=== PATIENT | male | born 1965 | race Caucasian/White ===

== ENCOUNTER 2018-08-20 14:05 | Emergency (ER) | payer SELFPAY ==
[~2018-08-20] VITALS: Ht 182.9 cm; Wt 127.0 kg
--- OUTSIDE RECORDS SUMMARY | 2018-08-20 14:08 | XMS REPORT | Clinical Summary ---
Author Author [facility] [employer] Organization [facility] [employer] Address Unknown Phone Unavailable Care Team Providers Care Seamer Operator Name Role Phone Asked, No Pcp PCP Unavailable Allergies Comments Active Allergy Reactions Severity Noted Date Pt states he swells up when he takes penicillin Penicillins High 08/16/2018 Medications End Date Status Medication Sig Dispensed Refills Start Date 09/18/2018 Active amIODarone (PACERONE) 100 Take 1 tablet 60 tablet 0 MG tablet (100 mg 9 total) by mouth every 12 (twelve) hours for 30 days. 09/19/2018 Active amLODIPine (NORVASC) 10 Take 1 tablet 30 tablet 0 mg tablet (10 mg total) 9 by mouth daily for 30 days. 09/18/2018 Active apixaban (ELIQUIS) 5 mg Take 1 tablet 60 tablet 0 tablet (5 mg total) 9 by mouth 2 (two) times a day for 30 days. 09/19/2018 Active aspirin 81 mg chewable Chew 1 tablet 30 tablet 0 tablet (81 mg total) 9 daily for 30 days. 09/19/2018 Active folic acid (FOLVITE) 1 MG Take 1 tablet 30 tablet 0 tablet (1 mg total) 9 by mouth daily for 30 days. 09/18/2018 Active hydrALAZINE (APRESOLINE) Take 1 tablet 90 tablet 0 100 MG tablet (100 mg 9 total) by mouth 3 (three) times a day for 30 days. 09/18/2018 Active metoprolol tartrate Take 1 tablet 60 tablet 0 (LOPRESSOR) 25 mg tablet (25 mg total) 9 by mouth 2 (two) times a day for 30 days. 09/19/2018 Active nicotine (NICODERM CQ) 21 Place 1 patch 30 patch 0 mg/24 hr on the skin 9 daily for 30 days. 09/19/2018 Active pantoprazole (PROTONIX) Take 1 tablet 30 tablet 0 40 MG EC tablet (40 mg total) 9 by mouth daily for 30 days. 08/24/2018 Active vancomycin (FIRVANQ) 50 Take 5 mL 100 mL 0 mg/mL recon soln oral (250 mg 9 solution total) by mouth 4 (four) times a day for 5 days. 09/19/2018 Active thiamine mononitrate, vit Take 1 tablet 30 tablet 0 B1, (B-1) 100 mg tablet (100 mg 9 total) by mouth daily for 30 days. 09/18/2018 Active furosemide (LASIX) 40 mg Take 1 tablet 60 tablet 0 tablet (40 mg total) 9 by mouth 2 (two) times a day for 30 days. Active Problems Problem Noted Date Cardiac arrest 08/08/2018 Encounters Care Team Description Date Type Specialty Justin Buchanan DO Neela, MD Lc Luke Tanseem Hamad Mohamed A, MD Bavare, MD Herrera Ellington, David Perry DO Cardiac arrest (HCC) (Primary Dx); Ventricular tachycardia (HCC) 08/08/2018 [facility] General Internal Medicine - Encounter 08/19/2018 after 08/19/2017 Social History Date Tobacco Use Types Packs/Day Years Used Current Every Day Smoker Cigarettes Tobacco Cessation: Ready to Quit: No; Counseling Given: Yes Sex Assigned at Date Recorded Not on file Industry Job Start Date Occupation Not on file Not on file Not on file Travel End Travel History Travel Start No recent travel history available. Last Filed Vital Signs Time Taken Vital Sign Reading 08/19/2018 7:39 AM CDT Blood Pressure 124/74 08/19/2018 7:39 AM CDT Pulse 94 08/19/2018 7:39 AM CDT Temperature 36.5 C (97.7 F) 08/19/2018 7:39 AM CDT Respiratory Rate 19 08/19/2018 7:39 AM CDT Oxygen Saturation 93% - Inhaled Oxygen - Concentration 08/17/2018 5:12 AM CDT Weight 96.7 kg (213 lb 1.6 oz) 08/08/2018 9:29 AM CDT Height 175.3 cm (5' 9") 08/08/2018 9:29 AM CDT Body Mass Index 31.47 Plan of Treatment Health Maintenance Due Date Last Done Comments COLONOSCOPY SCREENING 08/13/2013 SHINGLES VACCINES (#1) 08/13/2013 INFLUENZA VACCINE 09/29/2018 Procedures Comments Procedure Name Priority Date/Time Associated Diagnosis ESTIMATED GFR Routine 08/19/2018 7:16 AM CDT HC COMPLETE BLD COUNT Routine 08/19/2018 W/AUTO DIFF 7:16 AM CDT BASIC METABOLIC PANEL Routine 08/19/2018 7:16 AM CDT PROTHROMBIN TIME WITH INR Routine 08/18/2018 5:50 AM CDT ESTIMATED GFR Routine 08/18/2018 5:50 AM CDT COMPREHENSIVE METABOLIC Routine 08/18/2018 PANEL 5:50 AM CDT HC COMPLETE BLD COUNT Routine 08/18/2018 W/AUTO DIFF 5:50 AM CDT PARTIAL THROMBOPLASTIN Routine 08/18/2018 TIME (PTT) 5:50 AM CDT MRI BRAIN WO CONTRAST Routine 08/17/2018 7:38 PM CDT ESTIMATED GFR Routine 08/17/2018 4:00 AM CDT PARTIAL THROMBOPLASTIN Routine 08/17/2018 TIME (PTT) 4:00 AM CDT COMPREHENSIVE METABOLIC Routine 08/17/2018 PANEL 4:00 AM CDT HC COMPLETE BLD COUNT Routine 08/17/2018 W/AUTO DIFF 4:00 AM CDT POTASSIUM LEVEL Timed 08/16/2018 5:34 PM CDT PARTIAL THROMBOPLASTIN Routine 08/16/2018 TIME (PTT) 4:10 AM CDT ESTIMATED GFR Routine 08/16/2018 4:10 AM CDT COMPREHENSIVE METABOLIC Routine 08/16/2018 PANEL 4:10 AM CDT HC COMPLETE BLD COUNT Routine 08/16/2018 W/AUTO DIFF 4:10 AM CDT PARTIAL THROMBOPLASTIN Timed 08/15/2018 TIME (PTT) 9:15 PM CDT PARTIAL THROMBOPLASTIN Timed 08/15/2018 TIME (PTT) 1:30 PM CDT MAGNESIUM LEVEL Routine 08/15/2018 6:00 AM CDT B NATRIURETIC PEPTIDE Routine 08/15/2018 6:00 AM CDT ESTIMATED GFR Routine 08/15/2018 6:00 AM CDT PARTIAL THROMBOPLASTIN Routine 08/15/2018 TIME (PTT) 6:00 AM CDT TROPONIN Routine 08/15/2018 6:00 AM CDT COMPREHENSIVE METABOLIC Routine 08/15/2018 PANEL 6:00 AM CDT HC COMPLETE BLD COUNT Routine 08/15/2018 W/AUTO DIFF 6:00 AM CDT PARTIAL THROMBOPLASTIN Timed 2018 TIME (PTT) 1:10 PM CDT PARTIAL THROMBOPLASTIN Timed 2018 TIME (PTT) 6:05 AM CDT ESTIMATED GFR Routine 2018 6:05 AM CDT COMPREHENSIVE METABOLIC Routine 2018 PANEL 6:05 AM CDT PHOSPHORUS LEVEL Routine 2018 6:05 AM CDT MAGNESIUM LEVEL Routine 2018 6:05 AM CDT CBC WITH PLATELET AND Routine 2018 DIFFERENTIAL 6:05 AM CDT PARTIAL THROMBOPLASTIN Timed 08/13/2018 TIME (PTT) 11:24 PM CDT PARTIAL THROMBOPLASTIN Timed 08/13/2018 TIME (PTT) 11:58 AM CDT POTASSIUM LEVEL Routine 08/13/2018 10:40 AM CDT PHOSPHORUS LEVEL Timed 08/13/2018 3:30 AM CDT MAGNESIUM LEVEL Timed 08/13/2018 3:30 AM CDT CBC WITH PLATELET AND Timed 08/13/2018 DIFFERENTIAL 3:30 AM CDT ESTIMATED GFR Timed 08/13/2018 3:30 AM CDT BASIC METABOLIC PANEL Timed 08/13/2018 3:30 AM CDT PARTIAL THROMBOPLASTIN Timed 08/13/2018 TIME (PTT) 3:30 AM CDT PARTIAL THROMBOPLASTIN Timed 08/12/2018 TIME (PTT) 7:36 PM CDT PARTIAL THROMBOPLASTIN Timed 08/12/2018 TIME (PTT) 11:57 AM CDT PARTIAL THROMBOPLASTIN Timed 08/12/2018 TIME (PTT) 4:10 AM CDT ESTIMATED GFR Routine 08/12/2018 4:10 AM CDT PHOSPHORUS LEVEL Routine 08/12/2018 4:10 AM CDT MAGNESIUM LEVEL Routine 08/12/2018 4:10 AM CDT BASIC METABOLIC PANEL Routine 08/12/2018 4:10 AM CDT CBC WITH PLATELET AND Routine 08/12/2018 DIFFERENTIAL 4:10 AM CDT PARTIAL THROMBOPLASTIN Timed 08/11/2018 TIME (PTT) 8:55 PM CDT PARTIAL THROMBOPLASTIN Timed 08/11/2018 TIME (PTT) 12:21 PM CDT POC GLUCOSE Routine 08/11/2018 8:50 AM CDT XR CHEST 1 VW PORTABLE Routine 08/11/2018 6:41 AM CDT ARTERIAL BLOOD GAS Routine 08/11/2018 4:47 AM CDT POC GLUCOSE Routine 08/11/2018 4:28 AM CDT B NATRIURETIC PEPTIDE Routine 08/11/2018 4:28 AM CDT ESTIMATED GFR Routine 08/11/2018 4:28 AM CDT TROPONIN Routine 08/11/2018 4:28 AM CDT PARTIAL THROMBOPLASTIN Routine 08/11/2018 TIME (PTT) 4:28 AM CDT PHOSPHORUS LEVEL Routine 08/11/2018 4:28 AM CDT MAGNESIUM LEVEL Routine 08/11/2018 4:28 AM CDT COMPREHENSIVE METABOLIC Routine 08/11/2018 PANEL 4:28 AM CDT CBC WITH PLATELET AND Routine 08/11/2018 DIFFERENTIAL 4:28 AM CDT ARTERIAL BLOOD GAS STAT 08/11/2018 1:00 AM CDT POC GLUCOSE Routine 08/11/2018 12:00 AM CDT POC GLUCOSE Routine 08/10/2018 7:50 PM CDT POC GLUCOSE Routine 08/10/2018 5:05 PM CDT XR ABDOMEN 1 VW STAT 08/10/2018 4:49 PM CDT ECHOCARDIOGRAM 2D LIMITED Routine 08/10/2018 4:18 PM CDT POC GLUCOSE Routine 08/10/2018 4:14 PM CDT POC GLUCOSE Routine 08/10/2018 2:22 PM CDT POC GLUCOSE Routine 08/10/2018 12:46 PM CDT POC GLUCOSE Routine 08/10/2018 10:44 AM CDT POC GLUCOSE Routine 08/10/2018 8:35 AM CDT XR CHEST 1 VW PORTABLE Routine 08/10/2018 6:40 AM CDT POC GLUCOSE Routine 08/10/2018 6:02 AM CDT ESTIMATED GFR Routine 08/10/2018 4:24 AM CDT PARTIAL THROMBOPLASTIN Routine 08/10/2018 TIME (PTT) 4:24 AM CDT PHOSPHORUS LEVEL Routine 08/10/2018 4:24 AM CDT MAGNESIUM LEVEL Routine 08/10/2018 4:24 AM CDT COMPREHENSIVE METABOLIC Routine 08/10/2018 PANEL 4:24 AM CDT HC COMPLETE BLD COUNT Routine 08/10/2018 W/AUTO DIFF 4:24 AM CDT ARTERIAL BLOOD GAS Routine 08/10/2018 4:16 AM CDT POC GLUCOSE Routine 08/09/2018 9:13 PM CDT POC GLUCOSE Routine 08/09/2018 5:09 PM CDT POC GLUCOSE Routine 08/09/2018 2:04 PM CDT POC GLUCOSE Routine 08/09/2018 12:07 PM CDT LIPASE LEVEL Routine 08/09/2018 11:05 AM CDT ESTIMATED GFR Routine 08/09/2018 11:05 AM CDT ARTERIAL BLOOD GAS Routine 08/09/2018 11:05 AM CDT COMPREHENSIVE METABOLIC Routine 08/09/2018 PANEL 11:05 AM CDT IONIZED CALCIUM Routine 08/09/2018 11:05 AM CDT MAGNESIUM LEVEL Routine 08/09/2018 11:05 AM CDT PARTIAL THROMBOPLASTIN Routine 08/09/2018 TIME (PTT) 11:05 AM CDT PROTHROMBIN TIME WITH INR Routine 08/09/2018 11:05 AM CDT HC COMPLETE BLD COUNT Routine 08/09/2018 W/AUTO DIFF 11:05 AM CDT LACTIC ACID LEVEL Timed 08/09/2018 9:27 AM CDT TROPONIN Timed 08/09/2018 9:27 AM CDT ESTIMATED GFR Timed 08/09/2018 9:27 AM CDT MAGNESIUM LEVEL Timed 08/09/2018 9:27 AM CDT BASIC METABOLIC PANEL Timed 08/09/2018 9:27 AM CDT POC GLUCOSE Routine 08/09/2018 8:56 AM CDT XR CHEST 1 VW PORTABLE Routine 08/09/2018 6:49 AM CDT POC GLUCOSE Routine 08/09/2018 6:23 AM CDT CLOSTRIDIUM DIFFICILE Routine 08/09/2018 TOXIN 5:45 AM CDT IONIZED CALCIUM Routine 08/09/2018 4:35 AM CDT POC GLUCOSE Routine 08/09/2018 4:33 AM CDT ESTIMATED GFR Timed 08/09/2018 4:30 AM CDT TROPONIN Routine 08/09/2018 4:30 AM CDT ARTERIAL BLOOD GAS Timed 08/09/2018 4:30 AM CDT PROTHROMBIN TIME WITH INR Timed 08/09/2018 4:30 AM CDT PHOSPHORUS LEVEL Timed 08/09/2018 4:30 AM CDT MAGNESIUM LEVEL Timed 08/09/2018 4:30 AM CDT COMPREHENSIVE METABOLIC Timed 08/09/2018 PANEL 4:30 AM CDT HC COMPLETE BLD COUNT Timed 08/09/2018 W/AUTO DIFF 4:30 AM CDT POC GLUCOSE Routine 08/09/2018 1:08 AM CDT TROPONIN, I-STAT Timed 08/09/2018 12:40 AM CDT ESTIMATED GFR Timed 08/09/2018 12:40 AM CDT THYROID STIMULATING Routine 08/09/2018 HORMONE 12:40 AM CDT T3, FREE Routine 08/09/2018 12:40 AM CDT MAGNESIUM LEVEL Timed 08/09/2018 12:40 AM CDT LIPID PANEL Timed 08/09/2018 12:40 AM CDT HEMOGLOBIN A1C Timed 08/09/2018 12:40 AM CDT COMPREHENSIVE METABOLIC Timed 08/09/2018 PANEL 12:40 AM CDT HC COMPLETE BLD COUNT Timed 08/09/2018 W/AUTO DIFF 12:40 AM CDT B NATRIURETIC PEPTIDE Timed 08/09/2018 12:40 AM CDT PARTIAL THROMBOPLASTIN Timed 08/09/2018 TIME (PTT) 12:40 AM CDT LACTIC ACID LEVEL Timed 08/09/2018 12:40 AM CDT PHOSPHORUS LEVEL Timed 08/09/2018 12:40 AM CDT ARTERIAL BLOOD GAS Timed 08/09/2018 12:13 AM CDT POC GLUCOSE Routine 08/08/2018 11:45 PM CDT ECG 12-LEAD Routine 08/08/2018 9:47 PM CDT POC GLUCOSE Routine 08/08/2018 9:16 PM CDT IONIZED CALCIUM Routine 08/08/2018 9:15 PM CDT ESTIMATED GFR Timed 08/08/2018 9:15 PM CDT TROPONIN Timed 08/08/2018 9:15 PM CDT ARTERIAL BLOOD GAS Timed 08/08/2018 9:15 PM CDT LACTIC ACID LEVEL Timed 08/08/2018 9:15 PM CDT PHOSPHORUS LEVEL Timed 08/08/2018 9:15 PM CDT MAGNESIUM LEVEL Timed 08/08/2018 9:15 PM CDT BASIC METABOLIC PANEL Timed 08/08/2018 9:15 PM CDT POC GLUCOSE Routine 08/08/2018 6:19 PM CDT PARTIAL THROMBOPLASTIN Timed 08/08/2018 TIME (PTT) 5:57 PM CDT POC GLUCOSE Routine 08/08/2018 5:18 PM CDT ARTERIAL BLOOD GAS Timed 08/08/2018 4:18 PM CDT THYROID STIMULATING Routine 08/08/2018 HORMONE 4:18 PM CDT VITAMIN B12 LEVEL Routine 08/08/2018 4:18 PM CDT CREATINE KINASE, TOTAL Routine 08/08/2018 (CPK) 4:18 PM CDT LACTIC ACID LEVEL, SEPSIS Timed 08/08/2018 - NOW AND REPEAT 2X EVERY 4:18 PM CDT 3 HOURS BLOOD CULTURE, AEROBIC & Routine 08/08/2018 ANAEROBIC 4:18 PM CDT AL INSERT Routine 08/08/2018 Cardiac arrest (HCC) CATH,ART,PERCUT,SHORTTERM 4:00 PM CDT POC GLUCOSE Routine 08/08/2018 3:51 PM CDT OCCULT BLOOD, STOOL Routine 08/08/2018 2:05 PM CDT ARTERIAL BLOOD GAS Timed 08/08/2018 1:39 PM CDT POC GLUCOSE Routine 08/08/2018 12:57 PM CDT ESTIMATED GFR Timed 08/08/2018 12:57 PM CDT TROPONIN Timed 08/08/2018 12:57 PM CDT MAGNESIUM LEVEL Timed 08/08/2018 12:57 PM CDT BASIC METABOLIC PANEL Timed 08/08/2018 12:57 PM CDT LACTIC ACID LEVEL, SEPSIS Timed 08/08/2018 - NOW AND REPEAT 2X EVERY 12:57 PM CDT 3 HOURS ANTI XA, UNFRACTIONATED STAT 08/08/2018 12:57 PM CDT BLOOD CULTURE, AEROBIC & Routine 08/08/2018 ANAEROBIC 12:57 PM CDT ECHOCARDIOGRAM 2D Routine 08/08/2018 COMPLETE W MMODE SPECTRAL 12:50 PM CDT COLOR DOPPLER (96277) BLOOD CULTURE, AEROBIC & Routine 08/08/2018 ANAEROBIC 12:48 PM CDT GRAM STAIN Routine 08/08/2018 12:32 PM CDT SPUTUM CULTURE Routine 08/08/2018 12:32 PM CDT URINE CULTURE Routine 08/08/2018 12:30 PM CDT GRAM STAIN Routine 08/08/2018 12:30 PM CDT XR CHEST 1 VW PORTABLE Routine 08/08/2018 12:11 PM CDT URINE DRUGS OF ABUSE STAT 08/08/2018 SCREEN 11:50 AM CDT URINALYSIS SCREEN AND Routine 08/08/2018 MICROSCOPY, WITH REFLEX 11:50 AM CDT TO CULTURE CT HEAD WO CONTRAST STAT 08/08/2018 11:00 AM CDT ECG ED PRELIMINARY Routine 08/08/2018 INTERPRETATION 10:07 AM CDT AL CRITICAL CARE, E/M Routine 08/08/2018 30-74 MINUTES 10:07 AM CDT AL INSERT NON-TUNNEL CV Routine 08/08/2018 CATH 10:07 AM CDT XR CHEST 1 VW PORTABLE STAT 08/08/2018 9:47 AM CDT ANTI XA, UNFRACTIONATED STAT 08/08/2018 9:21 AM CDT ESTIMATED GFR STAT 08/08/2018 9:21 AM CDT ALCOHOL LEVEL, BLOOD STAT 08/08/2018 9:21 AM CDT TROPONIN STAT 08/08/2018 9:21 AM CDT LACTIC ACID LEVEL, SEPSIS STAT 08/08/2018 - NOW AND REPEAT 2X EVERY 9:21 AM CDT 3 HOURS MAGNESIUM LEVEL STAT 08/08/2018 9:21 AM CDT PHOSPHORUS LEVEL STAT 08/08/2018 9:21 AM CDT COMPREHENSIVE METABOLIC STAT 08/08/2018 PANEL 9:21 AM CDT PARTIAL THROMBOPLASTIN STAT 08/08/2018 TIME (PTT) 9:21 AM CDT PROTHROMBIN TIME WITH INR STAT 08/08/2018 9:21 AM CDT HC COMPLETE BLD COUNT STAT 08/08/2018 W/AUTO DIFF 9:21 AM CDT THYROID STIMULATING Routine 08/08/2018 HORMONE 9:21 AM CDT ECG 12-LEAD STAT 08/08/2018 9:20 AM CDT ARTERIAL BLOOD GAS STAT 08/08/2018 9:18 AM CDT POC GLUCOSE Routine 08/08/2018 9:11 AM CDT after 08/19/2017 Results * Estimated GFR (08/19/2018 7:16 AM CDT) Only the most recent of 17 results within the time period is included. [facility] Estimated GFR 48 (A) mL/min/1.73 m2 [place] Comment: [facility] G1 >=90 Normal or high G2 60-89Mildly decreased [id number] Mildly to moderately decreased [id number] Moderately to severely decreased G4 15-29Severely decreased G5 <15Kidney failure The eGFR was calculated using the Chronic Kidney Disease Epidemiology Collaboration (CKD-EPI) equation. Interpretation is based on recommendations of the National Kidney Foundation-Kidney Disease Outcomes Quality Initiative (NKF-KDOQI) published in 2014. Specimen Plasma specimen Performing Organization Address City/State/Zipcode Phone Number [facility] DEPARTMENT OF [address] [facility] [place] [address] PATHOLOGY AND GENOMIC MEDICINE [facility] [address] [address] * CBC with platelet and differential (08/19/2018 7:16 AM CDT) Only the most recent of 14 results within the time period is included. [facility] WBC 12.9 (H) 4.2 - 11.0 k/uL [facility] RBC 5.37 4.04 - 5.86 m/uL [facility] HGB 14.8 13.0 - 17.3 g/dL [facility] HCT 46.9 (H) 34.0 - 45.0 % [facility] MCV 87.3 80.0 - 98.0 fL [facility] MCH 27.6 27.0 - 34.0 pg [facility] MCHC 31.6 31.5 - 36.5 g/dL [facility] RDW - SD 49.4 37.0 - 51.0 fL [facility] MPV 12.1 (H) 7.4 - 10.4 fL [facility] Platelet count 331 150 - 400 k/uL [facility] Nucleated RBC 0.00 /100 WBC [facility] Neutrophils 68.8 (H) 36.0 - 66.0 % [facility] Lymphocytes 17.0 (L) 24.0 - 44.0 % [facility] Monocytes 7.8 (H) 0.0 - 6.0 % [facility] Eosinophils 5.3 0.0 - 6.0 % [facility] Basophils 0.6 0.0 - 1.2 % [facility] Immature 0.5 0.0 - 1.0 % [place] granulocytes [facility] Specimen Blood Performing Organization Address City/State/Zipcode Phone Number [facility] DEPARTMENT OF [address] [place] [address] PATHOLOGY AND GENOMIC MEDICINE [address] * Basic metabolic panel (08/19/2018 7:16 AM CDT) Only the most recent of 6 results within the time period is included. Sodium 138 135 - 150 mEq/L [facility] Potassium 3.8 3.5 - 5.0 mEq/L [facility] Chloride 96 (L) 98 - 112 mEq/L [facility] CO2 29 24 - 31 mmol/L [facility] Anion gap 13@ANIO 7 - 15 mEq/L [facility] BUN 24 (H) 7 - 18 mg/dL [facility] Creatinine 1.60 (H) 0.70 - 1.20 mg/dL [facility] Glucose 119 (H) 65 - 100 mg/dL [facility] Calcium 10.2 8.3 - 10.2 mg/dL [facility] Specimen Plasma specimen Performing Organization Address City/[facility]/Zipcode Phone Number [facility] DEPARTMENT OF [address] AND [facility] [address] [place] [address] * Partial thromboplastin time, activated (08/18/2018 5:50 AM CDT) Only the most recent of 22 results within the time period is included. Pathologist [facility] PTT 34.4 23.0 - 36.0 sec [place] Comment: [facility] PTT therapeutic range for [place] unfractionated heparin is HOSPITAL 61.0-112.0 seconds which corresponds to Anti-Xa 0.3-0.7 U/ml. Note:Change in Panic Value The PTT Panic Value is changing from 110 sec. to 100 sec. due to new instrumentation and reagents. Correlation studies have been performed to validate this result. Specimen Blood Performing Organization Address [facility] Phone Number [facility] DEPARTMENT OF [address] * Prothrombin time with INR (08/18/2018 5:50 AM CDT) Only the most recent of 4 results within the time period is included. Pathologist [facility] Prothrombin 12.2 11.5 - 14.5 sec [place] time [facility] INR 0.93 [place] Comment: [facility] For patients on anticoagulant [place] therapy, reference ranges [facility]OSPITAL below: Indication: INR Value Treatment of Venous Thrombosis, 2.0-3.0 pulmonary emboli, or prophylaxis of a venous thrombosis, or systemic emboli. High dose, high risk patients 3.0-4.5 with mechanical valves. NOTE:INR values over 3.0 are sometimes associated with gastrointestinal hemorrhage, especially values over 4.0. Specimen Blood Performing Organization Address City/[facility]/Zipcode Phone Number [facility] DEPARTMENT OF [address] * Comprehensive metabolic panel (08/18/2018 5:50 AM CDT) Only the most recent of 11 results within the time period is included. Sodium 136 135 - 150 mEq/L [facility] Potassium 3.7 3.5 - 5.0 mEq/L [facility] Chloride 96 (L) 98 - 112 mEq/L [facility] CO2 29 24 - 31 mmol/L [facility] Anion gap 11@ANIO 7 - 15 mEq/L [facility] BUN 26 (H) 7 - 18 mg/dL [facility] Creatinine 1.40 (H) 0.70 - 1.20 mg/dL [facility] Glucose 100 65 - 100 mg/dL [facility] Calcium 9.5 8.3 - 10.2 mg/dL [facility] Protein 7.1 6.3 - 8.3 g/dL [facility] Albumin 3.6 3.5 - 5.0 g/dL [facility] A/G ratio 1.0 0.7 - 3.8 [facility] Alkaline 157 (H) 0 - 129 U/L [place] phosphatase [facility] AST 96 (H) 10 - 50 U/L [facility] ALT 227 (H) 5 - 50 U/L [facility] Total bilirubin 0.3 0.2 - 1.2 mg/dL [facility] Specimen Plasma specimen Performing Organization Address City/State/Zipcode Phone Number [facility] DEPARTMENT OF [address] [place] [address] PATHOLOGY AND GENOMIC MEDICINE [facility] [address] [facility] [place] [address] HOSPITAL * MRI Brain Wo Contrast (08/17/2018 7:38 PM CDT) Specimen Narrative Performed At [facility] EXAMINATION: MRI BRAIN WO CONTRAST CLINICAL HISTORY: s p cardia arrest COMPARISON:CT brain dated August 08, 2018 TECHNIQUE: Multiplanar and multisequence MRI imaging of the brain was obtained without contrast. FINDINGS: Axial diffusion weighted images of the brain shows no diffusion restriction to suggest acute ischemia. T1 images shows no intracranial mass or mass effect. Gradient images shows no abnormal hemosiderin deposition abnormality. There is no evidence of acute hemorrhage. FLAIR imaging shows no significant FLAIR signal changes to suggest prior ischemic or inflammatory insult. T2 imaging shows no acute hydrocephalus or extra-axial fluid collection identified. The major flow voids in the skull base are identified.There is some disease in the right ethmoid air cells as well as inferior extension of the right-sided cribriform plate which is poorly delineated due to motion on this exam. There is no midline mass lesions on sagittal imaging. Coronal imaging shows no midline shift. IMPRESSION: No acute intracranial abnormality identified with no evidence of ischemia. [id number] Procedure Note Interface, Radiology Results Incoming - 08/17/2018 8:47 PM CDT EXAMINATION: MRI BRAIN WO CONTRAST CLINICAL HISTORY: s p cardia arrest COMPARISON: CT brain dated August 08, 2018 TECHNIQUE: Multiplanar and multisequence MRI imaging of the brain was obtained without contrast. FINDINGS: Axial diffusion weighted images of the brain shows no diffusion restriction to suggest acute ischemia. T1 images shows no intracranial mass or mass effect. Gradient images shows no abnormal hemosiderin deposition abnormality. There is no evidence of acute hemorrhage. FLAIR imaging shows no significant FLAIR signal changes to suggest prior ischemic or inflammatory insult. T2 imaging shows no acute hydrocephalus or extra-axial fluid collection identified. The major flow voids in the skull base are identified. There is some disease in the right ethmoid air cells as well as inferior extension of the right-sided cribriform plate which is poorly delineated due to motion on this exam. There is no midline mass lesions on sagittal imaging. Coronal imaging shows no midline shift. IMPRESSION: No acute intracranial abnormality identified with no evidence of ischemia. [id number] Performing Organization Address City/State/Zipcode Phone Number [facility] [address] [place] [address] * Potassium level (08/16/2018 5:34 PM CDT) Only the most recent of 2 results within the time period is included. Potassium 4.1 3.5 - 5.0 mEq/L [facility] Specimen Plasma specimen Performing Organization Address City/State/Zipcode Phone Number [facility] DEPARTMENT OF [address] [place] [id number] PATHOLOGY AND GENOMIC MEDICINE [facility] [address] * Troponin (08/15/2018 6:00 AM CDT) Only the most recent of 7 results within the time period is included. Troponin <0.006 0.000 - 0.040 ng/mL [place] Comment: [facility] changed methodology effective: HOSPITAL 07/05/2018 at 10:00 am The new method has a 99th percentile cutoff of 0.040 ng/mL Specimen Plasma specimen Performing Organization Address [facility] Phone Number [facility] [place] [address] [place] [address] PATHOLOGY AND [facility] [address] * B natriuretic peptide (08/15/2018 6:00 AM CDT) Only the most recent of 3 results within the time period is included. BNP 30 0 - 100 pg/mL [facility] Specimen Performing Organization Address [facility] [place] Phone Number [facility] DEPARTMENT OF [address] [place] [address] PATHOLOGY AND GENOMIC MEDICINE [address] * Magnesium level (08/15/2018 6:00 AM CDT) Only the most recent of 13 results within the time period is included. Magnesium 2.00 1.60 - 2.60 mg/dL [facility] Specimen Plasma specimen Performing Organization Address City/[facility]/[place] [facility] [place] Phone Number [facility] DEPARTMENT OF [address] [place] [address] PATHOLOGY AND GENOMIC MEDICINE [facility] [address] * Phosphorus level (2018 6:05 AM CDT) Only the most recent of 9 results within the time period is included. Phosphorus 3.7 2.4 - 4.5 mg/dL [facility] Specimen Plasma specimen Performing Organization Address City/[facility] Phone Number [facility] DEPARTMENT OF [address] [place] [address] PATHOLOGY AND GENOMIC MEDICINE [facility] [address] [place] [address] HOSPITAL * POC glucose (08/11/2018 8:50 AM CDT) Only the most recent of 26 results within the time period is included. POC glucose 78 65 - 100 mg/dL [place] Comment: [place] Meter ID: [id number] [place] [employer] Inspector: [facility] Specimen Performing Organization Address City/State/Zipcode Phone Number [facility] DEPARTMENT OF [address] [place] [address] PATHOLOGY AND GENOMIC MEDICINE [facility] [address] * XR Chest 1 Vw Portable (08/11/2018 6:41 AM CDT) Only the most recent of 5 results within the time period is included. Specimen Narrative Performed At EXAMINATION:XR CHEST 1 VW PORTABLE [facility] CLINICAL HISTORY:ICU ptstable with no clinical status changes COMPARISON:Most Recent Prior at [facility] IMPRESSION: 1.Support catheters / lines are unchanged. 2.Low lung volumes, mild vascular crowding and bibasilar atelectasis. No pneumothorax or effusion 3.Unchanged bones, right rib fractures and cardiomediastinal silhouette. [id number] Procedure Note Interface, Radiology Results Incoming - 08/11/2018 7:25 AM CDT EXAMINATION: XR CHEST 1 VW PORTABLE CLINICAL HISTORY: ICU pt stable with no clinical status changes COMPARISON: Most Recent Prior at [facility] IMPRESSION: 1. Support catheters / lines are unchanged. 2. Low lung volumes, mild vascular crowding and bibasilar atelectasis. No pneumothorax or effusion 3. Unchanged bones, right rib fractures and cardiomediastinal silhouette. [id number] Performing Organization Address City/State/Zipcode Phone Number [facility] [address] [place] [address] * Arterial blood gas (08/11/2018 4:47 AM CDT) Only the most recent of 10 results within the time period is included. [employer] Inspector matt [facility] Collection site rra [facility] O2 therapy vent [facility] Respiratory 22 bpm [place] rate [facility] Tidal volume 450.0 mL [facility] .PEEP 5 cmH2O [facility] pH, arterial 7.445 7.350 - 7.450 units [facility] pCO2, arterial 31.8 (L) 35.0 - 45.0 mmHg [facility] pO2, arterial 117.0 (H) 80.0 - 90.0 mmHg [facility] O2 saturation, 98.5 95.0 - 100.0 % [place] arterial [facility] Base excess, -2.2 mEq/L [place] arterial [facility] Bicarbonate 21.9 21.0 - 28.0 mEq/L [facility] O2 content 15.6 VOL% [facility] FiO2, inspired 35.0 % [place] O2% [facility] Carboxyhemoglob 0.3 0.0 - 1.4 % [place] in Comment: [place] Reference Ranges: [place] Carboxyhemoglobin [facility] Non smoker: 0.0 - 2.0% Smoker: 2.1 - 5.0% Heavy smoker: 5.1 - 9% Methemoglobin 2.0 (H) 0.0 - 1.0 % [facility] Hemoglobin, 11.4 (L) 14.0 - 18.0 g/dL [place] blood gas [facility] pO2, A-a 97.6 mmHg [facility] Specimen Blood Performing Organization Address City/State/Zipcode Phone Number [facility] DEPARTMENT OF [address] [id number] PATHOLOGY AND GENOMIC MEDICINE [facility] [address] [place] [address] HOSPITAL * XR Abdomen 1 Vw (08/10/2018 4:49 PM CDT) Specimen Narrative Performed At EXAMINATION:XR ABDOMEN 1 VW [facility] CLINICAL HISTORY:Abd massnonpulsatilepalpable, NGT placement COMPARISON:None. FINDINGS: Nasogastric tube extends into the body the stomach. There is gas in the colon. No dilated loops of small bowel are seen. There is no free air. There are degenerative changes in the spine. IMPRESSION: Nasogastric tube in the stomach. If further evaluation of the palpable abdominal mass mentioned in history is warranted, CT scan would be suggested. [facility]-[id number] Procedure Note Hm Interface, Radiology Results Incoming - 08/10/2018 5:03 PM CDT EXAMINATION: XR ABDOMEN 1 VW CLINICAL HISTORY: Abd mass nonpulsatile palpable, NGT placement COMPARISON: None. FINDINGS: Nasogastric tube extends into the body the stomach. There is gas in the colon. No dilated loops of small bowel are seen. There is no free air. There are degenerative changes in the spine. IMPRESSION: Nasogastric tube in the stomach. If further evaluation of the palpable abdominal mass mentioned in history is warranted, CT scan would be suggested. [facility]-[id number] Performing Organization Address [place] [facility] Phone Number [facility] [address] [place] [address] * Cv echo 2d limited or follow up study (08/10/2018 4:18 PM CDT) BSA Hall 1.95 m2 [facility] BSA 1.93 m2 [facility] BMI 25.10 kg/m2 [facility] BSA Haycock 1.95 m2 [facility] Pt Size 175.26 [facility] Pt Wt 77.11 [facility] MAX Pred HR 165.01 [facility] 85 of MPHR 140.26 [facility] Calc MPHR 165.01 bpm [facility] Pred Exer Dur 9.48 [facility] R1 Pred METS R1 9.75 [facility] Specimen Narrative Performed At [facility] There is moderate left ventricular concentric hypertrophy. Left Ventricular ejection fraction is 55 - 60%. Spectral Doppler shows impaired relaxation pattern of left ventricular diastolic filling. Left atrium size is mildly dilated. Performing Organization Address [place] [facility] Phone Number [facility] [address] [place] [address] * Lipase level (08/09/2018 11:05 AM CDT) Lipase 8 (L) 13 - 60 U/L [facility] Specimen Plasma specimen Performing Organization Address City/[facility]/Zipcode Phone Number [facility] DE[facility]MENT OF [address] [place] [address] PATHOLOGY AND GENOMIC MEDICINE [place] [address] [address] * Ionized calcium (08/09/2018 11:05 AM CDT) Only the most recent of 3 results within the time period is included. pH 7.30 [facility] Ionized calcium 1.07 (L) 1.11 - 1.32 mmol/L [facility] Specimen Plasma specimen Performing Organization Address [place] [facility] [place] [address] PATHOLOGY AND GENOMIC MEDICINE [address] * Lactic acid level (08/09/2018 9:27 AM CDT) Only the most recent of 3 results within the time period is included. Pathologist [facility] Lactic acid 1.2 0.5 - 2.2 mmol/L [facility] Specimen Plasma specimen Performing Organization Address [place] [facility]/[place] [facility] [place] [address] PATHOLOGY AND GENOMIC MEDICINE [address] * C difficile toxin (08/09/2018 5:45 AM CDT) Pathologist [facility] Clostridium Positive for C. difficile [place] difficile toxin toxin [facility] (A) Comment: Specimen Information Specimen Source: Stool Specimen Site: Nonpreserved Specimen Stool - Nonpreserved Performing Organization Address [place] [facility]/[place] [facility] [place] Phone Number [facility] DEPARTMENT OF [address] [place] [address] PATHOLOGY AND GENOMIC MEDICINE [address] * Troponin, I-Stat (08/09/2018 12:40 AM CDT) Pathologist [facility] Troponin, 0.32 (H) 0.00 - 0.08 ng/mL [place] I-Stat Comment: [facility] 0.09 - 1.49 [place] [facility] indicate increased risk of acute coronary syndrome. >=1.5 ng/ml Consistent with acute myocardial infarction. The diagnostic value of a single normal or non-diagnostic result is questionable.Serial samples at 2-6 hour intervals are required to rule out acute myocardial injury. Specimen Plasma specimen Performing Organization Address City/State/Zipcode Phone Number [facility] DEPARTMENT OF [address] [phone] PATHOLOGY AND [facility] MEDICINE [facility] [address] [place] [address] * T3, free (08/09/2018 12:40 AM CDT) Pathologist [facility] T3, free 2.32 2.18 - 3.98 pmol/L [facility] Specimen Plasma specimen Performing Organization Address City/[facility] Phone Number [facility] DEPARTMENT [address] [place] [address] PATHOLOGY AND GENOMIC MEDICINE [address] * Thyroid stimulating hormone (08/09/2018 12:40 AM CDT) Only the most recent of 3 results within the time period is included. Pathologist [facility] TSH 0.72 0.27 - 4.20 uIU/mL [facility] Specimen Plasma specimen Performing Organization Address City/[facility] Phone Number [facility] DEPARTMENT [address] [place] [address] PATHOLOGY AND GENOMIC MEDICINE [address] * Hemoglobin A1c (08/09/2018 12:40 AM CDT) Pathologist [facility] Hemoglobin A1C 5.4 4.0 - 5.6 % [place] Comment: [place] HbA1c cutoffs for diagnosing [place] diabetes: HOSPITAL 4.0% - 5.6%=normal 5.7% - 6.4%=increased risk for diabetes (prediabetes) >=6.5%=diabetes Goals for glycemic control (ADA 2016) < 7.0%Target for non adults with diabetes. More or less stringent targets may be appropriate for individual patients. <7.5% Target for Children and adolescents with type 1 diabetes. Specimen Blood Performing Organization Address City/[facility]/Zipcode Phone Number [facility] DEPARTMENT OF [address] [phone] PATHOLOGY AND GENOMIC MEDICINE [address] [place] [address], [place] [id number] [place] [address] * Lipid panel (08/09/2018 12:40 AM CDT) Cholesterol 146 0 - 199 mg/dL [facility] Triglycerides 62 0 - 149 mg/dL [facility] HDL cholesterol 41 40 - 9,999 mg/dL [facility] LDL cholesterol 111 (H)Comment: Result 0 - 99 mg/dL [place] obtained by direct LDL [place] measurement [facility] Lipid panel See below [place] interpretation Comment: [place] Total Cholesterol [place] (mg/dL) [facility] LDL Cholesterol (mg/dL) <200 Desirable <100 Optimal 200-239Borderline -[id number] 29Near or above optimal >=240High 130-159Borderline- high 160-189High >=190Very high HDL Cholesterol (mg/dL) Triglycerides (mg/dL) <40Low <150 Normal >=60 High 150-199Borderline- high 200-499High >=500Very high Risk Catergories that modify LDL goals. Risk Catergories LDL goal (mg/dL) CHD and CHD risk equivalent <100 (10-year risk >20%) Multiple (2+) risk factors <130 (10-year risk=<20%) 0-1 risk factors <160 (<10-year risk) Defining levels of lipids in metabolic syndrome Triglycerides >=150 mg/dL HDL Cholesterol Men <40 mg/dL Women <50 mg/dL Non-HDL cholesterol is a second target for therapy in persons with high triglycerides (>=200 mg/dL) Specimen Plasma specimen Performing Organization Address City/State/Zipcoct Phone Number [facility] DEPARTMENT OF [address] [place] [address] PATHOLOGY AND GENOMIC MEDICINE [facility] [address] * ECG 12 lead (08/08/2018 9:47 PM CDT) Only the most recent of 2 results within the time period is included. Ventricular 64 [facility] rate Atrial rate 64 [facility] AL interval 164 [facility] QRSD interval 96 [facility] QT interval 520 [facility] QTC interval 536 [facility] P axis 1 50 [facility] QRS axis 1 22 [facility] T wave axis 58 [facility] MUSE EKG impression Normal sinus rhythm-Prolonged [facility] MUSE QT-Abnormal ECG-In automated comparison with ECG of 08-AUG-2018 09:20,-Vent. rate has decreased BY31 BPM-Incomplete left bundle branch block is no longer present- Specimen Narrative Performed At Performing Organization Address City/[facility]/Zipcode Phone Number [facility] [place] [address] [place] [address] * Lactic acid level, SEPSIS - Now and repeat 2x every 3 hours (08/08/2018 4:18 PM CDT) Only the most recent of 3 results within the time period is included. [facility] Lactic acid 2.3 (H) 0.5 - 2.2 mmol/L [place] Comment: [place] la result called to and read [place] back by [facility] jesusita08/08/201818:34 and doughnut batter mixer no answer nurse daniellewimargaret call Specimen Blood Performing Organization Address City/[facility] Phone Number [facility] DEPARTMENT OF [address] [place] [address] PATHOLOGY AND GENOMIC MEDICINE [place] [address] [address] * Blood culture, aerobic & anaerobic (08/08/2018 4:18 PM CDT) Only the most recent of 3 results within the time period is included. [facility] Blood culture No growth after 5 days of [place] isolate incubation. [facility] Comment: HOSPITAL Specimen Information Specimen Source: Blood Specimen Site: Unspecified Specimen Blood Performing Organization Address City/State/Zipcode Phone Number [facility] DEPARTMENT OF [address] [place] [address] PATHOLOGY AND GENOMIC MEDICINE [place] [address] [place] [address] HOSPITAL * Vitamin B12 level (08/08/2018 4:18 PM CDT) [facility] Vitamin B12 985 (H) 231 - 931 pg/mL [place] Comment: [place] Significant overlap exists [place] between normal and deficiency HOSPITAL states. However, most patients with deficiencies will have Serum B12 <200 pg/mL. Specimen Serum Performing Organization Address City/[facility]/Zipcode Phone Number [facility] DEPARTMENT OF [address] [place] [address] PATHOLOGY AND [facility] MEDIC[facility] [address] * Creatine kinase, total (CPK) (08/08/2018 4:18 PM CDT) [facility] Creatine kinase 264 39 - 308 U/L [facility] Specimen Plasma specimen Performing Organization Address City/[facility]/Zipcode Phone Number [facility] DEPARTMENT [address] [place] [address] PATHOLOGY AND GENOMIC MEDICINE [facility] [address] * Arterial Line Insertion (08/08/2018 4:00 PM CDT) Narrative Performed At Ananth Collier NP 08/08/20184:01 PM Arterial Line Insertion Date/Time: 08/08/2018 4:00 PM Performed by: Ananth Collier NP Authorized by: Ananth Collier NP Consent: Consent obtained:Emergent situation Risks discussed:Bleeding, ischemia and repeat procedure Indications: Indications: hemodynamic monitoring Pre-procedure details: Skin preparation:2% Chlorhexidine Sedation: Sedation type:Deep Anesthesia (see MAR for exact dosages): Anesthesia method:Local infiltration Local anesthetic:Lidocaine 1% w/o epi Procedure details: Location:L radial Post-procedure details: Post-procedure:Sutured and sterile dressing applied CMS:Normal and unchanged Patient tolerance of procedure:Tolerated well, no immediate complications * Occult blood, stool (08/08/2018 2:05 PM CDT) [facility] Occult blood, Positive for Occult blood (A) [place] stool Comment: [facility] Specimen Information [place] Specimen Source: Stool HOSPITAL Specimen Site: Nonpreserved Specimen Stool - Nonpreserved Performing Organization Address City/State/Zipcode Phone Number [facility] [address] [place] [address] PATHOLOGY AND GENOMIC MEDICINE [facility] [address] * Anti Xa, unfractionated (08/08/2018 12:57 PM CDT) Only the most recent of 2 results within the time period is included. Anti Xa, <0.10 (L)Comment: Therapeutic 0.30 - 0.70 U/mL [place] unfractionated Range: 0.30 - 0.70 U/mL [facility] Specimen Blood Performing Organization Address City/State/Zipcode Phone Number [facility] DEPARTMENT OF [address] [place] [address] PATHOLOGY AND GENOMIC MEDICINE [facility] [address] * Echocardiogram complete w contrast and 3D if needed (08/08/2018 12:50 PM CDT) [facility] Velocity Ratio 0.76 m/s [facility] (V1/V2) IVS,d 1.42 cm HM [facility] EF 30.27 % [facility] LVPWD,d 1.26 cm [facility] AoV Mean PG 3.83 mmHg HM [facility] AV LVOT peak 3.59 mmHg HM [facility] gradient MV mean 4.03 mmHg HM [facility] gradient MV valve area p 8.75 cm2 HM [facility] 1/2 method PV Pk Grad 3.20 mmHg HM [facility] E wave 86.64 msec [facility] decelartion time LVOT Diam,S 2.18 cm HM [facility] LVOT area 3.73 cm2 [facility] LVOT Vmax 0.95 m/s [facility] LVOT VTI 0.12 m HM [facility] AoV Peak PG 6.29 mmHg [facility] MV Peak E Jean 1.12 m/s [facility] MV stenosis 25.13 ms [facility] pressure 1/2 time BSA 2.07 m2 HM [facility] Ao Root 3.90 cm [facility] Diameter AoV Area, Vmax 2.82 cm2 [facility] AoV Area, VTI 2.77 cm2 [facility] AoV Vmax 1.25 m/s [facility] BSA Hall 2.13 m2 [facility] BSA Haycock 2.12 m2 [facility] IVS/LVPW,2D 1.13 HM [facility] Left Atrium 3.08 cm HM [facility] Dimension Anterior LV,d 4.69 cm HM [facility] LV,s 4.02 cm HM [facility] PV VMAX 0.89 m/s [facility] BMI 29.53 kg/m2 [facility] AoV area i VTI 1.34 cm2/m2 [facility] BSA [place] MR peak grad 8.10 mmHg HM [facility] Ao Root 3.90 cm HM [facility] Diameter LV SYS VOL 71.01 ml [facility] LV HAIRSTON VOL 101.84 ml HM [facility] LA area s A4C 17.82 cm2 [facility] LA Vol MOD A4C 50.56 ml HM [facility] LV SI Teich 2D 14.92 ml/m2 [facility] LV SV Teich 2D 30.83 ml HM [facility] LV Vol s Teich 71.01 ml [facility] PSAX LVOT CI 2.67 l/min/m2 [facility] LVOT CO 5.51 l/min [facility] LVOT HR for 124.38 bpm HM [facility] LVOT CO LVOT SI 21.46 ml/m2 [facility] MV Vmax 1.42 m [facility] MV VTI Tips 0.11 m [facility] AoV Vmn 0.95 [facility] IVS s 2D 1.59 [facility] LV FS Cube 2D 14.19 [facility] LV FS Teich 2D 14.19 [facility] AoV VTI 0.16 m [facility] LV EF,2D 36.82 % [facility] LVOT Vmn 0.73 [facility] Pt Size 175.26 [facility] Pt Wt 90.72 [facility] Aov area Vmn 2.87 cm2 [facility] LVOT mean grad 2.25 mmHg [facility] MAX Pred HR 165.02 HM [facility] 85 of MPHR 140.26 [facility] AoV area I VMN 1.39 cm2/m2 [facility] bsa Calc MPHR 165.02 bpm [facility] IVS pct thck 12.07 % [facility] PLAX LV SI Cube 2D 18.38 ml/m2 [facility] LV SV Cube 2D 37.97 ml [facility] LV vol d cube 103.15 ml HM [facility] 2D LV vol s cube 65.17 ml HM [facility] 2D LVPW pct thck 25.67 % [facility] PLAX LVPW s PLAX 1.58 cm HM [facility] MV Decel slope 12.92 m/s2 [facility] Pred Exer Dur 9.48 [facility] R1 Pred METS R1 9.75 [facility] Specimen Narrative Performed At HM [facility] There is moderate left ventricular concentric hypertrophy. Left Ventricular ejection fraction is 40 - 45%. Left atrium size is mildly dilated. Performing Organization Address City/[facility]/[place] [address] * Sputum culture (08/08/2018 12:32 PM CDT) Sputum culture Normal oral jose isolated. [place] isolate Comment: [facility] Specimen Source: Sputum Specimen Site: Expectorated Specimen Sputum - Expectorated Performing Organization Address City/[facility] Phone Number [facility] [address] PATHOLOGY AND [facility]IC[facility] [address] * Gram stain (08/08/2018 12:32 PM CDT) Only the most recent of 2 results within the time period is included. Gram stain Rare epithelial cells [place] isolate Rare Gram positive cocci in [facility] Comment: Specimen Information Specimen Source: Sputum Specimen Site: Expectorated Specimen Sputum - Expectorated Performing Organization Address [facility]/[place] [facility] [place] Phone Number [facility] [place] [address] PATHOLOGY [address] * Urine culture (08/08/2018 12:30 PM CDT) Urine culture Mixed jose <=10-3 col/cc [place] isolate Comment: [facility] Specimen Source: Urine Specimen Site: Specimen Urine - Performing Organization Address [place] [facility]/[place] [facility] [place] Phone Number [facility] [place] [address] PATHOLOGY AND [facility] [address] * Urinalysis screen and microscopy, with reflex to culture (08/08/2018 11:50 AM CDT) Specimen site [facility] Color, UA Yellow [facility] Appearance, UA Cloudy [facility] Specific 1.010 1.001 - 1.035 [place] gravity, UA [facility] pH, UA 7.0 5.0 - 8.5 [facility] Protein, UA 3+ (A) Negative [facility] Glucose, UA 3+ (A) Negative [facility] Ketones, UA Negative Negative [facility] Bilirubin, UA Negative Negative [facility] Blood, UA Moderate (A) Negative [facility] Nitrite, UA Negative Negative [facility] Urobilinogen, Negative <2.0 [place] UA [facility] Leukocyte Negative Negative [place] esterase, UA [facility] Epithelial Many /HPF [place] cells, UA [facility] WBC, UA 18 (H) 0 - 1 /HPF [facility] RBC, UA 62 (H) 0 - 5 /HPF [facility] Bacteria, UA Trace None seen [facility] Yeast, UA None seen [facility] Yeast with None seen [place] pseudohyphae, [facility] Specimen Urine Performing Organization Address City/State/Zipcode Phone Number [facility] DEPARTMENT OF [address] [place] [address] PATHOLOGY AND GENOMIC MEDICINE [address] * Urine drugs of abuse screen (08/08/2018 11:50 AM CDT) Amphetamine Negative [place] screen, urine [facility] Barbiturate Negative [place] screen, urine [facility] Benzodiazepine Negative [place] screen, urine [facility] Cocaine screen, Positive (A) [place] urine [facility] Methadone Negative [place] metabolite [place] (EDDP), urine [facility] Opiates screen, Negative [place] urine [facility] Phencyclidine Negative [place] screen, urine [facility] Cannabinoid Negative [place] screen, urine Comment: [facility] Drug screen minimum [place] concentration of detectability HOSPITAL Amphetamines 1000 ng/mL Barbiturates 200 ng/mL Benzodiazepines 300 ng/mL Cocaine 300 ng/mL Methadone 300 ng/mL Opiates 300 ng/mL Oxycodone 300 ng/mL Phencyclidine 25 ng/mL Cannabinoids 50 ng/mL Tricyclics 1000 ng/mL Results are from screening tests and should only be used for medical evaluation. Drug testing for legal purposes requires definitive (or confirmatory) testing methods, which are available upon request. Contact the laboratory if definitive testing is required. Specimen Urine Performing Organization Address City/[facility]/Zipcode Phone Number [facility] DEPARTMENT OF [address] [place] [address] PATHOLOGY AND GENOMIC MEDICINE [facility] [address] [place] [address] [facility] * CT Head Wo Contrast (08/08/2018 11:00 AM CDT) Specimen Narrative Performed At EXAMINATION:CT HEAD WO CONTRAST [facility] COMPARISON:None CLINICAL HISTORY:cardiac arrest COMMENTS:Axial noncontrast CT scan slices of the head were obtained. CT imaging was performed with iterative reconstruction technique and/or automated exposure control to reduce radiation dose. FINDINGS:There is minimal mucosal thickening in the visualized sinuses. There is calcific atherosclerotic change in the arteries at the skull base. The brain shows minimal decreased density in the white matter. IMPRESSION:No acute intracranial hemorrhage or mass effect. [id number] Procedure Note Interface, Radiology Results Incoming - 08/08/2018 11:05 AM CDT EXAMINATION: CT HEAD WO CONTRAST COMPARISON: None CLINICAL HISTORY: cardiac arrest COMMENTS: Axial noncontrast CT scan slices of the head were obtained. CT imaging was performed with iterative reconstruction technique and/or automated exposure control to reduce radiation dose. FINDINGS: There is minimal mucosal thickening in the visualized sinuses. There is calcific atherosclerotic change in the arteries at the skull base. The brain shows minimal decreased density in the white matter. IMPRESSION: No acute intracranial hemorrhage or mass effect. [id number] Performing Organization Address City/[facility]/Zipcode Phone Number [facility] [address] [place] [address] * ECG ED Preliminary Interpretation - Not an Order (08/08/2018 10:07 AM CDT) Narrative Performed At Justin Buchanan DO 08/11/20184:13 PM ECG ED Preliminary Interpretation - Not an Order Performed by: Justin Buchanan DO Authorized by: Justin Buchanan DO ECG reviewed by ED Physician in the absence of a cook ship: yes Interpretation: Interpretation: abnormal Rate: ECG rate:95 ECG rate assessment: normal Rhythm: Rhythm: sinus rhythm ST segments: ST segments:Non-specific Other findings: Other findings: prolonged qTc interval Comments: prolonged qtc 517 * CRITICAL CARE (08/08/2018 10:07 AM CDT) Narrative Performed At Justin Buchanan DO 08/11/20184:13 PM Critical Care Performed by: Justin Buchanan DO Authorized by: Justin Buchanan DO Critical care provider statement: Critical care time (minutes):60 Critical care time was exclusive of:Separately billable procedures and treating other patients Critical care was necessary to treat or prevent imminent or life-threatening deterioration of the following conditions:Cardiac failure, circulatory failure and respiratory failure Critical care was time spent personally by me on the following activities:Development of treatment plan with patient or surrogate, discussions with consultants, discussions with primary provider, evaluation of patient's response to treatment, examination of patient, interpretation of cardiac output measurements, obtaining history from patient or surrogate, ordering and performing treatments and interventions, ordering and review of laboratory studies, ordering and review of radiographic studies, pulse oximetry, re-evaluation of patient's condition, review of old charts, vascular access procedures and ventilator management * Central Line (08/08/2018 10:07 AM CDT) Narrative Performed At Justin Buchanan DO 08/11/20184:13 PM Central Line Performed by: Justin Buchanan DO Authorized by: Justin Buchanan DO Consent: Consent obtained:Emergent situation [place] protocol: Patient identity confirmed:Arm band Pre-procedure details: Hand hygiene: Hand hygiene performed prior to insertion Sterile barrier technique: All elements of maximal sterile technique followed Skin preparation:2% chlorhexidine Skin preparation agent: Skin preparation agent completely dried prior to procedure Sedation: Sedation Type:Systemic Anesthesia (see MAR for exact dosages): Anesthesia method:Local infiltration Local anesthetic:Lidocaine 1% w/o epi Procedure details: Catheter type:Triple lumen Catheter size:7 Fr Catheter length (cm):16 Catheter site: internal jugular vein Catheter Site Laterality:Left Patient position:Flat Ultrasound guidance: yes Sterile ultrasound techniques: Sterile gel and sterile probe covers were used Number of attempts:2 Successful placement: yes Post-procedure details: Post-procedure:Dressing applied and line sutured Assessment:Blood return through all ports, free fluid flow, placement verified by x-ray and no pneumothorax on x-ray Patient tolerance of procedure:Tolerated well, no immediate complications * Alcohol level, blood (08/08/2018 9:21 AM CDT) Alcohol None Detected mg/dL [place] Comment: [facility] Detected Legal Intoxication in [place] 80 mg/dL (0.08%) Toxic Concentration 200 mg/dL (0.2%) Potentially Fatal 350-500 mg/dL (0.35%-0.5%) Alcohol percent None Detected % [facility] Specimen Blood Performing Organization Address City/State/Zipcode Phone Number [facility] DEPARTMENT OF [address] [place] [address] PATHOLOGY AND GENOMIC MEDICINE [facility] [address] [place] [address] HOSPITAL after 08/19/2017 Advance Directives Patient has advance care planning documents on file. For more information, demian dunaway contact: Len Craig [address] [place] [address]
--- OUTSIDE RECORDS SUMMARY | 2018-08-20 14:10 | XMS REPORT ---
Author [facility] [place] Address Unknown Phone Unavailable Care Team Providers Care Inspector Aide Name Role Phone Unavailable Unavailable Payers Payer Name Policy Type Policy Number Effective Date Expiration Date Problems This patient has no known problems. Allergies, Adverse Reactions, Alerts Allergy Name Allergy Type Status Severity Reaction(s) Onset Date Inactive Date Treating Clinician Comments No Known Allergies DA Active U 2018-03-30 00:00:00 Medications This patient has no known medications. Results Test Description Test Time Test Comments Text Results Atomic Results Result Comments - DUP AB/PEL/SC COMP 2018-04-26 12:22:00 Name: RADHA KENDRICK [facility] : 1965 Age/S: 52 / M [address] [facility] Unit #: [id number] Loc: [place] [address] Phys: Chiquita Wayne MD Acct: [id number] Dis Date: Status: ADM IN PHONE #: [phone] Exam Date: 04/09/2018 1742 FAX #: [phone] Reason: KIDNEY DOPPLER Report Has Been Amended EXAMS: CPT CODE: [id number] DUP AB/PEL/SC COMP 65496 Addendum - 04/26/2018 SIGNED 04/26/2018 ADDENDUM: [id number] /JANNA Technique: Complete duplex scan of the bilateral kidneys was performed using grayscale imaging of the kidneys as well as color Doppler and spectral Doppler analysis of the renal arteries and veins bilaterally. at 1222 Reported and signed by: Gareth Ash MD Transcribed: 04/26/2018 (1222) [id number] Report REASON FOR EXAM: KIDNEY DOPPLER EXAM ORDER DATE: 04/09/2018 5:21 PM Attending Laurita: Chiquita Wayne MD PROCEDURE: - DUP AB/PEL/SC COMP, - US RETRO LTD FINDINGS: The right kidney measures 13.7 x 6.3 x 5.1 cm. The cross-sectional thickness of the right renal cortex measured 1.3 cm. The left kidney measures 12.2 x 6.8 x 5.6 cm. The cross-sectional thickness of the left renal cortex measured 1.3 cm. There is no evidence of hydronephrosis. There is no evidence of nephrolithiasis. There is no evidence of renal mass. The urinary bladder is unremarkable Velocity in the aorta measures 75.9 cm/s and resistive index measures 0.7. The velocity in the right renal artery measures 26.6 cm/s and the resistive index measures 0.7. The velocity in the left renal artery measures 39.4 cm/s and the resistive index measures 0.8. Both renal arteries demonstrate continuous antegrade flow with no evidence of tardus parvus. IMPRESSION: Sonographically unremarkable kidneys with no evidence of PAGE 1 Signed Report (CONTINUED) Name: RADHA KENDRICK [facility] : 1965 Age/S: 52 / M [address] [facility] Unit #: [id number] Loc: [place] [address] Phys: Chiquita Wayne MD Acct: [id number] Dis Date: Status: ADM IN PHONE #: [phone] Exam Date: 04/09/2018 174 FAX #: [phone] Reason: KIDNEY DOPPLER Report Has Been Amended EXAMS: CPT CODE: [id number] DUP AB/PEL/SC COMP 67985 <Continued> renal artery stenosis on either side. at 1814 Reported and signed by: Gareth Ash MD CC: Chiquita Wayne MD Technologist: FELISA MAYO Trnscb Date/Time: 04/09/2018 (278) [email or web address] Orig Print D/T: S: 04/09/2018 (3367) Probe: PAGE 2 Signed Report - US RETRO LTD 2018-04-26 12:22:00 Name: RADHA KENDRICK [facility] : 1965 Age/S: 52 / M [address] Unit #: [id number] Loc: [place] [address] Phys: Mark Moreland PRASANNA Acct: [id number] Dis Date: Status: ADM IN PHONE #: [phone] Exam Date: 04/09/20181741 FAX #: [phone] Reason: refractory HTN, r/o renal artery stenosis Report Has Been Amended EXAMS: CPT CODE: [id number] US RETRO LTD 09650 Addendum - 04/26/2018 SIGNED 04/26/2018 ADDENDUM: [id number] US/USRETLTD Technique: Complete duplex scan of the bilateral kidneys was performed using grayscale imaging of the kidneys as well as color Doppler and spectral Doppler analysis of the renal arteries and veins bilaterally. at 1222 Reported and signed by: Gareth Ash MD Transcribed: 04/26/2018 (1222) t.[email or web address].RR31 Report REASON FOR EXAM: KIDNEY DOPPLER EXAM ORDER DATE: 04/09/2018 5:21 PM Attending MNicholas: Chiquita Wayne MD PROCEDURE: - DUP AB/PEL/SC COMP, - US RETRO LTD FINDINGS: The right kidney measures 13.7 x 6.3 x 5.1 cm. The cross-sectional thickness of the right renal cortex measured 1.3 cm. The left kidney measures 12.2 x 6.8 x 5.6 cm. The cross-sectional thickness of the left renal cortex measured 1.3 cm. There is no evidence of hydronephrosis. There is no evidence of nephrolithiasis. There is no evidence of renal mass. The urinary bladder is unremarkable Velocity in the aorta measures 75.9 cm/s and resistive index measures 0.7. The velocity in the right renal artery measures 26.6 cm/s and the resistive index measures 0.7. The velocity in the left renal artery measures 39.4 cm/s and the resistive index measures 0.8. Both renal arteries demonstrate continuous antegrade flow with no evidence of tardus parvus. IMPRESSION: Sonographically unremarkable kidneys with no evidence of PAGE 1 Signed Report (CONTINUED) Name: RADHA KENDRICK [facility] : 1965 Age/S: 52 / M [address] Unit #: [id number] Loc: [place] [address] Phys: Mark Moreland Acct: [id number] Dis Date: Status: ADM IN PHONE #: [phone] Exam Date: 04/09/20181741 FAX #: [phone] Reason: refractory HTN, r/o renal artery stenosis Report Has Been Amended EXAMS: CPT CODE: [id number] [facility] [address] <Continued> renal artery stenosis on either side. at 1814 Reported and signed by: Gareth Ash MD CC: Chiquita Wayne MD; Mark Moreland Technologist: FELISA MAYO Trnscb Date/Time: 04/09/2018 (1813) t.[email or web address].RR31 Orig Print D/T: S: 04/09/2018 (1816) Probe: PAGE 2 Signed Report ALDOSTERONE 2018-04-25 07:00:00 ALDOSTERONE (test code=ALDOS) <1.0 ng/dL 0.0-30.0 This test was developed and its performance characteristicsdetermined by [facility]. It has not been cleared orapproved by the Food and Drug Administration.Performed At: [address] [id number] Stack MD Ph:[phone] [facility] 04/13/18 1016 RENIN [id number] 07:00:00* Test Item Value Reference Range Comments RENIN ACTIVITY (test code=RENINA) TEST NOT PERFORMED ng/mL/hr () The specimen submitted does not meet the laboratory'scriteria for acceptability. Refer to [facility] Directory ofServices for specimen acceptability criteria.This test was developed and its performance characteristicsdetermined by [facility]. It has not been cleared orapproved by the Food and Drug Administration.Received non EDTA plasmaRequires EDTA plasmaNotified Katie Live at your facility.04/13/2018- DrainPerformed At: [facility] [id number] Stack MD Ph:[phone] [facility].PA 04/13/18 1016 CATECHOLAMINES [id number] 07:00:00* Test Item Value Reference Range Comments EPINEPHRINE (test code=EPIN) 52 pg/mL 0-62 NOREPINEPHRINE (test code=NOREP) 1914 pg/mL 0-874 DOPAMINE (test code=DOPA) 160 pg/mL 0-48 Performed At: [facility] [address] [id number] Sanjai MD Ph:[phone] [facility] 04/13/18 1016 CBC W/AUTO [id number] 12:40:00* Test Item Value Reference Range Comments WHITE BLOOD CELL (test code=WBC) 6.0 K/mm3 4.5-12.5 RED BLOOD CELL (test code=RBC) 4.55 mill/mm3 4.0-5.8 HEMOGLOBIN (test code=HGB) 12.6 gram/dL 13.0-17.5 HEMATOCRIT (test code=HCT) 39.5 % 42.0-52.0 MEAN CELL VOLUME (test code=MCV) 86.8 fL 80-98 MEAN CELL HGB (test code=MCH) 27.7 picogram 27.0-33.0 MEAN CELL HGB CONCETRATION (test code=MCHC) 31.9 gram/dL 33.0-36.0 RED CELL DISTRIBUTION WIDTH (test code=RDW) 14.7 % 11.6-16.2 RED CELL DISTRIBUTION WIDTH SD (test code=RDW-SD) 46.5 fL 37.0-51.0 PLATELET COUNT (test code=PLT) 305 K/mm3 150-450 MEAN PLATELET VOLUME (test code=MPV) 11.9 fL 6.7-11.0 NEUTROPHIL % (test code=NT%) 57.5 % 39.0-69.0 IMMATURE GRANULOCYTE % (test code=IG%) 0.2 % 0.0-5.0 LYMPHOCYTE % (test code=LY%) 25.4 % 25.0-55.0 MONOCYTE % (test code=MO%) 12.2 % 0.0-10.0 EOSINOPHIL % (test code=EO%) 4.0 % 0.0-5.0 BASOPHIL % (test code=BA%) 0.7 % 0.0-1.0 NUCLEATED RBC % (test code=NRBC%) 0.0 % 0-0 NEUTROPHIL # (test code=NT#) 3.45 K/mm3 1.8-7.7 IMMATURE GRANULOCYTE # (test code=IG#) 0.01 x10 3/uL 0-0.03 LYMPHOCYTE # (test code=LY#) 1.52 K/mm3 1.0-5.0 MONOCYTE # (test code=MO#) 0.73 K/mm3 0-0.8 EOSINOPHIL # (test code=EO#) 0.24 K/mm3 0.0-0.5 BASOPHIL # (test code=BA#) 0.04 K/mm3 0.0-0.2 NUCLEATED RBC # (test code=NRBC#) 0.00 K/mm3 0.0-0.1 BASIC METABOLIC [id number] 12:20:00* Test Item Value Reference Range Comments SODIUM (test code=NA) 141 mmol/L 136-145 POTASSIUM (test code=K) 4.0 mmol/L 3.5-5.1 CHLORIDE (test code=CL) 105.0 mmol/L 98-107 CARBON DIOXIDE (test code=CO2) 25.0 mmol/L 21-32 ANION GAP (test code=GAP) 15.0 10-20 GLUCOSE (test code=GLU) 95 mg/dL 74-106 BLOOD UREA NITROGEN (test code=BUN) 14 mg/dL 7-18 GLOMERULAR FILTRATION RATE (test code=GFR) > 60 mL/min >=60 Estimated GFR by using Modified MDRD formula.Chronic kidney disease is defined as either kidney damageor GFR <60 mL/min/1.73 m2 for >3 months. CREATININE (test code=CREAT) 0.80 mg/dL 0.7-1.3 BUN/CREATININE RATIO (test code=BUN/CREA) 17.2 10-20 CALCIUM (test code=CA) 8.8 mg/dL 8.5-10.1 BASIC METABOLIC [id number] 12:11:00* Test Item Value Reference Range Comments SODIUM (test code=NA) 141 mmol/L 136-145 POTASSIUM (test code=K) 4.0 mmol/L 3.5-5.1 CHLORIDE (test code=CL) 105.0 mmol/L 98-107 CARBON DIOXIDE (test code=CO2) mmol/L 21-32 ANION GAP (test code=GAP) 10-20 GLUCOSE (test code=GLU) mg/dL 74-106 BLOOD UREA NITROGEN (test code=BUN) mg/dL 7-18 GLOMERULAR FILTRATION RATE (test code=GFR) mL/min >=60 CREATININE (test code=CREAT) mg/dL 0.7-1.3 BUN/CREATININE RATIO (test code=BUN/CREA) 10-20 CALCIUM (test code=CA) mg/dL 8.5-10.1 - CT HEAD/BRAIN W/O [id number] 19:25:00 Name: RADHA KENDRICK [facility] : 1965 Age/S: 52 / M [address] [facility] Unit #: [id number] Loc: [place] [address] Phys: Aliya Chavez MD Acct: [id number] Dis Date: Status: ADM IN PHONE #: [phone] Exam Date: 04/23/2018 1835 FAX #: [phone] Reason: S/P FALL WITH HEAD LAC EXAMS: CPT CODE: [id number] CT HEAD/BRAIN W/O CONT 29979 HISTORY: Fall and laceration. COMPARISON: April 02, 2018. CT brain without contrast: Automated exposure control. Note: Slightly motion limited study. No acute intracranial bleeds or extra-axial collections are noted. No acute territorial vascular infarction is noted. The sulci, gyri, ventricles and subarachnoid spaces and the basilar cisterns are normal for patient's age. No herniation or hydrocephalus or midline shift is noted. Mild periventricular ischemic gliosis is noted. Age-appropriate atrophy is noted as well. Portions of the visualized paranasal sinuses are normal. No obvious bony calvarial defect is noted. IMPRESSION: No acute intracranial bleeds or extra- axial collections. No acute territorial vascular infarction. No herniation or hydrocephalus or midline shift. Chronic white matter ischemic disease and atrophy . at 1925 Reported and signed by: Bladimir Berrios M.D. CC: Chiquita Wayne MD; Aliya Chavez MD Technologist:Marialuisa Azevedo RT(R),CT CTDI: DLP: Trnscb Date/Time: 04/23/2018 (1924) [email or web address].TH4 Orig Print D/T: S: 04/23/2018 (1927) CTDI: DLP: PAGE 1 Signed Report - XR HAND 2 V [id number] 19:06:00 FAX: Chiquita Johnson MD [phone] [place]: St: ADM FAX: Aliya Chavez MD Name: RADHA KENDRICK [facility] : 1965 Age/S: 52/M [address] [facility] Unit #: [id number] Loc: [address] [place] [address] Phys: Aliya Chavez MD Acct: [id number] Dis Date: Status: ADM IN PHONE #: [phone] Exam Date: 04/22/2018 1850 FAX #: [phone] Reason: PATIENT FELL AND HIT THE FOURTH DIGIT ON RIGHT EXAMS: CPT CODE: [id number] XR HAND 2 V RT 16399 REASON FOR EXAM: PATIENT FELL AND HIT THE FOURTH DIGIT ON RIGHT HAND. EXAM ORDER DATE: 04/22/2018 12:00 AM Ordering Laurita: Aliya Chavez MD PROCEDURE: - XR HAND 2 V RT FINDINGS: 2 views of the right hand were obtained. Po sterior dislocation of the right fourth DIP. No evidence of fracture. IMPRESSION: Posterior dislocation of the fourth DIP Elec tronically Signed by Laurita Chang on 04/22/2018 at 1906 Reported and signed by: Raúl Chang M.D. CC: Chiquita Wayne MD; Aliya Chavez MD Technologist: RONNY SCOTT, RT(R); ... Trnscrd Date/Time/By: 04/22/2018 (1905) : By: Mandy R.VTL Orig Print D/T: S: 04/22/2018 (1909) PAG E 1 Signed Report CBC W/AUTO [id number] 12:51:00* Test Item Value Reference Range Comments WHITE BLOOD CELL (test code=WBC) 10.2 K/mm3 4.5-12.5 RED BLOOD CELL (test code=RBC) 4.66 mill/mm3 4.0-5.8 HEMOGLOBIN (test code=HGB) 12.7 gram/dL 13.0-17.5 HEMATOCRIT (test code=HCT) 40.9 % 42.0-52.0 MEAN CELL VOLUME (test code=MCV) 87.8 fL 80-98 MEAN CELL HGB (test code=MCH) 27.3 picogram 27.0-33.0 MEAN CELL HGB CONCETRATION (test code=MCHC) 31.1 gram/dL 33.0-36.0 RED CELL DISTRIBUTION WIDTH (test code=RDW) 14.8 % 11.6-16.2 RED CELL DISTRIBUTION WIDTH SD (test code=RDW-SD) 47.3 fL 37.0-51.0 PLATELET COUNT (test code=PLT) 335 K/mm3 150-450 MEAN PLATELET VOLUME (test code=MPV) 12.4 fL 6.7-11.0 NEUTROPHIL % (test code=NT%) 75.8 % 39.0-69.0 IMMATURE GRANULOCYTE % (test code=IG%) 0.5 % 0.0-5.0 LYMPHOCYTE % (test code=LY%) 12.3 % 25.0-55.0 MONOCYTE % (test code=MO%) 8.8 % 0.0-10.0 EOSINOPHIL % (test code=EO%) 2.2 % 0.0-5.0 BASOPHIL % (test code=BA%) 0.4 % 0.0-1.0 NUCLEATED RBC % (test code=NRBC%) 0.0 % 0-0 NEUTROPHIL # (test code=NT#) 7.76 K/mm3 1.8-7.7 IMMATURE GRANULOCYTE # (test code=IG#) 0.05 x10 3/uL 0-0.03 LYMPHOCYTE # (test code=LY#) 1.26 K/mm3 1.0-5.0 MONOCYTE # (test code=MO#) 0.90 K/mm3 0-0.8 EOSINOPHIL # (test code=EO#) 0.23 K/mm3 0.0-0.5 BASOPHIL # (test code=BA#) 0.04 K/mm3 0.0-0.2 NUCLEATED RBC # (test code=NRBC#) 0.00 K/mm3 0.0-0.1 MANUAL DIFF REQUIRED (test code=MDIFF) NO BASIC METABOLIC [id number] 11:53:00* Test Item Value Reference Range Comments SODIUM (test code=NA) 139 mmol/L 136-145 POTASSIUM (test code=K) 4.1 mmol/L 3.5-5.1 CHLORIDE (test code=CL) 103.0 mmol/L 98-107 CARBON DIOXIDE (test code=CO2) 22.0 mmol/L 21-32 ANION GAP (test code=GAP) 18.1 10-20 GLUCOSE (test code=GLU) 92 mg/dL 74-106 BLOOD UREA NITROGEN (test code=BUN) 20 mg/dL 7-18 GLOMERULAR FILTRATION RATE (test code=GFR) > 60 mL/min >=60 Estimated GFR by using Modified MDRD formula.Chronic kidney disease is defined as either kidney damageor GFR <60 mL/min/1.73 m2 for >3 months. CREATININE (test code=CREAT) 1.20 mg/dL 0.7-1.3 BUN/CREATININE RATIO (test code=BUN/CREA) 16.7 10-20 CALCIUM (test code=CA) 9.1 mg/dL 8.5-10.1 [id number] 07:17:00* Test Item Value Reference Range Comments CREATININE (test code=CREAT) 1.10 mg/dL 0.7-1.3 [id number] 06:43:00* Test Item Value Reference Range Comments HEMOGLOBIN (test code=HGB) 13.4 gram/dL 13.0-17.5 PLATELET [id number] 06:43:00* Test Item Value Reference Range Comments PLATELET COUNT (test code=PLT) 329 K/mm3 150-450 [id number] 06:37:00* Test Item Value Reference Range Comments HEMOGLOBIN (test code=HGB) 13.4 gram/dL 13.0-17.5 PLATELET [id number] 06:37:00* Test Item Value Reference Range Comments PLATELET COUNT (test code=PLT) K/mm3 150-450 [id number] 11:24:00* Test Item Value Reference Range Comments ALDOSTERONE (test code=ALDOS) <1.0 ng/dL 0.0-30.0 This test was developed and its performance characteristicsdetermined by [facility]. It has not been cleared orapproved by the Food and Drug Administration.Performed At: [address] [id number] Stack MD Ph:[phone] [facility] 04/13/18 1016 RENIN [id number] 11:24:00* Test Item Value Reference Range Comments RENIN ACTIVITY (test code=RENINA) ng/mL/hr () The specimen submitted does not meet the laboratory'scriteria for acceptability. Refer to [facility] Directory ofServices for specimen acceptability criteria.This test was developed and its performance characteristicsdetermined by [facility]. It has not been cleared orapproved by the Food and Drug Administration.Received non EDTA plasmaRequires EDTA plasmaNotified Katie Live at your facility.04/13/2018-DrainPerformed At: [address] [id number] Stack MD Ph:[phone] [facility] 04/13/18 1016 CATECHOLAMINES [id number] 11:24:00* Test Item Value Reference Range Comments EPINEPHRINE (test code=EPIN) 52 pg/mL 0-62 NOREPINEPHRINE (test code=NOREP) 1914 pg/mL 0-874 DOPAMINE (test code=DOPA) 160 pg/mL 0-48 Performed At: [address] [id number] Stack MD Ph:[phone] [facility] 04/13/18 1016 [id number] 08:20:00* Test Item Value Reference Range Comments ALDOSTERONE (test code=ALDOS) ng/dL [facility] 04/13/18 1016 RENIN [id number] 08:20:00* Test Item Value Reference Range Comments RENIN ACTIVITY (test code=RENINA) ng/mL/hr () The specimen submitted does not meet the laboratory'scriteria for acceptability. Refer to [facility] Directory ofServices for specimen acceptability criteria.This test was developed and its performance characteristicsdetermined by [facility]. It has not been cleared orapproved by the Food and Drug Administration.Received non EDTA plasmaRequires EDTA plasmaNotified Katie Live at your facility.04/13/2018-DrainPerformed At: [facility] [id number] Stack MD Ph:[phone] [facility] 04/13/18 1016 CATECHOLAMINES [id number] 08:20:00* Test Item Value Reference Range Comments EPINEPHRINE (test code=EPIN) 52 pg/mL 0-62 NOREPINEPHRINE (test code=NOREP) 1914 pg/mL 0-874 DOPAMINE (test code=DOPA) 160 pg/mL 0-48 Performed At: [facility] [address] [id number] Stack MD Ph:[phone] [facility] 04/13/18 1016 BASIC METABOLIC [id number] 07:04:00* Test Item Value Reference Range Comments SODIUM (test code=NA) 142 mmol/L 136-145 POTASSIUM (test code=K) 3.7 mmol/L 3.5-5.1 CHLORIDE (test code=CL) 107.0 mmol/L 98-107 CARBON DIOXIDE (test code=CO2) 29.0 mmol/L 21-32 ANION GAP (test code=GAP) 9.7 10-20 GLUCOSE (test code=GLU) 102 mg/dL 74-106 BLOOD UREA NITROGEN (test code=BUN) 18 mg/dL 7-18 GLOMERULAR FILTRATION RATE (test code=GFR) > 60 mL/min >=60 Estimated GFR by using Modified MDRD formula.Chronic kidney disease is defined as either kidney damageor GFR <60 mL/min/1.73 m2 for >3 months. CREATININE (test code=CREAT) 1.00 mg/dL 0.7-1.3 BUN/CREATININE RATIO (test code=BUN/CREA) 18.2 10-20 CALCIUM (test code=CA) 8.4 mg/dL 8.5-10.1 [id number] 07:04:00* Test Item Value Reference Range Comments MAGNESIUM (test code=MAG) 2.2 mg/dL 1.8-2.4 BASIC METABOLIC [id number] 06:55:00* Test Item Value Reference Range Comments SODIUM (test code=NA) 142 mmol/L 136-145 POTASSIUM (test code=K) 3.7 mmol/L 3.5-5.1 CHLORIDE (test code=CL) 107.0 mmol/L 98-107 CARBON DIOXIDE (test code=CO2) mmol/L 21-32 ANION GAP (test code=GAP) 10-20 GLUCOSE (test code=GLU) mg/dL 74-106 BLOOD UREA NITROGEN (test code=BUN) mg/dL 7-18 GLOMERULAR FILTRATION RATE (test code=GFR) mL/min >=60 CREATININE (test code=CREAT) mg/dL 0.7-1.3 BUN/CREATININE RATIO (test code=BUN/CREA) 10-20 CALCIUM (test code=CA) mg/dL 8.5-10.1 [id number] 06:55:00* Test Item Value Reference Range Comments MAGNESIUM (test code=MAG) mg/dL 1.8-2.4 CBC W/AUTO [id number] 06:44:00* Test Item Value Reference Range Comments WHITE BLOOD CELL (test code=WBC) 13.2 K/mm3 4.5-12.5 RED BLOOD CELL (test code=RBC) 4.56 mill/mm3 4.0-5.8 HEMOGLOBIN (test code=HGB) 12.6 gram/dL 13.0-17.5 HEMATOCRIT (test code=HCT) 40.7 % 42.0-52.0 MEAN CELL VOLUME (test code=MCV) 89.3 fL 80-98 MEAN CELL HGB (test code=MCH) 27.6 picogram 27.0-33.0 MEAN CELL HGB CONCETRATION (test code=MCHC) 31.0 gram/dL 33.0-36.0 RED CELL DISTRIBUTION WIDTH (test code=RDW) 14.7 % 11.6-16.2 RED CELL DISTRIBUTION WIDTH SD (test code=RDW-SD) 46.6 fL 37.0-51.0 PLATELET COUNT (test code=PLT) 274 K/mm3 150-450 MEAN PLATELET VOLUME (test code=MPV) 12.1 fL 6.7-11.0 NEUTROPHIL % (test code=NT%) 67.1 % 39.0-69.0 IMMATURE GRANULOCYTE % (test code=IG%) 0.4 % 0.0-5.0 LYMPHOCYTE % (test code=LY%) 16.4 % 25.0-55.0 MONOCYTE % (test code=MO%) 9.0 % 0.0-10.0 EOSINOPHIL % (test code=EO%) 6.7 % 0.0-5.0 BASOPHIL % (test code=BA%) 0.4 % 0.0-1.0 NUCLEATED RBC % (test code=NRBC%) 0.0 % 0-0 NEUTROPHIL # (test code=NT#) 8.88 K/mm3 1.8-7.7 IMMATURE GRANULOCYTE # (test code=IG#) 0.05 x10 3/uL 0-0.03 LYMPHOCYTE # (test code=LY#) 2.17 K/mm3 1.0-5.0 MONOCYTE # (test code=MO#) 1.19 K/mm3 0-0.8 EOSINOPHIL # (test code=EO#) 0.88 K/mm3 0.0-0.5 BASOPHIL # (test code=BA#) 0.05 K/mm3 0.0-0.2 NUCLEATED RBC # (test code=NRBC#) 0.00 K/mm3 0.0-0.1 MANUAL DIFF REQUIRED (test code=MDIFF) NO BASIC METABOLIC [id number] 13:58:00* Test Item Value Reference Range Comments SODIUM (test code=NA) 139 mmol/L 136-145 POTASSIUM (test code=K) 4.1 mmol/L 3.5-5.1 CHLORIDE (test code=CL) 109.0 mmol/L 98-107 CARBON DIOXIDE (test code=CO2) 22.0 mmol/L 21-32 ANION GAP (test code=GAP) 12.1 10-20 GLUCOSE (test code=GLU) 116 mg/dL 74-106 BLOOD UREA NITROGEN (test code=BUN) 22 mg/dL 7-18 GLOMERULAR FILTRATION RATE (test code=GFR) > 60 mL/min >=60 Estimated GFR by using Modified MDRD formula.Chronic kidney disease is defined as either kidney damageor GFR <60 mL/min/1.73 m2 for >3 months. CREATININE (test code=CREAT) 0.90 mg/dL 0.7-1.3 BUN/CREATININE RATIO (test code=BUN/CREA) 24.7 10-20 CALCIUM (test code=CA) 7.9 mg/dL 8.5-10.1 BASIC METABOLIC [id number] 13:52:00* Test Item Value Reference Range Comments SODIUM (test code=NA) 139 mmol/L 136-145 POTASSIUM (test code=K) 4.1 mmol/L 3.5-5.1 CHLORIDE (test code=CL) 109.0 mmol/L 98-107 CARBON DIOXIDE (test code=CO2) mmol/L 21-32 ANION GAP (test code=GAP) 10-20 GLUCOSE (test code=GLU) mg/dL 74-106 BLOOD UREA NITROGEN (test code=BUN) mg/dL 7-18 GLOMERULAR FILTRATION RATE (test code=GFR) mL/min >=60 CREATININE (test code=CREAT) mg/dL 0.7-1.3 BUN/CREATININE RATIO (test code=BUN/CREA) 10-20 CALCIUM (test code=CA) 7.9 mg/dL 8.5-10.1 CBC W/AUTO [id number] 13:43:00* Test Item Value Reference Range Comments WHITE BLOOD CELL (test code=WBC) 13.4 K/mm3 4.5-12.5 RED BLOOD CELL (test code=RBC) 4.62 mill/mm3 4.0-5.8 HEMOGLOBIN (test code=HGB) 12.7 gram/dL 13.0-17.5 HEMATOCRIT (test code=HCT) 42.2 % 42.0-52.0 MEAN CELL VOLUME (test code=MCV) 91.3 fL 80-98 MEAN CELL HGB (test code=MCH) 27.5 picogram 27.0-33.0 MEAN CELL HGB CONCETRATION (test code=MCHC) 30.1 gram/dL 33.0-36.0 RED CELL DISTRIBUTION WIDTH (test code=RDW) 14.7 % 11.6-16.2 RED CELL DISTRIBUTION WIDTH SD (test code=RDW-SD) 48.7 fL 37.0-51.0 PLATELET COUNT (test code=PLT) 280 K/mm3 150-450 MEAN PLATELET VOLUME (test code=MPV) 12.1 fL 6.7-11.0 NEUTROPHIL % (test code=NT%) 70.4 % 39.0-69.0 IMMATURE GRANULOCYTE % (test code=IG%) 0.7 % 0.0-5.0 LYMPHOCYTE % (test code=LY%) 15.2 % 25.0-55.0 MONOCYTE % (test code=MO%) 8.0 % 0.0-10.0 EOSINOPHIL % (test code=EO%) 5.3 % 0.0-5.0 BASOPHIL % (test code=BA%) 0.4 % 0.0-1.0 NUCLEATED RBC % (test code=NRBC%) 0.0 % 0-0 NEUTROPHIL # (test code=NT#) 9.45 K/mm3 1.8-7.7 IMMATURE GRANULOCYTE # (test code=IG#) 0.09 x10 3/uL 0-0.03 LYMPHOCYTE # (test code=LY#) 2.04 K/mm3 1.0-5.0 MONOCYTE # (test code=MO#) 1.07 K/mm3 0-0.8 EOSINOPHIL # (test code=EO#) 0.71 K/mm3 0.0-0.5 BASOPHIL # (test code=BA#) 0.05 K/mm3 0.0-0.2 NUCLEATED RBC # (test code=NRBC#) 0.00 K/mm3 0.0-0.1 CBC W/AUTO [id number] 13:38:00* Test Item Value Reference Range Comments WHITE BLOOD CELL (test code=WBC) K/mm3 4.5-12.5 RED BLOOD CELL (test code=RBC) mill/mm3 4.0-5.8 HEMOGLOBIN (test code=HGB) gram/dL 13.0-17.5 HEMATOCRIT (test code=HCT) 42.2 % 42.0-52.0 MEAN CELL VOLUME (test code=MCV) fL 80-98 MEAN CELL HGB (test code=MCH) picogram 27.0-33.0 MEAN CELL HGB CONCETRATION (test code=MCHC) gram/dL 33.0-36.0 RED CELL DISTRIBUTION WIDTH (test code=RDW) % 11.6-16.2 RED CELL DISTRIBUTION WIDTH SD (test code=RDW-SD) fL 37.0-51.0 PLATELET COUNT (test code=PLT) K/mm3 150-450 MEAN PLATELET VOLUME (test code=MPV) fL 6.7-11.0 NEUTROPHIL % (test code=NT%) % 39.0-69.0 IMMATURE GRANULOCYTE % (test code=IG%) % 0.0-5.0 LYMPHOCYTE % (test code=LY%) % 25.0-55.0 MONOCYTE % (test code=MO%) % 0.0-10.0 EOSINOPHIL % (test code=EO%) % 0.0-5.0 BASOPHIL % (test code=BA%) % 0.0-1.0 NEUTROPHIL # (test code=NT#) K/mm3 1.8-7.7 LYMPHOCYTE # (test code=LY#) K/mm3 1.0-5.0 MONOCYTE # (test code=MO#) K/mm3 0-0.8 EOSINOPHIL # (test code=EO#) K/mm3 0.0-0.5 BASOPHIL # (test code=BA#) K/mm3 0.0-0.2 [id number] 05:59:00* Test Item Value Reference Range Comments GLUBED (test code=GLUBED) 96 mg/dL 74-106 Performed by certified palletizer operator at [facility] [id number] 05:14:00* Test Item Value Reference Range Comments GLUBED (test code=GLUBED) 89 mg/dL 74-106 Performed by certified palletizer operator at [facility] - DUP AB/PEL/SC [id number] 18:14:00 Name: RADHA KENDRICK [facility] : 1965 Age/S: 52 / M [address] [facility] Unit #: [id number] Loc: [place] [address] Phys: Chiquita Wayne MD Acct: [id number] Dis Date: Status: ADM IN PHONE #: [phone] Exam Date: 04/09/20181741 FAX #: [phone] Reason: KIDNEY DOPPLER EXAMS: CPT CODE: [id number] DUP AB/PEL/SC COMP 15160 REASON FOR EXAM: KIDNEY DOPPLER EXAM ORDER DATE: 04/09/2018 5:21 PM Attending MNicholas: Chiquita Wayne MD PROCEDURE: - DUP AB/PEL/SC COMP, - US RETRO LTD FINDINGS: The right kidney measures 13.7 x 6.3 x 5.1 cm. The cross-sectional thickness of the right renal cortex measured 1.3 cm. The left kidney measures 12.2 x 6.8 x 5.6 cm. The cross-sectional thickness of the left renal cortex measured 1.3 cm. There is no evidence of hydronephrosis. There is no evidence of nephrolithiasis. There is no evidence of renal mass. The urinary bladder is unremarkable Velocity in the aorta measures 75.9 cm/s and resistive index measures 0.7. The velocity in the right renal artery measures 26.6 cm/s and the resistive index measures 0.7. The velocity in the left renal artery measures 39.4 cm/s and the resistive index measures 0.8. Both renal arteries demonstrate continuous antegrade flow with no evidence of tardus parvus. IMPRESSION: Sonographically unremarkable kidneys with no evidence of renal artery stenosis on either side. at 1814 Reported and signed by: Gareth Ash MD CC: Chiquita Wayne MD Technologist: FELISA MAYO Trnscb Date/Time: 04/09/2018 (1813) [id number] Orig Print D/T: S: 04/09/2018 (1816) Probe: PAGE 1 Signed Report - US RETRO [id number] 18:14:00 Name: RADHA KENDRICK [facility] : 1965 Age/S: 52 / M [address] [facility] Unit #: [id number] Loc: [place] [address] Phys: Maurice Moreland Acct: [id number] Di s Date: Status: ADM IN PHONE #: [phone] Exam Date: 04/09/20181741 FAX #: Reason: refractory HTN, r/o renal artery stenosis EXAMS: CPT CODE: [id number] US RETRO LTD 42516 REASON FOR EXAM: KIDNEY DOPPLER EXAM ORDER DATE: 04/09/2018 5:21 PM Att daisy Shay: Chiquita Wayne MD PROCEDURE: - DUP AB/PEL/SC COMP, - US RETRO LTD FINDINGS: The right kidney measures 13.7 x 6.3 x 5. 1 cm. The cross-sectional thickness of the right renal cortex measured 1. 3 cm. The left kidney measures 12.2 x 6.8 x 5.6 cm. The cross-sectional thickness of the left renal cortex measured 1.3 cm. There is no eviden ce of hydronephrosis. There is no evidence of nephrolithiasis. There is no evidence of renal mass. The urinary bladder is unremarkable Velocity in the aorta measures 75.9 cm/s and resistive index measures 0.7. The velocity in the right renal artery measures 26.6 cm/s and the resistive index measures 0.7. The velocity in the left renal artery measu res 39.4 cm/s and the resistive index measures 0.8. Both leatha al arteries demonstrate continuous antegrade flow with no evidence of tard us parvus. IMPRESSION: Sonographically unremarkable kidneys with no evidence of renal artery stenosis on either side. Electr onically Signed by Gareth Ash MD on 04/09/2018 at 1814 Reported and signed by: Gareth Ash MD CC: Chiquita Wayne MD; Palomo Moreland Technologist: FELISA MAYO Trnscb Date/Time: 04/09/2018 (1813) [id number] Orig Print D/T: S: 04/09/2018 (1816) Probe: PAGE 1 Signed Report GLUBED 2018-04-09 12:07:00* Test Item Value Reference Range Comments GLUBED (test code=GLUBED) 94 mg/dL 74-106 Performed by certified palletizer operator at [facility] LACTIC [id number] 11:14:00* Test Item Value Reference Range Comments LACTIC ACID (test code=LACT) 0.5 mmol/L 0.4-1.9 LACTIC [id number] 08:32:00* Test Item Value Reference Range Comments LACTIC ACID (test code=LACT) 14.5 mmol/L 0.4-1.9 Results called to [id number] by NELL 04/09/18 0831Critical results verified and read back by Nurse? Y PROCALCITONIN (PCT)2018-04-09 07:19:00* Test Item Value Reference Range Comments PROCALCITONIN (PCT) (test code=PROCAL) 0.09 ng/ml Concentration Interpretation (ng/mL) <0.51 Sepsis is not likely. Local bacterial infection is possible. (LOW RISK for progression to Sepsis) 0.51 - 2.00 Sepsis is possible, but other conditions are known to elevate PCT as well. (MODERATE RISK for progression to Sepsis) > 2.00 Sepsis is likely, unless other causes are known. (HIGH RISK for progression to Severe Sepsis or Septic Shock) 10.00 High likelihood of Severe Sepsis or Septic or higher Shock. *Increased PCT levels may not always be related to systemic bacterial infection.*Low PCT levels do not automatically exclude the presence of bacterial infection.*All results should be interpreted taking into account the patients history. BASIC METABOLIC [id number] 07:05:00* Test Item Value Reference Range Comments SODIUM (test code=NA) 145 mmol/L 136-145 POTASSIUM (test code=K) 3.6 mmol/L 3.5-5.1 CHLORIDE (test code=CL) 111.0 mmol/L 98-107 CARBON DIOXIDE (test code=CO2) 27.0 mmol/L 21-32 ANION GAP (test code=GAP) 10.6 10-20 GLUCOSE (test code=GLU) 84 mg/dL 74-106 BLOOD UREA NITROGEN (test code=BUN) 30 mg/dL 7-18 GLOMERULAR FILTRATION RATE (test code=GFR) > 60 mL/min >=60 Estimated GFR by using Modified MDRD formula.Chronic kidney disease is defined as either kidney damageor GFR <60 mL/min/1.73 m2 for >3 months. CREATININE (test code=CREAT) 0.90 mg/dL 0.7-1.3 BUN/CREATININE RATIO (test code=BUN/CREA) 33.1 10-20 CALCIUM (test code=CA) 8.4 mg/dL 8.5-10.1 CBC W/AUTO [id number] 06:51:00* Test Item Value Reference Range Comments WHITE BLOOD CELL (test code=WBC) 13.4 K/mm3 4.5-12.5 RED BLOOD CELL (test code=RBC) 4.61 mill/mm3 4.0-5.8 HEMOGLOBIN (test code=HGB) 12.7 gram/dL 13.0-17.5 HEMATOCRIT (test code=HCT) 41.4 % 42.0-52.0 MEAN CELL VOLUME (test code=MCV) 89.8 fL 80-98 MEAN CELL HGB (test code=MCH) 27.5 picogram 27.0-33.0 MEAN CELL HGB CONCETRATION (test code=MCHC) 30.7 gram/dL 33.0-36.0 RED CELL DISTRIBUTION WIDTH (test code=RDW) 15.2 % 11.6-16.2 RED CELL DISTRIBUTION WIDTH SD (test code=RDW-SD) 49.5 fL 37.0-51.0 PLATELET COUNT (test code=PLT) 282 K/mm3 150-450 MEAN PLATELET VOLUME (test code=MPV) 12.1 fL 6.7-11.0 NEUTROPHIL % (test code=NT%) 67.6 % 39.0-69.0 IMMATURE GRANULOCYTE % (test code=IG%) 0.4 % 0.0-5.0 LYMPHOCYTE % (test code=LY%) 16.4 % 25.0-55.0 MONOCYTE % (test code=MO%) 12.9 % 0.0-10.0 EOSINOPHIL % (test code=EO%) 2.3 % 0.0-5.0 BASOPHIL % (test code=BA%) 0.4 % 0.0-1.0 NUCLEATED RBC % (test code=NRBC%) 0.0 % 0-0 NEUTROPHIL # (test code=NT#) 9.08 K/mm3 1.8-7.7 IMMATURE GRANULOCYTE # (test code=IG#) 0.06 x10 3/uL 0-0.03 LYMPHOCYTE # (test code=LY#) 2.21 K/mm3 1.0-5.0 MONOCYTE # (test code=MO#) 1.73 K/mm3 0-0.8 EOSINOPHIL # (test code=EO#) 0.31 K/mm3 0.0-0.5 BASOPHIL # (test code=BA#) 0.05 K/mm3 0.0-0.2 NUCLEATED RBC # (test code=NRBC#) 0.00 K/mm3 0.0-0.1 MANUAL DIFF REQUIRED (test code=MDIFF) NO [id number] 06:25:00* Test Item Value Reference Range Comments GLUBED (test code=GLUBED) 81 mg/dL 74-106 Performed by certified palletizer operator at [facility] [id number] 06:25:00* Test Item Value Reference Range Comments GLUBED (test code=GLUBED) 87 mg/dL 74-106 Performed by certified palletizer operator at [facility] [id number] 17:17:00* Test Item Value Reference Range Comments GLUBED (test code=GLUBED) 91 mg/dL 74-106 Performed by certified palletizer operator at [facility] [id number] 11:25:00* Test Item Value Reference Range Comments GLUBED (test code=GLUBED) 114 mg/dL 74-106 Performed by certified palletizer operator at [facility] - XR CHEST 1 [id number] 07:28:00 FAX: Chiquita Johnson MD [phone] [place]: St: ADM FAX: Dasha Renee NP [phone] Name: RADHA KENDRICK [facility] : 1965 Age/S: 52/M [address] [facility] Unit #: [id number] Loc: [place] [address] Phys: Dasha Galo NP Acct: [id number] Dis Date: Status: ADM IN PHONE #: [phone] Exam Date: 04/08/2018513 FAX #: [phone] Reason: leukocytosis EXAMS: CPT CODE: [id number] XR CHEST 1 V 18647 EXAM: Chest x-ray, one view; INFORMATION: Status post cardiac arrest; leukocytosis; IMPRESSION: No significant change; persistent right basilar densities which most likely represent atelectatic changes. The heart is normal in size. at 0728 Reported and signed by: Ino Frazier M.D. CC: Chiquita Wayne MD; Dasha Galo NP Technologist: RICHARD COLLAZO JR; Marcia Paulino Trnutrd Date/Time/By: 04/08/2018 (727) : By: Michelle Orig Print D/T: S: 04/08/2018 (0762) PAGE 1 Signed Report CBC W/AUTO DIFF 2018-04-08 06:43:00* Test Item Value Reference Range Comments WHITE BLOOD CELL (test code=WBC) 21.2 K/mm3 4.5-12.5 RED BLOOD CELL (test code=RBC) 4.59 mill/mm3 4.0-5.8 HEMOGLOBIN (test code=HGB) 12.7 gram/dL 13.0-17.5 HEMATOCRIT (test code=HCT) 40.6 % 42.0-52.0 MEAN CELL VOLUME (test code=MCV) 88.5 fL 80-98 MEAN CELL HGB (test code=MCH) 27.7 picogram 27.0-33.0 MEAN CELL HGB CONCETRATION (test code=MCHC) 31.3 gram/dL 33.0-36.0 RED CELL DISTRIBUTION WIDTH (test code=RDW) 15.4 % 11.6-16.2 RED CELL DISTRIBUTION WIDTH SD (test code=RDW-SD) 48.5 fL 37.0-51.0 PLATELET COUNT (test code=PLT) 313 K/mm3 150-450 RESULT VERIFIED BY REPEAT ANALYSIS MEAN PLATELET VOLUME (test code=MPV) 12.2 fL 6.7-11.0 NEUTROPHIL % (test code=NT%) 81.7 % 39.0-69.0 IMMATURE GRANULOCYTE % (test code=IG%) 0.9 % 0.0-5.0 LYMPHOCYTE % (test code=LY%) 7.4 % 25.0-55.0 MONOCYTE % (test code=MO%) 9.9 % 0.0-10.0 EOSINOPHIL % (test code=EO%) 0.0 % 0.0-5.0 BASOPHIL % (test code=BA%) 0.1 % 0.0-1.0 NUCLEATED RBC % (test code=NRBC%) 0.0 % 0-0 NEUTROPHIL # (test code=NT#) 17.33 K/mm3 1.8-7.7 IMMATURE GRANULOCYTE # (test code=IG#) 0.19 x10 3/uL 0-0.03 LYMPHOCYTE # (test code=LY#) 1.57 K/mm3 1.0-5.0 MONOCYTE # (test code=MO#) 2.10 K/mm3 0-0.8 EOSINOPHIL # (test code=EO#) 0.01 K/mm3 0.0-0.5 BASOPHIL # (test code=BA#) 0.03 K/mm3 0.0-0.2 NUCLEATED RBC # (test code=NRBC#) 0.00 K/mm3 0.0-0.1 MANUAL DIFF REQUIRED (test code=MDIFF) NO WBC [id number] 06:43:00* Test Item Value Reference Range Comments STAIN ACCEPTABILITY (test code=STN ACCEPTABLE) STAIN ACCEPTABLE TOTAL CELLS COUNTED (test code=TCC) 113 #CELLS SEGMENTED NEUTROPHILS (test code=SEG) 76.1 % 39-69 BAND NEUTROPHIL (test code=BAND) 0 % 0-10 LYMPHOCYTE (test code=LYMPH) 6.2 % 25-55 REACTIVE LYMPH (test code=RELYMPH) 4.4 % MONOCYTE (test code=MON) 13.3 % 0-10 EOSINOPHIL (test code=EOS) 0 % 0.0-5.0 BASOPHIL (test code=BASO) 0 % 0-1.0 METAMYELOCYTE (test code=META) 0 % 0-0 MYELOCYTE (test code=MYELO) 0 % 0.0-0.0 PROMYELOCYTE (test code=PROM) 0 % 0-0 MORPHOLOGY COMMENT (test code=MOC) NORMAL PLATELET ESTIMATE (test code=PLTEST) ADEQUATE PLATELET MORPHOLOGY (test code=PLTMORPH) NORMAL IMMATURE FORMS (test code=IMMAT) 0 % CBC W/AUTO [id number] 06:41:00* Test Item Value Reference Range Comments WHITE BLOOD CELL (test code=WBC) 21.2 K/mm3 4.5-12.5 RED BLOOD CELL (test code=RBC) 4.59 mill/mm3 4.0-5.8 HEMOGLOBIN (test code=HGB) 12.7 gram/dL 13.0-17.5 HEMATOCRIT (test code=HCT) 40.6 % 42.0-52.0 MEAN CELL VOLUME (test code=MCV) 88.5 fL 80-98 MEAN CELL HGB (test code=MCH) 27.7 picogram 27.0-33.0 MEAN CELL HGB CONCETRATION (test code=MCHC) 31.3 gram/dL 33.0-36.0 RED CELL DISTRIBUTION WIDTH (test code=RDW) 15.4 % 11.6-16.2 RED CELL DISTRIBUTION WIDTH SD (test code=RDW-SD) 48.5 fL 37.0-51.0 PLATELET COUNT (test code=PLT) 313 K/mm3 150-450 RESULT VERIFIED BY REPEAT ANALYSIS MEAN PLATELET VOLUME (test code=MPV) 12.2 fL 6.7-11.0 NEUTROPHIL % (test code=NT%) 81.7 % 39.0-69.0 IMMATURE GRANULOCYTE % (test code=IG%) 0.9 % 0.0-5.0 LYMPHOCYTE % (test code=LY%) 7.4 % 25.0-55.0 MONOCYTE % (test code=MO%) 9.9 % 0.0-10.0 EOSINOPHIL % (test code=EO%) 0.0 % 0.0-5.0 BASOPHIL % (test code=BA%) 0.1 % 0.0-1.0 NUCLEATED RBC % (test code=NRBC%) 0.0 % 0-0 NEUTROPHIL # (test code=NT#) 17.33 K/mm3 1.8-7.7 IMMATURE GRANULOCYTE # (test code=IG#) 0.19 x10 3/uL 0-0.03 LYMPHOCYTE # (test code=LY#) 1.57 K/mm3 1.0-5.0 MONOCYTE # (test code=MO#) 2.10 K/mm3 0-0.8 EOSINOPHIL # (test code=EO#) 0.01 K/mm3 0.0-0.5 BASOPHIL # (test code=BA#) 0.03 K/mm3 0.0-0.2 NUCLEATED RBC # (test code=NRBC#) 0.00 K/mm3 0.0-0.1 MANUAL DIFF REQUIRED (test code=MDIFF) NO WBC [id number] 06:41:00* Test Item Value Reference Range Comments STAIN ACCEPTABILITY (test code=STN ACCEPTABLE) TOTAL CELLS COUNTED (test code=TCC) #CELLS SEGMENTED NEUTROPHILS (test code=SEG) % 39-69 LYMPHOCYTE (test code=LYMPH) % 25-55 MONOCYTE (test code=MON) % 0-10 EOSINOPHIL (test code=EOS) % 0.0-5.0 CABOT RINGS (test code=CAB) MORPHOLOGY COMMENT (test code=MOC) PLATELET ESTIMATE (test code=PLTEST) PLATELET MORPHOLOGY (test code=PLTMORPH) CBC W/AUTO [id number] 06:41:00* Test Item Value Reference Range Comments WHITE BLOOD CELL (test code=WBC) 21.2 K/mm3 4.5-12.5 RED BLOOD CELL (test code=RBC) 4.59 mill/mm3 4.0-5.8 HEMOGLOBIN (test code=HGB) 12.7 gram/dL 13.0-17.5 HEMATOCRIT (test code=HCT) 40.6 % 42.0-52.0 MEAN CELL VOLUME (test code=MCV) 88.5 fL 80-98 MEAN CELL HGB (test code=MCH) 27.7 picogram 27.0-33.0 MEAN CELL HGB CONCETRATION (test code=MCHC) 31.3 gram/dL 33.0-36.0 RED CELL DISTRIBUTION WIDTH (test code=RDW) 15.4 % 11.6-16.2 RED CELL DISTRIBUTION WIDTH SD (test code=RDW-SD) 48.5 fL 37.0-51.0 PLATELET COUNT (test code=PLT) 313 K/mm3 150-450 RESULT VERIFIED BY REPEAT ANALYSIS MEAN PLATELET VOLUME (test code=MPV) 12.2 fL 6.7-11.0 NEUTROPHIL % (test code=NT%) 81.7 % 39.0-69.0 IMMATURE GRANULOCYTE % (test code=IG%) 0.9 % 0.0-5.0 LYMPHOCYTE % (test code=LY%) 7.4 % 25.0-55.0 MONOCYTE % (test code=MO%) 9.9 % 0.0-10.0 EOSINOPHIL % (test code=EO%) 0.0 % 0.0-5.0 BASOPHIL % (test code=BA%) 0.1 % 0.0-1.0 NUCLEATED RBC % (test code=NRBC%) 0.0 % 0-0 NEUTROPHIL # (test code=NT#) 17.33 K/mm3 1.8-7.7 IMMATURE GRANULOCYTE # (test code=IG#) 0.19 x10 3/uL 0-0.03 LYMPHOCYTE # (test code=LY#) 1.57 K/mm3 1.0-5.0 MONOCYTE # (test code=MO#) 2.10 K/mm3 0-0.8 EOSINOPHIL # (test code=EO#) 0.01 K/mm3 0.0-0.5 BASOPHIL # (test code=BA#) 0.03 K/mm3 0.0-0.2 NUCLEATED RBC # (test code=NRBC#) 0.00 K/mm3 0.0-0.1 MANUAL DIFF REQUIRED (test code=MDIFF) NO WBC [id number] 06:41:00* Test Item Value Reference Range Comments STAIN ACCEPTABILITY (test code=STN ACCEPTABLE) TOTAL CELLS COUNTED (test code=TCC) #CELLS SEGMENTED NEUTROPHILS (test code=SEG) % 39-69 LYMPHOCYTE (test code=LYMPH) % 25-55 MONOCYTE (test code=MON) % 0-10 EOSINOPHIL (test code=EOS) % 0.0-5.0 CABOT RINGS (test code=CAB) MORPHOLOGY COMMENT (test code=MOC) PLATELET ESTIMATE (test code=PLTEST) PLATELET MORPHOLOGY (test code=PLTMORPH) CBC W/AUTO [id number] 06:41:00* Test Item Value Reference Range Comments WHITE BLOOD CELL (test code=WBC) 21.2 K/mm3 4.5-12.5 RED BLOOD CELL (test code=RBC) 4.59 mill/mm3 4.0-5.8 HEMOGLOBIN (test code=HGB) 12.7 gram/dL 13.0-17.5 HEMATOCRIT (test code=HCT) 40.6 % 42.0-52.0 MEAN CELL VOLUME (test code=MCV) 88.5 fL 80-98 MEAN CELL HGB (test code=MCH) 27.7 picogram 27.0-33.0 MEAN CELL HGB CONCETRATION (test code=MCHC) 31.3 gram/dL 33.0-36.0 RED CELL DISTRIBUTION WIDTH (test code=RDW) 15.4 % 11.6-16.2 RED CELL DISTRIBUTION WIDTH SD (test code=RDW-SD) 48.5 fL 37.0-51.0 PLATELET COUNT (test code=PLT) 313 K/mm3 150-450 RESULT VERIFIED BY REPEAT ANALYSIS MEAN PLATELET VOLUME (test code=MPV) 12.2 fL 6.7-11.0 NEUTROPHIL % (test code=NT%) 81.7 % 39.0-69.0 IMMATURE GRANULOCYTE % (test code=IG%) 0.9 % 0.0-5.0 LYMPHOCYTE % (test code=LY%) 7.4 % 25.0-55.0 MONOCYTE % (test code=MO%) 9.9 % 0.0-10.0 EOSINOPHIL % (test code=EO%) 0.0 % 0.0-5.0 BASOPHIL % (test code=BA%) 0.1 % 0.0-1.0 NUCLEATED RBC % (test code=NRBC%) 0.0 % 0-0 NEUTROPHIL # (test code=NT#) 17.33 K/mm3 1.8-7.7 IMMATURE GRANULOCYTE # (test code=IG#) 0.19 x10 3/uL 0-0.03 LYMPHOCYTE # (test code=LY#) 1.57 K/mm3 1.0-5.0 MONOCYTE # (test code=MO#) 2.10 K/mm3 0-0.8 EOSINOPHIL # (test code=EO#) 0.01 K/mm3 0.0-0.5 BASOPHIL # (test code=BA#) 0.03 K/mm3 0.0-0.2 NUCLEATED RBC # (test code=NRBC#) 0.00 K/mm3 0.0-0.1 MANUAL DIFF REQUIRED (test code=MDIFF) NO WBC [id number] 06:41:00* Test Item Value Reference Range Comments STAIN ACCEPTABILITY (test code=STN ACCEPTABLE) TOTAL CELLS COUNTED (test code=TCC) #CELLS SEGMENTED NEUTROPHILS (test code=SEG) % 39-69 LYMPHOCYTE (test code=LYMPH) % 25-55 MONOCYTE (test code=MON) % 0-10 EOSINOPHIL (test code=EOS) % 0.0-5.0 MORPHOLOGY COMMENT (test code=MOC) PLATELET ESTIMATE (test code=PLTEST) PLATELET MORPHOLOGY (test code=PLTMORPH) CBC W/AUTO [id number] 06:41:00* Test Item Value Reference Range Comments WHITE BLOOD CELL (test code=WBC) 21.2 K/mm3 4.5-12.5 RED BLOOD CELL (test code=RBC) 4.59 mill/mm3 4.0-5.8 HEMOGLOBIN (test code=HGB) 12.7 gram/dL 13.0-17.5 HEMATOCRIT (test code=HCT) 40.6 % 42.0-52.0 MEAN CELL VOLUME (test code=MCV) 88.5 fL 80-98 MEAN CELL HGB (test code=MCH) 27.7 picogram 27.0-33.0 MEAN CELL HGB CONCETRATION (test code=MCHC) 31.3 gram/dL 33.0-36.0 RED CELL DISTRIBUTION WIDTH (test code=RDW) 15.4 % 11.6-16.2 RED CELL DISTRIBUTION WIDTH SD (test code=RDW-SD) 48.5 fL 37.0-51.0 PLATELET COUNT (test code=PLT) 313 K/mm3 150-450 RESULT VERIFIED BY REPEAT ANALYSIS MEAN PLATELET VOLUME (test code=MPV) 12.2 fL 6.7-11.0 NEUTROPHIL % (test code=NT%) 81.7 % 39.0-69.0 IMMATURE GRANULOCYTE % (test code=IG%) 0.9 % 0.0-5.0 LYMPHOCYTE % (test code=LY%) 7.4 % 25.0-55.0 MONOCYTE % (test code=MO%) 9.9 % 0.0-10.0 EOSINOPHIL % (test code=EO%) 0.0 % 0.0-5.0 BASOPHIL % (test code=BA%) 0.1 % 0.0-1.0 NUCLEATED RBC % (test code=NRBC%) 0.0 % 0-0 NEUTROPHIL # (test code=NT#) 17.33 K/mm3 1.8-7.7 IMMATURE GRANULOCYTE # (test code=IG#) 0.19 x10 3/uL 0-0.03 LYMPHOCYTE # (test code=LY#) 1.57 K/mm3 1.0-5.0 MONOCYTE # (test code=MO#) 2.10 K/mm3 0-0.8 EOSINOPHIL # (test code=EO#) 0.01 K/mm3 0.0-0.5 BASOPHIL # (test code=BA#) 0.03 K/mm3 0.0-0.2 NUCLEATED RBC # (test code=NRBC#) 0.00 K/mm3 0.0-0.1 MANUAL DIFF REQUIRED (test code=MDIFF) NO WBC [id number] 06:41:00* Test Item Value Reference Range Comments STAIN ACCEPTABILITY (test code=STN ACCEPTABLE) TOTAL CELLS COUNTED (test code=TCC) #CELLS SEGMENTED NEUTROPHILS (test code=SEG) % 39-69 LYMPHOCYTE (test code=LYMPH) % 25-55 MONOCYTE (test code=MON) % 0-10 MORPHOLOGY COMMENT (test code=MOC) PLATELET ESTIMATE (test code=PLTEST) PLATELET MORPHOLOGY (test code=PLTMORPH) PROCALCITONIN (PCT)2018-04-08 06:01:00* Test Item Value Reference Range Comments PROCALCITONIN (PCT) (test code=PROCAL) 0.14 ng/ml Concentration Interpretation (ng/mL) <0.51 Sepsis is not likely. Local bacterial infection is possible. (LOW RISK for progression to Sepsis) 0.51 - 2.00 Sepsis is possible, but other conditions are known to elevate PCT as well. (MODERATE RISK for progression to Sepsis) > 2.00 Sepsis is likely, unless other causes are known. (HIGH RISK for progression to Severe Sepsis or Septic Shock) 10.00 High likelihood of Severe Sepsis or Septic or higher Shock. *Increased PCT levels may not always be related to systemic bacterial infection.*Low PCT levels do not automatically exclude the presence of bacterial infection.*All results should be interpreted taking into account the patients history. BASIC METABOLIC [id number] 05:58:00* Test Item Value Reference Range Comments SODIUM (test code=NA) 143 mmol/L 136-145 POTASSIUM (test code=K) 3.9 mmol/L 3.5-5.1 CHLORIDE (test code=CL) 108.0 mmol/L 98-107 CARBON DIOXIDE (test code=CO2) 25.0 mmol/L 21-32 ANION GAP (test code=GAP) 13.9 10-20 GLUCOSE (test code=GLU) 125 mg/dL 74-106 BLOOD UREA NITROGEN (test code=BUN) 44 mg/dL 7-18 GLOMERULAR FILTRATION RATE (test code=GFR) > 60 mL/min >=60 Estimated GFR by using Modified MDRD formula.Chronic kidney disease is defined as either kidney damageor GFR <60 mL/min/1.73 m2 for >3 months. CREATININE (test code=CREAT) 1.00 mg/dL 0.7-1.3 BUN/CREATININE RATIO (test code=BUN/CREA) 42.3 10-20 CALCIUM (test code=CA) 8.5 mg/dL 8.5-10.1 BASIC METABOLIC [id number] 05:46:00* Test Item Value Reference Range Comments SODIUM (test code=NA) 143 mmol/L 136-145 POTASSIUM (test code=K) 3.9 mmol/L 3.5-5.1 CHLORIDE (test code=CL) 108.0 mmol/L 98-107 CARBON DIOXIDE (test code=CO2) mmol/L 21-32 ANION GAP (test code=GAP) 10-20 GLUCOSE (test code=GLU) mg/dL 74-106 BLOOD UREA NITROGEN (test code=BUN) mg/dL 7-18 GLOMERULAR FILTRATION RATE (test code=GFR) mL/min >=60 CREATININE (test code=CREAT) mg/dL 0.7-1.3 BUN/CREATININE RATIO (test code=BUN/CREA) 10-20 CALCIUM (test code=CA) mg/dL 8.5-10.1 CBC W/AUTO [id number] 05:32:00* Test Item Value Reference Range Comments WHITE BLOOD CELL (test code=WBC) 21.2 K/mm3 4.5-12.5 RED BLOOD CELL (test code=RBC) 4.59 mill/mm3 4.0-5.8 HEMOGLOBIN (test code=HGB) 12.7 gram/dL 13.0-17.5 HEMATOCRIT (test code=HCT) 40.6 % 42.0-52.0 MEAN CELL VOLUME (test code=MCV) 88.5 fL 80-98 MEAN CELL HGB (test code=MCH) 27.7 picogram 27.0-33.0 MEAN CELL HGB CONCETRATION (test code=MCHC) 31.3 gram/dL 33.0-36.0 RED CELL DISTRIBUTION WIDTH (test code=RDW) 15.4 % 11.6-16.2 RED CELL DISTRIBUTION WIDTH SD (test code=RDW-SD) 48.5 fL 37.0-51.0 PLATELET COUNT (test code=PLT) 313 K/mm3 150-450 RESULT VERIFIED BY REPEAT ANALYSIS MEAN PLATELET VOLUME (test code=MPV) 12.2 fL 6.7-11.0 NEUTROPHIL % (test code=NT%) 81.7 % 39.0-69.0 IMMATURE GRANULOCYTE % (test code=IG%) 0.9 % 0.0-5.0 LYMPHOCYTE % (test code=LY%) 7.4 % 25.0-55.0 MONOCYTE % (test code=MO%) 9.9 % 0.0-10.0 EOSINOPHIL % (test code=EO%) 0.0 % 0.0-5.0 BASOPHIL % (test code=BA%) 0.1 % 0.0-1.0 NUCLEATED RBC % (test code=NRBC%) 0.0 % 0-0 NEUTROPHIL # (test code=NT#) 17.33 K/mm3 1.8-7.7 IMMATURE GRANULOCYTE # (test code=IG#) 0.19 x10 3/uL 0-0.03 LYMPHOCYTE # (test code=LY#) 1.57 K/mm3 1.0-5.0 MONOCYTE # (test code=MO#) 2.10 K/mm3 0-0.8 EOSINOPHIL # (test code=EO#) 0.01 K/mm3 0.0-0.5 BASOPHIL # (test code=BA#) 0.03 K/mm3 0.0-0.2 NUCLEATED RBC # (test code=NRBC#) 0.00 K/mm3 0.0-0.1 MANUAL DIFF REQUIRED (test code=MDIFF) NO [id number] 04:11:00* Test Item Value Reference Range Comments GLUBED (test code=GLUBED) 112 mg/dL 74-106 Performed by certified palletizer operator at [facility] [id number] 22:14:00* Test Item Value Reference Range Comments GLUBED (test code=GLUBED) 121 mg/dL 74-106 Performed by certified palletizer operator at [facility] [id number] 16:16:00* Test Item Value Reference Range Comments GLUBED (test code=GLUBED) 130 mg/dL 74-106 Performed by certified palletizer operator at [facility] [id number] 10:59:00* Test Item Value Reference Range Comments GLUBED (test code=GLUBED) 112 mg/dL 74-106 Performed by certified palletizer operator at [facility] BASIC METABOLIC [id number] 07:15:00* Test Item Value Reference Range Comments SODIUM (test code=NA) 143 mmol/L 136-145 POTASSIUM (test code=K) 4.2 mmol/L 3.5-5.1 CHLORIDE (test code=CL) 109.0 mmol/L 98-107 CARBON DIOXIDE (test code=CO2) 25.0 mmol/L 21-32 ANION GAP (test code=GAP) 13.2 10-20 GLUCOSE (test code=GLU) 145 mg/dL 74-106 BLOOD UREA NITROGEN (test code=BUN) 40 mg/dL 7-18 GLOMERULAR FILTRATION RATE (test code=GFR) > 60 mL/min >=60 Estimated GFR by using Modified MDRD formula.Chronic kidney disease is defined as either kidney damageor GFR <60 mL/min/1.73 m2 for >3 months. CREATININE (test code=CREAT) 0.90 mg/dL 0.7-1.3 BUN/CREATININE RATIO (test code=BUN/CREA) 45.5 10-20 CALCIUM (test code=CA) 8.3 mg/dL 8.5-10.1 CBC W/AUTO [id number] 06:16:00* Test Item Value Reference Range Comments WHITE BLOOD CELL (test code=WBC) 12.7 K/mm3 4.5-12.5 RED BLOOD CELL (test code=RBC) 4.30 mill/mm3 4.0-5.8 HEMOGLOBIN (test code=HGB) 12.0 gram/dL 13.0-17.5 HEMATOCRIT (test code=HCT) 39.0 % 42.0-52.0 MEAN CELL VOLUME (test code=MCV) 90.7 fL 80-98 MEAN CELL HGB (test code=MCH) 27.9 picogram 27.0-33.0 MEAN CELL HGB CONCETRATION (test code=MCHC) 30.8 gram/dL 33.0-36.0 RED CELL DISTRIBUTION WIDTH (test code=RDW) 15.3 % 11.6-16.2 RED CELL DISTRIBUTION WIDTH SD (test code=RDW-SD) 49.4 fL 37.0-51.0 PLATELET COUNT (test code=PLT) 216 K/mm3 150-450 MEAN PLATELET VOLUME (test code=MPV) 12.7 fL 6.7-11.0 NEUTROPHIL % (test code=NT%) 84.7 % 39.0-69.0 IMMATURE GRANULOCYTE % (test code=IG%) 0.8 % 0.0-5.0 LYMPHOCYTE % (test code=LY%) 7.8 % 25.0-55.0 MONOCYTE % (test code=MO%) 6.5 % 0.0-10.0 EOSINOPHIL % (test code=EO%) 0.0 % 0.0-5.0 BASOPHIL % (test code=BA%) 0.2 % 0.0-1.0 NUCLEATED RBC % (test code=NRBC%) 0.0 % 0-0 NEUTROPHIL # (test code=NT#) 10.75 K/mm3 1.8-7.7 IMMATURE GRANULOCYTE # (test code=IG#) 0.10 x10 3/uL 0-0.03 LYMPHOCYTE # (test code=LY#) 0.99 K/mm3 1.0-5.0 MONOCYTE # (test code=MO#) 0.83 K/mm3 0-0.8 EOSINOPHIL # (test code=EO#) 0.00 K/mm3 0.0-0.5 BASOPHIL # (test code=BA#) 0.02 K/mm3 0.0-0.2 NUCLEATED RBC # (test code=NRBC#) 0.00 K/mm3 0.0-0.1 MANUAL DIFF REQUIRED (test code=MDIFF) NO - XR CHEST 1 [id number] 06:08:00 FAX: Chiquita Johnson MD [phone] [place]: B St: ADM FAX: Y Abdirahman Jack NP [phone] Name: RADHA KENDRICK [facility] : 1965 Age/S: 52/M [address] [facility] Unit #: [id number] Loc: [address] [place] [address] Phys: Abdirahman Jack DESTINATION SPECIALIST Acct: [id number] Dis Date: Status: ADM IN PHONE #: [phone] Exam Date: 04/07/2018554 FAX #: [phone] Reason: STATUS POST EXTUBATION EXAMS: CPT CODE: [id number] XR CHEST 1 V 57088 - XR CHEST 1 V, 04/07/2018 5:33 AM Reason For Examination: STATUS POST EXTUBATION Comparison: April 06, 2018 Location: R16 Findings Enteric tube again noted. Interval extubation. LUNGS: Likely vascular congestion and edema. Right basilar opacity persists possibly reflective of consolidation versus atelectasis PLEURA: No pleural effusions CARDIOMEDIASTINAL SILHOUETTE Unremarkable IMPRESSION: Low lung volumes limit evaluation Likely vascular congestion and edema. Right basilar opacity persists possibly refle ctive of consolidation versus atelectasis Electronically Sig kandi by Janice Vinson M.D. on 04/07/2018 at 060 8 Reported and signed by: Janice Carey i, M.D. CC: Chiquita Wayne MD; Abdirahman Jack NP [place]ia hnologist: RICHARD COLLAZO JR Trnscrd Date/T agustin/By: 04/07/2018 (607) : By: [email or web address] Orig Print D/T: S: 9 (0629) PAGE 1 Signed Report [id number] 04:12:00* Test Item Value Reference Range Comments GLUBED (test code=GLUBED) 151 mg/dL 74-106 Performed by certified palletizer operator at [facility] [id number] 03:05:00* Test Item Value Reference Range Comments GLUBED (test code=GLUBED) 142 mg/dL 74-106 Performed by certified palletizer operator at [facility] [id number] 15:27:00* Test Item Value Reference Range Comments GLUBED (test code=GLUBED) 129 mg/dL 74-106 Performed by certified palletizer operator at [facility] [id number] 10:37:00* Test Item Value Reference Range Comments GLUBED (test code=GLUBED) 114 mg/dL 74-106 Performed by certified palletizer operator at [facility] - XR CHEST 1 [id number] 07:46:00 FAX: Chiquita Johnson MD [phone] [place]: St: ADM FAX: Dasha Renee NP [phone] Name: RADHA KENDRICK [facility] : 1965 Age/S: 52/M [address] [facility] Unit #: [id number] Loc: [address] [address] Phys: Dasha Galo NP Acct: [id number] Dis Date: Status: ADM IN PHONE #: [phone] Exam Date: 04/06/2018 0517 FAX #: [phone] Reason: respiratory failure EXAMS: CPT CODE: [id number] XR CHEST 1 V 30164 EXAM: Chest x-ray, one view; INFORMATION: History of cardiac arrest; IMPRESSION: 1. Improvement: Better aeration of both lungs with partial resolution of basilar atelectatic changes. 2. The heart is normal in size. 3. No further changes. at 0746 Reported and signed by: Jonatan Frazier M.D. CC: Chiquita Wayne MD; Dasha Galo NP Technologist: RICHARD Paulino Trnscrd Date/Time/By: 04/06/2018 (0746) : By: KelsyW Orig Print D/T: S: 04/06/2018 (0713) PAGE 1 Signed Report BASIC METABOLIC [id number] 07:10:00* Test Item Value Reference Range Comments SODIUM (test code=NA) 144 mmol/L 136-145 POTASSIUM (test code=K) 3.9 mmol/L 3.5-5.1 CHLORIDE (test code=CL) 110.0 mmol/L 98-107 CARBON DIOXIDE (test code=CO2) 25.0 mmol/L 21-32 ANION GAP (test code=GAP) 12.9 10-20 GLUCOSE (test code=GLU) 124 mg/dL 74-106 BLOOD UREA NITROGEN (test code=BUN) 34 mg/dL 7-18 GLOMERULAR FILTRATION RATE (test code=GFR) > 60 mL/min >=60 Estimated GFR by using Modified MDRD formula.Chronic kidney disease is defined as either kidney damageor GFR <60 mL/min/1.73 m2 for >3 months. CREATININE (test code=CREAT) 1.00 mg/dL 0.7-1.3 BUN/CREATININE RATIO (test code=BUN/CREA) 34.3 10-20 CALCIUM (test code=CA) 8.6 mg/dL 8.5-10.1 BASIC METABOLIC [id number] 06:52:00* Test Item Value Reference Range Comments SODIUM (test code=NA) 144 mmol/L 136-145 POTASSIUM (test code=K) 3.9 mmol/L 3.5-5.1 CHLORIDE (test code=CL) 110.0 mmol/L 98-107 CARBON DIOXIDE (test code=CO2) mmol/L 21-32 ANION GAP (test code=GAP) 10-20 GLUCOSE (test code=GLU) mg/dL 74-106 BLOOD UREA NITROGEN (test code=BUN) mg/dL 7-18 GLOMERULAR FILTRATION RATE (test code=GFR) mL/min >=60 CREATININE (test code=CREAT) mg/dL 0.7-1.3 BUN/CREATININE RATIO (test code=BUN/CREA) 10-20 CALCIUM (test code=CA) mg/dL 8.5-10.1 CBC W/AUTO [id number] 06:34:00* Test Item Value Reference Range Comments WHITE BLOOD CELL (test code=WBC) 12.8 K/mm3 4.5-12.5 RED BLOOD CELL (test code=RBC) 4.12 mill/mm3 4.0-5.8 HEMOGLOBIN (test code=HGB) 11.5 gram/dL 13.0-17.5 HEMATOCRIT (test code=HCT) 36.8 % 42.0-52.0 MEAN CELL VOLUME (test code=MCV) 89.3 fL 80-98 MEAN CELL HGB (test code=MCH) 27.9 picogram 27.0-33.0 MEAN CELL HGB CONCETRATION (test code=MCHC) 31.3 gram/dL 33.0-36.0 RED CELL DISTRIBUTION WIDTH (test code=RDW) 15.8 % 11.6-16.2 RED CELL DISTRIBUTION WIDTH SD (test code=RDW-SD) 50.4 fL 37.0-51.0 PLATELET COUNT (test code=PLT) 205 K/mm3 150-450 MEAN PLATELET VOLUME (test code=MPV) 12.7 fL 6.7-11.0 NEUTROPHIL % (test code=NT%) 68.8 % 39.0-69.0 IMMATURE GRANULOCYTE % (test code=IG%) 0.6 % 0.0-5.0 LYMPHOCYTE % (test code=LY%) 13.1 % 25.0-55.0 MONOCYTE % (test code=MO%) 12.6 % 0.0-10.0 EOSINOPHIL % (test code=EO%) 4.5 % 0.0-5.0 BASOPHIL % (test code=BA%) 0.4 % 0.0-1.0 NUCLEATED RBC % (test code=NRBC%) 0.0 % 0-0 NEUTROPHIL # (test code=NT#) 8.81 K/mm3 1.8-7.7 IMMATURE GRANULOCYTE # (test code=IG#) 0.08 x10 3/uL 0-0.03 LYMPHOCYTE # (test code=LY#) 1.68 K/mm3 1.0-5.0 MONOCYTE # (test code=MO#) 1.61 K/mm3 0-0.8 EOSINOPHIL # (test code=EO#) 0.58 K/mm3 0.0-0.5 BASOPHIL # (test code=BA#) 0.05 K/mm3 0.0-0.2 NUCLEATED RBC # (test code=NRBC#) 0.00 K/mm3 0.0-0.1 MANUAL DIFF REQUIRED (test code=MDIFF) NO [id number] 05:18:00* Test Item Value Reference Range Comments GLUBED (test code=GLUBED) 120 mg/dL 74-106 Performed by certified palletizer operator at [facility] ARTERIAL BLOOD [id number] 04:48:00* Test Item Value Reference Range Comments ARTERIAL BLOOD GAS PH (test code=PHA) 7.45 7.35-7.45 ARTERIAL BLOOD GAS PCO2 (test code=PCO2A) 34.2 mm Hg 35-45 ARTERIAL BLOOD GAS PO2 (test code=PO2A) 76.1 mmHg 80-100 BICARBONATE TOTAL HCO3 (test code=HCO3) 23.1 mmol/L 23.0-27.0 BASE EXCESS (test code=JILLIAN) -0.4 mmol/L -3.0-5.0 ABG O2 SATURATION (test code=SATA) 94.6 % 90.0-98.0 ABG TYPE (test code=TYPEA) Arterial FIO2 (test code=FIO2A) 30.0 ABG VENT MODE (test code=MODEA) CPAP ABG PEEP (test code=PEEPA) 5.0 cmH2O ABG PRESSURE SUPPORT (test code=PSABG) 5 cmH2O ABG SITE (test code=SITEA) ARTERIAL LINE HEMATOCRIT (test code=HCT/ABG) 36 % 42-52 TOTAL HGB (test code=THB) 12.3 gram/dL 13.0-17.5 HGB O2 SAT (test code=HBOSAT) 93.9 % 94.00-98.00 CARBOXYHEMOGLOBIN (test code=HOHGBT) 0.3 %totalHg 0.5-1.5 Results called to and read back by David 04:47 - 04/06/2018; by Olinda METHEMOGLOBIN (test code=METHGB) 0.4 % 0.0-1.50 O2 CONTENT (test code=O2CT) 16.3 % vol 18.0-22.0 [id number] 21:40:00* Test Item Value Reference Range Comments GLUBED (test code=GLUBED) 117 mg/dL 74-106 Performed by certified palletizer operator at [facility] [id number] 18:05:00* Test Item Value Reference Range Comments GLUBED (test code=GLUBED) 115 mg/dL 74-106 Performed by certified palletizer operator at [facility] [id number] 11:31:00* Test Item Value Reference Range Comments GLUBED (test code=GLUBED) 111 mg/dL 74-106 Performed by certified palletizer operator at [facility] - XR CHEST 1 [id number] 07:48:00 FAX: Zaina De Anda [phone] [place]: St: ADM FAX: Francia Nguyễn NP [phone] Name: VALERIEKAYLYNNRADHA [facility] : 1965 Age/S: 52/M [address] [facility] Unit #: [id number] Loc: [place] [address] Phys: Francia Nguyễn NP Acct: [id number] Dis Date: Status: ADM IN PHONE #: [phone] Exam Date: 04/05/2018 0516 FAX #: [phone] Reason: sob EXAMS: CPT CODE: [id number] XR CHEST 1 V 64324 EXAM: Chest x-ray, one view; INFORMATION: Status post cardiac arrest; shortness of breath; IMPRESSION: 1. Interim removal of a right IJ central line. 2. Significant bilateral elevation of the diaphragm with basilar atelectatic changes and increased vascular markings. 3. No further changes. at 0748 Reported and signed by: Jonatan Frazier M.D. CC: Zaina Werner MD; Francia Nguyễn NP Technologist: RICHARD Paulino Trnscrd Date/Time/By: 04/05/2018 (0748) : By: EliezerGRW Orig Print D/T: S: 04/05/2018 (0756) PAGE 1 Signed Report BASIC METABOLIC [id number] 06:37:00* Test Item Value Reference Range Comments SODIUM (test code=NA) 143 mmol/L 136-145 POTASSIUM (test code=K) 3.9 mmol/L 3.5-5.1 CHLORIDE (test code=CL) 111.0 mmol/L 98-107 CARBON DIOXIDE (test code=CO2) 21.0 mmol/L 21-32 ANION GAP (test code=GAP) 14.9 10-20 GLUCOSE (test code=GLU) 122 mg/dL 74-106 BLOOD UREA NITROGEN (test code=BUN) 35 mg/dL 7-18 GLOMERULAR FILTRATION RATE (test code=GFR) > 60 mL/min >=60 Estimated GFR by using Modified MDRD formula.Chronic kidney disease is defined as either kidney damageor GFR <60 mL/min/1.73 m2 for >3 months. CREATININE (test code=CREAT) 0.90 mg/dL 0.7-1.3 BUN/CREATININE RATIO (test code=BUN/CREA) 38.5 10-20 CALCIUM (test code=CA) 8.2 mg/dL 8.5-10.1 [id number] 06:37:00* Test Item Value Reference Range Comments PHOSPHORUS (test code=PHOS) 3.9 mg/dL 2.5-4.9 [id number] 06:37:00* Test Item Value Reference Range Comments MAGNESIUM (test code=MAG) 2.3 mg/dL 1.8-2.4 BASIC METABOLIC [id number] 06:31:00* Test Item Value Reference Range Comments SODIUM (test code=NA) 143 mmol/L 136-145 POTASSIUM (test code=K) 3.9 mmol/L 3.5-5.1 CHLORIDE (test code=CL) 111.0 mmol/L 98-107 CARBON DIOXIDE (test code=CO2) mmol/L 21-32 ANION GAP (test code=GAP) 10-20 GLUCOSE (test code=GLU) mg/dL 74-106 BLOOD UREA NITROGEN (test code=BUN) mg/dL 7-18 GLOMERULAR FILTRATION RATE (test code=GFR) mL/min >=60 CREATININE (test code=CREAT) mg/dL 0.7-1.3 BUN/CREATININE RATIO (test code=BUN/CREA) 10-20 CALCIUM (test code=CA) mg/dL 8.5-10.1 [id number] 06:31:00* Test Item Value Reference Range Comments PHOSPHORUS (test code=PHOS) mg/dL 2.5-4.9 [id number] 06:31:00* Test Item Value Reference Range Comments MAGNESIUM (test code=MAG) mg/dL 1.8-2.4 CBC W/AUTO [id number] 06:08:00* Test Item Value Reference Range Comments WHITE BLOOD CELL (test code=WBC) 11.7 K/mm3 4.5-12.5 RED BLOOD CELL (test code=RBC) 4.24 mill/mm3 4.0-5.8 HEMOGLOBIN (test code=HGB) 11.8 gram/dL 13.0-17.5 HEMATOCRIT (test code=HCT) 37.5 % 42.0-52.0 MEAN CELL VOLUME (test code=MCV) 88.4 fL 80-98 MEAN CELL HGB (test code=MCH) 27.8 picogram 27.0-33.0 MEAN CELL HGB CONCETRATION (test code=MCHC) 31.5 gram/dL 33.0-36.0 RED CELL DISTRIBUTION WIDTH (test code=RDW) 15.4 % 11.6-16.2 RED CELL DISTRIBUTION WIDTH SD (test code=RDW-SD) 50.0 fL 37.0-51.0 PLATELET COUNT (test code=PLT) 203 K/mm3 150-450 MEAN PLATELET VOLUME (test code=MPV) 12.1 fL 6.7-11.0 NEUTROPHIL % (test code=NT%) 76.1 % 39.0-69.0 IMMATURE GRANULOCYTE % (test code=IG%) 0.4 % 0.0-5.0 LYMPHOCYTE % (test code=LY%) 10.8 % 25.0-55.0 MONOCYTE % (test code=MO%) 9.1 % 0.0-10.0 EOSINOPHIL % (test code=EO%) 3.3 % 0.0-5.0 BASOPHIL % (test code=BA%) 0.3 % 0.0-1.0 NUCLEATED RBC % (test code=NRBC%) 0.0 % 0-0 NEUTROPHIL # (test code=NT#) 8.91 K/mm3 1.8-7.7 IMMATURE GRANULOCYTE # (test code=IG#) 0.05 x10 3/uL 0-0.03 LYMPHOCYTE # (test code=LY#) 1.27 K/mm3 1.0-5.0 MONOCYTE # (test code=MO#) 1.07 K/mm3 0-0.8 EOSINOPHIL # (test code=EO#) 0.39 K/mm3 0.0-0.5 BASOPHIL # (test code=BA#) 0.04 K/mm3 0.0-0.2 NUCLEATED RBC # (test code=NRBC#) 0.00 K/mm3 0.0-0.1 ARTERIAL BLOOD [id number] 05:44:00* Test Item Value Reference Range Comments ARTERIAL BLOOD GAS PH (test code=PHA) 7.44 7.35-7.45 ARTERIAL BLOOD GAS PCO2 (test code=PCO2A) 32.3 mm Hg 35-45 ARTERIAL BLOOD GAS PO2 (test code=PO2A) 76.4 mmHg 80-100 BICARBONATE TOTAL HCO3 (test code=HCO3) 21.5 mmol/L 23.0-27.0 BASE EXCESS (test code=JILLIAN) -1.8 mmol/L -3.0-5.0 ABG O2 SATURATION (test code=SATA) 94.5 % 90.0-98.0 ABG TYPE (test code=TYPEA) Arterial FIO2 (test code=FIO2A) 30.0 ABG L/M (test code=L/M) 85.00 L/MIN ABG VENT MODE (test code=MODEA) Pressure Control/SIM ABG VENT RESP RATE (test code=RRA) 16.0 per min ABG TIDAL VOLUME (test code=TVA) 735.0 mL ABG PEEP (test code=PEEPA) 5.0 cmH2O ABG SITE (test code=SITEA) ARTERIAL LINE MODIFIED ALLENS (test code=MODALL) No CHECK PERFORMED HEMATOCRIT (test code=HCT/ABG) 38 % 42-52 TOTAL HGB (test code=THB) 12.8 gram/dL 13.0-17.5 HGB O2 SAT (test code=HBOSAT) 93.8 % 94.00-98.00 CARBOXYHEMOGLOBIN (test code=HOHGBT) 0.3 %totalHg 0.5-1.5 Results called to and read back by Donovan 05:43 - 04/05/2018; by MARY HYDE RRT METHEMOGLOBIN (test code=METHGB) 0.4 % 0.0-1.50 O2 CONTENT (test code=O2CT) 16.9 % vol 18.0-22.0 [id number] 05:02:00* Test Item Value Reference Range Comments GLUBED (test code=GLUBED) 104 mg/dL 74-106 Performed by certified palletizer operator at [facility] [id number] 17:09:00* Test Item Value Reference Range Comments GLUBED (test code=GLUBED) 92 mg/dL 74-106 Performed by certified palletizer operator at [facility] [id number] 10:46:00* Test Item Value Reference Range Comments GLUBED (test code=GLUBED) 109 mg/dL 74-106 Performed by certified palletizer operator at [facility] - XR CHEST 1 [id number] 08:02:00 FAX: Zaina De Anda [phone] [place]: B St: ADM FAX: Anna Pabon MD [phone] Name: RADHA KENDRICK [facility] : 1965 Age/S: 52/M [address] [facility] #: [id number] Loc: [place] [address] Phys: Anna Pabon MD Acct: [id number] Dis Date: Status: ADM IN PHONE #: [phone] Exam Date: 04/04/2018 0533 FAX #: [phone] Reason: ett EXAMS: CPT CODE: [id number] XR CHEST 1 V 42625 EXAM: Chest x-ray, one view; INFORMATION: History of cardiac arrest; IMPRESSION: Partial resolution of basilar atelectatic changes. Otherwise, no major change; the heart is borderline in size. Well- positioned lines and tubes. at 0802 Reported and signed by: Jonatan Frazier M.D. CC: Zaina Werner MD; Anna Pabon MD Technologist: RICHARD COLLAZO JR Trnscrd Date/Time/By: 04/04/2018 (801) : By: EliezerGRW Orig Print D/T: S: 04/04/2018 (805) PAGE 1 Signed Report BASIC METABOLIC [id number] 07:37:00* Test Item Value Reference Range Comments SODIUM (test code=NA) 144 mmol/L 136-145 POTASSIUM (test code=K) 4.0 mmol/L 3.5-5.1 CHLORIDE (test code=CL) 110.0 mmol/L 98-107 CARBON DIOXIDE (test code=CO2) 27.0 mmol/L 21-32 ANION GAP (test code=GAP) 11.0 10-20 GLUCOSE (test code=GLU) 89 mg/dL 74-106 BLOOD UREA NITROGEN (test code=BUN) 35 mg/dL 7-18 GLOMERULAR FILTRATION RATE (test code=GFR) > 60 mL/min >=60 Estimated GFR by using Modified MDRD formula.Chronic kidney disease is defined as either kidney damageor GFR <60 mL/min/1.73 m2 for >3 months. CREATININE (test code=CREAT) 1.00 mg/dL 0.7-1.3 BUN/CREATININE RATIO (test code=BUN/CREA) 35.0 10-20 CALCIUM (test code=CA) 8.2 mg/dL 8.5-10.1 [id number] 07:37:00* Test Item Value Reference Range Comments PHOSPHORUS (test code=PHOS) 3.9 mg/dL 2.5-4.9 [id number] 07:37:00* Test Item Value Reference Range Comments MAGNESIUM (test code=MAG) 2.4 mg/dL 1.8-2.4 BASIC METABOLIC [id number] 07:31:00* Test Item Value Reference Range Comments SODIUM (test code=NA) 144 mmol/L 136-145 POTASSIUM (test code=K) 4.0 mmol/L 3.5-5.1 CHLORIDE (test code=CL) 110.0 mmol/L 98-107 CARBON DIOXIDE (test code=CO2) mmol/L 21-32 ANION GAP (test code=GAP) 10-20 GLUCOSE (test code=GLU) mg/dL 74-106 BLOOD UREA NITROGEN (test code=BUN) mg/dL 7-18 GLOMERULAR FILTRATION RATE (test code=GFR) mL/min >=60 CREATININE (test code=CREAT) mg/dL 0.7-1.3 BUN/CREATININE RATIO (test code=BUN/CREA) 10-20 CALCIUM (test code=CA) mg/dL 8.5-10.1 [id number] 07:31:00* Test Item Value Reference Range Comments PHOSPHORUS (test code=PHOS) mg/dL 2.5-4.9 [id number] 07:31:00* Test Item Value Reference Range Comments MAGNESIUM (test code=MAG) mg/dL 1.8-2.4 CBC W/AUTO [id number] 07:22:00* Test Item Value Reference Range Comments WHITE BLOOD CELL (test code=WBC) 11.4 K/mm3 4.5-12.5 RED BLOOD CELL (test code=RBC) 4.54 mill/mm3 4.0-5.8 HEMOGLOBIN (test code=HGB) 12.4 gram/dL 13.0-17.5 HEMATOCRIT (test code=HCT) 41.2 % 42.0-52.0 MEAN CELL VOLUME (test code=MCV) 90.7 fL 80-98 MEAN CELL HGB (test code=MCH) 27.3 picogram 27.0-33.0 MEAN CELL HGB CONCETRATION (test code=MCHC) 30.1 gram/dL 33.0-36.0 RED CELL DISTRIBUTION WIDTH (test code=RDW) 15.8 % 11.6-16.2 RED CELL DISTRIBUTION WIDTH SD (test code=RDW-SD) 52.2 fL 37.0-51.0 PLATELET COUNT (test code=PLT) 224 K/mm3 150-450 MEAN PLATELET VOLUME (test code=MPV) 12.6 fL 6.7-11.0 NEUTROPHIL % (test code=NT%) 70.1 % 39.0-69.0 IMMATURE GRANULOCYTE % (test code=IG%) 0.4 % 0.0-5.0 LYMPHOCYTE % (test code=LY%) 17.7 % 25.0-55.0 MONOCYTE % (test code=MO%) 8.9 % 0.0-10.0 EOSINOPHIL % (test code=EO%) 2.4 % 0.0-5.0 BASOPHIL % (test code=BA%) 0.5 % 0.0-1.0 NUCLEATED RBC % (test code=NRBC%) 0.0 % 0-0 NEUTROPHIL # (test code=NT#) 8.00 K/mm3 1.8-7.7 IMMATURE GRANULOCYTE # (test code=IG#) 0.05 x10 3/uL 0-0.03 LYMPHOCYTE # (test code=LY#) 2.03 K/mm3 1.0-5.0 MONOCYTE # (test code=MO#) 1.02 K/mm3 0-0.8 EOSINOPHIL # (test code=EO#) 0.28 K/mm3 0.0-0.5 BASOPHIL # (test code=BA#) 0.06 K/mm3 0.0-0.2 NUCLEATED RBC # (test code=NRBC#) 0.00 K/mm3 0.0-0.1 MANUAL DIFF REQUIRED (test code=MDIFF) NO [id number] 04:37:00* Test Item Value Reference Range Comments GLUBED (test code=GLUBED) 101 mg/dL 74-106 Performed by certified palletizer operator at [facility] [id number] 22:56:00* Test Item Value Reference Range Comments GLUBED (test code=GLUBED) 78 mg/dL 74-106 Performed by certified palletizer operator at [facility] - XR CHEST 1 [id number] 17:35:00 FAX: Zaina De Anda [phone] [place]: St: ADM FAX: Anna Pabon MD [phone] Name: RADHA KENDRICK [facility] : 1965 Age/S: 52/M [address] [facility] Unit #: [id number] Loc: [address] [place] [address] Phys: Anna Pabon MD Acct: [id number] Dis Date: Status: ADM IN PHONE #: [phone] Exam Date: 04/03/2018 1715 FAX #: [phone] Reason: PER MONORAIL OPERATOR REQUEST EXAMS: CPT CODE: [id number] XR CHEST 1 V 48693 REASON FOR EXAM: PER MONORAIL OPERATOR REQUEST EXAM ORDER DATE: 04/03/2018 12:00 AM Ordering Laurita: Anna Pabon MD PROCEDURE: - XR CHEST 1 V COMPARISON: 04/03/2018 at 4:20 AM FINDINGS: Portable AP frontal view of the chest obtained at 5:24 PM shows the heart size is within normal limits. Pulmonary vasculatures are minimally congested. Stable appearance of the right IJ central line, ET tube and NG tube. IMPRESSION: Hypoaerated lungs with atelectasis in the bases. at 1733 Reported and signed by: Raúl Chang M.D. CC: Zaina Werner MD; Anna Pabon MD Technologist: RT MARIJA(R) Trnscrd Date/Time/By: 04/03/2018 (3737) : By: Morenita Orig Print D/T: S: 04/03/2018 (0903) PAGE 1 Signed R eport [id number] 17:27:00* Test Item Value Reference Range Comments GLUBED (test code=GLUBED) 90 mg/dL 74-106 Performed by certified palletizer operator at [facility] ARTERIAL BLOOD [id number] 17:05:00* Test Item Value Reference Range Comments ARTERIAL BLOOD GAS PH (test code=PHA) 7.45 7.35-7.45 ARTERIAL BLOOD GAS PCO2 (test code=PCO2A) 32.4 mm Hg 35-45 ARTERIAL BLOOD GAS PO2 (test code=PO2A) 85.5 mmHg 80-100 BICARBONATE TOTAL HCO3 (test code=HCO3) 22.0 mmol/L 23.0-27.0 BASE EXCESS (test code=JILLIAN) -1.2 mmol/L -3.0-5.0 ABG O2 SATURATION (test code=SATA) 96.1 % 90.0-98.0 ABG TYPE (test code=TYPEA) Arterial FIO2 (test code=FIO2A) 30.0 ABG VENT MODE (test code=MODEA) CPAP ABG PRESSURE SUPPORT (test code=PSABG) 10 cmH2O ABG SITE (test code=SITEA) Lt RADIAL ARTERY MODIFIED ALLENS (test code=MODALL) Yes CHECK PERFORMED HEMATOCRIT (test code=HCT/ABG) 39 % 42-52 TOTAL HGB (test code=THB) 13.1 gram/dL 13.0-17.5 HGB O2 SAT (test code=HBOSAT) 95.4 % 94.00-98.00 CARBOXYHEMOGLOBIN (test code=HOHGBT) 0.3 %totalHg 0.5-1.5 Results called to and read back by 17:05 - 04/03/2018; by [id number] METHEMOGLOBIN (test code=METHGB) 0.4 % 0.0-1.50 O2 CONTENT (test code=O2CT) 17.6 % vol 18.0-22.0 [id number] 08:53:00* Test Item Value Reference Range Comments GLUBED (test code=GLUBED) 104 mg/dL 74-106 Performed by certified palletizer operator at [facility] THROMBOPLASTIN TIME [id number] 08:05:00* Test Item Value Reference Range Comments THROMBOPLASTIN TIME PARTIAL (test code=PTT) 27.9 seconds 25.0-36.5 IS PATIENT ON ANTICOAGULANTS? YLIST ANTICOAGULANTS HEPARIN- XR CHEST 1 V 2018-04-03 07:50:00 FAX: Zaina De Anda [phone] [place]: [address]: ADM FAX: Francia Nguyễn NP [phone] Name: RADHA KENDRICK [facility] : 1965 Age/S: 52/M [address] [facility] Unit #: [id number] Loc: [place] [address] Phys: Francia Nguyễn NP Acct: [id number] Dis Date: Status: ADM IN PHONE #: [phone] Exam Date: 04/03/2018 0445 FAX #: [phone] Reason: sob EXAMS: CPT CODE: [id number] XR CHEST 1 V 22087 CLINICAL HISTORY: Shortness of breath TECHNIQUE: AP chest x-ray COMPARISON: Previous day. IMPRESSION: No significant interval change. Elevated right hemidiaphragm with basilar atelectasis. No airspace consolidation or pleural effusion. Normal heart size. ET tube, NG tube, and right central venous catheter at 0750 Reported and signed by: Cristina Zayas D.O. CC: Zaina Werner MD; Francia Nguyễn NP Technologist: RONNY SCOTT, RT(R); Stacy Darnell Trnscrd Date/Time/By: 04/03/2018 (0750) : By: [email or web address] Orig Print D/T: S: 04/03/2018 (0757) PAGE 1 Signed Report CBC W/AUTO [id number] 07:27:00* Test Item Value Reference Range Comments WHITE BLOOD CELL (test code=WBC) 12.8 K/mm3 4.5-12.5 RED BLOOD CELL (test code=RBC) 4.47 mill/mm3 4.0-5.8 HEMOGLOBIN (test code=HGB) 12.3 gram/dL 13.0-17.5 HEMATOCRIT (test code=HCT) 39.6 % 42.0-52.0 MEAN CELL VOLUME (test code=MCV) 88.6 fL 80-98 MEAN CELL HGB (test code=MCH) 27.5 picogram 27.0-33.0 MEAN CELL HGB CONCETRATION (test code=MCHC) 31.1 gram/dL 33.0-36.0 RED CELL DISTRIBUTION WIDTH (test code=RDW) 15.7 % 11.6-16.2 RED CELL DISTRIBUTION WIDTH SD (test code=RDW-SD) 51.2 fL 37.0-51.0 PLATELET COUNT (test code=PLT) 218 K/mm3 150-450 RESULT VERIFIED BY REPEAT ANALYSIS MEAN PLATELET VOLUME (test code=MPV) 12.4 fL 6.7-11.0 NEUTROPHIL % (test code=NT%) 71.2 % 39.0-69.0 IMMATURE GRANULOCYTE % (test code=IG%) 0.5 % 0.0-5.0 LYMPHOCYTE % (test code=LY%) 18.0 % 25.0-55.0 MONOCYTE % (test code=MO%) 8.6 % 0.0-10.0 EOSINOPHIL % (test code=EO%) 1.2 % 0.0-5.0 BASOPHIL % (test code=BA%) 0.5 % 0.0-1.0 NUCLEATED RBC % (test code=NRBC%) 0.0 % 0-0 NEUTROPHIL # (test code=NT#) 9.08 K/mm3 1.8-7.7 IMMATURE GRANULOCYTE # (test code=IG#) 0.06 x10 3/uL 0-0.03 LYMPHOCYTE # (test code=LY#) 2.30 K/mm3 1.0-5.0 MONOCYTE # (test code=MO#) 1.10 K/mm3 0-0.8 EOSINOPHIL # (test code=EO#) 0.15 K/mm3 0.0-0.5 BASOPHIL # (test code=BA#) 0.07 K/mm3 0.0-0.2 NUCLEATED RBC # (test code=NRBC#) 0.00 K/mm3 0.0-0.1 MANUAL DIFF REQUIRED (test code=MDIFF) NO BASIC METABOLIC [id number] 06:59:00* Test Item Value Reference Range Comments SODIUM (test code=NA) 144 mmol/L 136-145 POTASSIUM (test code=K) 4.0 mmol/L 3.5-5.1 CHLORIDE (test code=CL) 113.0 mmol/L 98-107 CARBON DIOXIDE (test code=CO2) 23.0 mmol/L 21-32 ANION GAP (test code=GAP) 12.0 10-20 GLUCOSE (test code=GLU) 100 mg/dL 74-106 BLOOD UREA NITROGEN (test code=BUN) 38 mg/dL 7-18 GLOMERULAR FILTRATION RATE (test code=GFR) > 60 mL/min >=60 Estimated GFR by using Modified MDRD formula.Chronic kidney disease is defined as either kidney damageor GFR <60 mL/min/1.73 m2 for >3 months. CREATININE (test code=CREAT) 1.10 mg/dL 0.7-1.3 BUN/CREATININE RATIO (test code=BUN/CREA) 35.8 10-20 CALCIUM (test code=CA) 8.1 mg/dL 8.5-10.1 [id number] 06:59:00* Test Item Value Reference Range Comments PHOSPHORUS (test code=PHOS) 3.1 mg/dL 2.5-4.9 [id number] 06:59:00* Test Item Value Reference Range Comments MAGNESIUM (test code=MAG) 2.5 mg/dL 1.8-2.4 BASIC METABOLIC [id number] 06:56:00* Test Item Value Reference Range Comments SODIUM (test code=NA) 144 mmol/L 136-145 POTASSIUM (test code=K) 4.0 mmol/L 3.5-5.1 CHLORIDE (test code=CL) 113.0 mmol/L 98-107 CARBON DIOXIDE (test code=CO2) mmol/L 21-32 ANION GAP (test code=GAP) 10-20 GLUCOSE (test code=GLU) mg/dL 74-106 BLOOD UREA NITROGEN (test code=BUN) mg/dL 7-18 GLOMERULAR FILTRATION RATE (test code=GFR) mL/min >=60 CREATININE (test code=CREAT) mg/dL 0.7-1.3 BUN/CREATININE RATIO (test code=BUN/CREA) 10-20 CALCIUM (test code=CA) mg/dL 8.5-10.1 [id number] 06:56:00* Test Item Value Reference Range Comments PHOSPHORUS (test code=PHOS) mg/dL 2.5-4.9 [id number] 06:56:00* Test Item Value Reference Range Comments MAGNESIUM (test code=MAG) mg/dL 1.8-2.4 ARTERIAL BLOOD [id number] 06:37:00* Test Item Value Reference Range Comments ARTERIAL BLOOD GAS PH (test code=PHA) 7.42 7.35-7.45 ARTERIAL BLOOD GAS PCO2 (test code=PCO2A) 35.6 mm Hg 35-45 ARTERIAL BLOOD GAS PO2 (test code=PO2A) 78.6 mmHg 80-100 BICARBONATE TOTAL HCO3 (test code=HCO3) 22.7 mmol/L 23.0-27.0 BASE EXCESS (test code=JILLIAN) -1.3 mmol/L -3.0-5.0 ABG O2 SATURATION (test code=SATA) 95.4 % 90.0-98.0 ABG TYPE (test code=TYPEA) Arterial FIO2 (test code=FIO2A) 30.0 ABG L/M (test code=L/M) 60.00 L/MIN ABG VENT MODE (test code=MODEA) Pressure Control ABG VENT RESP RATE (test code=RRA) 18.0 per min ABG TIDAL VOLUME (test code=TVA) 889.0 mL ABG PEEP (test code=PEEPA) 5.0 cmH2O ABG SITE (test code=SITEA) ARTERIAL LINE MODIFIED ALLENS (test code=MODALL) No CHECK PERFORMED SODIUM (test code=NA/ABG) 139.3 mEq/L 135-148 POTASSIUM (test code=K/ABG) 3.9 mEq/L 3.5-4.5 CHLORIDE (test code=CL/ABG) 110 mEq/L 98-106 GLUCOSE (test code=GLU/ABG) 100 mg/dL 74-99 HEMATOCRIT (test code=HCT/ABG) 38 % 42-52 IONIZED CALCIUM (test code=CAIABG) 1.17 mmol/L 1.1-1.37 TOTAL HGB (test code=THB) 13.0 gram/dL 13.0-17.5 HGB O2 SAT (test code=HBOSAT) 94.7 % 94.00-98.00 CARBOXYHEMOGLOBIN (test code=HOHGBT) 0.3 %totalHg 0.5-1.5 Results called to and read back by Donovan 06:35 - 04/03/2018; by MARY METHEMOGLOBIN (test code=METHGB) 0.4 % 0.0-1.50 O2 CONTENT (test code=O2CT) 17.4 % vol 18.0-22.0 [id number] 05:08:00* Test Item Value Reference Range Comments GLUBED (test code=GLUBED) 79 mg/dL 74-106 Performed by certified palletizer operator at [facility] [id number] 23:00:00* Test Item Value Reference Range Comments GLUBED (test code=GLUBED) 80 mg/dL 74-106 Performed by certified palletizer operator at [facility] [id number] 17:48:00* Test Item Value Reference Range Comments GLUBED (test code=GLUBED) 100 mg/dL 74-106 Performed by certified palletizer operator at [facility] THROMBOPLASTIN TIME [id number] 15:40:00* Test Item Value Reference Range Comments THROMBOPLASTIN TIME PARTIAL (test code=PTT) 84.1 seconds 25.0-36.5 IS PATIENT ON ANTICOAGULANTS? YLIST ANTICOAGULANTS HEPARIN- CTA CHEST 2018-04-02 13:10:00 Name: RADHA KENDRICK [facility] : 1965 Age/S: 52 / M [address] [place] [address] Unit #: [id number] Loc: [place] [address] Phys: Jim Vickers MD Acct: [id number] Dis Date: Status: ADM IN PHONE #: [phone] Exam Date: 04/02/2018 1218 FAX #: [phone] Reason: Witnessed cardiac arrest. R/o PE and dissection EXAMS: CPT CODE: [id number] CTA CHEST 20959 REASON FOR EXAM: Witnessed cardiac arrest. R/o PE and dissection EXAM ORDER DATE: 04/02/2018 5:26 PM Ordering M.DMary: Jim Vickers MD PROCEDURE: - CTA CHEST FINDINGS: CT images of the chest were obtained with IV contrast using PE protocol. Reconstructed sagittal and coronal images including 3D reconstructions of the chest were provided for interpretation. Dose reduction techniques were applied. The heart size is within normal limits. No evidence of pericardial effusion The thoracic aorta is unremarkable. No evidence of dissection or aneurysmal dilatation. Poor opacification of the distal pulmonary arteries noted. Cannot rule out small pulmonary emboli. No evidence of central pulmonary emboli within the main or central pulmonary arteries No evidence of mediastinal or hilar adenopathy The lungs are hypoaerated with patchy atelectasis of the right base. The patient is intubated with the tip of the ET tube 2 cm above the nils No evidence of pleural effusion IMPRESSION:Atelectasis of the right base. Limited exam due to motion artifacts shows no gross evidence of pulmonary embolus at 1310 Reported and signed by: Raúl Chang M.D. CC: Jim Vickers MD; Zaina Werner MD Technologist:Marialuisa Azevedo RT(R),CT; CTDI: DLP: Trnscb Date/Time: 04/02/2018 (1310) t.SDR.VTL Orig Print D/T: S: 04/02/2018 (3850) CTDI: DLP: PAGE 1 Signed Report - CT HEAD/BRAIN W/O [id number] 13:07:00 Name: RADHA KENDRICK [facility] : 1965 Age/S: 52 / M [address] [facility] Unit #: [id number] Loc: [place] [address] Phys: Kayla Pinon MD Acct: [id number] Di s Date: Status: ADM IN PHONE #: [phone] Exam Date: 04/02/2018 1217 FAX #: Reason: aNOXIC BRAIN INJURY EXAMS: CPT CODE: [id number] CT HEAD/BRAIN W/O CONT 06819 REASON FOR EXAM: aNOXIC BRAIN INJURY EXAM ORDER DATE: 04/02/2018 5:00 AM Ordering Laurita: Kayla Pinon MD PROCEDURE: - CT HEAD/BR AIN W/O CONT COMPARISON: 03/30/2018 FINDINGS: CT imag es of the brain were obtained without IV contrast. Dose reduction techniq ues were applied. The brain parenchyma is within normal limits. Th e snell-white matter delineation is unremarkable. The ventricles, cisterns, and sulci are unremarkable. There is no evidence of hemorrhage, mass, mass effect. There is no evidence of acute or old infarct. The calvarium is i ntact. IMPRESSION: Unremarkable brain. Martha ctronically Signed by Laurita Chang on 04/02/2018 at 1307 Reported and signed by: Raúl Chang M.D. CC: Zaina Werner MD; Kayla Pinon MD Technologist:Marialuisa Azevedo RT(R),CT; CTDI: DLP: Trnscb Date/Time: 04/02/2018 (1493) t.CHRISTINE.VTL Orig Print D/T: S: 04/02/2018 (8393) CTDI: DLP: PAGE 1 Signed Report ARTERIAL BLOOD [id number] 09:49:00* Test Item Value Reference Range Comments ARTERIAL BLOOD GAS PH (test code=PHA) 7.42 7.35-7.45 ARTERIAL BLOOD GAS PCO2 (test code=PCO2A) 30.4 mm Hg 35-45 ARTERIAL BLOOD GAS PO2 (test code=PO2A) 73.6 mmHg 80-100 BICARBONATE TOTAL HCO3 (test code=HCO3) 19.4 mmol/L 23.0-27.0 BASE EXCESS (test code=JILLIAN) -3.8 mmol/L -3.0-5.0 Results called to and read back by 09:45 - 04/02/2018; by [id number] ABG O2 SATURATION (test code=SATA) 94.6 % 90.0-98.0 ABG TYPE (test code=TYPEA) Arterial FIO2 (test code=FIO2A) 30.0 ABG VENT MODE (test code=MODEA) Pressure Control ABG VENT RESP RATE (test code=RRA) 18.0 per min ABG PEEP (test code=PEEPA) 5.0 cmH2O ABG SITE (test code=SITEA) ARTERIAL LINE MODIFIED ALLENS (test code=MODALL) No CHECK PERFORMED HEMATOCRIT (test code=HCT/ABG) 43 % 42-52 TOTAL HGB (test code=THB) 14.6 gram/dL 13.0-17.5 HGB O2 SAT (test code=HBOSAT) 94.2 % 94.00-98.00 CARBOXYHEMOGLOBIN (test code=HOHGBT) 0.0 %totalHg 0.5-1.5 Results called to and read back by 09:45 - 04/02/2018; by [id number] METHEMOGLOBIN (test code=METHGB) 0.4 % 0.0-1.50 O2 CONTENT (test code=O2CT) 19.3 % vol 18.0-22.0 [id number] 09:11:00* Test Item Value Reference Range Comments GLUBED (test code=GLUBED) 111 mg/dL 74-106 Performed by certified palletizer operator at [facility] [id number] 09:11:00* Test Item Value Reference Range Comments GLUBED (test code=GLUBED) 107 mg/dL 74-106 Performed by certified palletizer operator at [facility] - XR CHEST 1 [id number] 06:53:00 FAX: Zaina De Anda [phone] [place]: St: [facility] FAX: Anna Pabon MD [phone] Name: RADHA KENDRICK [facility] : 1965 Age/S: 52/M [address] [facility] Unit #: [id number] Loc: [place] [address] Phys: Anna Pabon MD Acct: [id number] Dis Date: Status: ADM IN PHONE #: [phone] Exam Date: 04/02/2018 0503 FAX #: [phone] Reason: INTUBATED EXAMS: CPT CODE: [id number] XR CHEST 1 V 17729 REASON FOR EXAM: INTUBATED EXAM ORDER DATE: 04/02/2018 5:00 AM Ordering Laurita: Anna Pabon MD PROCEDURE: - XR CHEST 1 V COMPARISON: 04/01/2018 FINDINGS: Portable AP frontal view of the chest obtained at 4:11 AM shows the heart size is within normal limits. Pulmonary vasculatures are minimally congested. Stable appearance of the right IJ central line, ET tube, and OG tube. IMPRESSION: Focal atelectasis of the right base. at 0653 Reported and signed by: Raúl Chang M.D. CC: Zaina Robertson MD; Anna Pabon MD Technologist: Julieta VIGIL(Julieta); Stacy Darnell Trnscrd Date/Time/By: 04/02/2018 (0653) : By: LizL Orig Print D/T: S: 04/02/2018 (0656) PAGE 1 Signed Report COMPREHENSIVE METABOLIC [id number] 06:45:00* Test Item Value Reference Range Comments SODIUM (test code=NA) 145 mmol/L 136-145 POTASSIUM (test code=K) 3.8 mmol/L 3.5-5.1 CHLORIDE (test code=CL) 112.0 mmol/L 98-107 CARBON DIOXIDE (test code=CO2) 23.0 mmol/L 21-32 ANION GAP (test code=GAP) 13.8 10-20 GLUCOSE (test code=GLU) 129 mg/dL 74-106 BLOOD UREA NITROGEN (test code=BUN) 36 mg/dL 7-18 RESULT VERIFIED BY REPEAT ANALYSIS GLOMERULAR FILTRATION RATE (test code=GFR) 53 mL/min >=60 Estimated GFR by using Modified MDRD formula.Chronic kidney disease is defined as either kidney damageor GFR <60 mL/min/1.73 m2 for >3 months. CREATININE (test code=CREAT) 1.40 mg/dL 0.7-1.3 BUN/CREATININE RATIO (test code=BUN/CREA) 25.7 10-20 TOTAL PROTEIN (test code=PROT) 6.7 gram/dL 6.4-8.2 ALBUMIN (test code=ALB) 2.9 g/dL 3.4-5.0 GLOBULIN (test code=GLOB) 3.8 gram/dL 2.7-4.2 ALBUMIN/GLOBULIN RATIO (test code=A/G) 0.8 0.75-1.50 CALCIUM (test code=CA) 7.9 mg/dL 8.5-10.1 BILIRUBIN TOTAL (test code=BILT) 0.30 mg/dL 0.0-1.0 SGOT/AST (test code=AST) 28 IUnit/L 15-37 SGPT/ALT (test code=ALT) 71 IUnit/L 12-78 ALKALINE PHOSPHATASE TOTAL (test code=ALKP) 86 IUnit/L 45-117 Note change in reference range due to change in reagent. [id number] 06:45:00* Test Item Value Reference Range Comments PHOSPHORUS (test code=PHOS) 3.8 mg/dL 2.5-4.9 [id number] 06:45:00* Test Item Value Reference Range Comments MAGNESIUM (test code=MAG) 2.6 mg/dL 1.8-2.4 CALCIUM [id number] 06:45:00* Test Item Value Reference Range Comments CALCIUM IONIZED (test code=ALTA) 1.15 mmol/L 1.12-1.32 THROMBOPLASTIN TIME [id number] 06:00:00* Test Item Value Reference Range Comments THROMBOPLASTIN TIME PARTIAL (test code=PTT) 35.2 seconds 25.0-36.5 IS PATIENT ON ANTICOAGULANTS? YLIST ANTICOAGULANTS HEPARINCOMPREHENSIVE METABOLIC [id number] 05:55:00* Test Item Value Reference Range Comments SODIUM (test code=NA) 145 mmol/L 136-145 POTASSIUM (test code=K) 3.8 mmol/L 3.5-5.1 CHLORIDE (test code=CL) 112.0 mmol/L 98-107 CARBON DIOXIDE (test code=CO2) 23.0 mmol/L 21-32 ANION GAP (test code=GAP) 13.8 10-20 GLUCOSE (test code=GLU) 129 mg/dL 74-106 BLOOD UREA NITROGEN (test code=BUN) 36 mg/dL 7-18 RESULT VERIFIED BY REPEAT ANALYSIS GLOMERULAR FILTRATION RATE (test code=GFR) 53 mL/min >=60 Estimated GFR by using Modified MDRD formula.Chronic kidney disease is defined as either kidney damageor GFR <60 mL/min/1.73 m2 for >3 months. CREATININE (test code=CREAT) 1.40 mg/dL 0.7-1.3 BUN/CREATININE RATIO (test code=BUN/CREA) 25.7 10-20 TOTAL PROTEIN (test code=PROT) 6.7 gram/dL 6.4-8.2 ALBUMIN (test code=ALB) 2.9 g/dL 3.4-5.0 GLOBULIN (test code=GLOB) 3.8 gram/dL 2.7-4.2 ALBUMIN/GLOBULIN RATIO (test code=A/G) 0.8 0.75-1.50 CALCIUM (test code=CA) 7.9 mg/dL 8.5-10.1 BILIRUBIN TOTAL (test code=BILT) 0.30 mg/dL 0.0-1.0 SGOT/AST (test code=AST) 28 IUnit/L 15-37 SGPT/ALT (test code=ALT) 71 IUnit/L 12-78 ALKALINE PHOSPHATASE TOTAL (test code=ALKP) 86 IUnit/L 45-117 Note change in reference range due to change in reagent. [id number] 05:55:00* Test Item Value Reference Range Comments PHOSPHORUS (test code=PHOS) 3.8 mg/dL 2.5-4.9 [id number] 05:55:00* Test Item Value Reference Range Comments MAGNESIUM (test code=MAG) 2.6 mg/dL 1.8-2.4 CALCIUM [id number] 05:55:00* Test Item Value Reference Range Comments CALCIUM IONIZED (test code=ALTA) mmol/L 1.12-1.32 CBC W/AUTO [id number] 05:23:00* Test Item Value Reference Range Comments WHITE BLOOD CELL (test code=WBC) 16.9 K/mm3 4.5-12.5 RED BLOOD CELL (test code=RBC) 5.02 mill/mm3 4.0-5.8 HEMOGLOBIN (test code=HGB) 13.7 gram/dL 13.0-17.5 HEMATOCRIT (test code=HCT) 44.3 % 42.0-52.0 MEAN CELL VOLUME (test code=MCV) 88.2 fL 80-98 MEAN CELL HGB (test code=MCH) 27.3 picogram 27.0-33.0 MEAN CELL HGB CONCETRATION (test code=MCHC) 30.9 gram/dL 33.0-36.0 RED CELL DISTRIBUTION WIDTH (test code=RDW) 15.6 % 11.6-16.2 RED CELL DISTRIBUTION WIDTH SD (test code=RDW-SD) 50.4 fL 37.0-51.0 PLATELET COUNT (test code=PLT) 271 K/mm3 150-450 MEAN PLATELET VOLUME (test code=MPV) 12.2 fL 6.7-11.0 NEUTROPHIL % (test code=NT%) 81.2 % 39.0-69.0 IMMATURE GRANULOCYTE % (test code=IG%) 0.5 % 0.0-5.0 LYMPHOCYTE % (test code=LY%) 11.4 % 25.0-55.0 MONOCYTE % (test code=MO%) 6.5 % 0.0-10.0 EOSINOPHIL % (test code=EO%) 0.1 % 0.0-5.0 BASOPHIL % (test code=BA%) 0.3 % 0.0-1.0 NUCLEATED RBC % (test code=NRBC%) 0.0 % 0-0 NEUTROPHIL # (test code=NT#) 13.72 K/mm3 1.8-7.7 IMMATURE GRANULOCYTE # (test code=IG#) 0.09 x10 3/uL 0-0.03 LYMPHOCYTE # (test code=LY#) 1.92 K/mm3 1.0-5.0 MONOCYTE # (test code=MO#) 1.09 K/mm3 0-0.8 EOSINOPHIL # (test code=EO#) 0.01 K/mm3 0.0-0.5 BASOPHIL # (test code=BA#) 0.05 K/mm3 0.0-0.2 NUCLEATED RBC # (test code=NRBC#) 0.00 K/mm3 0.0-0.1 MANUAL DIFF REQUIRED (test code=MDIFF) NO COMPREHENSIVE METABOLIC [id number] 05:17:00* Test Item Value Reference Range Comments SODIUM (test code=NA) 145 mmol/L 136-145 POTASSIUM (test code=K) 3.8 mmol/L 3.5-5.1 CHLORIDE (test code=CL) 112.0 mmol/L 98-107 CARBON DIOXIDE (test code=CO2) mmol/L 21-32 ANION GAP (test code=GAP) 10-20 GLUCOSE (test code=GLU) mg/dL 74-106 BLOOD UREA NITROGEN (test code=BUN) mg/dL 7-18 GLOMERULAR FILTRATION RATE (test code=GFR) mL/min >=60 CREATININE (test code=CREAT) mg/dL 0.7-1.3 BUN/CREATININE RATIO (test code=BUN/CREA) 10-20 TOTAL PROTEIN (test code=PROT) gram/dL 6.4-8.2 ALBUMIN (test code=ALB) g/dL 3.4-5.0 GLOBULIN (test code=GLOB) gram/dL 2.7-4.2 ALBUMIN/GLOBULIN RATIO (test code=A/G) 0.75-1.50 CALCIUM (test code=CA) mg/dL 8.5-10.1 BILIRUBIN TOTAL (test code=BILT) mg/dL 0.0-1.0 SGOT/AST (test code=AST) IUnit/L 15-37 SGPT/ALT (test code=ALT) IUnit/L 12-78 ALKALINE PHOSPHATASE TOTAL (test code=ALKP) IUnit/L 45-117 [id number] 05:17:00* Test Item Value Reference Range Comments PHOSPHORUS (test code=PHOS) mg/dL 2.5-4.9 [id number] 05:17:00* Test Item Value Reference Range Comments MAGNESIUM (test code=MAG) mg/dL 1.8-2.4 CALCIUM [id number] 05:17:00* Test Item Value Reference Range Comments CALCIUM IONIZED (test code=ALTA) mmol/L 1.12-1.32 [id number] 22:41:00* Test Item Value Reference Range Comments GLUBED (test code=GLUBED) 87 mg/dL 74-106 Performed by certified palletizer operator at [facility] THROMBOPLASTIN TIME [id number] 21:30:00* Test Item Value Reference Range Comments THROMBOPLASTIN TIME PARTIAL (test code=PTT) 141.7 seconds 25.0-36.5 Results called to [id number] by [email or web address] 04/01/18 2130Critical results verified and read back by Nurse? Y IS PATIENT ON ANTICOAGULANTS? YLIST ANTICOAGULANTS [id number] 16:52:00* Test Item Value Reference Range Comments GLUBED (test code=GLUBED) 122 mg/dL 74-106 Performed by certified palletizer operator at [facility] [id number] 14:22:00* Test Item Value Reference Range Comments GLUBED (test code=GLUBED) 104 mg/dL 74-106 Performed by certified palletizer operator at [facility] [id number] 14:22:00* Test Item Value Reference Range Comments GLUBED (test code=GLUBED) 90 mg/dL 74-106 Performed by certified palletizer operator at [facility] [id number] 14:22:00* Test Item Value Reference Range Comments GLUBED (test code=GLUBED) 119 mg/dL 74-106 Performed by certified palletizer operator at [facility] [id number] 14:22:00* Test Item Value Reference Range Comments GLUBED (test code=GLUBED) 105 mg/dL 74-106 Performed by certified palletizer operator at [facility] THROMBOPLASTIN TIME [id number] 12:29:00* Test Item Value Reference Range Comments THROMBOPLASTIN TIME PARTIAL (test code=PTT) 41.7 seconds 25.0-36.5 IS PATIENT ON ANTICOAGULANTS? YLIST ANTICOAGULANTS [id number] 08:26:00* Test Item Value Reference Range Comments GLUBED (test code=GLUBED) 122 mg/dL 74-106 Performed by certified palletizer operator at [facility] - XR CHEST 1 [id number] 07:16:00 FAX: Jim Vickers MD [phone] [place]: B St: ADM FAX: Zaina De Anda [phone] Name: RADHA KENDRICK [facility] : 1965 Age/S: 52/M [place]ie [place] Unit #: [id number] Loc: [place] [address] Phys: Jim Vickers MD Acct: [id number] Dis Date: Status: ADM IN PHONE #: [phone] Exam Date: 04/01/2018527 FAX #: [phone] Reason: FOLLOW UP ON VENT EXAMS: CPT CODE: [id number] XR CHEST 1 V 56691 REASON FOR EXAM: FOLLOW UP ON VENT EXAM ORDER DATE: 04/01/2018 5:00 AM Ordering M.Clarissa: Jim Vickers MD PROCEDURE: - XR CHEST 1 V COMPARISON: 03/30/2018 FINDINGS: Portable AP frontal view of the chest obtained at 5:29 AM shows clear lungs. There is no evidence of consolidation. There is no evidence of effusion. The heart size is within normal limits. Pulmonary vasculatures are unremarkable. Stable appearance of the right IJ central line, ET tube, and OG tube. IMPRESSION: Minimal patchy atelectasis of the bases. at 0716 Reported and signed by: Raúl Chang M.D. CC: Jim Vickers MD; Zaina Werner MD Technologist: RICHARD Paulino Trnscrd Date/Time/By: 0 04/01/2018 (0716) : By: EliezerVTL Orig Print D/T: S: 04/01/2018 (0719) PAGE 1 Signed Report COMPREHENSIVE METABOLIC [id number] 06:12:00* Test Item Value Reference Range Comments SODIUM (test code=NA) 144 mmol/L 136-145 POTASSIUM (test code=K) 3.7 mmol/L 3.5-5.1 CHLORIDE (test code=CL) 110.0 mmol/L 98-107 CARBON DIOXIDE (test code=CO2) 24.0 mmol/L 21-32 ANION GAP (test code=GAP) 13.7 10-20 GLUCOSE (test code=GLU) 148 mg/dL 74-106 BLOOD UREA NITROGEN (test code=BUN) 28 mg/dL 7-18 GLOMERULAR FILTRATION RATE (test code=GFR) > 60 mL/min >=60 Estimated GFR by using Modified MDRD formula.Chronic kidney disease is defined as either kidney damageor GFR <60 mL/min/1.73 m2 for >3 months. CREATININE (test code=CREAT) 1.20 mg/dL 0.7-1.3 BUN/CREATININE RATIO (test code=BUN/CREA) 22.6 10-20 TOTAL PROTEIN (test code=PROT) 6.8 gram/dL 6.4-8.2 ALBUMIN (test code=ALB) 3.0 g/dL 3.4-5.0 GLOBULIN (test code=GLOB) 3.8 gram/dL 2.7-4.2 ALBUMIN/GLOBULIN RATIO (test code=A/G) 0.8 0.75-1.50 CALCIUM (test code=CA) 7.9 mg/dL 8.5-10.1 BILIRUBIN TOTAL (test code=BILT) 0.30 mg/dL 0.0-1.0 SGOT/AST (test code=AST) 48 IUnit/L 15-37 SGPT/ALT (test code=ALT) 99 IUnit/L 12-78 ALKALINE PHOSPHATASE TOTAL (test code=ALKP) 99 IUnit/L 45-117 Note change in reference range due to change in reagent. COMPREHENSIVE METABOLIC [id number] 06:05:00* Test Item Value Reference Range Comments SODIUM (test code=NA) 144 mmol/L 136-145 POTASSIUM (test code=K) 3.7 mmol/L 3.5-5.1 CHLORIDE (test code=CL) 110.0 mmol/L 98-107 CARBON DIOXIDE (test code=CO2) mmol/L 21-32 ANION GAP (test code=GAP) 10-20 GLUCOSE (test code=GLU) mg/dL 74-106 BLOOD UREA NITROGEN (test code=BUN) mg/dL 7-18 GLOMERULAR FILTRATION RATE (test code=GFR) mL/min >=60 CREATININE (test code=CREAT) mg/dL 0.7-1.3 BUN/CREATININE RATIO (test code=BUN/CREA) 10-20 TOTAL PROTEIN (test code=PROT) gram/dL 6.4-8.2 ALBUMIN (test code=ALB) g/dL 3.4-5.0 GLOBULIN (test code=GLOB) gram/dL 2.7-4.2 ALBUMIN/GLOBULIN RATIO (test code=A/G) 0.75-1.50 CALCIUM (test code=CA) mg/dL 8.5-10.1 BILIRUBIN TOTAL (test code=BILT) mg/dL 0.0-1.0 SGOT/AST (test code=AST) IUnit/L 15-37 SGPT/ALT (test code=ALT) IUnit/L 12-78 ALKALINE PHOSPHATASE TOTAL (test code=ALKP) IUnit/L 45-117 THROMBOPLASTIN TIME [id number] 05:46:00* Test Item Value Reference Range Comments THROMBOPLASTIN TIME PARTIAL (test code=PTT) 54.3 seconds 25.0-36.5 IS PATIENT ON ANTICOAGULANTS? YLIST ANTICOAGULANTS HEPARINCBC W/AUTO DIFF 2018-04-01 05:42:00* Test Item Value Reference Range Comments WHITE BLOOD CELL (test code=WBC) 17.7 K/mm3 4.5-12.5 RED BLOOD CELL (test code=RBC) 5.76 mill/mm3 4.0-5.8 HEMOGLOBIN (test code=HGB) 15.9 gram/dL 13.0-17.5 HEMATOCRIT (test code=HCT) 50.2 % 42.0-52.0 MEAN CELL VOLUME (test code=MCV) 87.2 fL 80-98 MEAN CELL HGB (test code=MCH) 27.6 picogram 27.0-33.0 MEAN CELL HGB CONCETRATION (test code=MCHC) 31.7 gram/dL 33.0-36.0 RED CELL DISTRIBUTION WIDTH (test code=RDW) 15.1 % 11.6-16.2 RED CELL DISTRIBUTION WIDTH SD (test code=RDW-SD) 48.0 fL 37.0-51.0 PLATELET COUNT (test code=PLT) 297 K/mm3 150-450 MEAN PLATELET VOLUME (test code=MPV) 11.9 fL 6.7-11.0 NEUTROPHIL % (test code=NT%) 88.7 % 39.0-69.0 IMMATURE GRANULOCYTE % (test code=IG%) 0.5 % 0.0-5.0 LYMPHOCYTE % (test code=LY%) 4.9 % 25.0-55.0 MONOCYTE % (test code=MO%) 5.6 % 0.0-10.0 EOSINOPHIL % (test code=EO%) 0.1 % 0.0-5.0 BASOPHIL % (test code=BA%) 0.2 % 0.0-1.0 NUCLEATED RBC % (test code=NRBC%) 0.0 % 0-0 NEUTROPHIL # (test code=NT#) 15.69 K/mm3 1.8-7.7 IMMATURE GRANULOCYTE # (test code=IG#) 0.09 x10 3/uL 0-0.03 LYMPHOCYTE # (test code=LY#) 0.87 K/mm3 1.0-5.0 MONOCYTE # (test code=MO#) 1.00 K/mm3 0-0.8 EOSINOPHIL # (test code=EO#) 0.02 K/mm3 0.0-0.5 BASOPHIL # (test code=BA#) 0.04 K/mm3 0.0-0.2 NUCLEATED RBC # (test code=NRBC#) 0.00 K/mm3 0.0-0.1 [id number] 05:06:00* Test Item Value Reference Range Comments GLUBED (test code=GLUBED) 131 mg/dL 74-106 Performed by certified palletizer operator at [facility] [id number] 04:56:00* Test Item Value Reference Range Comments GLUBED (test code=GLUBED) 124 mg/dL 74-106 Performed by certified palletizer operator at [facility] COMPREHENSIVE METABOLIC [id number] 03:26:00* Test Item Value Reference Range Comments SODIUM (test code=NA) 145 mmol/L 136-145 POTASSIUM (test code=K) 3.3 mmol/L 3.5-5.1 CHLORIDE (test code=CL) 114.0 mmol/L 98-107 CARBON DIOXIDE (test code=CO2) 20.0 mmol/L 21-32 ANION GAP (test code=GAP) 14.3 10-20 GLUCOSE (test code=GLU) 135 mg/dL 74-106 BLOOD UREA NITROGEN (test code=BUN) 24 mg/dL 7-18 GLOMERULAR FILTRATION RATE (test code=GFR) > 60 mL/min >=60 Estimated GFR by using Modified MDRD formula.Chronic kidney disease is defined as either kidney damageor GFR <60 mL/min/1.73 m2 for >3 months. CREATININE (test code=CREAT) 1.00 mg/dL 0.7-1.3 BUN/CREATININE RATIO (test code=BUN/CREA) 25.0 10-20 TOTAL PROTEIN (test code=PROT) 5.5 gram/dL 6.4-8.2 ALBUMIN (test code=ALB) 2.7 g/dL 3.4-5.0 GLOBULIN (test code=GLOB) 2.8 gram/dL 2.7-4.2 ALBUMIN/GLOBULIN RATIO (test code=A/G) 1.0 0.75-1.50 CALCIUM (test code=CA) 7.1 mg/dL 8.5-10.1 BILIRUBIN TOTAL (test code=BILT) 0.20 mg/dL 0.0-1.0 SGOT/AST (test code=AST) 42 IUnit/L 15-37 SGPT/ALT (test code=ALT) 93 IUnit/L 12-78 ALKALINE PHOSPHATASE TOTAL (test code=ALKP) 85 IUnit/L 45-117 Note change in reference range due to change in reagent. COMPREHENSIVE METABOLIC [id number] 03:17:00* Test Item Value Reference Range Comments SODIUM (test code=NA) 145 mmol/L 136-145 POTASSIUM (test code=K) 3.3 mmol/L 3.5-5.1 CHLORIDE (test code=CL) 114.0 mmol/L 98-107 CARBON DIOXIDE (test code=CO2) mmol/L 21-32 ANION GAP (test code=GAP) 10-20 GLUCOSE (test code=GLU) mg/dL 74-106 BLOOD UREA NITROGEN (test code=BUN) mg/dL 7-18 GLOMERULAR FILTRATION RATE (test code=GFR) mL/min >=60 CREATININE (test code=CREAT) mg/dL 0.7-1.3 BUN/CREATININE RATIO (test code=BUN/CREA) 10-20 TOTAL PROTEIN (test code=PROT) gram/dL 6.4-8.2 ALBUMIN (test code=ALB) g/dL 3.4-5.0 GLOBULIN (test code=GLOB) gram/dL 2.7-4.2 ALBUMIN/GLOBULIN RATIO (test code=A/G) 0.75-1.50 CALCIUM (test code=CA) mg/dL 8.5-10.1 BILIRUBIN TOTAL (test code=BILT) mg/dL 0.0-1.0 SGOT/AST (test code=AST) IUnit/L 15-37 SGPT/ALT (test code=ALT) IUnit/L 12-78 ALKALINE PHOSPHATASE TOTAL (test code=ALKP) IUnit/L 45-117 [id number] 02:52:00* Test Item Value Reference Range Comments GLUBED (test code=GLUBED) 120 mg/dL 74-106 Performed by certified palletizer operator at [facility] [id number] 01:57:00* Test Item Value Reference Range Comments GLUBED (test code=GLUBED) 124 mg/dL 74-106 Performed by certified palletizer operator at [facility] [id number] 23:59:00* Test Item Value Reference Range Comments GLUBED (test code=GLUBED) 118 mg/dL 74-106 Performed by certified palletizer operator at [facility] THROMBOPLASTIN TIME [id number] 22:09:00* Test Item Value Reference Range Comments THROMBOPLASTIN TIME PARTIAL (test code=PTT) 99.1 seconds 25.0-36.5 Results called to [id number] by V.[email or web address] 03/31/18 [id number] results verified and read back by Nurse? Y IS PATIENT ON ANTICOAGULANTS? YLIST ANTICOAGULANTS [id number] 21:32:00* Test Item Value Reference Range Comments GLUBED (test code=GLUBED) 86 mg/dL 74-106 Performed by certified palletizer operator at [facility] COMPREHENSIVE METABOLIC [id number] 20:50:00* Test Item Value Reference Range Comments SODIUM (test code=NA) 144 mmol/L 136-145 POTASSIUM (test code=K) 3.4 mmol/L 3.5-5.1 CHLORIDE (test code=CL) 112.0 mmol/L 98-107 CARBON DIOXIDE (test code=CO2) 21.0 mmol/L 21-32 ANION GAP (test code=GAP) 14.4 10-20 GLUCOSE (test code=GLU) 122 mg/dL 74-106 BLOOD UREA NITROGEN (test code=BUN) 25 mg/dL 7-18 GLOMERULAR FILTRATION RATE (test code=GFR) > 60 mL/min >=60 Estimated GFR by using Modified MDRD formula.Chronic kidney disease is defined as either kidney damageor GFR <60 mL/min/1.73 m2 for >3 months. CREATININE (test code=CREAT) 0.90 mg/dL 0.7-1.3 BUN/CREATININE RATIO (test code=BUN/CREA) 27.4 10-20 TOTAL PROTEIN (test code=PROT) 6.0 gram/dL 6.4-8.2 ALBUMIN (test code=ALB) 2.9 g/dL 3.4-5.0 GLOBULIN (test code=GLOB) 3.1 gram/dL 2.7-4.2 ALBUMIN/GLOBULIN RATIO (test code=A/G) 0.9 0.75-1.50 CALCIUM (test code=CA) 7.8 mg/dL 8.5-10.1 BILIRUBIN TOTAL (test code=BILT) 0.30 mg/dL 0.0-1.0 SGOT/AST (test code=AST) 51 IUnit/L 15-37 SGPT/ALT (test code=ALT) 97 IUnit/L 12-78 ALKALINE PHOSPHATASE TOTAL (test code=ALKP) 90 IUnit/L 45-117 Note change in reference range due to change in reagent. [id number] 20:50:00* Test Item Value Reference Range Comments PHOSPHORUS (test code=PHOS) 4.0 mg/dL 2.5-4.9 [id number] 20:50:00* Test Item Value Reference Range Comments MAGNESIUM (test code=MAG) 2.7 mg/dL 1.8-2.4 CALCIUM [id number] 20:50:00* Test Item Value Reference Range Comments CALCIUM IONIZED (test code=ALTA) 1.22 mmol/L 1.12-1.32 COMPREHENSIVE METABOLIC [id number] 20:43:00* Test Item Value Reference Range Comments SODIUM (test code=NA) 144 mmol/L 136-145 POTASSIUM (test code=K) 3.4 mmol/L 3.5-5.1 CHLORIDE (test code=CL) 112.0 mmol/L 98-107 CARBON DIOXIDE (test code=CO2) mmol/L 21-32 ANION GAP (test code=GAP) 10-20 GLUCOSE (test code=GLU) mg/dL 74-106 BLOOD UREA NITROGEN (test code=BUN) mg/dL 7-18 GLOMERULAR FILTRATION RATE (test code=GFR) mL/min >=60 CREATININE (test code=CREAT) mg/dL 0.7-1.3 BUN/CREATININE RATIO (test code=BUN/CREA) 10-20 TOTAL PROTEIN (test code=PROT) gram/dL 6.4-8.2 ALBUMIN (test code=ALB) g/dL 3.4-5.0 GLOBULIN (test code=GLOB) gram/dL 2.7-4.2 ALBUMIN/GLOBULIN RATIO (test code=A/G) 0.75-1.50 CALCIUM (test code=CA) mg/dL 8.5-10.1 BILIRUBIN TOTAL (test code=BILT) mg/dL 0.0-1.0 SGOT/AST (test code=AST) IUnit/L 15-37 SGPT/ALT (test code=ALT) IUnit/L 12-78 ALKALINE PHOSPHATASE TOTAL (test code=ALKP) IUnit/L 45-117 [id number] 20:43:00* Test Item Value Reference Range Comments PHOSPHORUS (test code=PHOS) mg/dL 2.5-4.9 [id number] 20:43:00* Test Item Value Reference Range Comments MAGNESIUM (test code=MAG) mg/dL 1.8-2.4 CALCIUM [id number] 20:43:00* Test Item Value Reference Range Comments CALCIUM IONIZED (test code=ALTA) 1.22 mmol/L 1.12-1.32 COMPREHENSIVE METABOLIC [id number] 20:19:00* Test Item Value Reference Range Comments SODIUM (test code=NA) mmol/L 136-145 POTASSIUM (test code=K) mmol/L 3.5-5.1 CHLORIDE (test code=CL) mmol/L 98-107 CARBON DIOXIDE (test code=CO2) mmol/L 21-32 ANION GAP (test code=GAP) 10-20 GLUCOSE (test code=GLU) mg/dL 74-106 BLOOD UREA NITROGEN (test code=BUN) mg/dL 7-18 GLOMERULAR FILTRATION RATE (test code=GFR) mL/min >=60 CREATININE (test code=CREAT) mg/dL 0.7-1.3 BUN/CREATININE RATIO (test code=BUN/CREA) 10-20 TOTAL PROTEIN (test code=PROT) gram/dL 6.4-8.2 ALBUMIN (test code=ALB) g/dL 3.4-5.0 GLOBULIN (test code=GLOB) gram/dL 2.7-4.2 ALBUMIN/GLOBULIN RATIO (test code=A/G) 0.75-1.50 CALCIUM (test code=CA) mg/dL 8.5-10.1 BILIRUBIN TOTAL (test code=BILT) mg/dL 0.0-1.0 SGOT/AST (test code=AST) IUnit/L 15-37 SGPT/ALT (test code=ALT) IUnit/L 12-78 ALKALINE PHOSPHATASE TOTAL (test code=ALKP) IUnit/L 45-117 [id number] 20:19:00* Test Item Value Reference Range Comments PHOSPHORUS (test code=PHOS) mg/dL 2.5-4.9 [id number] 20:19:00* Test Item Value Reference Range Comments MAGNESIUM (test code=MAG) mg/dL 1.8-2.4 CALCIUM [id number] 20:19:00* Test Item Value Reference Range Comments CALCIUM IONIZED (test code=ALTA) 1.22 mmol/L 1.12-1.32 [id number] 20:14:00* Test Item Value Reference Range Comments GLUBED (test code=GLUBED) 113 mg/dL 74-106 Performed by certified palletizer operator at [facility] [id number] 20:09:00* Test Item Value Reference Range Comments GLUBED (test code=GLUBED) 100 mg/dL 74-106 Performed by certified palletizer operator at [facility] [id number] 20:09:00* Test Item Value Reference Range Comments GLUBED (test code=GLUBED) 101 mg/dL 74-106 Performed by certified palletizer operator at [facility] [id number] 18:39:00* Test Item Value Reference Range Comments GLUBED (test code=GLUBED) 127 mg/dL 74-106 Performed by certified palletizer operator at [facility] ARTERIAL BLOOD [id number] 17:32:00* Test Item Value Reference Range Comments ARTERIAL BLOOD GAS PH (test code=PHA) 7.41 7.35-7.45 ARTERIAL BLOOD GAS PCO2 (test code=PCO2A) 33.5 mm Hg 35-45 ARTERIAL BLOOD GAS PO2 (test code=PO2A) 82.8 mmHg 80-100 BICARBONATE TOTAL HCO3 (test code=HCO3) 20.6 mmol/L 23.0-27.0 BASE EXCESS (test code=JILLIAN) -3.1 mmol/L -3.0-5.0 Results called to and read back by Dr martínez 17: - 03/31/2018; by [id number] ABG O2 SATURATION (test code=SATA) 96.0 % 90.0-98.0 ABG TYPE (test code=TYPEA) Arterial FIO2 (test code=FIO2A) 30.0 ABG VENT MODE (test code=MODEA) Pressure Control ABG VENT RESP RATE (test code=RRA) 18.0 per min ABG PEEP (test code=PEEPA) 10.0 cmH2O ABG SITE (test code=SITEA) ARTERIAL LINE SODIUM (test code=NA/ABG) 139.0 mEq/L 135-148 POTASSIUM (test code=K/ABG) 3.0 mEq/L 3.5-4.5 CHLORIDE (test code=CL/ABG) 110 mEq/L 98-106 GLUCOSE (test code=GLU/ABG) 114 mg/dL 74-99 HEMATOCRIT (test code=HCT/ABG) 48 % 42-52 IONIZED CALCIUM (test code=CAIABG) 1.15 mmol/L 1.1-1.37 TOTAL HGB (test code=THB) 16.3 gram/dL 13.0-17.5 HGB O2 SAT (test code=HBOSAT) 95.5 % 94.00-98.00 CARBOXYHEMOGLOBIN (test code=HOHGBT) 0.1 %totalHg 0.5-1.5 Results called to and read back by Dr martínez 17: - 03/31/2018; by [id number] METHEMOGLOBIN (test code=METHGB) 0.4 % 0.0-1.50 O2 CONTENT (test code=O2CT) 21.9 % vol 18.0-22.0 COMPREHENSIVE METABOLIC [id number] 16:24:00* Test Item Value Reference Range Comments SODIUM (test code=NA) 143 mmol/L 136-145 POTASSIUM (test code=K) 3.5 mmol/L 3.5-5.1 CHLORIDE (test code=CL) 112.0 mmol/L 98-107 CARBON DIOXIDE (test code=CO2) 22.0 mmol/L 21-32 ANION GAP (test code=GAP) 12.5 10-20 GLUCOSE (test code=GLU) 115 mg/dL 74-106 BLOOD UREA NITROGEN (test code=BUN) 25 mg/dL 7-18 GLOMERULAR FILTRATION RATE (test code=GFR) > 60 mL/min >=60 Estimated GFR by using Modified MDRD formula.Chronic kidney disease is defined as either kidney damageor GFR <60 mL/min/1.73 m2 for >3 months. CREATININE (test code=CREAT) 1.00 mg/dL 0.7-1.3 BUN/CREATININE RATIO (test code=BUN/CREA) 26.1 10-20 TOTAL PROTEIN (test code=PROT) 6.3 gram/dL 6.4-8.2 ALBUMIN (test code=ALB) 3.1 g/dL 3.4-5.0 GLOBULIN (test code=GLOB) 3.2 gram/dL 2.7-4.2 ALBUMIN/GLOBULIN RATIO (test code=A/G) 1.0 0.75-1.50 CALCIUM (test code=CA) 8.4 mg/dL 8.5-10.1 BILIRUBIN TOTAL (test code=BILT) 0.30 mg/dL 0.0-1.0 SGOT/AST (test code=AST) 57 IUnit/L 15-37 SGPT/ALT (test code=ALT) 109 IUnit/L 12-78 ALKALINE PHOSPHATASE TOTAL (test code=ALKP) 98 IUnit/L 45-117 Note change in reference range due to change in reagent. [id number] 16:24:00* Test Item Value Reference Range Comments PHOSPHORUS (test code=PHOS) 2.0 mg/dL 2.5-4.9 [id number] 16:24:00* Test Item Value Reference Range Comments MAGNESIUM (test code=MAG) 2.7 mg/dL 1.8-2.4 CALCIUM [id number] 16:24:00* Test Item Value Reference Range Comments CALCIUM IONIZED (test code=ALTA) 1.28 mmol/L 1.12-1.32 COMPREHENSIVE METABOLIC [id number] 16:10:00* Test Item Value Reference Range Comments SODIUM (test code=NA) mmol/L 136-145 POTASSIUM (test code=K) mmol/L 3.5-5.1 CHLORIDE (test code=CL) mmol/L 98-107 CARBON DIOXIDE (test code=CO2) mmol/L 21-32 ANION GAP (test code=GAP) 10-20 GLUCOSE (test code=GLU) mg/dL 74-106 BLOOD UREA NITROGEN (test code=BUN) mg/dL 7-18 GLOMERULAR FILTRATION RATE (test code=GFR) mL/min >=60 CREATININE (test code=CREAT) mg/dL 0.7-1.3 BUN/CREATININE RATIO (test code=BUN/CREA) 10-20 TOTAL PROTEIN (test code=PROT) gram/dL 6.4-8.2 ALBUMIN (test code=ALB) g/dL 3.4-5.0 GLOBULIN (test code=GLOB) gram/dL 2.7-4.2 ALBUMIN/GLOBULIN RATIO (test code=A/G) 0.75-1.50 CALCIUM (test code=CA) mg/dL 8.5-10.1 BILIRUBIN TOTAL (test code=BILT) mg/dL 0.0-1.0 SGOT/AST (test code=AST) IUnit/L 15-37 SGPT/ALT (test code=ALT) IUnit/L 12-78 ALKALINE PHOSPHATASE TOTAL (test code=ALKP) IUnit/L 45-117 [id number] 16:10:00* Test Item Value Reference Range Comments PHOSPHORUS (test code=PHOS) mg/dL 2.5-4.9 [id number] 16:10:00* Test Item Value Reference Range Comments MAGNESIUM (test code=MAG) mg/dL 1.8-2.4 CALCIUM [id number] 16:10:00* Test Item Value Reference Range Comments CALCIUM IONIZED (test code=ALTA) 1.28 mmol/L 1.12-1.32 [id number] 15:46:00* Test Item Value Reference Range Comments GLUBED (test code=GLUBED) 107 mg/dL 74-106 Performed by certified palletizer operator at [facility] [id number] 15:46:00* Test Item Value Reference Range Comments GLUBED (test code=GLUBED) 117 mg/dL 74-106 Performed by certified palletizer operator at [facility] [id number] 15:46:00* Test Item Value Reference Range Comments GLUBED (test code=GLUBED) 124 mg/dL 74-106 Performed by certified palletizer operator at [facility] [id number] 15:46:00* Test Item Value Reference Range Comments GLUBED (test code=GLUBED) 119 mg/dL 74-106 Performed by certified palletizer operator at [facility] THROMBOPLASTIN TIME [id number] 15:02:00* Test Item Value Reference Range Comments THROMBOPLASTIN TIME PARTIAL (test code=PTT) 32.7 seconds 25.0-36.5 IS PATIENT ON ANTICOAGULANTS? YLIST ANTICOAGULANTS LOVENOXCOMPREHENSIVE METABOLIC [id number] 12:53:00* Test Item Value Reference Range Comments SODIUM (test code=NA) 144 mmol/L 136-145 POTASSIUM (test code=K) 3.5 mmol/L 3.5-5.1 CHLORIDE (test code=CL) 113.0 mmol/L 98-107 CARBON DIOXIDE (test code=CO2) 22.0 mmol/L 21-32 ANION GAP (test code=GAP) 12.5 10-20 GLUCOSE (test code=GLU) 115 mg/dL 74-106 BLOOD UREA NITROGEN (test code=BUN) 25 mg/dL 7-18 GLOMERULAR FILTRATION RATE (test code=GFR) > 60 mL/min >=60 Estimated GFR by using Modified MDRD formula.Chronic kidney disease is defined as either kidney damageor GFR <60 mL/min/1.73 m2 for >3 months. CREATININE (test code=CREAT) 0.80 mg/dL 0.7-1.3 BUN/CREATININE RATIO (test code=BUN/CREA) 30.4 10-20 TOTAL PROTEIN (test code=PROT) 5.7 gram/dL 6.4-8.2 ALBUMIN (test code=ALB) 2.8 g/dL 3.4-5.0 GLOBULIN (test code=GLOB) 2.9 gram/dL 2.7-4.2 ALBUMIN/GLOBULIN RATIO (test code=A/G) 1.0 0.75-1.50 CALCIUM (test code=CA) 8.4 mg/dL 8.5-10.1 BILIRUBIN TOTAL (test code=BILT) 0.30 mg/dL 0.0-1.0 SGOT/AST (test code=AST) 53 IUnit/L 15-37 SGPT/ALT (test code=ALT) 95 IUnit/L 12-78 ALKALINE PHOSPHATASE TOTAL (test code=ALKP) 91 IUnit/L 45-117 Note change in reference range due to change in reagent. [id number] 12:53:00* Test Item Value Reference Range Comments PHOSPHORUS (test code=PHOS) 2.9 mg/dL 2.5-4.9 [id number] 12:53:00* Test Item Value Reference Range Comments MAGNESIUM (test code=MAG) 3.1 mg/dL 1.8-2.4 CALCIUM [id number] 12:53:00* Test Item Value Reference Range Comments CALCIUM IONIZED (test code=ALTA) 1.33 mmol/L 1.12-1.32 COMPREHENSIVE METABOLIC [id number] 12:40:00* Test Item Value Reference Range Comments SODIUM (test code=NA) 144 mmol/L 136-145 POTASSIUM (test code=K) 3.5 mmol/L 3.5-5.1 CHLORIDE (test code=CL) 113.0 mmol/L 98-107 CARBON DIOXIDE (test code=CO2) mmol/L 21-32 ANION GAP (test code=GAP) 10-20 GLUCOSE (test code=GLU) mg/dL 74-106 BLOOD UREA NITROGEN (test code=BUN) mg/dL 7-18 GLOMERULAR FILTRATION RATE (test code=GFR) mL/min >=60 CREATININE (test code=CREAT) mg/dL 0.7-1.3 BUN/CREATININE RATIO (test code=BUN/CREA) 10-20 TOTAL PROTEIN (test code=PROT) gram/dL 6.4-8.2 ALBUMIN (test code=ALB) g/dL 3.4-5.0 GLOBULIN (test code=GLOB) gram/dL 2.7-4.2 ALBUMIN/GLOBULIN RATIO (test code=A/G) 0.75-1.50 CALCIUM (test code=CA) mg/dL 8.5-10.1 BILIRUBIN TOTAL (test code=BILT) mg/dL 0.0-1.0 SGOT/AST (test code=AST) IUnit/L 15-37 SGPT/ALT (test code=ALT) IUnit/L 12-78 ALKALINE PHOSPHATASE TOTAL (test code=ALKP) IUnit/L 45-117 [id number] 12:40:00* Test Item Value Reference Range Comments PHOSPHORUS (test code=PHOS) mg/dL 2.5-4.9 [id number] 12:40:00* Test Item Value Reference Range Comments MAGNESIUM (test code=MAG) mg/dL 1.8-2.4 CALCIUM [id number] 12:40:00* Test Item Value Reference Range Comments CALCIUM IONIZED (test code=ALTA) 1.33 mmol/L 1.12-1.32 COMPREHENSIVE METABOLIC [id number] 12:33:00* Test Item Value Reference Range Comments SODIUM (test code=NA) mmol/L 136-145 POTASSIUM (test code=K) mmol/L 3.5-5.1 CHLORIDE (test code=CL) mmol/L 98-107 CARBON DIOXIDE (test code=CO2) mmol/L 21-32 ANION GAP (test code=GAP) 10-20 GLUCOSE (test code=GLU) mg/dL 74-106 BLOOD UREA NITROGEN (test code=BUN) mg/dL 7-18 GLOMERULAR FILTRATION RATE (test code=GFR) mL/min >=60 CREATININE (test code=CREAT) mg/dL 0.7-1.3 BUN/CREATININE RATIO (test code=BUN/CREA) 10-20 TOTAL PROTEIN (test code=PROT) gram/dL 6.4-8.2 ALBUMIN (test code=ALB) g/dL 3.4-5.0 GLOBULIN (test code=GLOB) gram/dL 2.7-4.2 ALBUMIN/GLOBULIN RATIO (test code=A/G) 0.75-1.50 CALCIUM (test code=CA) mg/dL 8.5-10.1 BILIRUBIN TOTAL (test code=BILT) mg/dL 0.0-1.0 SGOT/AST (test code=AST) IUnit/L 15-37 SGPT/ALT (test code=ALT) IUnit/L 12-78 ALKALINE PHOSPHATASE TOTAL (test code=ALKP) IUnit/L 45-117 [id number] 12:33:00* Test Item Value Reference Range Comments PHOSPHORUS (test code=PHOS) mg/dL 2.5-4.9 [id number] 12:33:00* Test Item Value Reference Range Comments MAGNESIUM (test code=MAG) mg/dL 1.8-2.4 CALCIUM [id number] 12:33:00* Test Item Value Reference Range Comments CALCIUM IONIZED (test code=ALTA) 1.33 mmol/L 1.12-1.32 ARTERIAL BLOOD [id number] 12:21:00* Test Item Value Reference Range Comments ARTERIAL BLOOD GAS PH (test code=PHA) 7.39 7.35-7.45 ARTERIAL BLOOD GAS PCO2 (test code=PCO2A) 33.1 mm Hg 35-45 ARTERIAL BLOOD GAS PO2 (test code=PO2A) 90.0 mmHg 80-100 BICARBONATE TOTAL HCO3 (test code=HCO3) 19.5 mmol/L 23.0-27.0 BASE EXCESS (test code=JILLIAN) -4.4 mmol/L -3.0-5.0 Results called to and read back by Dr martínez 12:21 - 03/31/2018; by [id number] ABG O2 SATURATION (test code=SATA) 96.5 % 90.0-98.0 ABG TYPE (test code=TYPEA) Arterial FIO2 (test code=FIO2A) 30.0 ABG VENT MODE (test code=MODEA) Pressure Control ABG VENT RESP RATE (test code=RRA) 18.0 per min ABG PEEP (test code=PEEPA) 10.0 cmH2O ABG SITE (test code=SITEA) ARTERIAL LINE SODIUM (test code=NA/ABG) 137.5 mEq/L 135-148 POTASSIUM (test code=K/ABG) 3.3 mEq/L 3.5-4.5 CHLORIDE (test code=CL/ABG) 109 mEq/L 98-106 GLUCOSE (test code=GLU/ABG) 122 mg/dL 74-99 HEMATOCRIT (test code=HCT/ABG) 46 % 42-52 IONIZED CALCIUM (test code=CAIABG) 1.27 mmol/L 1.1-1.37 TOTAL HGB (test code=THB) 15.8 gram/dL 13.0-17.5 HGB O2 SAT (test code=HBOSAT) 95.9 % 94.00-98.00 CARBOXYHEMOGLOBIN (test code=HOHGBT) 0.3 %totalHg 0.5-1.5 Results called to and read back by Dr martínez 12:21 - 03/31/2018; by [id number] METHEMOGLOBIN (test code=METHGB) 0.3 % 0.0-1.50 O2 CONTENT (test code=O2CT) 21.3 % vol 18.0-22.0 [id number] 12:12:00* Test Item Value Reference Range Comments GLUBED (test code=GLUBED) 103 mg/dL 74-106 Performed by certified palletizer operator at [facility]2019-01-31 12:12:00* Test Item Value Reference Range Comments GLUBED (test code=GLUBED) 78 mg/dL 74-106 Performed by certified palletizer operator at [facility]2019-01-31 12:12:00* Test Item Value Reference Range Comments GLUBED (test code=GLUBED) 85 mg/dL 74-106 Performed by certified palletizer operator at [facility] [id number] 12:11:00* Test Item Value Reference Range Comments GLUBED (test code=GLUBED) 107 mg/dL 74-106 Performed by certified palletizer operator at [facility]2019-01-31 12:11:00* Test Item Value Reference Range Comments GLUBED (test code=GLUBED) 33 mg/dL 74-106 Test performed as P.O.C. by nursing staff.[facility] [id number] 08:57:00* Test Item Value Reference Range Comments GLUBED (test code=GLUBED) 109 mg/dL 74-106 Performed by certified palletizer operator at [facility] [id number] 08:57:00* Test Item Value Reference Range Comments GLUBED (test code=GLUBED) 107 mg/dL 74-106 Performed by certified palletizer operator at [facility] COMPREHENSIVE METABOLIC [id number] 08:53:00* Test Item Value Reference Range Comments SODIUM (test code=NA) 142 mmol/L 136-145 POTASSIUM (test code=K) 4.0 mmol/L 3.5-5.1 CHLORIDE (test code=CL) 111.0 mmol/L 98-107 CARBON DIOXIDE (test code=CO2) 20.0 mmol/L 21-32 ANION GAP (test code=GAP) 15.0 10-20 GLUCOSE (test code=GLU) 115 mg/dL 74-106 BLOOD UREA NITROGEN (test code=BUN) 26 mg/dL 7-18 GLOMERULAR FILTRATION RATE (test code=GFR) > 60 mL/min >=60 Estimated GFR by using Modified MDRD formula.Chronic kidney disease is defined as either kidney damageor GFR <60 mL/min/1.73 m2 for >3 months. CREATININE (test code=CREAT) 1.10 mg/dL 0.7-1.3 BUN/CREATININE RATIO (test code=BUN/CREA) 24.5 10-20 TOTAL PROTEIN (test code=PROT) 6.7 gram/dL 6.4-8.2 ALBUMIN (test code=ALB) 3.2 g/dL 3.4-5.0 GLOBULIN (test code=GLOB) 3.5 gram/dL 2.7-4.2 ALBUMIN/GLOBULIN RATIO (test code=A/G) 0.9 0.75-1.50 CALCIUM (test code=CA) 7.7 mg/dL 8.5-10.1 BILIRUBIN TOTAL (test code=BILT) 0.30 mg/dL 0.0-1.0 SGOT/AST (test code=AST) 68 IUnit/L 15-37 SGPT/ALT (test code=ALT) 122 IUnit/L 12-78 ALKALINE PHOSPHATASE TOTAL (test code=ALKP) 108 IUnit/L 45-117 Note change in reference range due to change in reagent. CALCIUM [id number] 08:53:00* Test Item Value Reference Range Comments CALCIUM IONIZED (test code=ALTA) 1.22 mmol/L 1.12-1.32 [id number] 08:50:00* Test Item Value Reference Range Comments PHOSPHORUS (test code=PHOS) mg/dL 2.5-4.9 [id number] 08:50:00* Test Item Value Reference Range Comments MAGNESIUM (test code=MAG) 3.0 mg/dL 1.8-2.4 [id number] 08:50:00* Test Item Value Reference Range Comments PHOSPHORUS (test code=PHOS) 2.6 mg/dL 2.5-4.9 [id number] 08:50:00* Test Item Value Reference Range Comments MAGNESIUM (test code=MAG) 3.0 mg/dL 1.8-2.4 LACTIC [id number] 08:46:00* Test Item Value Reference Range Comments LACTIC ACID (test code=LACT) 1.7 mmol/L 0.4-1.9 COMPREHENSIVE METABOLIC [id number] 08:44:00* Test Item Value Reference Range Comments SODIUM (test code=NA) 142 mmol/L 136-145 POTASSIUM (test code=K) 4.0 mmol/L 3.5-5.1 CHLORIDE (test code=CL) 111.0 mmol/L 98-107 CARBON DIOXIDE (test code=CO2) mmol/L 21-32 ANION GAP (test code=GAP) 10-20 GLUCOSE (test code=GLU) mg/dL 74-106 BLOOD UREA NITROGEN (test code=BUN) mg/dL 7-18 GLOMERULAR FILTRATION RATE (test code=GFR) mL/min >=60 CREATININE (test code=CREAT) mg/dL 0.7-1.3 BUN/CREATININE RATIO (test code=BUN/CREA) 10-20 TOTAL PROTEIN (test code=PROT) gram/dL 6.4-8.2 ALBUMIN (test code=ALB) g/dL 3.4-5.0 GLOBULIN (test code=GLOB) gram/dL 2.7-4.2 ALBUMIN/GLOBULIN RATIO (test code=A/G) 0.75-1.50 CALCIUM (test code=CA) mg/dL 8.5-10.1 BILIRUBIN TOTAL (test code=BILT) mg/dL 0.0-1.0 SGOT/AST (test code=AST) IUnit/L 15-37 SGPT/ALT (test code=ALT) IUnit/L 12-78 ALKALINE PHOSPHATASE TOTAL (test code=ALKP) IUnit/L 45-117 CALCIUM [id number] 08:44:00* Test Item Value Reference Range Comments CALCIUM IONIZED (test code=ALTA) 1.22 mmol/L 1.12-1.32 COMPREHENSIVE METABOLIC [id number] 08:39:00* Test Item Value Reference Range Comments SODIUM (test code=NA) mmol/L 136-145 POTASSIUM (test code=K) mmol/L 3.5-5.1 CHLORIDE (test code=CL) mmol/L 98-107 CARBON DIOXIDE (test code=CO2) mmol/L 21-32 ANION GAP (test code=GAP) 10-20 GLUCOSE (test code=GLU) mg/dL 74-106 BLOOD UREA NITROGEN (test code=BUN) mg/dL 7-18 GLOMERULAR FILTRATION RATE (test code=GFR) mL/min >=60 CREATININE (test code=CREAT) mg/dL 0.7-1.3 BUN/CREATININE RATIO (test code=BUN/CREA) 10-20 TOTAL PROTEIN (test code=PROT) gram/dL 6.4-8.2 ALBUMIN (test code=ALB) g/dL 3.4-5.0 GLOBULIN (test code=GLOB) gram/dL 2.7-4.2 ALBUMIN/GLOBULIN RATIO (test code=A/G) 0.75-1.50 CALCIUM (test code=CA) mg/dL 8.5-10.1 BILIRUBIN TOTAL (test code=BILT) mg/dL 0.0-1.0 SGOT/AST (test code=AST) IUnit/L 15-37 SGPT/ALT (test code=ALT) IUnit/L 12-78 ALKALINE PHOSPHATASE TOTAL (test code=ALKP) IUnit/L 45-117 CALCIUM [id number] 08:39:00* Test Item Value Reference Range Comments CALCIUM IONIZED (test code=ALTA) 1.22 mmol/L 1.12-1.32 [id number] 06:13:00* Test Item Value Reference Range Comments GLUBED (test code=GLUBED) 127 mg/dL 74-106 Performed by certified palletizer operator at [facility] [id number] 06:13:00* Test Item Value Reference Range Comments GLUBED (test code=GLUBED) 104 mg/dL 74-106 Performed by certified palletizer operator at [facility] [id number] 06:13:00* Test Item Value Reference Range Comments GLUBED (test code=GLUBED) 121 mg/dL 74-106 Performed by certified palletizer operator at [facility] [id number] 06:13:00* Test Item Value Reference Range Comments GLUBED (test code=GLUBED) 131 mg/dL 74-106 Performed by certified palletizer operator at [facility] [id number] 06:13:00* Test Item Value Reference Range Comments GLUBED (test code=GLUBED) 108 mg/dL 74-106 Performed by certified palletizer operator at [facility] [id number] 06:13:00* Test Item Value Reference Range Comments GLUBED (test code=GLUBED) 120 mg/dL 74-106 Performed by certified palletizer operator at [facility] ARTERIAL BLOOD [id number] 05:40:00* Test Item Value Reference Range Comments ARTERIAL BLOOD GAS PH (test code=PHA) 7.32 7.35-7.45 ARTERIAL BLOOD GAS PCO2 (test code=PCO2A) 36.2 mm Hg 35-45 ARTERIAL BLOOD GAS PO2 (test code=PO2A) 110.2 mmHg 80-100 BICARBONATE TOTAL HCO3 (test code=HCO3) 18.2 mmol/L 23.0-27.0 BASE EXCESS (test code=JILLIAN) -7.0 mmol/L -3.0-5.0 Results called to and read back by Donovan 03/31/2018; by SHARIF BAR PORTER ABG O2 SATURATION (test code=SATA) 97.5 % 90.0-98.0 ABG TYPE (test code=TYPEA) Arterial FIO2 (test code=FIO2A) 35.0 ABG VENT MODE (test code=MODEA) Pressure Control ABG VENT RESP RATE (test code=RRA) 16.0 per min ABG PEEP (test code=PEEPA) 10.0 cmH2O ABG SITE (test code=SITEA) ARTERIAL LINE HEMATOCRIT (test code=HCT/ABG) 51 % 42-52 TOTAL HGB (test code=THB) 17.5 gram/dL 13.0-17.5 HGB O2 SAT (test code=HBOSAT) 96.7 % 94.00-98.00 CARBOXYHEMOGLOBIN (test code=HOHGBT) 0.3 %totalHg 0.5-1.5 Results called to and read back by Donovan 03/31/2018; by SHARIF BAR PORTER METHEMOGLOBIN (test code=METHGB) 0.5 % 0.0-1.50 O2 CONTENT (test code=O2CT) 23.9 % vol 18.0-22.0 LACTIC [id number] 04:42:00* Test Item Value Reference Range Comments LACTIC ACID (test code=LACT) 2.2 mmol/L 0.4-1.9 Results called to [id number] by V.LAB.AG1 03/31/18 0441Critical results verified and read back by Nurse? Y COMPREHENSIVE METABOLIC [id number] 04:40:00* Test Item Value Reference Range Comments SODIUM (test code=NA) 142 mmol/L 136-145 POTASSIUM (test code=K) 3.4 mmol/L 3.5-5.1 CHLORIDE (test code=CL) 111.0 mmol/L 98-107 CARBON DIOXIDE (test code=CO2) 20.0 mmol/L 21-32 ANION GAP (test code=GAP) 14.4 10-20 GLUCOSE (test code=GLU) 121 mg/dL 74-106 BLOOD UREA NITROGEN (test code=BUN) 26 mg/dL 7-18 GLOMERULAR FILTRATION RATE (test code=GFR) > 60 mL/min >=60 Estimated GFR by using Modified MDRD formula.Chronic kidney disease is defined as either kidney damageor GFR <60 mL/min/1.73 m2 for >3 months. CREATININE (test code=CREAT) 1.20 mg/dL 0.7-1.3 BUN/CREATININE RATIO (test code=BUN/CREA) 22.4 10-20 TOTAL PROTEIN (test code=PROT) 7.1 gram/dL 6.4-8.2 ALBUMIN (test code=ALB) 3.4 g/dL 3.4-5.0 GLOBULIN (test code=GLOB) 3.7 gram/dL 2.7-4.2 ALBUMIN/GLOBULIN RATIO (test code=A/G) 0.9 0.75-1.50 CALCIUM (test code=CA) 8.1 mg/dL 8.5-10.1 BILIRUBIN TOTAL (test code=BILT) 0.30 mg/dL 0.0-1.0 SGOT/AST (test code=AST) 79 IUnit/L 15-37 SGPT/ALT (test code=ALT) 130 IUnit/L 12-78 ALKALINE PHOSPHATASE TOTAL (test code=ALKP) 112 IUnit/L 45-117 Note change in reference range due to change in reagent. [id number] 04:40:00* Test Item Value Reference Range Comments PHOSPHORUS (test code=PHOS) 1.7 mg/dL 2.5-4.9 [id number] 04:40:00* Test Item Value Reference Range Comments MAGNESIUM (test code=MAG) 3.5 mg/dL 1.8-2.4 CALCIUM [id number] 04:40:00* Test Item Value Reference Range Comments CALCIUM IONIZED (test code=ALTA) 1.29 mmol/L 1.12-1.32 COMPREHENSIVE METABOLIC [id number] 04:32:00* Test Item Value Reference Range Comments SODIUM (test code=NA) 142 mmol/L 136-145 POTASSIUM (test code=K) 3.4 mmol/L 3.5-5.1 CHLORIDE (test code=CL) 111.0 mmol/L 98-107 CARBON DIOXIDE (test code=CO2) mmol/L 21-32 ANION GAP (test code=GAP) 10-20 GLUCOSE (test code=GLU) mg/dL 74-106 BLOOD UREA NITROGEN (test code=BUN) mg/dL 7-18 GLOMERULAR FILTRATION RATE (test code=GFR) mL/min >=60 CREATININE (test code=CREAT) mg/dL 0.7-1.3 BUN/CREATININE RATIO (test code=BUN/CREA) 10-20 TOTAL PROTEIN (test code=PROT) gram/dL 6.4-8.2 ALBUMIN (test code=ALB) g/dL 3.4-5.0 GLOBULIN (test code=GLOB) gram/dL 2.7-4.2 ALBUMIN/GLOBULIN RATIO (test code=A/G) 0.75-1.50 CALCIUM (test code=CA) mg/dL 8.5-10.1 BILIRUBIN TOTAL (test code=BILT) mg/dL 0.0-1.0 SGOT/AST (test code=AST) IUnit/L 15-37 SGPT/ALT (test code=ALT) IUnit/L 12-78 ALKALINE PHOSPHATASE TOTAL (test code=ALKP) IUnit/L 45-117 [id number] 04:32:00* Test Item Value Reference Range Comments PHOSPHORUS (test code=PHOS) mg/dL 2.5-4.9 [id number] 04:32:00* Test Item Value Reference Range Comments MAGNESIUM (test code=MAG) mg/dL 1.8-2.4 CALCIUM [id number] 04:32:00* Test Item Value Reference Range Comments CALCIUM IONIZED (test code=ALTA) 1.29 mmol/L 1.12-1.32 CBC W/AUTO [id number] 04:21:00* Test Item Value Reference Range Comments WHITE BLOOD CELL (test code=WBC) 17.2 K/mm3 4.5-12.5 RED BLOOD CELL (test code=RBC) 6.02 mill/mm3 4.0-5.8 HEMOGLOBIN (test code=HGB) 16.4 gram/dL 13.0-17.5 HEMATOCRIT (test code=HCT) 53.2 % 42.0-52.0 MEAN CELL VOLUME (test code=MCV) 88.4 fL 80-98 MEAN CELL HGB (test code=MCH) 27.2 picogram 27.0-33.0 MEAN CELL HGB CONCETRATION (test code=MCHC) 30.8 gram/dL 33.0-36.0 RED CELL DISTRIBUTION WIDTH (test code=RDW) 14.6 % 11.6-16.2 RED CELL DISTRIBUTION WIDTH SD (test code=RDW-SD) 46.4 fL 37.0-51.0 PLATELET COUNT (test code=PLT) 272 K/mm3 150-450 MEAN PLATELET VOLUME (test code=MPV) 11.5 fL 6.7-11.0 NEUTROPHIL % (test code=NT%) 87.8 % 39.0-69.0 IMMATURE GRANULOCYTE % (test code=IG%) 0.5 % 0.0-5.0 LYMPHOCYTE % (test code=LY%) 6.3 % 25.0-55.0 MONOCYTE % (test code=MO%) 5.1 % 0.0-10.0 EOSINOPHIL % (test code=EO%) 0.1 % 0.0-5.0 BASOPHIL % (test code=BA%) 0.2 % 0.0-1.0 NUCLEATED RBC % (test code=NRBC%) 0.0 % 0-0 NEUTROPHIL # (test code=NT#) 15.08 K/mm3 1.8-7.7 IMMATURE GRANULOCYTE # (test code=IG#) 0.09 x10 3/uL 0-0.03 LYMPHOCYTE # (test code=LY#) 1.08 K/mm3 1.0-5.0 MONOCYTE # (test code=MO#) 0.87 K/mm3 0-0.8 EOSINOPHIL # (test code=EO#) 0.02 K/mm3 0.0-0.5 BASOPHIL # (test code=BA#) 0.03 K/mm3 0.0-0.2 NUCLEATED RBC # (test code=NRBC#) 0.00 K/mm3 0.0-0.1 COMPREHENSIVE METABOLIC [id number] 04:20:00* Test Item Value Reference Range Comments SODIUM (test code=NA) mmol/L 136-145 POTASSIUM (test code=K) mmol/L 3.5-5.1 CHLORIDE (test code=CL) mmol/L 98-107 CARBON DIOXIDE (test code=CO2) mmol/L 21-32 ANION GAP (test code=GAP) 10-20 GLUCOSE (test code=GLU) mg/dL 74-106 BLOOD UREA NITROGEN (test code=BUN) mg/dL 7-18 GLOMERULAR FILTRATION RATE (test code=GFR) mL/min >=60 CREATININE (test code=CREAT) mg/dL 0.7-1.3 BUN/CREATININE RATIO (test code=BUN/CREA) 10-20 TOTAL PROTEIN (test code=PROT) gram/dL 6.4-8.2 ALBUMIN (test code=ALB) g/dL 3.4-5.0 GLOBULIN (test code=GLOB) gram/dL 2.7-4.2 ALBUMIN/GLOBULIN RATIO (test code=A/G) 0.75-1.50 CALCIUM (test code=CA) mg/dL 8.5-10.1 BILIRUBIN TOTAL (test code=BILT) mg/dL 0.0-1.0 SGOT/AST (test code=AST) IUnit/L 15-37 SGPT/ALT (test code=ALT) IUnit/L 12-78 ALKALINE PHOSPHATASE TOTAL (test code=ALKP) IUnit/L 45-117 [id number] 04:20:00* Test Item Value Reference Range Comments PHOSPHORUS (test code=PHOS) mg/dL 2.5-4.9 [id number] 04:20:00* Test Item Value Reference Range Comments MAGNESIUM (test code=MAG) mg/dL 1.8-2.4 CALCIUM [id number] 04:20:00* Test Item Value Reference Range Comments CALCIUM IONIZED (test code=ALTA) 1.29 mmol/L 1.12-1.32 ARTERIAL BLOOD [id number] 02:54:00* Test Item Value Reference Range Comments ARTERIAL BLOOD GAS PH (test code=PHA) 7.38 7.35-7.45 ARTERIAL BLOOD GAS PCO2 (test code=PCO2A) 24.5 mm Hg 35-45 Results called to and read back by Donovan 03/31/2018; by SHARIF BAR PORTER ARTERIAL BLOOD GAS PO2 (test code=PO2A) 102.2 mmHg 80-100 BICARBONATE TOTAL HCO3 (test code=HCO3) 14.2 mmol/L 23.0-27.0 BASE EXCESS (test code=JILLIAN) -8.4 mmol/L -3.0-5.0 Results called to and read back by Donovan 03/31/2018; by SHARIF BAR PORTER ABG O2 SATURATION (test code=SATA) 97.5 % 90.0-98.0 ABG TYPE (test code=TYPEA) Arterial FIO2 (test code=FIO2A) 35.0 ABG VENT MODE (test code=MODEA) Pressure Control ABG VENT RESP RATE (test code=RRA) 20.0 per min ABG PEEP (test code=PEEPA) 10.0 cmH2O ABG SITE (test code=SITEA) ARTERIAL LINE HEMATOCRIT (test code=HCT/ABG) 52 % 42-52 TOTAL HGB (test code=THB) 17.6 gram/dL 13.0-17.5 HGB O2 SAT (test code=HBOSAT) 96.8 % 94.00-98.00 CARBOXYHEMOGLOBIN (test code=HOHGBT) 0.3 %totalHg 0.5-1.5 Results called to and read back by Donovan 03/31/2018; by SHARIF BAR PORTER METHEMOGLOBIN (test code=METHGB) 0.4 % 0.0-1.50 O2 CONTENT (test code=O2CT) 24.0 % vol 18.0-22.0 [id number] 01:52:00* Test Item Value Reference Range Comments GLUBED (test code=GLUBED) 84 mg/dL 74-106 Performed by certified palletizer operator at [facility] COMPREHENSIVE METABOLIC [id number] 00:49:00* Test Item Value Reference Range Comments SODIUM (test code=NA) 141 mmol/L 136-145 POTASSIUM (test code=K) 3.9 mmol/L 3.5-5.1 CHLORIDE (test code=CL) 110.0 mmol/L 98-107 CARBON DIOXIDE (test code=CO2) 19.0 mmol/L 21-32 ANION GAP (test code=GAP) 15.9 10-20 GLUCOSE (test code=GLU) 98 mg/dL 74-106 BLOOD UREA NITROGEN (test code=BUN) 25 mg/dL 7-18 GLOMERULAR FILTRATION RATE (test code=GFR) > 60 mL/min >=60 Estimated GFR by using Modified MDRD formula.Chronic kidney disease is defined as either kidney damageor GFR <60 mL/min/1.73 m2 for >3 months. CREATININE (test code=CREAT) 1.20 mg/dL 0.7-1.3 BUN/CREATININE RATIO (test code=BUN/CREA) 20.0 10-20 TOTAL PROTEIN (test code=PROT) 7.3 gram/dL 6.4-8.2 ALBUMIN (test code=ALB) 3.5 g/dL 3.4-5.0 GLOBULIN (test code=GLOB) 3.8 gram/dL 2.7-4.2 ALBUMIN/GLOBULIN RATIO (test code=A/G) 0.9 0.75-1.50 CALCIUM (test code=CA) 9.2 mg/dL 8.5-10.1 BILIRUBIN TOTAL (test code=BILT) 0.30 mg/dL 0.0-1.0 SGOT/AST (test code=AST) 93 IUnit/L 15-37 SGPT/ALT (test code=ALT) 140 IUnit/L 12-78 ALKALINE PHOSPHATASE TOTAL (test code=ALKP) 117 IUnit/L 45-117 Note change in reference range due to change in reagent. [id number] 00:49:00* Test Item Value Reference Range Comments PHOSPHORUS (test code=PHOS) 1.3 mg/dL 2.5-4.9 [id number] 00:49:00* Test Item Value Reference Range Comments MAGNESIUM (test code=MAG) 4.7 mg/dL 1.8-2.4 CALCIUM [id number] 00:49:00* Test Item Value Reference Range Comments CALCIUM IONIZED (test code=ALTA) 1.40 mmol/L 1.12-1.32 LACTIC [id number] 00:48:00* Test Item Value Reference Range Comments LACTIC ACID (test code=LACT) 2.9 mmol/L 0.4-1.9 Results called to [id number] by V.LAB.AG1 03/31/18 0047Critical results verified and read back by Nurse? Y COMPREHENSIVE METABOLIC [id number] 00:42:00* Test Item Value Reference Range Comments SODIUM (test code=NA) 141 mmol/L 136-145 POTASSIUM (test code=K) 3.9 mmol/L 3.5-5.1 CHLORIDE (test code=CL) 110.0 mmol/L 98-107 CARBON DIOXIDE (test code=CO2) mmol/L 21-32 ANION GAP (test code=GAP) 10-20 GLUCOSE (test code=GLU) mg/dL 74-106 BLOOD UREA NITROGEN (test code=BUN) mg/dL 7-18 GLOMERULAR FILTRATION RATE (test code=GFR) mL/min >=60 CREATININE (test code=CREAT) mg/dL 0.7-1.3 BUN/CREATININE RATIO (test code=BUN/CREA) 10-20 TOTAL PROTEIN (test code=PROT) gram/dL 6.4-8.2 ALBUMIN (test code=ALB) g/dL 3.4-5.0 GLOBULIN (test code=GLOB) gram/dL 2.7-4.2 ALBUMIN/GLOBULIN RATIO (test code=A/G) 0.75-1.50 CALCIUM (test code=CA) mg/dL 8.5-10.1 BILIRUBIN TOTAL (test code=BILT) mg/dL 0.0-1.0 SGOT/AST (test code=AST) IUnit/L 15-37 SGPT/ALT (test code=ALT) IUnit/L 12-78 ALKALINE PHOSPHATASE TOTAL (test code=ALKP) IUnit/L 45-117 [id number] 00:42:00* Test Item Value Reference Range Comments PHOSPHORUS (test code=PHOS) mg/dL 2.5-4.9 [id number] 00:42:00* Test Item Value Reference Range Comments MAGNESIUM (test code=MAG) mg/dL 1.8-2.4 CALCIUM [id number] 00:42:00* Test Item Value Reference Range Comments CALCIUM IONIZED (test code=ALTA) 1.40 mmol/L 1.12-1.32 COMPREHENSIVE METABOLIC [id number] 00:34:00* Test Item Value Reference Range Comments SODIUM (test code=NA) mmol/L 136-145 POTASSIUM (test code=K) mmol/L 3.5-5.1 CHLORIDE (test code=CL) mmol/L 98-107 CARBON DIOXIDE (test code=CO2) mmol/L 21-32 ANION GAP (test code=GAP) 10-20 GLUCOSE (test code=GLU) mg/dL 74-106 BLOOD UREA NITROGEN (test code=BUN) mg/dL 7-18 GLOMERULAR FILTRATION RATE (test code=GFR) mL/min >=60 CREATININE (test code=CREAT) mg/dL 0.7-1.3 BUN/CREATININE RATIO (test code=BUN/CREA) 10-20 TOTAL PROTEIN (test code=PROT) gram/dL 6.4-8.2 ALBUMIN (test code=ALB) g/dL 3.4-5.0 GLOBULIN (test code=GLOB) gram/dL 2.7-4.2 ALBUMIN/GLOBULIN RATIO (test code=A/G) 0.75-1.50 CALCIUM (test code=CA) mg/dL 8.5-10.1 BILIRUBIN TOTAL (test code=BILT) mg/dL 0.0-1.0 SGOT/AST (test code=AST) IUnit/L 15-37 SGPT/ALT (test code=ALT) IUnit/L 12-78 ALKALINE PHOSPHATASE TOTAL (test code=ALKP) IUnit/L 45-117 [id number] 00:34:00* Test Item Value Reference Range Comments PHOSPHORUS (test code=PHOS) mg/dL 2.5-4.9 [id number] 00:34:00* Test Item Value Reference Range Comments MAGNESIUM (test code=MAG) mg/dL 1.8-2.4 CALCIUM [id number] 00:34:00* Test Item Value Reference Range Comments CALCIUM IONIZED (test code=ALTA) 1.40 mmol/L 1.12-1.32 [id number] 00:06:00* Test Item Value Reference Range Comments GLUBED (test code=GLUBED) 66 mg/dL 74-106 Performed by certified palletizer operator at [facility] [id number] 00:06:00* Test Item Value Reference Range Comments GLUBED (test code=GLUBED) 109 mg/dL 74-106 Performed by certified palletizer operator at [facility] [id number] 00:06:00* Test Item Value Reference Range Comments GLUBED (test code=GLUBED) 159 mg/dL 74-106 Performed by certified palletizer operator at [facility] [id number] 00:06:00* Test Item Value Reference Range Comments GLUBED (test code=GLUBED) 178 mg/dL 74-106 Performed by certified palletizer operator at [facility] [id number] 00:06:00* Test Item Value Reference Range Comments GLUBED (test code=GLUBED) 199 mg/dL 74-106 Performed by certified palletizer operator at [facility] [id number] 00:06:00* Test Item Value Reference Range Comments GLUBED (test code=GLUBED) 68 mg/dL 74-106 Performed by certified palletizer operator at [facility] [id number] 00:06:00* Test Item Value Reference Range Comments GLUBED (test code=GLUBED) 231 mg/dL 74-106 Performed by certified palletizer operator at [facility] [id number] 00:06:00* Test Item Value Reference Range Comments GLUBED (test code=GLUBED) 157 mg/dL 74-106 Performed by certified palletizer operator at [facility] ARTERIAL BLOOD [id number] 22:14:00* Test Item Value Reference Range Comments ARTERIAL BLOOD GAS PH (test code=PHA) 7.40 7.35-7.45 ARTERIAL BLOOD GAS PCO2 (test code=PCO2A) 25.1 mm Hg 35-45 ARTERIAL BLOOD GAS PO2 (test code=PO2A) 119.3 mmHg 80-100 BICARBONATE TOTAL HCO3 (test code=HCO3) 15.3 mmol/L 23.0-27.0 BASE EXCESS (test code=JILLIAN) -7.1 mmol/L -3.0-5.0 Results called to and read back by Donovan 21:46 - 03/30/2018; by SHARIF BAR PORTER ABG O2 SATURATION (test code=SATA) 98.0 % 90.0-98.0 ABG TYPE (test code=TYPEA) Arterial FIO2 (test code=FIO2A) 35.0 ABG VENT MODE (test code=MODEA) Pressure Control ABG VENT RESP RATE (test code=RRA) 24.0 per min ABG PEEP (test code=PEEPA) 10.0 cmH2O ABG SITE (test code=SITEA) Lt RADIAL ARTERY SODIUM (test code=NA/ABG) 135.9 mEq/L 135-148 POTASSIUM (test code=K/ABG) 3.1 mEq/L 3.5-4.5 CHLORIDE (test code=CL/ABG) 107 mEq/L 98-106 GLUCOSE (test code=GLU/ABG) 164 mg/dL 74-99 HEMATOCRIT (test code=HCT/ABG) 51 % 42-52 IONIZED CALCIUM (test code=CAIABG) 1.14 mmol/L 1.1-1.37 TOTAL HGB (test code=THB) 17.5 gram/dL 13.0-17.5 HGB O2 SAT (test code=HBOSAT) 97.3 % 94.00-98.00 CARBOXYHEMOGLOBIN (test code=HOHGBT) 0.3 %totalHg 0.5-1.5 Results called to and read back by Donovan 21:46 - 03/30/2018; by SHARIF BAR PORTER METHEMOGLOBIN (test code=METHGB) 0.4 % 0.0-1.50 O2 CONTENT (test code=O2CT) 24.0 % vol 18.0-22.0 ARTERIAL BLOOD [id number] 22:13:00* Test Item Value Reference Range Comments ARTERIAL BLOOD GAS PH (test code=PHA) 7.42 7.35-7.45 ARTERIAL BLOOD GAS PCO2 (test code=PCO2A) 26.1 mm Hg 35-45 ARTERIAL BLOOD GAS PO2 (test code=PO2A) 124.1 mmHg 80-100 BICARBONATE TOTAL HCO3 (test code=HCO3) 16.5 mmol/L 23.0-27.0 BASE EXCESS (test code=JILLIAN) -5.8 mmol/L -3.0-5.0 Results called to and read back by Donovan 21:36 - 03/30/2018; by SHARIF BAR PORTER ABG O2 SATURATION (test code=SATA) 98.2 % 90.0-98.0 ABG TYPE (test code=TYPEA) Arterial FIO2 (test code=FIO2A) 35.0 ABG VENT MODE (test code=MODEA) Pressure Control ABG VENT RESP RATE (test code=RRA) 24.0 per min ABG PEEP (test code=PEEPA) 10.0 cmH2O ABG SITE (test code=SITEA) ARTERIAL LINE SODIUM (test code=NA/ABG) 137.7 mEq/L 135-148 POTASSIUM (test code=K/ABG) 2.9 mEq/L 3.5-4.5 CHLORIDE (test code=CL/ABG) 108 mEq/L 98-106 GLUCOSE (test code=GLU/ABG) 172 mg/dL 74-99 HEMATOCRIT (test code=HCT/ABG) 50 % 42-52 IONIZED CALCIUM (test code=CAIABG) 1.11 mmol/L 1.1-1.37 TOTAL HGB (test code=THB) 17.1 gram/dL 13.0-17.5 HGB O2 SAT (test code=HBOSAT) 97.7 % 94.00-98.00 CARBOXYHEMOGLOBIN (test code=HOHGBT) 0.0 %totalHg 0.5-1.5 Results called to and read back by Donovan 21:36 - 03/30/2018; by SHARIF BAR PORTER METHEMOGLOBIN (test code=METHGB) 0.5 % 0.0-1.50 O2 CONTENT (test code=O2CT) 23.6 % vol 18.0-22.0 LACTIC [id number] 21:40:00* Test Item Value Reference Range Comments LACTIC ACID (test code=LACT) 3.8 mmol/L 0.4-1.9 Results called to [id number] by TOYA 03/30/18 2140Critical results verified and read back by Nurse? Y LIPID PROFILE (CORONARY RISK)2018-03-30 21:36:00* Test Item Value Reference Range Comments TRIGLYCERIDES (test code=TRIG) 86 mg/dL 20-150 CHOLESTEROL (test code=CHOL) 182 mg/dL 0-200 CHOLESTEROL/HDL RATIO (test code=CHOLHDL) 5.0 RATIO 0-4.9 RISK ASSOCIATED WITH CHOL/HDL RATIOS: Risk Male Female1/2 AVERAGE 3.43 3.27AVERAGE 4.97 4.442X AVERAGE 9.55 7.053X AVERAGE 23.39 11.04 REFERENCE VALUE IS RELATED TO RISK LEVELS ASRECOMMENDED BY THE [facility]. HEART, LUNG, AND BLOOD INST. HDL CHOLESTEROL (test code=HDL) 32 mg/dL 40-60 LIPOPROTEIN LDL (test code=LDL) 135 mg/dL 100-129 RN PERSONNEL, CONTACT PHYSICIAN IMMEDIATELY IF THIS IS A STROKE, AMI OR CAROTID STENOSIS PATIENT WHEN THE LDL >100 (1ST OCCURENCE, THIS ADMISSION) Reference Interval: mg/dL mmol/L Optimal <100 <2.6Near/above optimal 100-129 2.6- 3.3Borderline High 130-159 3.4-4.1High 160-189 4.1-4.9Very High >=190 >=4.9=========This LDL result is a direct measurement.========= [id number] 21:34:00* Test Item Value Reference Range Comments TROPONIN-I (test code=TROPI) 2.180 ng/mL 0-0.045 PREVIOUSLY CALLED COMMENTS TO FLORAL MERCHANDISER: COLLECT 3 HOURS AFTER PREVIOUS SAMPLEBASIC METABOLIC [id number] 21:29:00* Test Item Value Reference Range Comments SODIUM (test code=NA) 139 mmol/L 136-145 POTASSIUM (test code=K) 3.3 mmol/L 3.5-5.1 CHLORIDE (test code=CL) 109.0 mmol/L 98-107 CARBON DIOXIDE (test code=CO2) 18.0 mmol/L 21-32 ANION GAP (test code=GAP) 15.3 10-20 GLUCOSE (test code=GLU) 192 mg/dL 74-106 BLOOD UREA NITROGEN (test code=BUN) 23 mg/dL 7-18 GLOMERULAR FILTRATION RATE (test code=GFR) 49 mL/min >=60 Estimated GFR by using Modified MDRD formula.Chronic kidney disease is defined as either kidney damageor GFR <60 mL/min/1.73 m2 for >3 months. CREATININE (test code=CREAT) 1.50 mg/dL 0.7-1.3 BUN/CREATININE RATIO (test code=BUN/CREA) 15.4 10-20 CALCIUM (test code=CA) 7.6 mg/dL 8.5-10.1 [id number] 21:29:00* Test Item Value Reference Range Comments PHOSPHORUS (test code=PHOS) 0.8 mg/dL 2.5-4.9 [id number] 21:29:00* Test Item Value Reference Range Comments MAGNESIUM (test code=MAG) 2.4 mg/dL 1.8-2.4 BASIC METABOLIC [id number] 21:24:00* Test Item Value Reference Range Comments SODIUM (test code=NA) 139 mmol/L 136-145 POTASSIUM (test code=K) 3.3 mmol/L 3.5-5.1 CHLORIDE (test code=CL) 109.0 mmol/L 98-107 CARBON DIOXIDE (test code=CO2) mmol/L 21-32 ANION GAP (test code=GAP) 10-20 GLUCOSE (test code=GLU) mg/dL 74-106 BLOOD UREA NITROGEN (test code=BUN) mg/dL 7-18 GLOMERULAR FILTRATION RATE (test code=GFR) mL/min >=60 CREATININE (test code=CREAT) mg/dL 0.7-1.3 BUN/CREATININE RATIO (test code=BUN/CREA) 10-20 CALCIUM (test code=CA) mg/dL 8.5-10.1 [id number] 21:24:00* Test Item Value Reference Range Comments PHOSPHORUS (test code=PHOS) mg/dL 2.5-4.9 [id number] 21:24:00* Test Item Value Reference Range Comments MAGNESIUM (test code=MAG) mg/dL 1.8-2.4 [id number] 18:07:00* Test Item Value Reference Range Comments GLUBED (test code=GLUBED) 137 mg/dL 74-106 Performed by certified palletizer operator at [facility] [id number] 18:07:00* Test Item Value Reference Range Comments GLUBED (test code=GLUBED) 268 mg/dL 74-106 Performed by certified palletizer operator at [facility] BASIC METABOLIC [id number] 17:05:00* Test Item Value Reference Range Comments SODIUM (test code=NA) 137 mmol/L 136-145 POTASSIUM (test code=K) 3.5 mmol/L 3.5-5.1 CHLORIDE (test code=CL) 104.0 mmol/L 98-107 CARBON DIOXIDE (test code=CO2) 22.0 mmol/L 21-32 ANION GAP (test code=GAP) 14.5 10-20 GLUCOSE (test code=GLU) 265 mg/dL 74-106 BLOOD UREA NITROGEN (test code=BUN) 20 mg/dL 7-18 GLOMERULAR FILTRATION RATE (test code=GFR) 49 mL/min >=60 Estimated GFR by using Modified MDRD formula.Chronic kidney disease is defined as either kidney damageor GFR <60 mL/min/1.73 m2 for >3 months. CREATININE (test code=CREAT) 1.50 mg/dL 0.7-1.3 BUN/CREATININE RATIO (test code=BUN/CREA) 13.1 10-20 CALCIUM (test code=CA) 8.1 mg/dL 8.5-10.1 [id number] 17:05:00* Test Item Value Reference Range Comments PHOSPHORUS (test code=PHOS) 4.1 mg/dL 2.5-4.9 [id number] 17:05:00* Test Item Value Reference Range Comments MAGNESIUM (test code=MAG) 2.4 mg/dL 1.8-2.4 BASIC METABOLIC [id number] 16:57:00* Test Item Value Reference Range Comments SODIUM (test code=NA) 137 mmol/L 136-145 POTASSIUM (test code=K) 3.5 mmol/L 3.5-5.1 CHLORIDE (test code=CL) 104.0 mmol/L 98-107 CARBON DIOXIDE (test code=CO2) mmol/L 21-32 ANION GAP (test code=GAP) 10-20 GLUCOSE (test code=GLU) mg/dL 74-106 BLOOD UREA NITROGEN (test code=BUN) mg/dL 7-18 GLOMERULAR FILTRATION RATE (test code=GFR) mL/min >=60 CREATININE (test code=CREAT) mg/dL 0.7-1.3 BUN/CREATININE RATIO (test code=BUN/CREA) 10-20 CALCIUM (test code=CA) mg/dL 8.5-10.1 [id number] 16:57:00* Test Item Value Reference Range Comments PHOSPHORUS (test code=PHOS) mg/dL 2.5-4.9 [id number] 16:57:00* Test Item Value Reference Range Comments MAGNESIUM (test code=MAG) mg/dL 1.8-2.4 LACTIC [id number] 16:46:00* Test Item Value Reference Range Comments LACTIC ACID (test code=LACT) 2.4 mmol/L 0.4-1.9 Results called to [id number] by [facility] 03/30/18 [id number] results verified and read back by Nurse? Y [id number] 16:41:00* Test Item Value Reference Range Comments TROPONIN-I (test code=TROPI) 1.800 ng/mL 0-0.045 COMMENTS TO FLORAL MERCHANDISER: COLLECT 3 HOURS AFTER PREVIOUS SAMPLEARTERIAL BLOOD [id number] 16:27:00* Test Item Value Reference Range Comments ARTERIAL BLOOD GAS PH (test code=PHA) 7.25 7.35-7.45 ARTERIAL BLOOD GAS PCO2 (test code=PCO2A) 46.2 mm Hg 35-45 ARTERIAL BLOOD GAS PO2 (test code=PO2A) 87.8 mmHg 80-100 BICARBONATE TOTAL HCO3 (test code=HCO3) 19.9 mmol/L 23.0-27.0 BASE EXCESS (test code=JILLIAN) -7.4 mmol/L -3.0-5.0 Results called to and read back by Dr Vickers/NPat 16: - 03/30/2018; by [email or web address] ABG O2 SATURATION (test code=SATA) 95.4 % 90.0-98.0 ABG TYPE (test code=TYPEA) Arterial FIO2 (test code=FIO2A) 35.0 ABG VENT MODE (test code=MODEA) Pressure Control ABG VENT RESP RATE (test code=RRA) 20.0 per min ABG PEEP (test code=PEEPA) 10.0 cmH2O ABG SITE (test code=SITEA) ARTERIAL LINE HEMATOCRIT (test code=HCT/ABG) 53 % 42-52 TOTAL HGB (test code=THB) 17.9 gram/dL 13.0-17.5 HGB O2 SAT (test code=HBOSAT) 94.6 % 94.00-98.00 CARBOXYHEMOGLOBIN (test code=HOHGBT) 0.3 %totalHg 0.5-1.5 Results called to and read back by Dr Vickers/Loren 16: - 03/30/2018; by [id number] METHEMOGLOBIN (test code=METHGB) 0.5 % 0.0-1.50 O2 CONTENT (test code=O2CT) 23.8 % vol 18.0-22.0 - CT HEAD/BRAIN W/O [id number] 14:43:00 Name: RADHA KENDRICK [facility] : 1965 Age/S: 52 / M [address] [facility] Unit #: [id number] Loc: [place] [address] Phys: Hayden Benson MD Acct: [id number] Dis Date: Status: ADM IN PHONE #: [phone] Exam Date: 03/30/2018 3476 FAX #: [phone] Reason: TARGETED TEMPERATURE MANAGEMENT EXAMS: CPT CODE: [id number] CT HEAD/BRAIN W/O CONT [id number] EXAM: CT of the head without contrast; INFORMATION: Status post cardiac arrest; targeted temperature management; TECHNIQUE AND FINDINGS: CT dose reduction protocol; 2.5 mm axial scans without contrast. The middle cerebral arteries are fairly dense but so are the sinuses. No evidence of intra or extra-axial hemorrhage, mass lesions or midline shift. Ventricles are symmetric and of normal diameter. There is a small persistent cavum of the septum pellucidum. There is effacement of sulci throughout near the skull base; more cranially they a somewhat narrow. The calvarium is intact. There is mild mucosal swelling in the ethmoid sinuses and the right maxillary sinus; the remainder of the sinuses and mastoid air cells are well aerated. IMPRESSION: 1. No evidence of intracranial hemorrhage or acute territorial infarction. 2. There may be mild brain edema based on partial effacement of sulci. 3. Mild sinusitis. at 1443 Reported and signed by: Jonatan Frazier M.D. CC: Hayden Benson MD Technologist:Cy Baker RT(R),(MR),(CT) CTDI: DLP: Trnscb Date/Time: 03/30/2018 (8823) [email or web address] Orig Print D/T: S: 03/30/2018 (2572) CTDI: DLP: PAGE 1 Signed Report LACTIC ACID 2018-03-30 13:56:00* Test Item Value Reference Range Comments LACTIC ACID (test code=LACT) 3.8 mmol/L 0.4-1.9 Results called to [id number] by CAROLINELDB 03/30/18 1354Critical results verified and read back by Nurse? Y - XR CHEST 1 [id number] 13:05:00 FAX: Zaina De Anda [phone] [place]: [address]: ADM FAX: Hayden Benson MD [phone] Name: CHAYOELVISRADHA BETANCUR [facility] : 1965 Age/S: 52/M [address] [facility]: [id number] Loc: [place] [address] Phys: Hayden Benson MD Acct: [id number] Dis Date: Status: ADM IN PHONE #: [phone] Exam Date: 03/30/2018 1307 FAX #: [phone] Reason: sob EXAMS: CPT CODE: [id number] XR CHEST 1 V 13381 HISTORY: Shortness of breath COMPARISON: None available. ET tube is above the diaphragm. NG tube extends into the duodenum region. Right jugular central line with the tip projected over the cavoatrial junction without pneumothorax. Suboptimal inspiration. Dependent changes. No infiltrates, effusion or congestion. Cardiomegaly. IMPRESSION: No pneumothorax. The lungs are clear. Suboptimal inspiration. at 4455 Reported and signed by: Bladimir Berrios M.D. CC: Zaina Werner MD; Hayden Larios MD Technologist: RT SHANIQUA(R) Trnscrd Date/Time/By: 03/30/2018 (0772) : By: [email or web address] Orig Print D/T: S: 03/30/2018 (9163) PAGE 1 Signed Report COMPREHENSIVE METABOLIC PANEL 2018-03-30 12:58:00* Test Item Value Reference Range Comments SODIUM (test code=NA) 138 mmol/L 136-145 POTASSIUM (test code=K) 4.5 mmol/L 3.5-5.1 CHLORIDE (test code=CL) 103.0 mmol/L 98-107 CARBON DIOXIDE (test code=CO2) 16.0 mmol/L 21-32 ANION GAP (test code=GAP) 23.5 10-20 GLUCOSE (test code=GLU) 329 mg/dL 74-106 BLOOD UREA NITROGEN (test code=BUN) 13 mg/dL 7-18 GLOMERULAR FILTRATION RATE (test code=GFR) 53 mL/min >=60 Estimated GFR by using Modified MDRD formula.Chronic kidney disease is defined as either kidney damageor GFR <60 mL/min/1.73 m2 for >3 months. CREATININE (test code=CREAT) 1.40 mg/dL 0.7-1.3 BUN/CREATININE RATIO (test code=BUN/CREA) 9.0 10-20 TOTAL PROTEIN (test code=PROT) 6.8 gram/dL 6.4-8.2 ALBUMIN (test code=ALB) 2.9 g/dL 3.4-5.0 GLOBULIN (test code=GLOB) 3.9 gram/dL 2.7-4.2 ALBUMIN/GLOBULIN RATIO (test code=A/G) 0.7 0.75-1.50 CALCIUM (test code=CA) 7.5 mg/dL 8.5-10.1 BILIRUBIN TOTAL (test code=BILT) 0.40 mg/dL 0.0-1.0 SGOT/AST (test code=AST) 120 IUnit/L 15-37 SGPT/ALT (test code=ALT) 111 IUnit/L 12-78 ALKALINE PHOSPHATASE TOTAL (test code=ALKP) 124 IUnit/L 45-117 Note change in reference range due to change in reagent. [id number] 12:58:00* Test Item Value Reference Range Comments PHOSPHORUS (test code=PHOS) 8.2 mg/dL 2.5-4.9 [id number] 12:58:00* Test Item Value Reference Range Comments LIPASE (test code=LIP) 225 U/L 73.0-393.0 [id number] 12:58:00* Test Item Value Reference Range Comments MAGNESIUM (test code=MAG) 2.4 mg/dL 1.8-2.4 THYROID STIMULATING [id number] 12:58:00* Test Item Value Reference Range Comments THYROID STIMULATING HORMONE (test code=TSH) 3.200 uIU/mL 0.36-3.74 TSH REFERENCE RANGES: EUTHYROID: 0.35 - 4.3 mIU/mL HYPO : > 5.5 mIU/mL HYPER : < 0.35 mIU/mL CPK-MB [id number] 12:58:00* Test Item Value Reference Range Comments CREATINE KINASE (CK) (test code=CK) 150 IUnit/L 26-208 CKMB (test code=CKMBT) 3.6 ng/mL 0-6.0 RELATIVE % INDEX (test code=REL%) 2.40 % 0.00-2.50 "If the total CK is elevated, the CKMB Fraction must beinterpreted as a Relative % Index, Normal is less than 2.5%"NOTE: Relative % Index is not valid with a normal total CK. [id number] 12:58:00* Test Item Value Reference Range Comments TROPONIN-I (test code=TROPI) 0.204 ng/mL 0-0.045 Results called to [id number] by TEENA 03/30/18 1256Critical results verified and read back by Nurse? Y URINALYSIS [id number] 12:57:00* Test Item Value Reference Range Comments UA COLOR (test code=COLU) LIGHT YELLOW YELLOW UA APPEARANCE (test code=APPU) SLIGHTLY CLOUDY CLEAR UA GLUCOSE DIPSTICK (test code=DGLUU) 50 (Trace) mg/dL NEGATIVE UA BILIRUBIN DIPSTICK (test code=BILU) NEGATIVE mg/dL NEGATIVE UA KETONE DIPSTICK (test code=KETU) Negative mg/dL NEGATIVE UA SPECIFIC GRAVITY (test code=SGU) 1.011 1.001-1.035 UA BLOOD DIPSTICK (test code=AGUSTÍN) 1+ (Small) NEGATIVE UA PH DIPSTICK (test code=OFE) 8.0 5.0-8.0 UA PROTEIN DIPSTICK (test code=PROU) 100 (2+) mg/dL NEGATIVE UA UROBILINIOGEN DIPSTICK (test code=URO) NEGATIVE mg/dL NEGATIVE UA NITRITE DIPSTICK (test code=GERMAN) NEGATIVE NEGATIVE UA LEUKOCYTE ESTERASE W REFLEX (test code=LEUUR) NEGATIVE NEGATIVE UA WBC (test code=WBCU) 6-10 #/HPF 0-5 UA RBC (test code=RBCU) 11-20 #/HPF 0-5 UA BACTERIA (test code=BACU) FEW #/HPF NONE UA MUCUS (test code=MUCU) FEW #/LPF FEW URINALYSIS [id number] 12:49:00* Test Item Value Reference Range Comments UA COLOR (test code=COLU) LIGHT YELLOW YELLOW UA APPEARANCE (test code=APPU) SLIGHTLY CLOUDY CLEAR UA GLUCOSE DIPSTICK (test code=DGLUU) 50 (Trace) mg/dL NEGATIVE UA BILIRUBIN DIPSTICK (test code=BILU) NEGATIVE mg/dL NEGATIVE UA KETONE DIPSTICK (test code=KETU) Negative mg/dL NEGATIVE UA SPECIFIC GRAVITY (test code=SGU) 1.011 1.001-1.035 UA BLOOD DIPSTICK (test code=AGUSTÍN) 1+ (Small) NEGATIVE UA PH DIPSTICK (test code=OFE) 8.0 5.0-8.0 UA PROTEIN DIPSTICK (test code=PROU) 100 (2+) mg/dL NEGATIVE UA UROBILINIOGEN DIPSTICK (test code=URO) NEGATIVE mg/dL NEGATIVE UA NITRITE DIPSTICK (test code=GERMAN) NEGATIVE NEGATIVE UA LEUKOCYTE ESTERASE W REFLEX (test code=LEUUR) NEGATIVE NEGATIVE UA WBC (test code=WBCU) per HPF 0-5 URINALYSIS [id number] 12:49:00* Test Item Value Reference Range Comments UA COLOR (test code=COLU) LIGHT YELLOW YELLOW UA APPEARANCE (test code=APPU) SLIGHTLY CLOUDY CLEAR UA GLUCOSE DIPSTICK (test code=DGLUU) 50 (Trace) mg/dL NEGATIVE UA BILIRUBIN DIPSTICK (test code=BILU) NEGATIVE mg/dL NEGATIVE UA KETONE DIPSTICK (test code=KETU) Negative mg/dL NEGATIVE UA SPECIFIC GRAVITY (test code=SGU) 1.011 1.001-1.035 UA BLOOD DIPSTICK (test code=AGUSTÍN) 1+ (Small) NEGATIVE UA PH DIPSTICK (test code=OFE) 8.0 5.0-8.0 UA PROTEIN DIPSTICK (test code=PROU) 100 (2+) mg/dL NEGATIVE UA UROBILINIOGEN DIPSTICK (test code=URO) NEGATIVE mg/dL NEGATIVE UA NITRITE DIPSTICK (test code=GERMAN) NEGATIVE NEGATIVE UA LEUKOCYTE ESTERASE W REFLEX (test code=LEUUR) NEGATIVE NEGATIVE UA WBC (test code=WBCU) per HPF 0-5 PROTHROMBIN [id number] 12:28:00* Test Item Value Reference Range Comments PROTHROMBIN TIME PATIENT (test code=PTP) 12.0 seconds 9.0-14.0 INTERNATIONAL NORMAL RATIO (test code=INR) 1.0 0.8-1.2 The therapeutic range for oral anticoagulant therapy formost indications is an international normalized ratio (INR)of between 2.0 and 3.0. The recommended therapeutic INRrange for various clinical situations is listed below: Clinical Situation INR range Pulmonary e mbolism treatment (2.0-3.0)Venous thrombosis treatmentVenous thrombosis prophylaxis (high risk surgery)Prevention of systemic embolism from: Acute myocardial infarction Valvular heart disease Atrial fibrillation Mechanical prosthetic heart valves (2.5-3.5) IS PATIENT ON ANTICOAGULANTS? NTHROMBOPLASTIN TIME [id number] 12:28:00* Test Item Value Reference Range Comments THROMBOPLASTIN TIME PARTIAL (test code=PTT) 24.4 seconds 25.0-36.5 IS PATIENT ON ANTICOAGULANTS? NCOMPREHENSIVE METABOLIC [id number] 12:26:00 * Test Item Value Reference Range Comments SODIUM (test code=NA) 138 mmol/L 136-145 POTASSIUM (test code=K) 4.5 mmol/L 3.5-5.1 CHLORIDE (test code=CL) 103.0 mmol/L 98-107 CARBON DIOXIDE (test code=CO2) mmol/L 21-32 ANION GAP (test code=GAP) 10-20 GLUCOSE (test code=GLU) mg/dL 74-106 BLOOD UREA NITROGEN (test code=BUN) mg/dL 7-18 GLOMERULAR FILTRATION RATE (test code=GFR) mL/min >=60 CREATININE (test code=CREAT) mg/dL 0.7-1.3 BUN/CREATININE RATIO (test code=BUN/CREA) 10-20 TOTAL PROTEIN (test code=PROT) gram/dL 6.4-8.2 ALBUMIN (test code=ALB) g/dL 3.4-5.0 GLOBULIN (test code=GLOB) gram/dL 2.7-4.2 ALBUMIN/GLOBULIN RATIO (test code=A/G) 0.75-1.50 CALCIUM (test code=CA) mg/dL 8.5-10.1 BILIRUBIN TOTAL (test code=BILT) mg/dL 0.0-1.0 SGOT/AST (test code=AST) IUnit/L 15-37 SGPT/ALT (test code=ALT) IUnit/L 12-78 ALKALINE PHOSPHATASE TOTAL (test code=ALKP) IUnit/L 45-117 [id number] 12:26:00* Test Item Value Reference Range Comments PHOSPHORUS (test code=PHOS) mg/dL 2.5-4.9 [id number] 12:26:00* Test Item Value Reference Range Comments LIPASE (test code=LIP) U/L 73.0-393.0 [id number] 12:26:00* Test Item Value Reference Range Comments MAGNESIUM (test code=MAG) mg/dL 1.8-2.4 THYROID STIMULATING [id number] 12:26:00* Test Item Value Reference Range Comments THYROID STIMULATING HORMONE (test code=TSH) uIU/mL 0.36-3.74 CPK-MB [id number] 12:26:00* Test Item Value Reference Range Comments CREATINE KINASE (CK) (test code=CK) IUnit/L 26-208 CKMB (test code=CKMBT) ng/mL 0-6.0 RELATIVE % INDEX (test code=REL%) % 0.00-2.50 [id number] 12:26:00* Test Item Value Reference Range Comments TROPONIN-I (test code=TROPI) ng/mL 0-0.045 ARTERIAL BLOOD [id number] 12:17:00* Test Item Value Reference Range Comments ARTERIAL BLOOD GAS PH (test code=PHA) 7.28 7.35-7.45 ARTERIAL BLOOD GAS PCO2 (test code=PCO2A) 29.3 mm Hg 35-45 ARTERIAL BLOOD GAS PO2 (test code=PO2A) > 533.0 mmHg 80-100 BICARBONATE TOTAL HCO3 (test code=HCO3) 13.3 mmol/L 23.0-27.0 BASE EXCESS (test code=JILLIAN) -11.8 mmol/L -3.0-5.0 Results called to and read back by dr priest 12:14 - 03/30/2018; by [email or web address] ABG O2 SATURATION (test code=SATA) 99.4 % 90.0-98.0 ABG TYPE (test code=TYPEA) Arterial FIO2 (test code=FIO2A) 100.0 ABG VENT MODE (test code=MODEA) Assist Control ABG VENT RESP RATE (test code=RRA) 22.0 per min ABG TIDAL VOLUME (test code=TVA) 550.0 mL ABG PEEP (test code=PEEPA) 5.0 cmH2O ABG SITE (test code=SITEA) Lt RADIAL ARTERY MODIFIED ALLENS (test code=MODALL) Unable CHECK PERFORMED HEMATOCRIT (test code=HCT/ABG) 47 % 42-52 TOTAL HGB (test code=THB) 16.0 gram/dL 13.0-17.5 HGB O2 SAT (test code=HBOSAT) 97.2 % 94.00-98.00 CARBOXYHEMOGLOBIN (test code=HOHGBT) 1.6 %totalHg 0.5-1.5 METHEMOGLOBIN (test code=METHGB) 0.6 % 0.0-1.50 CBC W/AUTO [id number] 12:14:00* Test Item Value Reference Range Comments WHITE BLOOD CELL (test code=WBC) 14.2 K/mm3 4.5-12.5 RED BLOOD CELL (test code=RBC) 5.33 mill/mm3 4.0-5.8 HEMOGLOBIN (test code=HGB) 14.5 gram/dL 13.0-17.5 HEMATOCRIT (test code=HCT) 48.4 % 42.0-52.0 MEAN CELL VOLUME (test code=MCV) 90.8 fL 80-98 MEAN CELL HGB (test code=MCH) 27.2 picogram 27.0-33.0 MEAN CELL HGB CONCETRATION (test code=MCHC) 30.0 gram/dL 33.0-36.0 RED CELL DISTRIBUTION WIDTH (test code=RDW) 14.4 % 11.6-16.2 RED CELL DISTRIBUTION WIDTH SD (test code=RDW-SD) 47.8 fL 37.0-51.0 PLATELET COUNT (test code=PLT) 306 K/mm3 150-450 MEAN PLATELET VOLUME (test code=MPV) 11.7 fL 6.7-11.0 NEUTROPHIL % (test code=NT%) 64.6 % 39.0-69.0 IMMATURE GRANULOCYTE % (test code=IG%) 3.7 % 0.0-5.0 LYMPHOCYTE % (test code=LY%) 21.8 % 25.0-55.0 MONOCYTE % (test code=MO%) 4.7 % 0.0-10.0 EOSINOPHIL % (test code=EO%) 4.4 % 0.0-5.0 BASOPHIL % (test code=BA%) 0.8 % 0.0-1.0 NUCLEATED RBC % (test code=NRBC%) 0.0 % 0-0 NEUTROPHIL # (test code=NT#) 9.18 K/mm3 1.8-7.7 IMMATURE GRANULOCYTE # (test code=IG#) 0.52 x10 3/uL 0-0.03 LYMPHOCYTE # (test code=LY#) 3.10 K/mm3 1.0-5.0 MONOCYTE # (test code=MO#) 0.67 K/mm3 0-0.8 EOSINOPHIL # (test code=EO#) 0.62 K/mm3 0.0-0.5 BASOPHIL # (test code=BA#) 0.12 K/mm3 0.0-0.2 NUCLEATED RBC # (test code=NRBC#) 0.00 K/mm3 0.0-0.1 MANUAL DIFF REQUIRED (test code=MDIFF) NO
--- NOTE | 2018-08-20 15:26 | NUR ---
WITH ASSIST FROM NICOLE Arredondo CHARGE NURSE ATTMEPTED TO PUT PATIENT IN WHEELCHAIR FOR TRANSPORT HOME BY [facility]. HE IS SHAKING AND UNABLE TO TRANSFER ON HIS OWN. DR. TASHI HERNADEZ. METROLOGY MANAGER ([place]) ASSISTED ME WITH PLACING PATIENT BACK TO BED AND HE IS CALLING [facility]SP[facility] HOME. PATIENT STATED, "ONCE I GET HOME I WILL BE OKAY, MY BROTHER IN [place] AND SISTER IS THERE"
== END 2018-08-20 16:40 | disposition left against medical advice (07) ==
LOC: ER 14:05
DX: R25.1 Tremor, unspecified (principal)

== ENCOUNTER 2018-10-03 09:57 | Emergency (ER) | payer SELFPAY ==
[~2018-10-03] VITALS: Ht 182.9 cm; Wt 127.0 kg
--- OUTSIDE RECORDS SUMMARY | 2018-10-03 10:01 | XMS REPORT | Clinical Summary ---
Author Author [facility] Organization [facility] Address Unknown Phone Unavailable Care Team Providers Care Home Health Aide Caregiver Name Role Phone PCP Unavailable Allergies No Known Allergies Medications End Date Status Medication Sig Dispensed Refills Start Date Active aspirin (ASPIRIN) 81 mg Chew and 30 tablet 2 chewable swallow 1 9 tabletIndications: tablet by Cerebrovascular accident mouth daily. (CVA) due to occlusion of left vertebral artery Active atorvastatin (LIPITOR) 40 Take 1 tablet 90 tablet 2 mg tabletIndications: by mouth at 9 Cerebrovascular accident bedtime (CVA) due to occlusion of nightly. left vertebral artery Active ferrous sulfate 325 mg Take 1 tablet 30 tablet 2 (65 mg iron) by mouth 9 tabletIndications: Iron daily. deficiency anemia, unspecified iron deficiency anemia type Active lisinopril (PRINIVIL, Take 1 tablet 90 tablet 2 ZESTRIL) 10 mg by mouth 9 tabletIndications: daily. Essential hypertension Active sennosides-docusate Take 1 tablet 30 tablet 2 sodium (SENNA PLUS) by mouth 9 8.6-50 mg daily. tabletIndications: Iron deficiency anemia, unspecified iron deficiency anemia type 08/23/2018 Discontinued aspirin (ASPIRIN) 81 mg Chew and 30 tablet 2 chewable swallow 1 9 tabletIndications: tablet by Cerebrovascular accident mouth daily. (CVA) due to occlusion of left vertebral artery 08/23/2018 Discontinued atorvastatin (LIPITOR) 40 Take 1 tablet 90 tablet 0 mg tabletIndications: by mouth at 9 Cerebrovascular accident bedtime (CVA) due to occlusion of nightly. left vertebral artery 08/23/2018 Discontinued ferrous sulfate 325 mg Take 1 tablet 30 tablet 2 (65 mg iron) by mouth 9 tabletIndications: Iron daily. deficiency anemia, unspecified iron deficiency anemia type 08/23/2018 Discontinued sennosides-docusate Take 1 tablet 30 tablet 2 sodium (SENNA PLUS) by mouth 9 8.6-50 mg daily. tabletIndications: Iron deficiency anemia, unspecified iron deficiency anemia type 08/23/2018 Discontinued lisinopril (PRINIVIL, Take 1 tablet 90 tablet 2 ZESTRIL) 10 mg by mouth 9 tabletIndications: daily. Essential hypertension 08/23/2018 Discontinued atorvastatin (LIPITOR) 40 Take 1 tablet 90 tablet 2 mg tabletIndications: by mouth at 9 Cerebrovascular accident bedtime (CVA) due to occlusion of nightly. left vertebral artery Active Problems Problem Noted Date Falls frequently Cerebrovascular accident (CVA) Cervical stenosis of spinal canal Myelopathy History of cardiac arrest Clonus Essential hypertension Encounters Care Team Description Date Type Specialty 10/03/2018 Travel Douglas Manning MD Cervical stenosis of spinal canal (Primary Dx); Falls frequently; Clonus 10/02/2018 Emergency Emergency Medicine - 10/03/2018 10/02/2018 Travel Yumiko Arellano 08/29/2018 Clinical Case Social Work Mgt Eva Douglas 08/26/2018 Clinical Case Social Work Mgt Kenny Orellana MD Guttenberg, Katie B, MD Gutierrez, Absalon D, MD Falls frequently (Primary Dx); Cerebrovascular accident (CVA), unspecified mechanism; Iron deficiency anemia, unspecified iron deficiency anemia type; Cerebrovascular accident (CVA) due to occlusion of left vertebral artery; Cervical stenosis of spinal canal; Myelopathy; History of cardiac arrest; Essential hypertension 08/21/2018 Emergency - 08/23/2018 08/21/2018 Travel after 10/02/2017 Social History Date Tobacco Use Types Packs/Day Years Used Never Assessed Sex Assigned at Date Recorded Not on file Industry Job Start Date Occupation Not on file Not on file Not on file Travel End Travel History Travel Start No recent travel history available. Last Filed Vital Signs Reading Time Taken Comments Vital Sign 157/93 10/03/2018 5:29 AM CDT Blood Pressure 87 10/03/2018 5:29 AM CDT Pulse 36.6 C (97.8 F) 10/03/2018 5:29 AM CDT Temperature 18 10/03/2018 5:29 AM CDT Respiratory Rate 97% 10/03/2018 5:29 AM CDT Oxygen Saturation - - Inhaled Oxygen Concentration 108.9 kg (240 lb) 10/02/2018 11:28 AM CDT pt reported Weight 185.4 cm (6' 1") 10/02/2018 11:28 AM CDT Height 31.66 10/02/2018 11:28 AM CDT Body Mass Index Plan of Treatment Health Maintenance Due Date Last Done Comments Colorectal Cancer Scrn 08/13/2013 Annual (FIT/FOBT) Age 50 to 75 IMM Influenza Seasonal 11/29/2018Nov to April (>/=19 yrs) Procedures Comments Procedure Name Priority Date/Time Associated Diagnosis MRI THORACIC SPINE W/O STAT 10/03/2018 Cervical stenosis of CONTRAST 1:24 AM CDT spinal canal MRI LUMBAR SPINE W/O STAT 10/03/2018 Cervical stenosis of CONTRAST 1:24 AM CDT spinal canal MRI CERVICAL SPINE W/O STAT 10/03/2018 Cervical stenosis of CONTRAST 1:24 AM CDT spinal canal MRI BRAIN W/O CONTRAST STAT 10/02/2018 Falls frequently 5:57 PM CDT Clonus CBC STAT 10/02/2018 9:00 AM CDT CBC/DIFF STAT 10/02/2018 9:00 AM CDT BMP POC Routine 10/02/2018 8:51 AM CDT LIPASE Add-on 10/02/2018 8:51 AM CDT LIVER PROFILE Add-on 10/02/2018 8:51 AM CDT PHOSPHORUS STAT 10/02/2018 8:51 AM CDT MAGNESIUM STAT 10/02/2018 8:51 AM CDT CALCIUM, IONIZED STAT 10/02/2018 8:51 AM CDT TROPONIN I POC Routine 10/02/2018 8:49 AM CDT 12 LEAD EKG Routine 10/02/2018 6:57 AM CDT PHOSPHORUS Routine 08/23/2018 1:01 AM CDT MAGNESIUM Routine 08/23/2018 1:01 AM CDT TRANSTHORACIC ECHO (TTE) STAT 08/22/2018 10:53 AM CDT CONSULT CLINICAL CASE Routine 08/22/2018 MANAGEMENT (RN/SW) 9:49 AM CDT URINE DRUG SCREEN STAT 08/22/2018 2:41 AM CDT FERRITIN Routine 08/22/2018 2:15 AM CDT LIPID PROFILE Routine 08/22/2018 2:15 AM CDT MAGNESIUM Routine 08/22/2018 2:15 AM CDT PHOSPHORUS Routine 08/22/2018 2:15 AM CDT COMPREHENSIVE METABOLIC Routine 08/22/2018 PANEL 2:15 AM CDT HEMOGLOBIN A1C Add-on 08/22/2018 2:13 AM CDT IRON PROFILE Routine 08/22/2018 2:13 AM CDT HEMOGLOBIN A1C Routine 08/22/2018 2:13 AM CDT CBC Routine 08/22/2018 2:13 AM CDT CALCIUM, IONIZED Routine 08/22/2018 2:13 AM CDT CBC/DIFF Routine 08/22/2018 2:13 AM CDT CBC STAT 08/21/2018 9:46 PM CDT CBC/DIFF STAT 08/21/2018 9:46 PM CDT CALCIUM, IONIZED STAT 08/21/2018 9:31 PM CDT MAGNESIUM STAT 08/21/2018 9:30 PM CDT PHOSPHORUS STAT 08/21/2018 9:30 PM CDT COMPREHENSIVE METABOLIC STAT 08/21/2018 PANEL 9:30 PM CDT IP CONSULT TO STAT 08/21/2018 OCCUPATIONAL THERAPY 8:56 PM CDT IP CONSULT TO PHYSICAL Routine 08/21/2018 THERAPY 8:[address] HEAD W/O CONTRAST STAT 08/21/2018 Falls frequently 5:29 PM CDT CTA NECK W CONTRAST STAT 08/21/2018 Falls frequently 5:29 PM CDT CTA HEAD W CONTRAST STAT 08/21/2018 Falls frequently 5:29 PM CDT BMP POC Routine 08/21/2018 5:03 PM CDT XRAY CHEST 2 VIEWS STAT 08/21/2018 Falls frequently 4:33 PM CDT VBG POC Routine 08/21/2018 4:16 PM CDT BMP POC Routine 08/21/2018 4:16 PM CDT TROPONIN I POC Routine 08/21/2018 4:14 PM CDT 12 LEAD EKG Routine 08/21/2018 2:19 PM CDT after 10/02/2017 Results * MRI LUMBAR SPINE W/O CONTRAST (10/03/2018 1:24 AM CDT) Specimen Impressions Performed At IMPRESSION: [facility] 1.Exam quality is very limited due to motion artifact, however no cord or cauda equina compression is identified. 2.Spondylosis at C5-6. No axial images through the cervical and upper and mid thoracic spine were obtained. Once the patient is able a repeat exam may be performed. 3.Degenerative grade 1 anterolisthesis of L4-5 with resulting bilateral foraminal stenosis encroaching upon the exiting L4 nerve roots. Suggestion of synovial cysts at L4-L5. This [facility] radiology report is a preliminary resident dictation until finalized by an attending.Changes to this preliminary report may occur in an additional preliminary or finalized version. Dictated By: Sunil Dotson MD, 10/03/2018 2:12 AM I have reviewed the study and agree with the findings in this report. Signed By: Nany Stevens MD, 10/03/2018 7:59 AM Narrative Performed At EXAM: MRI CERVICAL SPINE WITHOUT CONTRAST [facility] EXAM: MRI THORACIC SPINE WITHOUT CONTRAST EXAM: MRI LUMBAR SPINE WITHOUT CONTRAST DATE: 10/03/2018 1:24 AM INDICATION: Spinal cord injury, known, follow up. Cervical stenosis of spinal canal ADDITIONAL INFORMATION: None COMPARISON: CT neck from 08/21/2018. TECHNIQUE: Sagittal T1 and T2, images are obtained through the cervical, thoracic and lumbarspine. Exam quality is very limited due to patient motion. IV contrast: None. FINDINGS: Exam is markedly motion degraded with no axial images through the cervical, upper and mid thoracic spine. No cord or cauda equina compression. Spondylosis at C5-C6 without cord compression. LUMBAR SPINE Degenerative rate 1 L4-L5 anterolisthesis resulting in bilateral foraminal stenosis encroaching on the exiting L4 nerve roots. T2 signal change throughout all lumbar intervertebral discs, with disc space narrowing at L4-5 and L5-S1. Procedure Note Interface, Rad/Mammog In - 10/03/2018 8:04 AM CDT EXAM: MRI CERVICAL SPINE WITHOUT CONTRAST EXAM: MRI THORACIC SPINE WITHOUT CONTRAST EXAM: MRI LUMBAR SPINE WITHOUT CONTRAST DATE: 10/03/2018 1:24 AM INDICATION: Spinal cord injury, known, follow up. Cervical stenosis of spinal canal ADDITIONAL INFORMATION: None COMPARISON: CT neck from 08/21/2018. TECHNIQUE: Sagittal T1 and T2, images are obtained through the cervical, thoracic and lumbar spine. Exam quality is very limited due to patient motion. IV contrast: None. FINDINGS: Exam is markedly motion degraded with no axial images through the cervical, upper and mid thoracic spine. No cord or cauda equina compression. Spondylosis at C5-C6 without cord compression. LUMBAR SPINE Degenerative rate 1 L4-L5 anterolisthesis resulting in bilateral foraminal stenosis encroaching on the exiting L4 nerve roots. T2 signal change throughout all lumbar intervertebral discs, with disc space narrowing at L4-5 and L5-S1. IMPRESSION IMPRESSION: 1. Exam quality is very limited due to motion artifact, however no cord or cauda equina compression is identified. 2. Spondylosis at C5-6. No axial images through the cervical and upper and mid thoracic spine were obtained. Once the patient is able a repeat exam may be performed. 3. Degenerative grade 1 anterolisthesis of L4-5 with resulting bilateral foraminal stenosis encroaching upon the exiting L4 nerve roots. Suggestion of synovial cysts at L4-L5. This [facility] radiology report is a preliminary resident dictation until finalized by an attending. Changes to this preliminary report may occur in an additional preliminary or finalized version. Dictated By: Sunil Dotson MD, 10/03/2018 2:12 AM I have reviewed the study and agree with the findings in this report. Signed By: Nany Stevens MD, 10/03/2018 7:59 AM Performing Organization Address City/State/Zipcode Phone Number SMS * MRI THORACIC SPINE W/O CONTRAST (10/03/2018 1:24 AM CDT) Specimen Impressions Performed At IMPRESSION: [facility] 1.Exam quality is very limited due to motion artifact, however no cord or cauda equina compression is identified. 2.Spondylosis at C5-6. No axial images through the cervical and upper and mid thoracic spine were obtained. Once the patient is able a repeat exam may be performed. 3.Degenerative grade 1 anterolisthesis of L4-5 with resulting bilateral foraminal stenosis encroaching upon the exiting L4 nerve roots. Suggestion of synovial cysts at L4-L5. This [facility] radiology report is a preliminary resident dictation until finalized by an attending.Changes to this preliminary report may occur in an additional preliminary or finalized version. Dictated By: Sunil Dotson MD, 10/03/2018 2:12 AM I have reviewed the study and agree with the findings in this report. Signed By: Nany Stevens MD, 10/03/2018 7:59 AM Narrative Performed At EXAM: MRI CERVICAL SPINE WITHOUT CONTRAST [facility] EXAM: MRI THORACIC SPINE WITHOUT CONTRAST EXAM: MRI LUMBAR SPINE WITHOUT CONTRAST DATE: 10/03/2018 1:24 AM INDICATION: Spinal cord injury, known, follow up. Cervical stenosis of spinal canal ADDITIONAL INFORMATION: None COMPARISON: CT neck from 08/21/2018. TECHNIQUE: Sagittal T1 and T2, images are obtained through the cervical, thoracic and lumbarspine. Exam quality is very limited due to patient motion. IV contrast: None. FINDINGS: Exam is markedly motion degraded with no axial images through the cervical, upper and mid thoracic spine. No cord or cauda equina compression. Spondylosis at C5-C6 without cord compression. LUMBAR SPINE Degenerative rate 1 L4-L5 anterolisthesis resulting in bilateral foraminal stenosis encroaching on the exiting L4 nerve roots. T2 signal change throughout all lumbar intervertebral discs, with disc space narrowing at L4-5 and L5-S1. Procedure Note Interface, Rad/Mammog In - 10/03/2018 8:04 AM CDT EXAM: MRI CERVICAL SPINE WITHOUT CONTRAST EXAM: MRI THORACIC SPINE WITHOUT CONTRAST EXAM: MRI LUMBAR SPINE WITHOUT CONTRAST DATE: 10/03/2018 1:24 AM INDICATION: Spinal cord injury, known, follow up. Cervical stenosis of spinal canal ADDITIONAL INFORMATION: None COMPARISON: CT neck from 08/21/2018. TECHNIQUE: Sagittal T1 and T2, images are obtained through the cervical, thoracic and lumbar spine. Exam quality is very limited due to patient motion. IV contrast: None. FINDINGS: Exam is markedly motion degraded with no axial images through the cervical, upper and mid thoracic spine. No cord or cauda equina compression. Spondylosis at C5-C6 without cord compression. LUMBAR SPINE Degenerative rate 1 L4-L5 anterolisthesis resulting in bilateral foraminal stenosis encroaching on the exiting L4 nerve roots. T2 signal change throughout all lumbar intervertebral discs, with disc space narrowing at L4-5 and L5-S1. IMPRESSION IMPRESSION: 1. Exam quality is very limited due to motion artifact, however no cord or cauda equina compression is identified. 2. Spondylosis at C5-6. No axial images through the cervical and upper and mid thoracic spine were obtained. Once the patient is able a repeat exam may be performed. 3. Degenerative grade 1 anterolisthesis of L4-5 with resulting bilateral foraminal stenosis encroaching upon the exiting L4 nerve roots. Suggestion of synovial cysts at L4-L5. This [facility] radiology report is a preliminary resident dictation until finalized by an attending. Changes to this preliminary report may occur in an additional preliminary or finalized version. Dictated By: Sunil Dotson MD, 10/03/2018 2:12 AM I have reviewed the study and agree with the findings in this report. Signed By: Nany Stevens MD, 10/03/2018 7:59 AM Performing Organization Address City/State/Zipcode Phone Number SMS * MRI CERVICAL SPINE W/O CONTRAST (10/03/2018 1:24 AM CDT) Specimen Impressions Performed At IMPRESSION: [facility] 1.Exam quality is very limited due to motion artifact, however no cord or cauda equina compression is identified. 2.Spondylosis at C5-6. No axial images through the cervical and upper and mid thoracic spine were obtained. Once the patient is able a repeat exam may be performed. 3.Degenerative grade 1 anterolisthesis of L4-5 with resulting bilateral foraminal stenosis encroaching upon the exiting L4 nerve roots. Suggestion of synovial cysts at L4-L5. This [facility] radiology report is a preliminary resident dictation until finalized by an attending.Changes to this preliminary report may occur in an additional preliminary or finalized version. Dictated By: Sunil Dotson MD, 10/03/2018 2:12 AM I have reviewed the study and agree with the findings in this report. Signed By: Nany Stevens MD, 10/03/2018 7:59 AM Narrative Performed At EXAM: MRI CERVICAL SPINE WITHOUT CONTRAST [facility] EXAM: MRI THORACIC SPINE WITHOUT CONTRAST EXAM: MRI LUMBAR SPINE WITHOUT CONTRAST DATE: 10/03/2018 1:24 AM INDICATION: Spinal cord injury, known, follow up. Cervical stenosis of spinal canal ADDITIONAL INFORMATION: None COMPARISON: CT neck from 08/21/2018. TECHNIQUE: Sagittal T1 and T2, images are obtained through the cervical, thoracic and lumbarspine. Exam quality is very limited due to patient motion. IV contrast: None. FINDINGS: Exam is markedly motion degraded with no axial images through the cervical, upper and mid thoracic spine. No cord or cauda equina compression. Spondylosis at C5-C6 without cord compression. LUMBAR SPINE Degenerative rate 1 L4-L5 anterolisthesis resulting in bilateral foraminal stenosis encroaching on the exiting L4 nerve roots. T2 signal change throughout all lumbar intervertebral discs, with disc space narrowing at L4-5 and L5-S1. Procedure Note Interface, Rad/Mammog In - 10/03/2018 8:04 AM CDT EXAM: MRI CERVICAL SPINE WITHOUT CONTRAST EXAM: MRI THORACIC SPINE WITHOUT CONTRAST EXAM: MRI LUMBAR SPINE WITHOUT CONTRAST DATE: 10/03/2018 1:24 AM INDICATION: Spinal cord injury, known, follow up. Cervical stenosis of spinal canal ADDITIONAL INFORMATION: None COMPARISON: CT neck from 08/21/2018. TECHNIQUE: Sagittal T1 and T2, images are obtained through the cervical, thoracic and lumbar spine. Exam quality is very limited due to patient motion. IV contrast: None. FINDINGS: Exam is markedly motion degraded with no axial images through the cervical, upper and mid thoracic spine. No cord or cauda equina compression. Spondylosis at C5-C6 without cord compression. LUMBAR SPINE Degenerative rate 1 L4-L5 anterolisthesis resulting in bilateral foraminal stenosis encroaching on the exiting L4 nerve roots. T2 signal change throughout all lumbar intervertebral discs, with disc space narrowing at L4-5 and L5-S1. IMPRESSION IMPRESSION: 1. Exam quality is very limited due to motion artifact, however no cord or cauda equina compression is identified. 2. Spondylosis at C5-6. No axial images through the cervical and upper and mid thoracic spine were obtained. Once the patient is able a repeat exam may be performed. 3. Degenerative grade 1 anterolisthesis of L4-5 with resulting bilateral foraminal stenosis encroaching upon the exiting L4 nerve roots. Suggestion of synovial cysts at L4-L5. This [facility] radiology report is a preliminary resident dictation until finalized by an attending. Changes to this preliminary report may occur in an additional preliminary or finalized version. Dictated By: Sunil Dotson MD, 10/03/2018 2:12 AM I have reviewed the study and agree with the findings in this report. Signed By: Nany Stevens MD, 10/03/2018 7:59 AM Performing Organization Address City/State/[facility] Phone Number SMS * MRI BRAIN W/O CONTRAST (10/02/2018 5:57 PM CDT) Specimen Impressions Performed At IMPRESSION:Motion degraded limited study. SMS No acute abnormality. This [facility] radiology report is a preliminary resident dictation until finalized by an attending.Changes to this preliminary report may occur in an additional preliminary or finalized version. I have reviewed the study and agree with the findings in this report. Signed By: Cyndi Ackerman MD, 10/02/2018 6:08 PM Narrative Performed At EXAM: MRI BRAIN WITHOUT CONTRAST SMS DATE: 10/02/2018 5:58 PM INDICATION: Neuro deficit(s), subacute. Falls frequently ADDITIONAL INFORMATION: Involuntary jerking movements COMPARISON: CT, CTA head from 08/21/2018 TECHNIQUE: Multiplanar, multisequence MRI of the brain without contrast. Limited exam due to patient motion. IV contrast: None. FINDINGS: Motion degraded limited study. Diffusion-weighted images fail to demonstrate any recent ischemic change. Left thalamus punctate T2 hyperintensity consistent with chronic lacunar infarct. Minimal periventricular and criss insular T2 FLAIR hyperintensities consistent with chronic microvascular ischemic changes. There is otherwise no mass lesion, signal change, or structural abnormality. The ventricles and extra-axial spaces are normal. There is no acute or chronic hemorrhagic change. The intracranial arterial and venous structures demonstrate normal flow voids. The visible paranasal sinuses and skull base are unremarkable. Procedure Note Interface, Rad/Mammog In - 10/02/2018 6:46 PM CDT EXAM: MRI BRAIN WITHOUT CONTRAST DATE: 10/02/2018 5:58 PM INDICATION: Neuro deficit(s), subacute. Falls frequently ADDITIONAL INFORMATION: Involuntary jerking movements COMPARISON: CT, CTA head from 08/21/2018 TECHNIQUE: Multiplanar, multisequence MRI of the brain without contrast. Limited exam due to patient motion. IV contrast: None. FINDINGS: Motion degraded limited study. Diffusion-weighted images fail to demonstrate any recent ischemic change. Left thalamus punctate T2 hyperintensity consistent with chronic lacunar infarct. Minimal periventricular and criss insular T2 FLAIR hyperintensities consistent with chronic microvascular ischemic changes. There is otherwise no mass lesion, signal change, or structural abnormality. The ventricles and extra-axial spaces are normal. There is no acute or chronic hemorrhagic change. The intracranial arterial and venous structures demonstrate normal flow voids. The visible paranasal sinuses and skull base are unremarkable. IMPRESSION IMPRESSION: Motion degraded limited study. No acute abnormality. This [facility] radiology report is a preliminary resident dictation until finalized by an attending. Changes to this preliminary report may occur in an additional preliminary or finalized version. I have reviewed the study and agree with the findings in this report. Signed By: Cyndi Ackerman MD, 10/02/2018 6:08 PM Performing Organization Address City/State/Zipcode Phone Number SMS * CBC (10/02/2018 9:00 AM CDT) Only the most recent of 3 results within the time period is included. WBC 13.1 (H) 4.5 - 12.0 K/uL [facility] RBC 4.39 (L) 4.60 - 6.20 M/uL [facility] Hemoglobin 11.9 (L) 14.0 - 18.0 g/dL [facility] Hematocrit 37.6 (L) 40.0 - 54.0 % [facility] MCV 85.6 82.0 - 92.0 fL [facility] MCH 27.1 27.0 - 31.0 pg [facility] MCHC 31.6 (L) 32.0 - 36.0 g/dL [facility] RDW 49.2 (H) 35.1 - 43.9 fL [facility] Platelet 310 150 - 400 K/uL [facility] Mean Platelet 11.0 9.4 - 12.4 fL [facility] Volume Percent NRBC 0.0 % [facility] Neutrophil 73.7 (H) 34.0 - 67.9 % [facility] Lymphocyte 16.0 (L) 21.8 - 50.0 % [facility] Monocyte 7.0 5.3 - 12.0 % [facility] Eosinophil 2.4 0.8 - 5.0 % [facility] Basophil 0.5 0.2 - 1.2 % [facility] Pct Immat Gran 0.4 0.0 - 0.5 % [facility] Neutrophil, Abs 9.70 (H) 1.78 - 5.36 K/uL [facility] Lymphocyte, Abs 2.10 1.32 - 3.57 K/uL [facility] Monocyte, Abs 0.92 (H) 0.30 - 0.82 K/uL [facility] Eosinophil, Abs 0.31 0.04 - 0.54 K/uL [facility] Basophil, Abs 0.06 0.01 - 0.08 K/uL [facility] Absol Immat 0.05 (H) 0.00 - 0.03 K/uL [facility] Gran Absolute 0.00 K/uL [facility] NRBC-CV Specimen Blood Performing Organization Address City/[facility]/Zipcode Phone Number [facility] [address] [place] [address] * BMP POC (10/02/2018 8:51 AM CDT) Only the most recent of 3 results within the time period is included. Sodium POC 141 136 - 145 mmol/L [facility] Potassium POC 3.7 3.5 - 5.1 mmol/L [facility] Chloride POC 107 98 - 107 mmol/L [facility] TCO2 POC 22 21 - 32 mmol/L [facility] Urea Nitrogen 24 (H) 7 - 18 mg/dL [facility] POC Creatinine POC 1.1 0.6 - 1.3 mg/dL [facility] Glucose POC 93 74 - 106 mg/dL [facility] Ionized Calcium 1.07 (L) 1.15 - 1.29 mmol/L [facility] POC GFR, Estimated, 87 (L) >=90 mL/min/1.73 m2 [facility] -Mary n GFR, Estimated 75 (L) >=90 mL/min/1.73 m2 [facility] Hemoglobin POC 13.3Comment: Physician 12 - 16 g/dL [facility] Notified Hematocrit POC 39.0 37.0 - 47.0 % [facility] Specimen Blood, venous Performing Organization Address [facility] Phone Number [facility] [address] [place] [phone] * PHOSPHORUS (10/02/2018 8:51 AM CDT) Only the most recent of 4 results within the time period is included. Phosphorus 4.4 2.5 - 5.0 mg/dL [facility] Specimen Blood Performing Organization Address [facility] [facility] [place] Phone Number [facility] [address] [place] [address] * MAGNESIUM (10/02/2018 8:51 AM CDT) Only the most recent of 4 results within the time period is included. Magnesium 2.1 1.9 - 2.7 mg/dL [facility] Specimen Blood Performing Organization Address [facility] [place] Phone Number [facility] [address] [place] [phone] * LIVER PROFILE (10/02/2018 8:51 AM CDT) Total Protein 7.1 6.0 - 8.3 g/dL [facility] Total Bilirubin 0.5 0.2 - 1.2 mg/dL [facility] Alkaline 116 (H) 34 - 104 U/L [facility] Phosphatase AST 21 13 - 39 U/L [facility] Direct 0.1 0.0 - 0.2 mg/dL [facility] Bilirubin ALT 40 7 - 52 U/L [facility] Albumin 4.2 4.2 - 5.5 g/dL [facility] Specimen Blood Performing Organization Address [facility] [place] Phone Number [facility] [address] [place] [phone] * LIPASE (10/02/2018 8:51 AM CDT) Pathologist [facility] Lipase 14 11 - 82 U/L [facility] Specimen Blood Performing Organization Address [facility] [place] Phone Number [facility] [address] [place] [phone] * CALCIUM, IONIZED (10/02/2018 8:51 AM CDT) Only the most recent of 3 results within the time period is included. [facility] Calcium, 1.12 (L) 1.15 - 1.29 mmol/L [facility] Ionized Specimen Blood Performing Organization Address [facility] [place] Phone Number [facility] [address] [place] [address] * TROPONIN I POC (10/02/2018 8:49 AM CDT) Only the most recent of 2 results within the time period is included. [facility] Troponin POC 0.00 0.00 - 0.08 ng/mL [facility] Specimen Blood, venous Performing Organization Address [facility] [place] Phone Number [facility] [address] [place] [phone] * 12 LEAD EKG (10/02/2018 6:57 AM CDT) [facility] 12 LEAD EKG FOR [facility] Test Date:2018-10-02 Pat Name: PONCE Monte ent: Room: Gender: M Card Sorter: [id number] :[id number] 6-15 Requested By: DIMITRIS Adamson Order Number: [id number] Reading MD: Renato HARE Measurements Intervals [place] Rate: 96 P:57 UT: 172 QRS: -1 QRSD: 106 T: 51 QT: 363 QTc:459 Interpretive Statements SINUS RHYTHM POSSIBLE LEFT ATRIAL ENLARGEMENT Borderline ECG Electronically Signed On 10-02-2018 12:56:03 CDT by Renato HARE Specimen Performing Organization Address City/[facility] [place] Phone Number SMS * TRANSTHORACIC ECHO (TTE) (08/22/2018 10:53 AM CDT) [facility] TRANSTHORACIC Transthoracic [facility] ECHO (TTE) Echo Report PONCE KENDRICK Age:53 Gender: M :1965 Exam Date: 08/22/2018 10:53 Exam Location: [facility] Echo Ordering Phys: JONATHAN WARD Referring Phys:[id number] Morgan Reading Phys:Cristina Blair M.D. Fellow Phys: Anuja Smith M.D. Fellow Phys: Health Care Technician: Chuck Newberry Reason For Exam: Indications: per neurology recs s/p stroke, rule out emboli ICD-9 Codes: Exam Type: TRANSTHORACIC ECHO (TTE) Procedure CPT:65731 Addtional CPT: Ht (in): 72 BSA: 2.44HR: 68 Rhythm: Sinus rhythm Wt (lb): 250BP: 158/ 72 Technical Quality: Technically difficult study History: MEASUREMENTS Normal ranges based on 95% confidence intervals for adults, some normal patients may fall outside of this range especially when indexing for BSA 2D ECHO LV Diastolic Diameter PLAX4 cm 4.2-5.8 (M) / 3.8-5.2 (F) LV Systolic Diameter PLAX 2.2 cm 2.5-4.0 (M) / 2.2-3.5 (F) LV Fractional Shortening PLAX 44.1 % IVS Diastolic Thickness 1.5 cm 0.6-1.0 (M) / 0.6-0.9 (F) IVS Systolic Thickness 2 cm LVPW Diastolic Thickness1 .6 cm 0.6-1.0 (M) / 0.6-0.9 (F) LVPW Systolic Thickness 1.9 cm LV Relative Wall Thickness0.77 <=0.42 LVOT Diameter 2.4 cm Aortic Root Diameter 3.3 cm LA Systolic Diameter LX 3.5 cm LA Ao Ratio 1.1 LV Diastolic Volume MOD BP119 cm 62-150 cm (M) / 46-106 cm (F) LV Systolic Volume MOD BP 41.9 cm 21-61 cm (M) / 14-42 cm (F) LV Ejection Fraction MOD BP 64.6 % 52-72 (M) / 54-74 (F) LV Stroke Volume MOD BP 76.6 cm LV Cardiac Output MOD [id number] cm/min LV Cardiac Index MOD BP 2138 cm/minm LA Volume 33 cm LA Volume Index 13.5 cm/m 16 - 34 cm/m LV Mass by linear [id number] g LV Mass by linear method [id number] g/m DOPPLER AV Peak Velocity 142 cm/s AV Peak Gradient 8.1 mmHg AV Mean Velocity 101 cm/s AV Mean Gradient 4 mmHg AV Velocity Time Integral 25.3 cm LVOT Peak Velocity 92.4 cm/s LVOT Peak Gradient 3.4 mmHg LVOT Mean Velocity 63 cm/s LVOT Mean Gradient 2 mmHg LVOT Velocity Time Integral 17.8 cm LVOT Stroke Volume 80.5 cm AV Area Cont Eq vti 3.2 cm AV Area Cont Eq pk 2.9 cm Mitral E Point Velocity 99.9 cm/s Mitral A Point Velocity 76.2 cm/s Mitral E to A Ratio 1.3 MV Deceleration [place] 456 cm/s MV Pressure Half Time 64 ms MV Area PHT 3.4 cm MV Deceleration Time 219 ms PV Peak Velocity 90.9 cm/s PV Peak Gradient 3.3 mmHg RVOT Peak Velocity 78.1 cm/s RVOT Peak Gradient 2.4 mmHg LV E' Lateral Velocity 10.4 cm/s Mitral E to LV E' Lateral Ratio 9.6 LV E' Septal Velocity 7.6 cm/s Mitral E to LV E' Septal Ratio13.1 RV S' Velocity 13.2 cm/s >9.5 cm/s FINDINGS Left Ventricle Left ventricle is normal in size and systolic function.LVEF 65-69%. There are no obvious regional wall motion abnormalities visualized. Concentric remodeling.There is normal LV relaxation with normal filling pressures. Right Ventricle The right ventricle appears normal in size and systolic function. TAPSE 3.0cm. Right Atrium The right atrium is not well visualized, but appears grossly normal in size. Left Atrium The left atrium is normal in size. IAS Mitral Valve Mitral valve leaflets appear thickened. Posterior mitral annular calcification. There is no mitral stenosis, or prolapse. Trace regurgitation. Aortic Valve The aortic valve is trileaflet. There is no aortic stenosis. There is trace aortic regurgitation. Tricuspid Valve Structurally normal tricuspid valve without significant stenosis. Insufficient TR jet to estimate pulmonary artery systolic pressure. Pulmonic Valve Pulmonic valve not well visualized. No significant stenosis by Doppler. Trace pulmonic regurgitation. Pericardium No pericardial effusion. Epicardial fat pad. Aorta Normal aortic root for body surface area. IVC The inferior vena cava is normal in size. CONCLUSIONS Left ventricle is normal in size and systolic function.LVEF 65-69%. There are no obvious regional wall motion abnormalities visualized. Concentric remodeling.There is normal LV relaxation with normal filling pressures. The right ventricle appears normal in size and systolic function. TAPSE 3.0cm. Biatrial chambers appear normalin size. No hemodynamically significant valvular abnormalities visualized. Insufficient TR jet to estimate pulmonary artery systolic pressure. No pericardial effusion. Epicardial fat pad. Normal aortic root for body surface area. Cristina Blair M.D. (Electronically Signed) Final Date:22 August 2018 14:18 2D ECHO LV Diastolic Diameter PLAX4 cm 4.2-5.8 (M) / 3.8-5.2 (F) LV Systolic Diameter PLAX 2.2 cm 2.5-4.0 (M) / 2.2-3.5 (F) LV Fractional Shortening PLAX 44.1 % IVS Diastolic Thickness 1.5 cm 0.6-1.0 (M) / 0.6-0.9 (F) IVS Systolic Thickness 2 cm LVPW Diastolic Thickness1 .6 cm 0.6-1.0 (M) / 0.6-0.9 (F) LVPW Systolic Thickness 1.9 cm LV Relative Wall Thickness0.77 <=0.42 LVOT Diameter 2.4 cm Aortic Root Diameter 3.3 cm LA Systolic Diameter LX 3.5 cm LA Ao Ratio 1.1 LV Diastolic Volume MOD BP119 cm 62-150 cm (M) / 46-106 cm (F) LV Systolic Volume MOD BP 41.9 cm 21-61 cm (M) / 14-42 cm (F) LV Ejection Fraction MOD BP 64.6 % 52-72 (M) / 54-74 (F) LV Stroke Volume MOD BP 76.6 cm LV Cardiac Output MOD [id number] cm/min LV Cardiac Index MOD BP 2138 cm/minm LA Volume 33 cm LA Volume Index 13.5 cm/m 16 - 34 cm/m LV Mass by linear [id number] g LV Mass by linear method Xepyc794 g/m DOPPLER AV Peak Velocity 142 cm/s AV Peak Gradient 8.1 mmHg AV Mean Velocity 101 cm/s AV Mean Gradient 4 mmHg AV Velocity Time Integral 25.3 cm LVOT Peak Velocity 92.4 cm/s LVOT Peak Gradient 3.4 mmHg LVOT Mean Velocity 63 cm/s LVOT Mean Gradient 2 mmHg LVOT Velocity Time Integral 17.8 cm LVOT Stroke Volume 80.5 cm AV Area Cont Eq vti 3.2 cm AV Area Cont Eq pk 2.9 cm Mitral E Point Velocity 99.9 cm/s Mitral A Point Velocity 76.2 cm/s Mitral E to A Ratio 1.3 MV Deceleration [place] 456 cm/s MV Pressure Half Time 64 ms MV Area PHT 3.4 cm MV Deceleration Time 219 ms PV Peak Velocity 90.9 cm/s PV Peak Gradient 3.3 mmHg RVOT Peak Velocity 78.1 cm/s RVOT Peak Gradient 2.4 mmHg LV E' Lateral Velocity 10.4 cm/s Mitral E to LV E' Lateral Ratio 9.6 LV E' Septal Velocity 7.6 cm/s Mitral E to LV E' Septal Ratio13.1 RV S' Velocity 13.2 cm/s >9.5 cm/s Specimen Performing Organization Address [facility] [place] Phone Number SMS * URINE DRUG SCREEN (08/22/2018 2:41 AM CDT) Opiate, Ur Negative Negative [facility] Comment: Calibrated Standard: Morphine Positive if urine level > xb=154 ng/dL Amphetamine Negative Negative [facility] Comment: Calibrated Standard: D-Methamphetamine Positive if urine level > kv=7168 ng/mL Barbiturate Negative Negative [facility] Comment: Calibrated Standard: Secobarbital Positive if urine level is > oj=275 ng/mL Benzodiazepine Positive (A) Negative [facility] Comment: Calibrated Standard: Lormethazepam Positive if urine level is > wk=638 ng/mL Cocaine Negative Negative [facility] Comment: Calibrated Standard: Benzoylecgonine Positive if urine level > ix=203 ng/dL PCP Negative Negative [facility] Comment: Calibrated Standard: Phencyclidine Positive if urine level > or=25 ng/dL Cannabinoid Negative Negative [facility] Comment: Calibrated Standard: 11 nor-delta(9)-THC carboxylic acid Positive if urine level > or=50 ng/mL Specimen Urine - Voided, urine Performing Organization Address [facility] [place] Phone Number [facility] [address] [place] [address] * COMPREHENSIVE METABOLIC PANEL (08/22/2018 2:15 AM CDT) Only the most recent of 2 results within the time period is included. Sodium 138 136 - 145 mmol/L [facility] Potassium 4.5 3.5 - 5.1 mmol/L [facility] Chloride 102 98 - 107 mmol/L [facility] CO2 28 21 - 31 mmol/L [facility] Glucose 95 70 - 110 mg/dL [facility] Calcium, Total 8.9 8.6 - 10.3 mg/dL [facility] Urea Nitrogen 19.0 7.0 - 25.0 mg/dL [facility] Creatinine 1.1 0.7 - 1.3 mg/dL [facility] Alkaline 126 (H) 34 - 104 U/L [facility] Phosphatase ALT 85 (H) 7 - 52 U/L [facility] AST 26 13 - 39 U/L [facility] Total Bilirubin 0.3 0.2 - 1.2 mg/dL [facility] Total Protein 6.0 6.0 - 8.3 g/dL [facility] GFR, Estimated 70 (L) >=90 mL/min/1.73 m2 [facility] Albumin 3.8 (L) 4.2 - 5.5 g/dL [facility] Anion Gap 8 5 - 16 mmol/L [facility] Specimen Blood Performing Organization Address [facility] Phone Number [facility] [address] [place] [address] * FERRITIN (08/22/2018 2:15 AM CDT) [facility] Ferritin 131.3 23.9 - 336.2 ng/mL [facility] Specimen Blood Performing Organization Address [facility] Phone Number [facility] [address] [place] [address] * LIPID PROFILE (08/22/2018 2:15 AM CDT) [facility] Triglyceride 139 <150 mg/dL [facility] Comment: Normal: < 150.0 mg/dL Borderline: 150-199 mg/dL High: 200-499 mg/dL Very High: >=500 mg/dL Cholesterol 185.0 <=200.0 mg/dL [facility] Comment: Desirable: < 200.0 mg/dL Borderline: 200 - 240 mg/dL High Risk: > 240 mg/dL HDL 29.0 See Reference Range [facility] Comment: Narrative. mg/dL Increased CHD Risk: < 40.0 mg/dL Decreased CHD Risk: > 60 mg/dL LDL 128 (H) <100 mg/dL [facility] Comment: Optimal: < 100.0 mg/dL Near Optimal: 120-129 mg/dL Borderline: 130-159 mg/dL High: 160-189 mg/dL Very High: >=190 mg/dL Specimen Blood Narrative Performed At Patient is not fasting. For a triglyceride result greater than 440 mg/dL, [facility] consider re-testing when the patient is in a fasting state. Performing Organization Address [facility] Phone Number [facility] [address] [place], [place] [phone] * HEMOGLOBIN A1C (08/22/2018 2:13 AM CDT) Only the most recent of 2 results within the time period is included. Hemoglobin A1c 5.9 4.3 - 6.1 % [facility] Estimated 123 (H) 70 - 110 mg/dL [facility] Average Glucose Specimen Blood Performing Organization Address [facility] [place] Phone Number [facility] [address] [place], [place] [phone] * IRON PROFILE (08/22/2018 2:13 AM CDT) Iron 35 (L) 50 - 212 ug/dL [facility] TIBC 343 250 - 450 ug/dL [facility] % Iron Sat 10 % [facility] Transferrin 244.80 203.00 - 362.00 [facility] mg/dL [facility] Specimen Blood Performing Organization Address [facility] [place] Phone Number [facility] [address] [place] [address] * CTA NECK W CONTRAST (08/21/2018 5:29 PM CDT) Specimen Impressions Performed At IMPRESSION: SMS Motion degraded exam. Low-attenuation mural plaque associated with stenosis in the V1 segment of the right vertebral artery, a focal area of high-grade stenosis. Coarse calcification with concern for stenosis at the left vertebral artery origin. Otherwise no hemodynamically significant stenosis in the left vertebral artery. Atherosclerotic disease at the carotid bifurcations without hemodynamically significant stenosis. Bilateral carotid siphon atherosclerotic disease, with focal stenosis in the left juxta clinoid segment however no evidence of flow limitation. No proximal branch occlusion intracranially. Mild scattered atherosclerotic changes in cerebral artery branches. (All qualitative and quantitative assessments of carotid bifurcation and proximal internal carotid artery stenosis are made referencing the distal internal carotid artery {NASCET criteria}.) This EPIC radiology report is a preliminary resident dictation until finalized by an attending.Changes to this preliminary report may occur in an additional preliminary or finalized version. I have reviewed the study and agree with the findings in this report. Signed By: Billy Bradley MD, 08/21/2018 8:17 PM Narrative Performed At EXAM: CTA BRAIN SMS EXAM: CTA NECK DATE: 08/21/2018 5:31 PM INDICATION: Ataxia. Falls frequently COMPARISON: Head CT from 08/21/2018 TECHNIQUE: Volumetric CT images of the brain and neck are obtained between the aortic arch and the cranial vertex during intravenous infusion of iodinated contrast for the purposes of CT angiography. 3-D CT angiographic images are created using MIP technique at the acquisition workstation. The source images are also presented for interpretation. IV contrast: 100 mL Omnipaque 350 DLP: 894 mGy-cm FINDINGS: Portions of imaging is degraded by patient motion. Partially calcified atherosclerotic plaques at the carotid bifurcations, with less than 50% luminal stenosis by NASCET criteria. Technically degraded imaging in portions of the left cervical ICA. Otherwise, no hemodynamically significant stenosis in the carotid arteries in the neck. Atherosclerotic calcifications within both carotid siphons with narrowing in the left juxta clinoid segment, however no flow limitation. Atherosclerotic calcification at the right vertebral artery origin, without significant origin stenosis, however there is subsequently low-attenuation mural plaque throughout the remainder of the T1 segment with associated severe stenoses and focal high-grade stenosis in the V1 segment. The artery regains normal caliber in the proximal V2 segment entering the transverse foramen at C6-C7 level. Mild additional areas of narrowing due to scattered atherosclerotic calcifications present in the V2 and V4 segments. Coarse calcification at the left vertebral artery origin with concern for possible origin stenosis, however no evidence of additional hemodynamic significant stenosis in the left vertebral artery. Facet hypertrophy results in extrinsic compression at the C5 level. Limited evaluation of the intradural segments segment of patient motion, however remain patent without flow-limiting stenosis. Focal stenosis in the basilar artery just distal to the vertebrobasilar junction, otherwise normal in caliber. Allowing for some areas of motion degradation, no evidence of hemodynamically significant stenosis within the proximal intracranial branches. Mild multifocal luminal contour irregularities likely reflecting sequela of atherosclerotic disease. No saccular aneurysm identified. Major dural venous sinuses are patent. Diffuse degenerative changes of the cervical spine with multilevel foraminal stenosis secondary to facet hypertrophy. The spinal canal appears stenotic at C5-C6 and C6-C7. Dental caries. Procedure Note Interface, Rad/Mammog In - 08/21/2018 8:22 PM CDT EXAM: CTA BRAIN EXAM: CTA NECK DATE: 08/21/2018 5:31 PM INDICATION: Ataxia. Falls frequently COMPARISON: Head CT from 08/21/2018 TECHNIQUE: Volumetric CT images of the brain and neck are obtained between the aortic arch and the cranial vertex during intravenous infusion of iodinated contrast for the purposes of CT angiography. 3-D CT angiographic images are created using MIP technique at the acquisition workstation. The source images are also presented for interpretation. IV contrast: 100 mL Omnipaque 350 DLP: 894 mGy-cm FINDINGS: Portions of imaging is degraded by patient motion. Partially calcified atherosclerotic plaques at the carotid bifurcations, with less than 50% luminal stenosis by NASCET criteria. Technically degraded imaging in portions of the left cervical ICA. Otherwise, no hemodynamically significant stenosis in the carotid arteries in the neck. Atherosclerotic calcifications within both carotid siphons with narrowing in the left juxta clinoid segment, however no flow limitation. Atherosclerotic calcification at the right vertebral artery origin, without significant origin stenosis, however there is subsequently low-attenuation mural plaque throughout the remainder of the T1 segment with associated severe stenoses and focal high-grade stenosis in the V1 segment. The artery regains normal caliber in the proximal V2 segment entering the transverse foramen at C6-C7 level. Mild additional areas of narrowing due to scattered atherosclerotic calcifications present in the V2 and V4 segments. Coarse calcification at the left vertebral artery origin with concern for possible origin stenosis, however no evidence of additional hemodynamic significant stenosis in the left vertebral artery. Facet hypertrophy results in extrinsic compression at the C5 level. Limited evaluation of the intradural segments segment of patient motion, however remain patent without flow-limiting stenosis. Focal stenosis in the basilar artery just distal to the vertebrobasilar junction, otherwise normal in caliber. Allowing for some areas of motion degradation, no evidence of hemodynamically significant stenosis within the proximal intracranial branches. Mild multifocal luminal contour irregularities likely reflecting sequela of atherosclerotic disease. No saccular aneurysm identified. Major dural venous sinuses are patent. Diffuse degenerative changes of the cervical spine with multilevel foraminal stenosis secondary to facet hypertrophy. The spinal canal appears stenotic at C5-C6 and C6-C7. Dental caries. IMPRESSION IMPRESSION: Motion degraded exam. Low-attenuation mural plaque associated with stenosis in the V1 segment of the right vertebral artery, a focal area of high-grade stenosis. Coarse calcification with concern for stenosis at the left vertebral artery origin. Otherwise no hemodynamically significant stenosis in the left vertebral artery. Atherosclerotic disease at the carotid bifurcations without hemodynamically significant stenosis. Bilateral carotid siphon atherosclerotic disease, with focal stenosis in the left juxta clinoid segment however no evidence of flow limitation. No proximal branch occlusion intracranially. Mild scattered atherosclerotic changes in cerebral artery branches. (All qualitative and quantitative assessments of carotid bifurcation and proximal internal carotid artery stenosis are made referencing the distal internal carotid artery {NASCET criteria}.) This [facility] radiology report is a preliminary resident dictation until finalized by an attending. Changes to this preliminary report may occur in an additional preliminary or finalized version. I have reviewed the study and agree with the findings in this report. Signed By: Billy Bradley MD, 08/21/2018 8:17 PM Performing Organization Address City/State/Zipcode Phone Number SMS * CTA HEAD W CONTRAST (08/21/2018 5:29 PM CDT) Specimen Impressions Performed At IMPRESSION: SMS Motion degraded exam. Low-attenuation mural plaque associated with stenosis in the V1 segment of the right vertebral artery, a focal area of high-grade stenosis. Coarse calcification with concern for stenosis at the left vertebral artery origin. Otherwise no hemodynamically significant stenosis in the left vertebral artery. Atherosclerotic disease at the carotid bifurcations without hemodynamically significant stenosis. Bilateral carotid siphon atherosclerotic disease, with focal stenosis in the left juxta clinoid segment however no evidence of flow limitation. No proximal branch occlusion intracranially. Mild scattered atherosclerotic changes in cerebral artery branches. (All qualitative and quantitative assessments of carotid bifurcation and proximal internal carotid artery stenosis are made referencing the distal internal carotid artery {NASCET criteria}.) This [facility] radiology report is a preliminary resident dictation until finalized by an attending.Changes to this preliminary report may occur in an additional preliminary or finalized version. I have reviewed the study and agree with the findings in this report. Signed By: Billy Bradley MD, 08/21/2018 8:17 PM Narrative Performed At EXAM: CTA BRAIN [facility] EXAM: CTA NECK DATE: 08/21/2018 5:31 PM INDICATION: Ataxia. Falls frequently COMPARISON: Head CT from 08/21/2018 TECHNIQUE: Volumetric CT images of the brain and neck are obtained between the aortic arch and the cranial vertex during intravenous infusion of iodinated contrast for the purposes of CT angiography. 3-D CT angiographic images are created using MIP technique at the acquisition workstation. The source images are also presented for interpretation. IV contrast: 100 mL Omnipaque 350 DLP: 894 mGy-cm FINDINGS: Portions of imaging is degraded by patient motion. Partially calcified atherosclerotic plaques at the carotid bifurcations, with less than 50% luminal stenosis by NASCET criteria. Technically degraded imaging in portions of the left cervical ICA. Otherwise, no hemodynamically significant stenosis in the carotid arteries in the neck. Atherosclerotic calcifications within both carotid siphons with narrowing in the left juxta clinoid segment, however no flow limitation. Atherosclerotic calcification at the right vertebral artery origin, without significant origin stenosis, however there is subsequently low-attenuation mural plaque throughout the remainder of the T1 segment with associated severe stenoses and focal high-grade stenosis in the V1 segment. The artery regains normal caliber in the proximal V2 segment entering the transverse foramen at C6-C7 level. Mild additional areas of narrowing due to scattered atherosclerotic calcifications present in the V2 and V4 segments. Coarse calcification at the left vertebral artery origin with concern for possible origin stenosis, however no evidence of additional hemodynamic significant stenosis in the left vertebral artery. Facet hypertrophy results in extrinsic compression at the C5 level. Limited evaluation of the intradural segments segment of patient motion, however remain patent without flow-limiting stenosis. Focal stenosis in the basilar artery just distal to the vertebrobasilar junction, otherwise normal in caliber. Allowing for some areas of motion degradation, no evidence of hemodynamically significant stenosis within the proximal intracranial branches. Mild multifocal luminal contour irregularities likely reflecting sequela of atherosclerotic disease. No saccular aneurysm identified. Major dural venous sinuses are patent. Diffuse degenerative changes of the cervical spine with multilevel foraminal stenosis secondary to facet hypertrophy. The spinal canal appears stenotic at C5-C6 and C6-C7. Dental caries. Procedure Note Interface, Rad/Mammog In - 08/21/2018 8:22 PM CDT EXAM: CTA BRAIN EXAM: CTA NECK DATE: 08/21/2018 5:31 PM INDICATION: Ataxia. Falls frequently COMPARISON: Head CT from 08/21/2018 TECHNIQUE: Volumetric CT images of the brain and neck are obtained between the aortic arch and the cranial vertex during intravenous infusion of iodinated contrast for the purposes of CT angiography. 3-D CT angiographic images are created using MIP technique at the acquisition workstation. The source images are also presented for interpretation. IV contrast: 100 mL Omnipaque 350 DLP: 894 mGy-cm FINDINGS: Portions of imaging is degraded by patient motion. Partially calcified atherosclerotic plaques at the carotid bifurcations, with less than 50% luminal stenosis by NASCET criteria. Technically degraded imaging in portions of the left cervical ICA. Otherwise, no hemodynamically significant stenosis in the carotid arteries in the neck. Atherosclerotic calcifications within both carotid siphons with narrowing in the left juxta clinoid segment, however no flow limitation. Atherosclerotic calcification at the right vertebral artery origin, without significant origin stenosis, however there is subsequently low-attenuation mural plaque throughout the remainder of the T1 segment with associated severe stenoses and focal high-grade stenosis in the V1 segment. The artery regains normal caliber in the proximal V2 segment entering the transverse foramen at C6-C7 level. Mild additional areas of narrowing due to scattered atherosclerotic calcifications present in the V2 and V4 segments. Coarse calcification at the left vertebral artery origin with concern for possible origin stenosis, however no evidence of additional hemodynamic significant stenosis in the left vertebral artery. Facet hypertrophy results in extrinsic compression at the C5 level. Limited evaluation of the intradural segments segment of patient motion, however remain patent without flow-limiting stenosis. Focal stenosis in the basilar artery just distal to the vertebrobasilar junction, otherwise normal in caliber. Allowing for some areas of motion degradation, no evidence of hemodynamically significant stenosis within the proximal intracranial branches. Mild multifocal luminal contour irregularities likely reflecting sequela of atherosclerotic disease. No saccular aneurysm identified. Major dural venous sinuses are patent. Diffuse degenerative changes of the cervical spine with multilevel foraminal stenosis secondary to facet hypertrophy. The spinal canal appears stenotic at C5-C6 and C6-C7. Dental caries. IMPRESSION IMPRESSION: Motion degraded exam. Low-attenuation mural plaque associated with stenosis in the V1 segment of the right vertebral artery, a focal area of high-grade stenosis. Coarse calcification with concern for stenosis at the left vertebral artery origin. Otherwise no hemodynamically significant stenosis in the left vertebral artery. Atherosclerotic disease at the carotid bifurcations without hemodynamically significant stenosis. Bilateral carotid siphon atherosclerotic disease, with focal stenosis in the left juxta clinoid segment however no evidence of flow limitation. No proximal branch occlusion intracranially. Mild scattered atherosclerotic changes in cerebral artery branches. (All qualitative and quantitative assessments of carotid bifurcation and proximal internal carotid artery stenosis are made referencing the distal internal carotid artery {NASCET criteria}.) This [facility] radiology report is a preliminary resident dictation until finalized by an attending. Changes to this preliminary report may occur in an additional preliminary or finalized version. I have reviewed the study and agree with the findings in this report. Signed By: Billy Bradley MD, 08/21/2018 8:17 PM Performing Organization Address City/State/Zipcode Phone Number SMS * CT HEAD W/O CONTRAST (08/21/2018 5:29 PM CDT) Specimen Impressions Performed At IMPRESSION: SMS Motion degraded exam without definitive evidence of acute intracranial abnormality. MRI available for further evaluation as clinically warranted. This [facility] radiology report is a preliminary resident dictation until finalized by an attending.Changes to this preliminary report may occur in an additional preliminary or finalized version. Dictated By: Dejon Pablo MD, 08/21/2018 6:56 PM mild prominence of the ventricles due to volume loss. I have reviewed the study and agree with the findings in this report. Signed By: Billy Bradley MD, 08/21/2018 8:23 PM Narrative Performed At EXAM: CT BRAIN WITHOUT CONTRAST SMS DATE: 08/21/2018 5:15 PM INDICATION: Ataxia, post head trauma. Falls frequently COMPARISON: None TECHNIQUE: Axial CT images of the brain are acquired without contrast. Sagittal and coronal reformats. IV contrast: None. DLP: 1371 mGy-cm FINDINGS: Portions of the exam were repeated due to patient motion. No acute intracranial hemorrhage. The snell-white matter interface is maintained. Questionable sequela of lacunar infarction in the left thalamus. Minimal microangiopathic changes. No hydrocephalus, midline shift, or herniation. No acute fracture. The imaged portions of the paranasal sinuses and mastoid air cells are clear. Atherosclerotic calcifications. Procedure Note Interface, Rad/Mammog In - 08/21/2018 8:29 PM CDT EXAM: CT BRAIN WITHOUT CONTRAST DATE: 08/21/2018 5:15 PM INDICATION: Ataxia, post head trauma. Falls frequently COMPARISON: None TECHNIQUE: Axial CT images of the brain are acquired without contrast. Sagittal and coronal reformats. IV contrast: None. DLP: 1371 mGy-cm FINDINGS: Portions of the exam were repeated due to patient motion. No acute intracranial hemorrhage. The snell-white matter interface is maintained. Questionable sequela of lacunar infarction in the left thalamus. Minimal microangiopathic changes. No hydrocephalus, midline shift, or herniation. No acute fracture. The imaged portions of the paranasal sinuses and mastoid air cells are clear. Atherosclerotic calcifications. IMPRESSION IMPRESSION: Motion degraded exam without definitive evidence of acute intracranial abnormality. MRI available for further evaluation as clinically warranted. This [facility] radiology report is a preliminary resident dictation until finalized by an attending. Changes to this preliminary report may occur in an additional preliminary or finalized version. Dictated By: Dejon Pablo MD, 08/21/2018 6:56 PM mild prominence of the ventricles due to volume loss. I have reviewed the study and agree with the findings in this report. Signed By: Billy Bradley MD, 08/21/2018 8:23 PM Performing Organization Address City/State/Zipcode Phone Number SMS * XRAY CHEST 2 VIEWS (08/21/2018 4:33 PM CDT) Specimen Impressions Performed At IMPRESSION:No acute abnormality. SMS Dictated By: Trinity Leo MD, 08/21/2018 4:31 PM I have reviewed the study and agree with the findings in this report. Signed By: Gema Mcpherson MD, 08/21/2018 4:32 PM Narrative Performed At EXAM: XR CHEST 2 VIEWS SMS DATE: 08/21/2018 4:14 PM INDICATION: falls. Falls frequently COMPARISON: None TECHNIQUE: PA and lateral chest radiographs FINDINGS: Lines, tubes and hardware: None. Lungs and pleura: No pulmonary edema. Low lung volumes are present with bibasilar platelike atelectasis. The costophrenic sulci are sharp, without pleural effusion. No pneumothorax is identified on this semiupright view. Heart and mediastinum: The heart size is normal for technique. Vascular calcifications are present at the thoracic aorta. Bones and soft tissues: No acute abnormality. Procedure Note Interface, Rad/Mammog In - 08/21/2018 4:37 PM CDT EXAM: XR CHEST 2 VIEWS DATE: 08/21/2018 4:14 PM INDICATION: falls. Falls frequently COMPARISON: None TECHNIQUE: PA and lateral chest radiographs FINDINGS: Lines, tubes and hardware: None. Lungs and pleura: No pulmonary edema. Low lung volumes are present with bibasilar platelike atelectasis. The costophrenic sulci are sharp, without pleural effusion. No pneumothorax is identified on this semiupright view. Heart and mediastinum: The heart size is normal for technique. Vascular calcifications are present at the thoracic aorta. Bones and soft tissues: No acute abnormality. IMPRESSION IMPRESSION: No acute abnormality. Dictated By: Trinity Leo MD, 08/21/2018 4:31 PM I have reviewed the study and agree with the findings in this report. Signed By: Gema Mcpherson MD, 08/21/2018 4:32 PM Performing Organization Address [facility] Phone Number [facility] * VBG POC (08/21/2018 4:16 PM CDT) pH, [place] POC 7.44 (H) 7.33 - 7.43 [facility] HCO3, [place] POC 32 (H) 22 - 26 mmol/L [facility] TCO2, POC 33 (H) 21 - 32 mmol/L [facility] PO2, Venous POC 31 (L) 50 - 75 mm Hg [facility] (BKR) pCO2,[place] POC 47.4 38 - 50 mmHg [facility] Base Excess [place] 7 mmol/L [facility] POC Sample Type IVEN [facility] Lactic Acid POC 0.91 0.40 - 2.00 mmol/L [facility] % Sat, [place] POC 62 % [facility] Specimen Blood, venous Performing Organization Address [facility] [place] [facility] Phone Number [facility] [address] [place] [address] * 12 LEAD EKG (08/21/2018 2:19 PM CDT) 12 LEAD EKG FOR [facility] Test Date:2018-08-21 Pat Name: PONCE Monte ent: Room: [facility] Gender: Card Sorter: :[id number] 08-13 Requested By: MILADYS Sanderson Order Number: [id number] Reading MD: Guero Artis Measurements Intervals [place] Rate: 74 P:12 UT: 167 QRS: -11 QRSD: 109 T: 61 QT: 386 QTc:430 Interpretive Statements SINUS RHYTHM NONSPECIFIC T-WAVE ABNORMALITY Poor R Wave Progression Left Atrial Enlargement Electronically Signed On 08-22-2018 17:49:34 CDT by Guero Artis Specimen Performing Organization Address City/State/Zipcode Phone Number SMS after 10/02/2017 Insurance Type Payer Benefit Subscriber ID Effective Phone Address Plan / Dates Group [facility] PRESUMED INDIGENT PRESUMED xxxxxxxxx 2018- INDIGENT 2018 Advance Directives Date Inactivated Comments Code Status Date Activated 08/23/2018 4:42 PM Full Code 08/21/2018 8:53 PM
--- OUTSIDE RECORDS SUMMARY | 2018-10-03 10:01 | XMS REPORT | Clinical Summary ---
Author Author Len Druze Organization [facility] Address Unknown Phone Unavailable Care Team Providers Care Senior Graduate Advisor Name Role Phone Asked, No Pcp PCP Unavailable Allergies Comments Active Allergy Reactions Severity Noted Date Pt states he swells up when he takes penicillin Penicillins High 08/16/2018 Pt states he swells up when he takes penicillin Penicillins Swelling 08/17/2018 Medications End Date Status Medication Sig Dispensed Refills Start Date 09/18/2018 amIODarone (PACERONE) 100 Take 1 tablet 60 tablet 0 MG tablet (100 mg 9 total) by mouth every 12 (twelve) hours for 30 days. 09/19/2018 amLODIPine (NORVASC) 10 Take 1 tablet 30 tablet 0 mg tablet (10 mg total) 9 by mouth daily for 30 days. 09/18/2018 apixaban (ELIQUIS) 5 mg Take 1 tablet 60 tablet 0 tablet (5 mg total) 9 by mouth 2 (two) times a day for 30 days. 09/19/2018 aspirin 81 mg chewable Chew 1 tablet 30 tablet 0 tablet (81 mg total) 9 daily for 30 days. 09/19/2018 folic acid (FOLVITE) 1 MG Take 1 tablet 30 tablet 0 tablet (1 mg total) 9 by mouth daily for 30 days. 09/18/2018 hydrALAZINE (APRESOLINE) Take 1 tablet 90 tablet 0 100 MG tablet (100 mg 9 total) by mouth 3 (three) times a day for 30 days. 09/18/2018 metoprolol tartrate Take 1 tablet 60 tablet 0 (LOPRESSOR) 25 mg tablet (25 mg total) 9 by mouth 2 (two) times a day for 30 days. 09/19/2018 nicotine (NICODERM CQ) 21 Place 1 patch 30 patch 0 mg/24 hr on the skin 9 daily for 30 days. 09/19/2018 pantoprazole (PROTONIX) Take 1 tablet 30 tablet 0 40 MG EC tablet (40 mg total) 9 by mouth daily for 30 days. 08/24/2018 vancomycin (FIRVANQ) 50 Take 5 mL 100 mL 0 mg/mL recon soln oral (250 mg 9 solution total) by mouth 4 (four) times a day for 5 days. 09/19/2018 thiamine mononitrate, vit Take 1 tablet 30 tablet 0 B1, (B-1) 100 mg tablet (100 mg 9 total) by mouth daily for 30 days. 09/18/2018 furosemide (LASIX) 40 mg Take 1 tablet 60 tablet 0 tablet (40 mg total) 9 by mouth 2 (two) times a day for 30 days. Active Problems Problem Noted Date Cardiac arrest 08/08/2018 Encounters Care Team Description Date Type Specialty Justin Buchanan DO Neela, MD Lc Luke, MD Henny Jean Baptiste Arusha Amod, MD Roberts, David Perry DO Cardiac arrest (HCC) (Primary Dx); Ventricular tachycardia (HCC) 08/08/2018 [facility] General Internal Medicine - Encounter 08/19/2018 after 10/02/2017 Social History Date Tobacco Use [...] POTASSIUM LEVEL Timed 08/16/2018 5:34 PM CDT EEG AWAKE/ASLEEP LESS Routine 08/16/2018 THAN 41 MIN 10:12 AM CDT PARTIAL THROMBOPLASTIN Routine 08/16/2018 TIME (PTT) [...] & Routine 08/08/2018 ANAEROBIC 4:18 PM CDT [place] INSERT Routine 08/08/2018 Cardiac arrest (HCC) CATH,ART,PERCUT,SHORTTERM [...] MMODE SPECTRAL 12:50 PM CDT COLOR DOPPLER (06610) BLOOD CULTURE, AEROBIC & Routine 08/08/2018 ANAEROBIC [...] PRELIMINARY Routine 08/08/2018 INTERPRETATION 10:07 AM CDT [place] CRITICAL CARE, E/M Routine 08/08/2018 30-74 MINUTES 10:07 AM CDT [place] INSERT NON-TUNNEL CV Routine 08/08/2018 CATH 10:07 [...] GLUCOSE Routine 08/08/2018 9:11 AM CDT after 10/02/2017 Results * Estimated GFR (08/19/2018 7:16 AM CDT) Only the most recent of 17 results within the time period is included. [facility] Estimated GFR 48 (A) mL/min/1.73 m2 [place] Comment: [facility] G1 >=90 Normal or high G2 60-89Mildly decreased [id number] Mildly to moderately decreased [id number] Moderately to severely decreased G4 15-29Severely decreased G5 <15Kidney failure The eGFR was calculated using the Chronic Kidney Disease Epidemiology Collaboration (CKD-EPI) equation. Interpretation is based on recommendations of the National Kidney Foundation-Kidney Disease Outcomes Quality Initiative (NKF-KDOQI) published in 2014. Specimen Plasma specimen Performing Organization Address City/State/Zipcode Phone Number [facility] DEPARTMENT [facility] [address] [place] [phone] PATHOLOGY AND GENOMIC MEDICINE [facility] [address] * CBC with platelet and differential (08/19/2018 7:16 AM CDT) Only the most recent of 14 results within the time period is included. [facility] WBC 12.9 (H) 4.2 - 11.0 k/uL [facility] RBC 5.37 4.04 - 5.86 m/uL [facility] HGB 14.8 13.0 - 17.3 g/dL [facility] HCT 46.9 (H) 34.0 - 45.0 % [facility] MCV 87.3 80.0 - 98.0 fL [facility] MCH 27.6 27.0 - 34.0 pg [facility] MCHC 31.6 31.5 - 36.5 g/dL [facility] RDW - SD 49.4 37.0 - 51.0 fL [facility] MPV 12.1 (H) 7.4 - 10.4 fL [facility] Platelet count 331 150 - 400 k/uL [facility] Nucleated RBC 0.00 /100 WBC [facility] Neutrophils 68.8 (H) 36.0 - 66.0 % [facility] Lymphocytes 17.0 (L) 24.0 - 44.0 % [facility] Monocytes 7.8 (H) 0.0 - 6.0 % [facility] Eosinophils 5.3 0.0 - 6.0 % [facility] Basophils 0.6 0.0 - 1.2 % [facility] Immature 0.5 0.0 - 1.0 % [place] granulocytes [facility] Specimen Blood Performing Organization Address City/State/Zipcode Phone Number [facility] DEPARTMENT OF [address] [place] [address] PATHOLOGY [place] [address] HOSPITAL * Basic metabolic panel (08/19/2018 7:16 AM CDT) Only the most recent of 6 results within the time period is included. Sodium 138 135 - 150 mEq/L [facility] Potassium 3.8 3.5 - 5.0 mEq/L [facility] Chloride 96 (L) 98 - 112 mEq/L [facility] CO2 29 24 - 31 mmol/L [facility] Anion gap 13@ANIO 7 - 15 mEq/L [facility] BUN 24 (H) 7 - 18 mg/dL [facility] Creatinine 1.60 (H) 0.70 - 1.20 mg/dL [facility] Glucose 119 (H) 65 - 100 mg/dL [facility] Calcium 10.2 8.3 - 10.2 mg/dL [facility] Specimen Plasma specimen Performing Organization Address City/[facility] Phone Number [facility] DEPARTMENT OF [address] [place] [address] PATHOLOGY AND [facility] MEDICINE [facility] [address] [place] [address] * Partial thromboplastin time, activated (08/18/2018 5:50 AM CDT) Only the most recent of 22 results within the time period is included. PTT 34.4 23.0 - 36.0 sec [place] Comment: [facility] PTT therapeutic range for [place] unfractionated heparin is HOSPITAL 61.0-112.0 seconds which corresponds to Anti-Xa 0.3-0.7 U/ml. Note:Change in Panic Value The PTT Panic Value is changing from 110 sec. to 100 sec. due to new instrumentation and reagents. Correlation studies have been performed to validate this result. Specimen Blood Performing Organization Address [facility] Phone Number [facility] DEPARTMENT [address] * Prothrombin time with INR (08/18/2018 5:50 AM CDT) Only the most recent of 4 results within the time period is included. Pathologist [facility] Prothrombin 12.2 11.5 - 14.5 sec [facility] INR 0.93 [place] Comment: [facility] For patients on anticoagulant [place] therapy, reference ranges HOSPITAL below: Indication: INR Value Treatment of Venous Thrombosis, 2.0-3.0 pulmonary emboli, or prophylaxis of a venous thrombosis, or systemic emboli. High dose, high risk patients 3.0-4.5 with mechanical valves. NOTE:INR values over 3.0 are sometimes associated with gastrointestinal hemorrhage, especially values over 4.0. Specimen Blood Performing Organization Address City/[facility] Phone Number [facility] DEPARTMENT OF [address] [place] [phone] PATHOLOGY AND GENOMIC MEDICINE [facility] [address] * Comprehensive metabolic panel (08/18/2018 5:50 AM CDT) Only the most recent of 11 results within the time period is included. Sodium 136 135 - 150 mEq/L [facility] Potassium 3.7 3.5 - 5.0 mEq/L [facility] Chloride 96 (L) 98 - 112 mEq/L [facility] CO2 29 24 - 31 mmol/L [facility] Anion gap 11@ANIO 7 - 15 mEq/L [facility] BUN 26 (H) 7 - 18 mg/dL [facility] Creatinine 1.40 (H) 0.70 - 1.20 mg/dL [facility] Glucose 100 65 - 100 mg/dL [facility] Calcium 9.5 8.3 - 10.2 mg/dL [facility] Protein 7.1 6.3 - 8.3 g/dL [facility] Albumin 3.6 3.5 - 5.0 g/dL [facility] A/G ratio 1.0 0.7 - 3.8 [facility] Alkaline 157 (H) 0 - 129 U/L [place] phosphatase [facility] AST 96 (H) 10 - 50 U/L [facility] ALT 227 (H) 5 - 50 U/L [facility] Total bilirubin 0.3 0.2 - 1.2 mg/dL [facility] Specimen Plasma specimen Performing Organization Address City/State/Zipcode Phone Number [facility] DEPARTMENT OF [address] [place] [phone] PATHOLOGY AND GENOMIC MEDICINE [facility] [address] * MRI Brain Wo Contrast (08/17/2018 7:38 PM CDT) Specimen Narrative Performed At [facility] EXAMINATION: MRI BRAIN WO CONTRAST CLINICAL HISTORY: [...] abnormality identified with no evidence of ischemia. [id number] Procedure Note Interface, Radiology Results Incoming - [...] abnormality identified with no evidence of ischemia. [id number] Performing Organization Address City/State/Zipcode Phone Number [facility] [address] [place] [address] * Potassium level (08/16/2018 5:34 PM CDT) Only the most recent of 2 results within the time period is included. Pathologist [facility] Potassium 4.1 3.5 - 5.0 mEq/L [facility] Specimen Plasma specimen Performing Organization Address City/[facility] Phone Number [facility] DEPARTMENT OF [address] [place] [address] PATHOLOGY AND [facility] MEDICINE [facility] [address] * EEG (routine) (08/16/2018 10:12 AM CDT) Narrative Performed At ROUTINE EEG REPORT Patient Name: Ponce Concepcion Date of : 1965 Gender: male Date of Procedure: 08/16/2018 Indication Possible seizure Background activity 6-7 c/s. Central activity 3-4 c/s. No focal, lateralizing features or epileptiform activity detected. The patient had occasional myoclonic jerking which was not associated with any EEG abnormality. Awake Recording: was performed, no abnormality detected Sleep Recording: was not performed Hyperventilation: was not performed Photic Stimulation: was performed, no abnormality detected Impression Generalized slowness of background activity compatible with encephalopathic process. Clinical correlation required for full interpretation of these findings. ICD10 Code/Diagnosis: Possible seizure. * Troponin (08/15/2018 6:00 AM CDT) Only the most recent of 7 results within the time period is included. [facility] Troponin <0.006 0.000 - 0.040 ng/mL [place] Comment: [facility] changed methodology effective: HOSPITAL 07/05/2018 at 10:00 am The new method has a 99th percentile cutoff of 0.040 ng/mL Specimen Plasma specimen Performing Organization Address [facility] Phone Number [facility] [address] [place] [address] PATHOLOGY AND [facility] MEDICINE [facility] [address] [place] [address] * B natriuretic peptide (08/15/2018 6:00 AM CDT) Only the most recent of 3 results within the time period is included. [facility] BNP 30 0 - 100 pg/mL [facility] Specimen Performing Organization Address City/[facility] Phone Number [facility] DEPARTMENT OF [address] [place] [phone] PATHOLOGY AND GENOMIC MEDICINE [facility] [address] [place] [address] HOSPITAL * Magnesium level (08/15/2018 6:00 AM CDT) Only the most recent of 13 results within the time period is included. Pathologist [facility] Magnesium 2.00 1.60 - 2.60 mg/dL [facility] Specimen Plasma specimen Performing Organization Address [facility] [place] [address] PATHOLOGY [place] [address] HOSPITAL * Phosphorus level (2018 6:05 AM CDT) Only the most recent of 9 results within the time period is included. [facility] Phosphorus 3.7 2.4 - 4.5 mg/dL [facility] Specimen Plasma specimen Performing Organization Address City/[facility] [place] [address] PATHOLOGY [place] [address] HOSPITAL * POC glucose (08/11/2018 8:50 AM CDT) Only the most recent of 26 results within the time period is included. [facility] POC glucose 78 65 - 100 mg/dL [place] Comment: [facility] Meter ID: [id number] [place] Food Processing Scientist: [facility] Specimen Performing Organization Address City/[facility] [place] [address] PATHOLOGY [place] [address] HOSPITAL * XR Chest 1 Vw Portable (08/11/2018 6:41 AM CDT) Only the most recent of 5 results within the time period is included. Specimen Narrative Performed At EXAMINATION:XR CHEST 1 VW PORTABLE [facility] CLINICAL HISTORY:ICU ptstable with no clinical status changes COMPARISON:Most Recent Prior at [facility] IMPRESSION: 1.Support catheters / lines are unchanged. 2.Low lung volumes, mild vascular crowding and bibasilar atelectasis. No pneumothorax or effusion 3.Unchanged bones, right rib fractures and cardiomediastinal silhouette. [id number] Procedure Note Hm Interface, Radiology Results Incoming - 08/11/2018 7:25 AM CDT EXAMINATION: XR CHEST 1 VW PORTABLE CLINICAL HISTORY: ICU pt stable with no clinical status changes COMPARISON: Most Recent Prior at [facility] IMPRESSION: 1. Support catheters / lines are unchanged. 2. Low lung volumes, mild vascular crowding and bibasilar atelectasis. No pneumothorax or effusion 3. Unchanged bones, right rib fractures and cardiomediastinal silhouette. [id number] Performing Organization Address City/State/Zipcode Phone Number [facility] [address] [place] [address] * Arterial blood gas (08/11/2018 4:47 AM CDT) Only the most recent of 10 results within the time period is included. Food Processing Scientist matt [facility] Collection site rra [facility] O2 therapy vent [facility] Respiratory 22 bpm [place] rate [facility] Tidal volume 450.0 mL [facility] .PEEP 5 cmH2O [facility] pH, arterial 7.445 7.350 - 7.450 units [facility] pCO2, arterial 31.8 (L) 35.0 - 45.0 mmHg [facility] pO2, arterial 117.0 (H) 80.0 - 90.0 mmHg [facility] O2 saturation, 98.5 95.0 - 100.0 % [facility] Base excess, -2.2 mEq/L [facility] Bicarbonate 21.9 21.0 - 28.0 mEq/L [facility] O2 content 15.6 VOL% [facility] FiO2, inspired 35.0 % [place] O2% [facility] Carboxyhemoglob 0.3 0.0 - 1.4 % [place] in Comment: [facility] Reference Ranges: [place] Carboxyhemoglobin [facility] Non smoker: 0.0 - 2.0% Smoker: 2.1 - 5.0% Heavy smoker: 5.1 - 9% Methemoglobin 2.0 (H) 0.0 - 1.0 % [facility] Hemoglobin, 11.4 (L) 14.0 - 18.0 g/dL [place] blood gas [facility] pO2, A-a 97.6 mmHg [facility] Specimen Blood Performing Organization Address City/[facility]/Zipcode Phone Number [facility] DEPARTMENT OF [address] [place] [address] PATHOLOGY AND GENOMIC MEDICINE [facility] [address] [place], [place] [phone] [place] [address] * XR Abdomen 1 Vw (08/10/2018 4:49 [...] is warranted, CT scan would be suggested. [id number] Procedure Note Hm Interface, Radiology Results Incoming [...] is warranted, CT scan would be suggested. [facility]-[id number] Performing Organization Address City/[facility]/Zipcode Phone Number [facility] [address] [place] [address] * Cv echo 2d limited or follow up study (08/10/2018 4:18 PM CDT) BSA Hall 1.95 m2 HM [facility] BSA 1.93 m2 HM [facility] BMI 25.10 kg/m2 [facility] BSA Haycock 1.95 m2 [facility] Pt Size 175.26 HM [facility] Pt [...] size is mildly dilated. Performing Organization Address City/[facility] Phone Number [facility] [address] [place] [address] * Lipase level (08/09/2018 11:05 AM CDT) Lipase 8 (L) 13 - 60 U/L [facility] Specimen Plasma specimen Performing Organization Address City/[facility] Phone Number [facility] [address] PATHOLOGY AND GENOMIC MEDICINE [address] * Ionized calcium (08/09/2018 11:05 AM CDT) Only the most recent of 3 results within the time period is included. pH 7.30 [facility] Ionized calcium 1.07 (L) 1.11 - 1.32 mmol/L [facility] Specimen Plasma specimen Performing Organization Address [facility] Phone Number [facility] [place] [address] [place], [place] [phone] PATHOLOGY AND GENOMIC MEDICINE [address] * Lactic acid level (08/09/2018 9:27 AM CDT) Only the most recent of 3 results within the time period is included. Lactic acid 1.2 0.5 - 2.2 mmol/L [facility] Specimen Plasma specimen Performing Organization Address [facility] Phone Number [facility] DEPARTMENT OF [address] [place] [phone] PATHOLOGY [place] [address] HOSPITAL * C difficile toxin (08/09/2018 5:45 AM CDT) Pathologist [facility] Clostridium Positive for C. difficile [place] difficile toxin toxin [facility] (A) Comment: Specimen Information Specimen Source: Stool Specimen Site: Nonpreserved Specimen Stool - Nonpreserved Performing Organization Address City/[facility] Phone Number [facility] DEPARTMENT OF [address] [place] [address] PATHOLOGY AND GENOMIC MEDICINE [address] * Troponin, I-Stat (08/09/2018 12:40 AM CDT) Pathologist [facility] Troponin, 0.32 (H) 0.00 - 0.08 ng/mL [place] I-Stat Comment: [facility] 0.09 - 1.49 [place] [facility] indicate increased risk of acute coronary syndrome. >=1.5 ng/ml Consistent with acute myocardial infarction. The diagnostic value of a single normal or non-diagnostic result is questionable.Serial samples at 2-6 hour intervals are required to rule out acute myocardial injury. Specimen Plasma specimen Performing Organization Address [facility] Phone Number [facility] [address] [place] [address] PATHOLOGY AND GENOMIC MEDICINE [address] * T3, free (08/09/2018 12:40 AM CDT) Pathologist [facility] T3, free 2.32 2.18 - 3.98 pmol/L [facility] Specimen Plasma specimen Performing Organization Address City/[facility] Phone Number [facility] DEPARTMENT [address] [place] [address] PATHOLOGY AND GENOMIC MEDICINE [address] * Thyroid stimulating hormone (08/09/2018 12:40 AM CDT) Only the most recent of 3 results within the time period is included. Pathologist [facility] TSH 0.72 0.27 - 4.20 uIU/mL [facility] Specimen Plasma specimen Performing Organization Address City/State/Zipcode Phone Number [facility] DEPARTMENT OF [address] [place] [phone] PATHOLOGY AND GENOMIC MEDICINE [facility] [address] [place] [address] * Hemoglobin A1c (08/09/2018 12:40 AM CDT) Hemoglobin A1C 5.4 4.0 - 5.6 % [place] Comment: [facility] HbA1c cutoffs for diagnosing [place] diabetes: HOSPITAL 4.0% - 5.6%=normal 5.7% - 6.4%=increased risk for diabetes (prediabetes) >=6.5%=diabetes Goals for glycemic control (ADA 2016) < 7.0%Target for non adults with diabetes. More or less stringent targets may be appropriate for individual patients. <7.5% Target for Children and adolescents with type 1 diabetes. Specimen Blood Performing Organization Address [facility] Phone Number [facility] [address] [place] [address] PATHOLOGY AND [facility] MEDICINE [address] * Lipid panel (08/09/2018 12:40 AM CDT) Cholesterol 146 0 - 199 mg/dL [facility] Triglycerides 62 0 - 149 mg/dL [facility] HDL cholesterol 41 40 - 9,999 mg/dL [facility] LDL cholesterol 111 (H)Comment: Result 0 - 99 mg/dL [place] obtained by direct LDL [facility] measurement [facility] Lipid panel See below [place] interpretation Comment: [facility] Total Cholesterol [place] (mg/dL) [facility] LDL Cholesterol (mg/dL) <200 Desirable <100 Optimal 200-239Borderline -[id number] 29Near or above optimal >=240High 130-159Borderline- high [...] mg/dL) Specimen Plasma specimen Performing Organization Address City/[facility]/Zipcode Phone Number [facility] DEPARTMENT OF [address] [place] [address] PATHOLOGY AND GENOMIC MEDICINE [place] [facility]ARA [place] [address] * ECG 12 lead (08/08/2018 9:47 PM CDT) Only the most recent of 2 results within the time period is included. Ventricular 64 [facility] rate Atrial rate 64 [facility] IL interval 164 [facility] QRSD interval 96 [facility] QT interval 520 [facility] QTC interval 536 [facility] P axis 1 50 [facility] QRS axis 1 22 [facility] T wave axis 58 [facility] EKG impression Normal sinus rhythm-Prolonged [facility] QT-Abnormal ECG-In automated comparison with ECG of 08-AUG-2018 09:20,-Vent. rate has decreased BY31 BPM-Incomplete left bundle branch block is no longer present- Specimen Narrative Performed At Performing Organization Address City/[facility] Phone Number [facility] [address] [place] [address] * Lactic acid level, SEPSIS - Now and repeat 2x every 3 hours (08/08/2018 4:18 PM CDT) Only the most recent of 3 results within the time period is included. Lactic acid 2.3 (H) 0.5 - 2.2 mmol/L [place] Comment: KIARA mccartney result called to and read [place] back by [facility] jesusita08/08/201818:34 and wrapper and preserver no answer nurse qwill call Specimen Blood Performing Organization Address City/[facility]/Zipcode Phone Number [facility] DEPARTMENT [facility] [place] [address] PATHOLOGY AND GENOMIC MEDICINE [facility] [address] * Blood culture, aerobic & anaerobic (08/08/2018 4:18 PM CDT) Only the most recent of 3 results within the time period is included. [facility] Blood culture No growth after 5 days of [place] isolate incubation. [facility] Comment: HOSPITAL Specimen Information Specimen Source: Blood Specimen Site: Unspecified Specimen Blood Performing Organization Address City/[facility] Phone Number [facility] DEPARTMENT OF [address] [place] [address] PATHOLOGY AND GENOMIC MEDICINE [address] * Vitamin B12 level (08/08/2018 4:18 PM CDT) [facility] Vitamin B12 985 (H) 231 - 931 pg/mL [place] Comment: [facility] Significant overlap exists [place] between normal and deficiency HOSPITAL states. However, most patients with deficiencies will have Serum B12 <200 pg/mL. Specimen Serum Performing Organization Address [facility] Phone Number [facility] DEPARTMENT OF [address] [place] [address] PATHOLOGY AND GENOMIC MEDICINE [place] [id number] * Creatine kinase, total (CPK) (08/08/2018 4:18 PM CDT) [facility] Creatine kinase 264 39 - 308 U/L [facility] Specimen Plasma specimen Performing Organization Address City/[facility] Phone Number [facility] DEPARTMENT OF [address] [place] [address] PATHOLOGY AND GENOMIC MEDICINE [facility] [address] * Arterial Line Insertion (08/08/2018 4:00 [...] Occult blood, stool (08/08/2018 2:05 PM CDT) [facility] Occult blood, Positive for Occult blood (A) [place] stool Comment: [facility] Specimen Information [place] Specimen Source: [facility] Specimen Site: Nonpreserved Specimen Stool - Nonpreserved Performing Organization Address [facility] Phone Number [address] * Anti Xa, unfractionated (08/08/2018 12:57 PM CDT) Only the most recent of 2 results within the time period is included. [facility] Anti Xa, <0.10 (L)Comment: Therapeutic 0.30 - 0.70 U/mL [place] unfractionated Range: 0.30 - 0.70 U/mL [facility] Specimen Blood Performing Organization Address [facility] Phone Number [address] * Echocardiogram complete w contrast and 3D if needed (08/08/2018 12:50 PM CDT) [facility] Velocity Ratio 0.76 m/s HM SYN[place] (V1/V2) IVS,d 1.42 cm SYNGO EF 30.27 % HM [place] LVPWD,d 1.26 cm HM [place] AoV Mean PG 3.83 mmHg HM [place] AV LVOT peak 3.59 mmHg HM [place] gradient MV mean 4.03 mmHg HM [place] gradient MV valve area p 8.75 cm2 [facility] 1/2 method PV Pk Grad 3.20 [...] i VTI 1.34 cm2/m2 HM [place] BSA Toole MR peak grad 8.10 mmHg HM SYNGO [...] size is mildly dilated. Performing Organization Address [facility] Phone Number [facility] [address] [place] [address] * Sputum culture (08/08/2018 12:32 PM CDT) Pathologist [facility] Sputum culture Normal oral jose isolated. [place] isolate Comment: [facility] Specimen Information [facility] Specimen Source: Sputum Specimen Site: Expectorated Specimen Sputum - Expectorated Performing Organization Address [facility] Phone Number [facility] [address] PATHOLOGY AND [facility] MEDICINE [address] * Gram stain (08/08/2018 12:32 PM CDT) Only the most recent of 2 results within the time period is included. Gram stain Rare epithelial cells [place] isolate Rare Gram positive cocci in [facility] Comment: Specimen Information Specimen Source: Sputum Specimen Site: Expectorated Specimen Sputum - Expectorated Performing Organization Address [facility] Phone Number [facility] [address] PATHOLOGY AND [facility] MEDICINE [address] * Urine culture (08/08/2018 12:30 PM CDT) Urine culture Mixed jose <=10-3 col/cc [place] isolate Comment: [facility] Specimen Information HOSPITAL Specimen Source: Urine Specimen Site: Specimen Urine - Performing Organization Address City/State/Zipcode Phone Number [facility] DEPARTMENT OF [address] [place] [address] PATHOLOGY AND GENOMIC MEDICINE [address] [address] HOSPITAL * Urinalysis screen and microscopy, with reflex to culture (08/08/2018 11:50 AM CDT) Specimen site [facility] Color, UA Yellow [facility] Appearance, UA Cloudy [facility] Specific 1.010 1.001 - 1.035 [place] gravity, [facility] pH, UA 7.0 5.0 - 8.5 [facility] Protein, UA 3+ (A) Negative [facility] Glucose, UA 3+ (A) Negative [facility] Ketones, UA Negative Negative [facility] Bilirubin, UA Negative Negative [facility] Blood, UA Moderate (A) Negative [facility] Nitrite, UA Negative Negative [facility] Urobilinogen, Negative <2.0 [facility] Leukocyte Negative Negative [place] esterase, [facility] Epithelial Many /HPF [place] cells, [facility] WBC, UA 18 (H) 0 - 1 /HPF [facility] RBC, UA 62 (H) 0 - 5 /HPF [facility] Bacteria, UA Trace None seen [facility] Yeast, UA None seen [facility] Yeast with None seen [place] pseudohyphae, [facility] Specimen Urine Performing Organization Address City/State/Zipcode Phone Number [facility] DEPARTMENT OF [address] [place] [address] PATHOLOGY AND GENOMIC MEDICINE [facility] [address] [place] [address] HOSPITAL * Urine drugs of abuse screen (08/08/2018 11:50 AM CDT) Amphetamine Negative [place] screen, urine [facility] Barbiturate Negative [place] screen, urine [facility] Benzodiazepine Negative [place] screen, urine [facility] Cocaine screen, Positive (A) [place] urine [facility] Methadone Negative [place] metabolite [facility] (EDDP), urine [facility] Opiates screen, Negative [place] urine [facility] Phencyclidine Negative [place] screen, urine [facility] Cannabinoid Negative [place] screen, urine Comment: [facility] Drug screen minimum [place] [facility] Amphetamines 1000 ng/mL Barbiturates 200 ng/mL Benzodiazepines [...] is required. Specimen Urine Performing Organization Address City/State/Zipcode Phone Number [facility] DEPARTMENT OF [address] [place] [address] PATHOLOGY AND GENOMIC MEDICINE [facility] [address] * CT Head Wo Contrast (08/08/2018 11:00 [...] IMPRESSION:No acute intracranial hemorrhage or mass effect. [id number] Procedure Note Hm Interface, Radiology Results Incoming - 08/08/2018 11:05 [...] No acute intracranial hemorrhage or mass effect. [id number] Performing Organization Address City/State/Zipcode Phone Number [facility] [address] [place] [address] * ECG ED Preliminary Interpretation - Not an Order (08/08/2018 10:07 AM CDT) Narrative Performed At Justin Buchanan DO 08/11/20184:13 PM ECG ED Preliminary Interpretation - Not an Order Performed by: Justin Buchanan DO Authorized by: Justin Buchanan DO ECG reviewed by ED Physician in the absence of a dye jig operator: yes Interpretation: Interpretation: abnormal Rate: ECG rate:95 [...] Justin Buchanan DO Consent: Consent obtained:Emergent situation [place] protocol: Patient identity confirmed:Arm band Pre-procedure details: [...] 9:21 AM CDT) Alcohol None Detected mg/dL [place] Comment: [facility] Normal [facility] Detected Legal Intoxication in [place] 80 mg/dL (0.08%) Toxic Concentration 200 mg/dL (0.2%) Potentially Fatal 350-500 mg/dL (0.35%-0.5%) Alcohol percent None Detected % [facility] Specimen Blood Performing Organization Address City/State/Zipcode Phone Number [facility] DE[facility]MENT OF [address] [place] [address] PATHOLOGY AND GENOMIC MEDICINE [facility] [address] [place] [address] HOSPITAL after 10/02/2017 Advance Directives Patient has advance care planning documents on file. For more information, demian e contact: Markesan Druze [address] [place] [address]
[2018-10-03 10:48] LABS: BASOPHILS # (AUTO) 0.1 (0.0-0.1); BASOPHILS % 0.7 % (0.0-1.0); EOSINOPHILS # (AUTO) 0.3 (0.0-0.4); EOSINOPHILS % 3.8 % (0.0-6.0); HEMATOCRIT 35.8 % (38.2-49.6); HEMOGLOBIN 11.6 g/dL (14.0-18.0); LYMPHOCYTES # (AUTO) 2.1 (1.0-3.2); MEAN CORPUSCULAR HEMOGLOBIN 27.8 pg (28-32); MEAN CORPUSCULAR HGB CONC 32.4 g/dL (31-35); MEAN CORPUSCULAR VOLUME 85.6 fL (81-99); MONOCYTES # (AUTO) 0.7 (0.2-0.8); MONOCYTES % 8.6 % (4.4-11.3); NEUTROPHILS # (AUTO) 5.4 (2.1-6.9); NEUTROPHILS % 62.6 % (38.7-80.0); PLATELET COUNT 318 x10e3/uL (140-360); RED BLOOD COUNT 4.18 x10e6/uL (4.3-5.7); RED CELL DISTRIBUTION WIDTH 15.9 % (11.7-14.4)
--- NOTE | 2018-10-03 11:04 | Diagnostic Imaging Report ---
EXAMINATION: CHEST SINGLE (PORTABLE) INDICATION: Chest pain COMPARISON: None FINDINGS: LINES/TUBES:EKG leads overlie the chest. LUNGS:The lungs are moderately inflated. There are bibasilar patchy opacities. PLEURA:No pleural effusion or pneumothorax. MEDIASTINUM:The cardiomediastinal silhouette appears normal in size and shape. BONES/SOFT TISSUES:No acute osseous injury. ABDOMEN:No free air under the diaphragm. IMPRESSION: Bibasilar patchy opacities, more likely subsegmental atelectasis than superimposed aspiration or pneumonia. Signed by: Hema Ruiz MD on 10/03/2018 11:01 AM
[2018-10-03 11:09] LABS: ANION GAP 17.9 mmol/L (8-16); BLOOD UREA NITROGEN 25 mg/dL (7-26); BUN/CREATININE RATIO 25 (6-25); CALCIUM 8.9 mg/dL (8.4-10.2); CARBON DIOXIDE 20 mmol/L (22-29); CHLORIDE 105 mmol/L (98-107); CREATINE KINASE 119 IU/L (30-200); CREATININE, SERUM 0.99 mg/dL (0.72-1.25); EST GLOMERULAR FILTRATION RATE > 60 ML/MIN (60-); GLUCOSE 92 mg/dL (74-118); POTASSIUM 3.9 mmol/L (3.5-5.1); SODIUM 139 mmol/L (136-145)
== END 2018-10-03 13:38 | disposition home or self-care (01) ==
LOC: ER 09:57
DX: R07.89 Other chest pain (principal); I10 Essential (primary) hypertension; I25.10 Atherosclerotic heart disease of native coronary artery without angina pectoris; F17.210 Nicotine dependence, cigarettes, uncomplicated
CPT/HCPCS: 36415; 71045; 80048; 82550; 82553; 84484; 85025; 93005; 99284

== ENCOUNTER 2018-10-13 16:27 | Emergency (ER) | payer SELFPAY ==
[~2018-10-13] VITALS: Ht 182.9 cm; Wt 113.4 kg
--- OUTSIDE RECORDS SUMMARY | 2018-10-13 16:30 | XMS REPORT | Clinical Summary ---
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 Name Role Phone PCP Unavailable Allergies No [...] Encounters Care Team Description Date Type Specialty Laurel Tavares MD Fadial, Tom, MD Chest pain, unspecified type (Primary Dx) 10/12/2018 Emergency Emergency Medicine - 10/13/2018 10/12/2018 Travel 10/03/2018 Travel Douglas Manning MD Cervical stenosis [...] 08/21/2018 Emergency - 08/23/2018 08/21/2018 Travel after 10/12/2017 Social History Date Tobacco Use Types Packs/Day Years Used Never Assessed Sex Assigned at Date Recorded Not on file Industry Job Start Date Occupation Not on file Not on file Not on file Travel End Travel History Travel Start No recent travel history available. Last Filed Vital Signs Reading Time Taken Comments Vital Sign 130/86 10/13/2018 1:00 AM CDT Blood Pressure 90 10/13/2018 1:00 AM CDT Pulse 36.7 C (98.1 F) 10/13/2018 1:00 AM CDT Temperature 18 10/13/2018 1:00 AM CDT Respiratory Rate 99% 10/13/2018 1:00 AM CDT Oxygen Saturation - - Inhaled [...] Comments Procedure Name Priority Date/Time Associated Diagnosis CONSULT CLINICAL CASE STAT 10/13/2018 MANAGEMENT (RN/SW) 12:58 AM CDT TROPONIN I POC Routine 10/12/2018 11:18 PM CDT 12 LEAD EKG Routine 10/12/2018 11:15 PM CDT LIVER PROFILE STAT 10/12/2018 9:57 PM CDT LIPASE STAT 10/12/2018 9:57 PM CDT XRAY CHEST 2 VIEWS STAT 10/12/2018 Chest pain, unspecified 9:54 PM CDT type BMP POC Routine 10/12/2018 8:28 PM CDT TROPONIN I POC Routine 10/12/2018 8:26 PM CDT CBC STAT 10/12/2018 8:22 PM CDT CBC/DIFF STAT 10/12/2018 8:22 PM CDT 12 LEAD EKG Routine 10/12/2018 5:33 PM CDT MRI THORACIC SPINE W/O STAT 10/03/2018 Cervical [...] EKG Routine 08/21/2018 2:19 PM CDT after 10/12/2017 Results * TROPONIN I POC (10/12/2018 11:18 PM CDT) Only the most recent of 4 results within the time period is included. [facility] Troponin POC 0.00 0.00 - 0.08 ng/mL [facility] Specimen Blood, venous Performing Organization Address City/[facility] Phone Number [facility] [address] [place] [address] * 12 LEAD EKG (10/12/2018 11:15 PM CDT) [facility] 12 LEAD EKG FOR [facility] Test Date:2018-10-12 Pat Name: PONCE Monte ent: Room: Gender: Cable Maker: :[id number] 08-13 Requested By: LAUREL Sanderson Order Number: [id number] Reading MD: Renato HARE Measurements Intervals [place] Rate: 61 P:11 IA: 183 QRS: -15 QRSD: 117 T: 30 QT: 423 QTc:426 Interpretive Statements SINUS RHYTHM MODERATE INTRAVENTRICULAR CONDUCTION DELAY [110+ ms QRS DURATION] Poor anterior R wave progression Borderline ECG Electronically Signed On 10-13-2018 10:01:18 CDT by Renato HARE Specimen Performing Organization Address [facility] Phone Number [facility] * LIVER PROFILE (10/12/2018 9:57 PM CDT) Only the most recent of 2 results within the time period is included. Total Protein 6.8 6.0 - 8.3 g/dL [facility] Total Bilirubin 0.4 0.2 - 1.2 mg/dL [facility] Alkaline 112 (H) 34 - 104 U/L [facility] Phosphatase AST 12 (L) 13 - 39 U/L [facility] Direct 0.1 0.0 - 0.2 mg/dL [facility] Bilirubin ALT 18 7 - 52 U/L [facility] Albumin 4.1 (L) 4.2 - 5.5 g/dL [facility] Specimen Blood Performing Organization Address [facility] Phone Number [facility] [address] [place] [address] * LIPASE (10/12/2018 9:57 PM CDT) Only the most recent of 2 results within the time period is included. Lipase 19 11 - 82 U/L [facility] Specimen Blood Performing Organization Address [facility] Phone Number [facility] [address] [place] [address] * XRAY CHEST 2 VIEWS (10/12/2018 9:54 PM CDT) Only the most recent of 2 results within the time period is included. Specimen Impressions Performed At IMPRESSION: SMS 1.No acute cardiopulmonary abnormality. Signed By: Kenny Black MD, 10/12/2018 10:40 PM Narrative Performed At EXAM: XR CHEST 2 VIEWS SMS DATE: 10/12/2018 9:54 PM INDICATION: chest pain. Chest pain, unspecified type COMPARISON: Chest 2 views 08/21/2018 TECHNIQUE: PA and lateral chest radiographs with a total of 3 images. FINDINGS: Lines, tubes and hardware: None. Lungs and pleura: No pulmonary or pleural based abnormality is identified. Pulmonary vascularity is normal. Heart and mediastinum: The heart size is normal.Vascular calcifications are present at the aortic arch. Bones: No acute bony abnormality is identified. Soft tissues: The soft tissues are unremarkable. Procedure Note Interface, Rad/Mammog In - 10/12/2018 10:45 PM CDT EXAM: XR CHEST 2 VIEWS DATE: 10/12/2018 9:54 PM INDICATION: chest pain. Chest pain, unspecified type COMPARISON: Chest 2 views 08/21/2018 TECHNIQUE: PA and lateral chest radiographs with a total of 3 images. FINDINGS: Lines, tubes and hardware: None. Lungs and pleura: No pulmonary or pleural based abnormality is identified. Pulmonary vascularity is normal. Heart and mediastinum: The heart size is normal. Vascular calcifications are present at the aortic arch. Bones: No acute bony abnormality is identified. Soft tissues: The soft tissues are unremarkable. IMPRESSION IMPRESSION: 1. No acute cardiopulmonary abnormality. Signed By: Kenny Black MD, 10/12/2018 10:40 PM Performing Organization Address City/[facility] Phone Number SMS * BMP POC (10/12/2018 8:28 PM CDT) Only the most recent of 4 results within the time period is included. Sodium POC 137 136 - 145 mmol/L [facility] Potassium POC 4.3 3.5 - 5.1 mmol/L [facility] Chloride POC 102 98 - 107 mmol/L [facility] TCO2 POC 26 21 - 32 mmol/L [facility] Urea Nitrogen 24 (H) 7 - 18 mg/dL [facility] POC Creatinine POC 0.9 0.6 - 1.3 mg/dL [facility] Glucose POC 94 74 - 106 mg/dL [facility] Ionized Calcium 1.14 (L) 1.15 - 1.29 mmol/L [facility] POC GFR, Estimated >90 >=90 mL/min/1.73 m2 [facility] Hemoglobin POC 13.6Comment: Physician 12 - 16 g/dL [facility] Notified Hematocrit POC 40.0 37.0 - 47.0 % [facility] Specimen Blood, venous Performing Organization Address City/[facility] Phone Number [facility] [address], [place] [phone] * CBC (10/12/2018 8:22 PM CDT) Only the most recent of 4 results within the time period is included. WBC 10.0 4.5 - 12.0 K/uL [facility] RBC 4.33 (L) 4.60 - 6.20 M/uL [facility] Hemoglobin 11.9 (L) 14.0 - 18.0 g/dL [facility] Hematocrit 38.0 (L) 40.0 - 54.0 % [facility] MCV 87.8 82.0 - 92.0 fL [facility] MCH 27.5 27.0 - 31.0 pg [facility] MCHC 31.3 (L) 32.0 - 36.0 g/dL [facility] RDW 48.9 (H) 35.1 - 43.9 fL [facility] Platelet 313 150 - 400 K/uL [facility] Mean Platelet 11.3 9.4 - 12.4 fL [facility] Volume Percent NRBC 0.0 % [facility] Neutrophil 66.6 34.0 - 67.9 % [facility] Lymphocyte 21.7 (L) 21.8 - 50.0 % [facility] Monocyte 7.1 5.3 - 12.0 % [facility] Eosinophil 3.4 0.8 - 5.0 % [facility] Basophil 0.9 0.2 - 1.2 % [facility] Pct Immat Gran 0.3 0.0 - 0.5 % [facility] Neutrophil, Abs 6.65 (H) 1.78 - 5.36 K/uL [facility] Lymphocyte, Abs 2.17 1.32 - 3.57 K/uL [facility] Monocyte, Abs 0.71 0.30 - 0.82 K/uL [facility] Eosinophil, Abs 0.34 0.04 - 0.54 K/uL [facility] Basophil, Abs 0.09 (H) 0.01 - 0.08 K/uL [facility] Absol Immat 0.03 0.00 - 0.03 K/uL [facility] Gran Absolute 0.00 K/uL [facility] NRBC-CV Specimen Blood Performing Organization Address City/State/Zipcode Phone Number [facility] [address] [place] [address] * 12 LEAD EKG (10/12/2018 5:33 PM CDT) 12 LEAD EKG FOR [facility] Test Date:2018-10-12 Pat Name: PONCE Monte ent: Room: Gender: M Cable Maker: MARIA LUZ :1966-0 08-13 Requested By: DIMITRIS Adamson Order Number: [id number] Reading MD: Renato HARE Measurements Intervals [place] Rate: 72 P:54 IA: 167 QRS: -4 QRSD: 106 T: 46 QT: 387 QTc:424 Interpretive Statements SINUS RHYTHM Normal ECG Electronically Signed On 10-12-2018 20:00:47 CDT by Renato HARE Specimen Performing Organization Address City/State/Zipcode Phone Number SMS * MRI LUMBAR SPINE W/O CONTRAST (10/03/2018 [...] Suggestion of synovial cysts at L4-L5. This [facility] radiology report is a preliminary resident [...] At EXAM: MRI CERVICAL SPINE WITHOUT CONTRAST [facility] EXAM: MRI THORACIC SPINE WITHOUT CONTRAST EXAM: [...] Suggestion of synovial cysts at L4-L5. This [facility] radiology report is a preliminary resident [...] AM CDT) Specimen Impressions Performed At IMPRESSION: [facility] 1.Exam quality is very limited due to [...] Suggestion of synovial cysts at L4-L5. This [facility] radiology report is a preliminary resident [...] Suggestion of synovial cysts at L4-L5. This [facility] radiology report is a preliminary resident [...] AM CDT) Specimen Impressions Performed At IMPRESSION: [facility] 1.Exam quality is very limited due to [...] Suggestion of synovial cysts at L4-L5. This [facility] radiology report is a preliminary resident [...] At EXAM: MRI CERVICAL SPINE WITHOUT CONTRAST [facility] EXAM: MRI THORACIC SPINE WITHOUT CONTRAST EXAM: [...] Suggestion of synovial cysts at L4-L5. This [facility] radiology report is a preliminary resident [...] Address City/State/Zipcode Phone Number SMS * MRI BRAIN W/O CONTRAST (10/02/2018 5:57 PM CDT) Specimen Impressions Performed At IMPRESSION:Motion degraded limited study. SMS No acute abnormality. This [facility] radiology report is a preliminary resident [...] degraded limited study. No acute abnormality. This [facility] radiology report is a preliminary resident dictation until finalized by an attending. Changes to this preliminary report may occur in an additional preliminary or finalized version. I have reviewed the study and agree with the findings in this report. Signed By: Cyndi Ackerman MD, 10/02/2018 6:08 PM Performing Organization Address [facility] Phone Number [facility] * PHOSPHORUS (10/02/2018 8:51 AM CDT) Only the most recent of 4 results within the time period is included. Phosphorus 4.4 2.5 - 5.0 mg/dL [facility] Specimen Blood Performing Organization Address [facility] Phone Number [facility] [address] [place] [phone] * MAGNESIUM (10/02/2018 8:51 AM CDT) Only the most recent of 4 results within the time period is included. Magnesium 2.1 1.9 - 2.7 mg/dL [facility] Specimen Blood Performing Organization Address [facility] Phone Number [facility] [address] [place] [address] * CALCIUM, IONIZED (10/02/2018 8:51 AM CDT) Only the most recent of 3 results within the time period is included. Calcium, 1.12 (L) 1.15 - 1.29 mmol/L [facility] Ionized Specimen Blood Performing Organization Address [facility] Phone Number [facility] [address] [place] [address] * 12 LEAD EKG (10/02/2018 6:57 AM CDT) 12 LEAD EKG FOR [facility] Test Date:2018-10-02 Pat Name: PONCE Monte ent: Room: Gender: M Cable Maker: [id number] :1966-0 15 Requested By: DIMITRIS Adamson Order Number: [id number] Wayne MD: Renato HARE Measurements Intervals [place] Rate: 96 P:57 IA: 172 QRS: -1 QRSD: 106 T: 51 QT: 363 QTc:459 Interpretive Statements SINUS RHYTHM POSSIBLE LEFT ATRIAL ENLARGEMENT Borderline ECG Electronically Signed On 10-02-2018 12:56:03 CDT by Renato HARE Specimen Performing Organization Address City/State/Zipcode Phone Number SMS * TRANSTHORACIC ECHO (TTE) (08/22/2018 10:53 AM CDT) TRANSTHORACIC Transthoracic SMS ECHO (TTE) Echo Report PONCE KENDRICK Age:53 Gender: M :1965 Exam Date: 08/22/2018 10:53 Exam Location: [facility] Echo Ordering Phys: JONATHAN WARD Referring Phys:SYLVIA Mars Reading Phys:Cristina Blair M.D. Fellow Phys: Anuja Smith M.D. Fellow Phys: Kennel Hand: Chuck Newberry Reason For Exam: Indications: per neurology recs s/p stroke, rule out emboli ICD-9 Codes: Exam Type: TRANSTHORACIC ECHO (TTE) Procedure CPT:92761 Addtional CPT: Ht (in): 72 BSA: 2.44HR: [...] BP 76.6 cm LV Cardiac Output MOD [id number] cm/min LV Cardiac Index MOD BP 2138 cm/minm LA Volume 33 cm LA Volume Index 13.5 cm/m 16 - 34 cm/m LV Mass by linear udczpz056 g LV Mass by linear method Apiqt928 g/m DOPPLER AV Peak Velocity 142 cm/s [...] E to A Ratio 1.3 MV Deceleration [place]orne 456 cm/s MV Pressure Half Time 64 [...] BP 76.6 cm LV Cardiac Output MOD [id number] cm/min LV Cardiac Index MOD BP 2138 cm/minm LA Volume 33 cm LA Volume Index 13.5 cm/m 16 - 34 cm/m LV Mass by linear rbguct999 g LV Mass by linear method Gxytg840 g/m DOPPLER AV Peak Velocity 142 cm/s [...] E to A Ratio 1.3 MV Deceleration [place] 456 cm/s MV Pressure Half Time 64 [...] cm/s >9.5 cm/s Specimen Performing Organization Address [facility] Phone Number SMS * URINE DRUG SCREEN (08/22/2018 2:41 AM CDT) Opiate, Ur Negative Negative [facility] Comment: Calibrated Standard: Morphine Positive if urine level > ni=733 ng/dL Amphetamine Negative Negative [facility] Comment: Calibrated Standard: D-Methamphetamine Positive if urine level > tj=1640 ng/mL Barbiturate Negative Negative [facility] Comment: Calibrated Standard: Secobarbital Positive if urine level is > nm=756 ng/mL Benzodiazepine Positive (A) Negative [facility] Comment: Calibrated Standard: Lormethazepam Positive if urine level is > zz=711 ng/mL Cocaine Negative Negative [facility] Comment: Calibrated Standard: Benzoylecgonine Positive if urine level > fi=470 ng/dL PCP Negative Negative [facility] Comment: Calibrated Standard: Phencyclidine Positive if urine level > or=25 ng/dL Cannabinoid Negative Negative [facility] Comment: Calibrated Standard: 11 nor-delta(9)-THC carboxylic acid Positive if urine level > or=50 ng/mL Specimen Urine - Voided, urine Performing Organization Address City[facility] Phone Number [facility] [address] [place] [address] * COMPREHENSIVE METABOLIC PANEL (08/22/2018 2:15 AM CDT) Only the most recent of 2 results within the time period is included. [facility] Sodium 138 136 - 145 mmol/L [facility] Potassium 4.5 3.5 - 5.1 mmol/L [facility] Chloride 102 98 - 107 mmol/L [facility] CO2 28 21 - 31 mmol/L [facility] Glucose 95 70 - 110 mg/dL [facility] Calcium, Total 8.9 8.6 - 10.3 mg/dL [facility] Urea Nitrogen 19.0 7.0 - 25.0 mg/dL [facility] Creatinine 1.1 0.7 - 1.3 mg/dL [facility] Alkaline 126 (H) 34 - 104 U/L [facility] Phosphatase ALT 85 (H) 7 - 52 U/L [facility] AST 26 13 - 39 U/L [facility] Total Bilirubin 0.3 0.2 - 1.2 mg/dL [facility] Total Protein 6.0 6.0 - 8.3 g/dL [facility] GFR, Estimated 70 (L) >=90 mL/min/1.73 m2 [facility] Albumin 3.8 (L) 4.2 - 5.5 g/dL [facility] Anion Gap 8 5 - 16 mmol/L [facility] Specimen Blood Performing Organization Address [facility] Phone Number [facility] [address] [place] [address] * FERRITIN (08/22/2018 2:15 AM CDT) [facility] Ferritin 131.3 23.9 - 336.2 ng/mL [facility] Specimen Blood Performing Organization Address [facility] Phone Number [facility] [address], [place] [phone] * LIPID PROFILE (08/22/2018 2:15 AM CDT) [facility] Triglyceride 139 <150 mg/dL [facility] Comment: Normal: < 150.0 mg/dL Borderline: 150-199 mg/dL High: 200-499 mg/dL Very High: >=500 mg/dL Cholesterol 185.0 <=200.0 mg/dL [facility] Comment: Desirable: < 200.0 mg/dL Borderline: 200 - 240 mg/dL High Risk: > 240 mg/dL HDL 29.0 See Reference Range [facility] Comment: Narrative. mg/dL Increased CHD Risk: < 40.0 mg/dL Decreased CHD Risk: > 60 mg/dL LDL 128 (H) <100 mg/dL [facility] Comment: Optimal: < 100.0 mg/dL Near Optimal: 120-129 mg/dL Borderline: 130-159 mg/dL High: 160-189 mg/dL Very High: >=190 mg/dL Specimen Blood Narrative Performed At Patient is not fasting. For a triglyceride result greater than 440 mg/dL, [facility] consider re-testing when the patient is in a fasting state. Performing Organization Address [facility] Phone Number [facility] [address] [place] [address] * HEMOGLOBIN A1C (08/22/2018 2:13 AM CDT) Only the most recent of 2 results within the time period is included. Pathologist [facility] Hemoglobin A1c 5.9 4.3 - 6.1 % [facility] Estimated 123 (H) 70 - 110 mg/dL [facility] Average Glucose Specimen Blood Performing Organization Address [facility] Phone Number [facility] [address], [place] [phone] * IRON PROFILE (08/22/2018 2:13 AM CDT) Pathologist [facility] Iron 35 (L) 50 - 212 ug/dL [facility] TIBC 343 250 - 450 ug/dL [facility] % Iron Sat 10 % [facility] Transferrin 244.80 203.00 - 362.00 [facility] mg/dL [facility] Specimen Blood Performing Organization Address [facility] Phone Number [facility] [address] [place] [address] * CTA NECK W CONTRAST (08/21/2018 5:29 [...] distal internal carotid artery {NASCET criteria}.) This [facility] radiology report is a preliminary resident [...] distal internal carotid artery {NASCET criteria}.) This [facility] radiology report is a preliminary resident [...] PM CDT) Specimen Impressions Performed At IMPRESSION: [facility] Motion degraded exam. Low-attenuation mural plaque associated [...] distal internal carotid artery {NASCET criteria}.) This [facility] radiology report is a preliminary resident [...] distal internal carotid artery {NASCET criteria}.) This [facility] radiology report is a preliminary resident [...] for further evaluation as clinically warranted. This [facility] radiology report is a preliminary resident [...] Performed At EXAM: CT BRAIN WITHOUT CONTRAST [facility] DATE: 08/21/2018 5:15 PM INDICATION: Ataxia, post [...] for further evaluation as clinically warranted. This [facility] radiology report is a preliminary resident [...] MD, 08/21/2018 8:23 PM Performing Organization Address City/[facility]/Zipcode Phone Number [facility] * VBG POC (08/21/2018 4:16 PM CDT) pH, [place] POC 7.44 (H) 7.33 - 7.43 [facility] HCO3, [place] POC 32 (H) 22 - 26 mmol/L [facility] TCO2, POC 33 (H) 21 - 32 mmol/L [facility] PO2, Venous POC 31 (L) 50 - 75 mm Hg [facility] (BKR) pCO2,[place] POC 47.4 38 - 50 mmHg [facility] Base Excess [place] 7 mmol/L [facility] POC Sample Type IVEN [facility] Lactic Acid POC 0.91 0.40 - 2.00 mmol/L [facility] % Sat, [place] POC 62 % [facility] Specimen Blood, venous Performing Organization Address City/[facility]/Zipcode Phone Number [facility] [address] [place] [address] * 12 LEAD EKG (08/21/2018 2:19 PM CDT) [facility] Test Date:2018-08-21 Pat Name: PONCE KENDRICKChrissymonster ent: Room: [employer] Gender: Cable Maker: :[id number] 08-13 Requested By: MILADYS Sanderson Order Number: [id number] Reading MD: Guero Artis Measurements Intervals [place] Rate: 74 P:12 IA: 167 QRS: -11 QRSD: 109 T: 61 QT: 386 QTc:430 Interpretive Statements SINUS RHYTHM NONSPECIFIC T-WAVE ABNORMALITY Poor R Wave Progression Left Atrial Enlargement Electronically Signed On 08-22-2018 17:49:34 CDT by Guero Artis Specimen Performing Organization Address City/State/Zipcode Phone Number SMS after 10/12/2017 Insurance Type Payer Benefit Subscriber ID Effective Phone Address Plan / Dates Group [facility] PRESUMED INDIGENT PRESUMED xxxxxxxxx 2018- INDIGENT 2018 Advance Directives Date Inactivated Comments Code Status Date Activated 08/23/2018 4:42 PM Full Code 08/21/2018 8:53 PM
--- OUTSIDE RECORDS SUMMARY | 2018-10-13 16:31 | XMS REPORT | Clinical Summary ---
Author Author [facility] Address Unknown Phone Unavailable Care Team Providers Care Aviation Safety Inspector Name Role Phone Asked, No Pcp PCP Unavailable Allergies No Known Allergies Medications [...] Encounters Care Team Description Date Type Specialty Maicol Carvajal MD Generalized weakness (Primary Dx); Physical deconditioning 10/05/2018 Emergency Emergency Medicine 10/05/2018 Travel Justin Buchanan, DO Sosa, MD Lc Luke Tanseem Hamad Mohamed A, MD Bavare, MD Herrera Ellington, David Perry DO Cardiac arrest (HCC) (Primary Dx); Ventricular tachycardia (HCC) 08/08/2018 [facility] General Internal Medicine - Encounter 08/19/2018 after 10/12/2017 Social History Date Tobacco Use Types Packs/Day Years Used Current Every Day Smoker Cigarettes 0.5 Tobacco Cessation: Ready to Quit: No; Counseling Given: No Sex Assigned at Date Recorded Not on file Industry Job Start Date Occupation Not on file Not on file Not on file Travel End Travel History Travel Start No recent travel history available. Last Filed Vital Signs Time Taken Vital Sign Reading 10/05/2018 1:53 PM CDT Blood Pressure 173/95 10/05/2018 1:53 PM CDT Pulse 86 10/05/2018 1:53 PM CDT Temperature 36.7 C (98.1 F) 10/05/2018 1:53 PM CDT Respiratory Rate 18 10/05/2018 1:53 PM CDT Oxygen Saturation 98% - Inhaled Oxygen - Concentration 10/05/2018 10:59 AM CDT Weight 113 kg (250 lb) 10/05/2018 10:59 AM CDT Height 188 cm (6' 2") 10/05/2018 10:59 AM CDT Body Mass Index 32.1 Plan of Treatment Health Maintenance Due Date Last Done Comments COLONOSCOPY SCREENING 08/13/2013 SHINGLES VACCINES (#1) 08/13/2013 INFLUENZA VACCINE 09/29/2018 Procedures Comments Procedure Name Priority Date/Time Associated Diagnosis ECG ED PRELIMINARY Routine 10/05/2018 INTERPRETATION 12:34 PM CDT MAGNESIUM LEVEL STAT 10/05/2018 12:09 PM CDT ESTIMATED GFR STAT 10/05/2018 12:09 PM CDT B NATRIURETIC PEPTIDE STAT 10/05/2018 12:09 PM CDT TROPONIN STAT 10/05/2018 12:09 PM CDT COMPREHENSIVE METABOLIC STAT 10/05/2018 PANEL 12:09 PM CDT HC COMPLETE BLD COUNT STAT 10/05/2018 W/AUTO DIFF 12:09 PM CDT XR CHEST 1 VW PORTABLE STAT 10/05/2018 11:51 AM CDT URINALYSIS SCREEN AND STAT 10/05/2018 MICROSCOPY, WITH REFLEX 11:40 AM CDT TO CULTURE URINE CULTURE STAT 10/05/2018 11:40 AM CDT ECG 12-LEAD STAT 10/05/2018 11:31 AM CDT ESTIMATED GFR Routine 08/19/2018 7:16 AM CDT [...] & Routine 08/08/2018 ANAEROBIC 4:18 PM CDT WA INSERT Routine 08/08/2018 Cardiac arrest (HCC) CATH,ART,PERCUT,SHORTTERM [...] MMODE SPECTRAL 12:50 PM CDT COLOR DOPPLER ([id number]) BLOOD CULTURE, AEROBIC & Routine 08/08/2018 ANAEROBIC [...] PRELIMINARY Routine 08/08/2018 INTERPRETATION 10:07 AM CDT WA CRITICAL CARE, E/M Routine 08/08/2018 30-74 MINUTES 10:07 AM CDT WA INSERT NON-TUNNEL CV Routine 08/08/2018 CATH 10:07 [...] GLUCOSE Routine 08/08/2018 9:11 AM CDT after 10/12/2017 Results * ECG ED Preliminary Interpretation - Not an Order (10/05/2018 12:34 PM CDT) Only the most recent of 2 results within the time period is included. Narrative Performed At Maicol Carvajal MD 10/05/20182:26 PM ECG ED Preliminary Interpretation - Not an Order Performed by: Maicol Carvajal MD Authorized by: Maicol Carvajal MD ECG reviewed by ED Physician in the absence of a dry placer machine operator: yes Interpretation: Interpretation: normal Rate: ECG rate:79 ECG rate assessment: normal Rhythm: Rhythm: sinus rhythm Ectopy: Ectopy: none QRS: QRS axis:Normal QRS intervals:Normal Conduction: Conduction: normal ST segments: ST segments:Normal T waves: T waves: normal * Estimated GFR (10/05/2018 12:09 PM CDT) Only the most recent of 18 results within the time period is included. [facility] Estimated GFR 84 mL/min/1.73 m2 [place] [facility] G[facility] >=90 Normal or high G2 60-89Mildly decreased N2e18-95 Mildly to moderately decreased R3d12-66 Moderately to severely decreased G4 15-29Severely decreased G5 <15Kidney failure The eGFR was calculated using the Chronic Kidney Disease Epidemiology Collaboration (CKD-EPI) equation. Interpretation is based on recommendations of the National Kidney Foundation-Kidney Disease Outcomes Quality Initiative (NKF-KDOQI) published in 2014. Specimen Plasma specimen Performing Organization Address City/[facility]/Zipcode Phone Number [facility] [address] [place] [address] PATHOLOGY AND [employer] MEDICINE [address] * Troponin (10/05/2018 12:09 PM CDT) Only the most recent of 8 results within the time period is included. [facility] Troponin <0.006 0.000 - 0.040 ng/mL [place] Comment: [facility] changed methodology effective: HOSPITAL 07/05/2018 at 10:00 am The new method has a 99th percentile cutoff of 0.040 ng/mL Specimen Plasma specimen Performing Organization Address City/[facility]/Zipcode Phone Number [facility] [address] [place] [address] PATHOLOGY AND [employer] MEDICINE [place] [id number] * CBC with platelet and differential (10/05/2018 12:09 PM CDT) Only the most recent of 15 results within the time period is included. Pathologist [facility] WBC 9.7 4.2 - 11.0 k/uL [facility] RBC 3.86 (L) 4.04 - 5.86 m/uL [facility] HGB 10.9 (L) 13.0 - 17.3 g/dL [facility] HCT 33.9 (L) 34.0 - 45.0 % [facility] MCV 87.8 80.0 - 98.0 fL [facility] MCH 28.2 27.0 - 34.0 pg [facility] MCHC 32.2 31.5 - 36.5 g/dL [facility] RDW - SD 49.5 37.0 - 51.0 fL [facility] MPV 10.9 (H) 7.4 - 10.4 fL [facility] Platelet count 271 150 - 400 k/uL [facility] Nucleated RBC 0.00 /100 WBC [facility] Neutrophils 61.0 36.0 - 66.0 % [facility] Lymphocytes 25.7 24.0 - 44.0 % [facility] Monocytes 8.2 (H) 0.0 - 6.0 % [facility] Eosinophils 4.0 0.0 - 6.0 % [facility] Basophils 0.9 0.0 - 1.2 % [facility] Immature 0.2 0.0 - 1.0 % [place] granulocytes [facility] Specimen Blood Performing Organization Address City/State/Zipcode Phone Number [facility] DEPARTMENT OF [address] [place] [address] PATHOLOGY AND GENOMIC MEDICINE [facility] [address] [place] [address] HOSPITAL * B natriuretic peptide (10/05/2018 12:09 PM CDT) Only the most recent of 4 results within the time period is included. Pathologist [facility] BNP 17 0 - 100 pg/mL [facility] Specimen Blood Performing Organization Address City/State/Zipcode Phone Number [facility] DEPARTMENT [address] [place] [address] PATHOLOGY AND GENOMIC MEDICINE [facility] [address] * Magnesium level (10/05/2018 12:09 PM CDT) Only the most recent of 14 results within the time period is included. Pathologist [facility] Magnesium 2.10 1.60 - 2.60 mg/dL [facility] Specimen Plasma specimen Performing Organization Address City/[facility]/Zipcode Phone Number [facility] [address] [place] [address] PATHOLOGY AND GENOMIC MEDICINE [address] * Comprehensive metabolic panel (10/05/2018 12:09 PM CDT) Only the most recent of 12 results within the time period is included. Pathologist [facility] Sodium 140 135 - 150 mEq/L [facility] Potassium 3.6 3.5 - 5.0 mEq/L [facility] Chloride 105 98 - 112 mEq/L [facility] CO2 25 24 - 31 mmol/L [facility] Anion gap 10@ANIO 7 - 15 mEq/L [facility] BUN 19 (H) 7 - 18 mg/dL [facility] Creatinine 1.00 0.70 - 1.20 mg/dL [facility] Glucose 100 65 - 100 mg/dL [facility] Calcium 9.1 8.3 - 10.2 mg/dL [facility] Protein 7.3 6.3 - 8.3 g/dL [facility] Albumin 3.8 3.5 - 5.0 g/dL [facility] A/G ratio 1.1 0.7 - 3.8 [facility] Alkaline 111 0 - 129 U/L [place] phosphatase [facility] AST 15 10 - 50 U/L [facility] ALT 26 5 - 50 U/L [facility] Total bilirubin 0.3 0.2 - 1.2 mg/dL [facility] Specimen Plasma specimen Performing Organization Address City/State/Zipcode Phone Number [facility] DEPARTMENT OF [address] [place] [address] PATHOLOGY AND GENOMIC MEDICINE [facility] [address] [place] [address] HOSPITAL * XR Chest 1 Vw Portable (10/05/2018 11:51 AM CDT) Only the most recent of 6 results within the time period is included. Specimen Narrative Performed At EXAMINATION:XR CHEST 1 VW PORTABLE [facility] CLINICAL HISTORY:weaknessSOB COMPARISON:August 11, 2018 IMPRESSION: Lines: None Lungs and pleura: No consolidations. No pleural effusion or pneumothorax. Heart and mediastinum: Stable appearance of cardiomediastinal silhouette. Bones: No suspicious osseous lesions. Incompletely healed right rib fractures. [facility]-[id number] Procedure Note Hm Interface, Radiology Results Incoming - 10/05/2018 1:20 PM CDT EXAMINATION: XR CHEST 1 VW PORTABLE CLINICAL HISTORY: weakness SOB COMPARISON: August 11, 2018 IMPRESSION: Lines: None Lungs and pleura: No consolidations. No pleural effusion or pneumothorax. Heart and mediastinum: Stable appearance of cardiomediastinal silhouette. Bones: No suspicious osseous lesions. Incompletely healed right rib fractures. [facility]-[id number] Performing Organization Address City/[facility]/Zipcode Phone Number [facility] [address] [place] [address] * Urinalysis screen and microscopy, with reflex to culture (10/05/2018 11:40 AM CDT) Only the most recent of 2 results within the time period is included. Specimen site Clean catch [facility] Color, UA Yellow [facility] Appearance, UA Clear [facility] Specific 1.025 1.001 - 1.035 [place] gravity, UA [facility] pH, UA 5.0 5.0 - 8.5 [facility] Protein, UA Negative Negative [facility] Glucose, UA Negative Negative [facility] Ketones, UA Trace (A) Negative [facility] Bilirubin, UA Negative Negative [facility] Blood, UA Negative Negative [facility] Nitrite, UA Negative Negative [facility] Urobilinogen, Negative <2.0 [facility] Leukocyte Negative Negative [place] esterase, UA [facility] Epithelial Few /HPF [place] cells, UA [facility] WBC, UA 2 0 - 1 /HPF [facility] RBC, UA 2 0 - 5 /HPF [facility] Bacteria, UA None seen None seen [facility] Yeast, UA None seen [facility] Yeast with None seen [place] [facility] Hyaline casts, 1 /LPF [facility] Specimen Urine Performing Organization Address City/[facility] Centercode Phone Number [facility] DEPARTMENT [facility] [place] [address] PATHOLOGY AND GENOMIC MEDICINE [address] * Urine culture (10/05/2018 11:40 AM CDT) Only the most recent of 2 results within the time period is included. [facility] Urine culture SEE COMMENTComment: [place] Bacteriuria screen negative. [facility] Specimen Performing Organization Address City/[facility] Centercode Phone Number [facility] [address] PATHOLOGY AND GENOMIC MEDICINE [address] * ECG 12 lead (10/05/2018 11:31 AM CDT) Only the most recent of 3 results within the time period is included. Ventricular 79 [facility] rate Atrial rate 79 [facility] WA interval 176 [facility] QRSD interval 110 [facility] QT interval 396 [facility] QTC interval 454 [facility] P axis 1 38 [facility] QRS axis 1 15 [facility] T wave axis 49 [facility] EKG impression Normal sinus rhythm-Normal [facility] MUSE ECG-- Specimen Narrative Performed At Performing Organization Address City/State/Zipcode Phone Number [facility] [address] [place] [address] * Basic metabolic panel (08/19/2018 7:16 AM CDT) Only the most recent of 6 results within the time period is included. Pathologist [facility] Sodium 138 135 - 150 mEq/L [facility] Potassium 3.8 3.5 - 5.0 mEq/L [facility] Chloride 96 (L) 98 - 112 mEq/L [facility] CO2 29 24 - 31 mmol/L [facility] Anion gap 13@ANIO 7 - 15 mEq/L [facility] BUN 24 (H) 7 - 18 mg/dL [facility] Creatinine 1.60 (H) 0.70 - 1.20 mg/dL [facility] Glucose 119 (H) 65 - 100 mg/dL [facility] Calcium 10.2 8.3 - 10.2 mg/dL [facility] Specimen Plasma specimen Performing Organization Address City/[facility]/[place] [address] PATHOLOGY AND GENOMIC MEDICINE [address] * Partial thromboplastin time, activated (08/18/2018 5:50 AM CDT) Only the most recent of 22 results within the time period is included. Pathologist [facility] PTT 34.4 23.0 - 36.0 sec [place] Comment: [facility] PTT therapeutic range for [facility] [facility] unfractionated heparin is HOSPITAL 61.0-112.0 seconds which corresponds to Anti-Xa 0.3-0.7 U/ml. Note:Change in Panic Value The PTT Panic Value is changing from 110 sec. to 100 sec. due to new instrumentation and reagents. Correlation studies have been performed to validate this result. Specimen Blood Performing Organization Address City/[facility]/Zipcode Phone Number [facility] [address] [place] [address] PATHOLOGY AND GENOMIC MEDICINE [facility] [address] * Prothrombin time with INR (08/18/2018 5:50 AM CDT) Only the most recent of 4 results within the time period is included. Prothrombin 12.2 11.5 - 14.[address] [facility] INR 0.93 [place] Comment: [facility], reference ranges [facility] below: Indication: INR Value Treatment of Venous Thrombosis, 2.0-3.0 pulmonary emboli, or prophylaxis of a venous thrombosis, or systemic emboli. High dose, high risk patients 3.0-4.5 with mechanical valves. NOTE:INR values over 3.0 are sometimes associated with gastrointestinal hemorrhage, especially values over 4.0. Specimen Blood Performing Organization Address City/State/Zipcode Phone Number [facility] DEPARTMENT OF [address] [place] [id number] PATHOLOGY AND GENOMIC MEDICINE [facility] [address] * MRI Brain Wo Contrast (08/17/2018 [...] abnormality identified with no evidence of ischemia. [id number] Procedure Note Interface, Radiology Results Incoming - [...] abnormality identified with no evidence of ischemia. [id number] Performing Organization Address City/[facility]/Zipcode Phone Number [facility] [address] [place] [address] * Potassium level (08/16/2018 5:34 PM CDT) Only the most recent of 2 results within the time period is included. Potassium 4.1 3.5 - 5.0 mEq/L [facility] Specimen Plasma specimen Performing Organization Address City/[facility] Centercode Phone Number [facility] OF [address] [place] [phone] PATHOLOGY AND GENOMIC MEDICINE [facility] [address] * EEG (routine) (08/16/2018 10:12 AM [...] these findings. ICD10 Code/Diagnosis: Possible seizure. * Phosphorus level (2018 6:05 AM CDT) Only the most recent of 9 results within the time period is included. [facility] Phosphorus 3.7 2.4 - 4.5 mg/dL [facility] Specimen Plasma specimen Performing Organization Address City/[facility] Centercode Phone Number [facility] DEPARTMENT OF [address] [place] [address] PATHOLOGY AND [facility]IC[facility] [address] * POC glucose (08/11/2018 8:50 AM CDT) Only the most recent of 26 results within the time period is included. [facility] POC glucose 78 65 - 100 mg/dL [place] Comment: [facility] Meter ID: [id number] [place] Junior Network Engineer: [facility] Specimen Performing Organization Address [facility] [place] [address] PATHOLOGY AND [facility]IC[facility] [address] * Arterial blood gas (08/11/2018 4:47 AM CDT) Only the most recent of 10 results within the time period is included. Junior Network Engineer matt [facility] Collection site rra [facility] O2 therapy vent [facility] Respiratory 22 bpm [place] rate [facility] Tidal volume 450.0 mL [facility] .PEEP 5 cmH2O [facility] pH, arterial 7.445 7.350 - 7.450 units [facility] pCO2, arterial 31.8 (L) 35.0 - 45.0 mmHg [facility] pO2, arterial 117.0 (H) 80.0 - 90.0 mmHg [facility] O2 saturation, 98.5 95.0 - 100.0 % [place] arterial [facility] Base excess, -2.2 mEq/L [place] arterial [facility] Bicarbonate 21.9 21.0 - 28.0 mEq/L [facility] O2 content 15.6 VOL% [facility] FiO2, inspired 35.0 % [place] O2% [facility] Carboxyhemoglob 0.3 0.0 - 1.4 % [place] in Comment: [facility] Reference Ranges: [place] Carboxyhemoglobin [facility] Non smoker: 0.0 - 2.0% Smoker: 2.1 - 5.0% Heavy smoker: 5.1 - 9% Methemoglobin 2.0 (H) 0.0 - 1.0 % [facility] Hemoglobin, 11.4 (L) 14.0 - 18.0 g/dL [place] blood gas [facility] pO2, A-a 97.6 mmHg [facility] Specimen Blood Performing Organization Address City/State/Zipcode Phone Number [facility] DEPARTMENT OF [address] [place] [address] PATHOLOGY AND GENOMIC MEDICINE [facility] [address] * XR Abdomen 1 Vw (08/10/2018 4:49 [...] is warranted, CT scan would be suggested. [facility]-[id number] Procedure Note Hm Interface, Radiology Results Incoming [...] is warranted, CT scan would be suggested. [facility]-[id number] Performing Organization Address City/[facility]/Zipcode Phone Number [facility] [address] [place] [address] * Cv echo 2d limited or follow up study (08/10/2018 4:18 PM CDT) BSA Hall 1.95 m2 [facility] BSA 1.93 m2 [facility] BMI 25.10 kg/m2 [facility] BSA [...] size is mildly dilated. Performing Organization Address City/[facility]/Zipcode Phone Number [facility] [address] [place] [address] * Lipase level (08/09/2018 11:05 AM CDT) Lipase 8 (L) 13 - 60 U/L [facility] Specimen Plasma specimen Performing Organization Address City/State/Zipcode Phone Number [facility] DEPARTMENT OF [address] [place] [address] PATHOLOGY AND GENOMIC MEDICINE [address] * Ionized calcium (08/09/2018 11:05 AM CDT) Only the most recent of 3 results within the time period is included. pH 7.30 [facility] Ionized calcium 1.07 (L) 1.11 - 1.32 mmol/L [facility] Specimen Plasma specimen Performing Organization Address City/State/Zipcode Phone Number [facility] DEPARTMENT OF [address] [place] [address] PATHOLOGY AND GENOMIC MEDICINE [address] * Lactic acid level (08/09/2018 9:27 AM CDT) Only the most recent of 3 results within the time period is included. Pathologist [facility] Lactic acid 1.2 0.5 - 2.2 mmol/L [facility] Specimen Plasma specimen Performing Organization Address City/State/Zipcode Phone Number [facility] DEPARTMENT OF [address] [place] [address] PATHOLOGY AND GENOMIC MEDICINE [facility] [address] * C difficile toxin (08/09/2018 5:45 AM CDT) Pathologist [facility] Clostridium Positive for C. difficile [place] difficile toxin toxin [facility] (A) Comment: Specimen Information Specimen Source: Stool Specimen Site: Nonpreserved Specimen Stool - Nonpreserved Performing Organization Address [facility] Centercoks Phone Number [facility] DEPARTMENT OF [address] [place] [address] PATHOLOGY AND GENOMIC MEDICINE [address] * Troponin, I-Stat (08/09/2018 12:40 AM CDT) Pathologist [facility] Troponin, 0.32 (H) 0.00 - 0.08 ng/mL [place] I-Stat Comment: [facility] 0.09 - 1.49 [place] ng[facility] indicate increased risk of acute coronary syndrome. >=1.5 ng/ml Consistent with acute myocardial infarction. The diagnostic value of a single normal or non-diagnostic result is questionable.Serial samples at 2-6 hour intervals are required to rule out acute myocardial injury. Specimen Plasma specimen Performing Organization Address City/[facility]/Zipcode Phone Number [facility] DEPARTMENT [address] [place] [address] PATHOLOGY AND GENOMIC MEDICINE [facility] [address] * T3, free (08/09/2018 12:40 AM CDT) Pathologist [facility] T3, free 2.32 2.18 - 3.98 pmol/L [facility] Specimen Plasma specimen Performing Organization Address City/[facility] Cent[facility]ode Phone Number [facility] DEPARTMENT OF [address] [place] [phone] PATHOLOGY AND GENOMIC MEDICINE [facility] [address] [place] [address] * Thyroid stimulating hormone (08/09/2018 12:40 AM CDT) Only the most recent of 3 results within the time period is included. TSH 0.72 0.27 - 4.20 uIU/mL [facility] Specimen Plasma specimen Performing Organization Address City/State/Zipcode Phone Number [facility] DEPARTMENT OF [address] [place] [phone] PATHOLOGY AND GENOMIC MEDICINE [address] * Hemoglobin A1c (08/09/2018 12:40 AM CDT) Pathologist [facility] Hemoglobin A1C 5.4 4.0 - 5.6 % [place] Comment: [facility] HbA1c cutoffs for diagnosing [place] diabetes: HOSPITAL 4.0% - 5.6%=normal 5.7% - 6.4%=increased risk for diabetes (prediabetes) >=6.5%=diabetes Goals for glycemic control (ADA 2016) < 7.0%Target for non adults with diabetes. More or less stringent targets may be appropriate for individual patients. <7.5% Target for Children and adolescents with type 1 diabetes. Specimen Blood Performing Organization Address City/[facility] Centercode Phone Number [facility] DEPARTMENT OF [address] [id number] PATHOLOGY AND GENOMIC MEDICINE [address] * Lipid panel (08/09/2018 12:40 AM CDT) Cholesterol 146 0 - 199 mg/dL [facility] Triglycerides 62 0 - 149 mg/dL [facility] HDL cholesterol 41 40 - 9,999 mg/dL [facility] LDL cholesterol 111 (H)Comment: Result 0 - 99 mg/dL [place] obtained by direct LDL [place] measurement [facility] Lipid panel See below [place] interpretation Comment: [place] Total Cholesterol [place] (mg/dL) [facility] LDL Cholesterol (mg/dL) <200 Desirable <100 Optimal 200-239Borderline -[id number] or above optimal >=240High 130-159Borderline- high [...] mg/dL) Specimen Plasma specimen Performing Organization Address City/[facility] Centercode Phone Number [address] [place] [address] PATHOLOGY AND [facility] [address] * Lactic acid level, SEPSIS - Now and repeat 2x every 3 hours (08/08/2018 4:18 PM CDT) Only the most recent of 3 results within the time period is included. [facility] Lactic acid 2.3 (H) 0.5 - 2.2 mmol/L [place] Comment: [place] la result called to and read [place] back by [facility] jesusita08/08/201818:34 and polisher numeral no answer nurse qwill call Specimen Blood Performing Organization Address City/[facility] [place] [address] PATHOLOGY AND [facility] [address] * Blood culture, aerobic & anaerobic (08/08/2018 4:18 PM CDT) Only the most recent of 3 results within the time period is included. [facility] Blood culture No growth after 5 days of [place] isolate incubation. [facility] Comment: HOSPITAL Specimen Information Specimen Source: Blood Specimen Site: Unspecified Specimen Blood Performing Organization Address City/State/Zipcode Phone Number [facility] DEPARTMENT OF [address] [place] [address] PATHOLOGY AND GENOMIC MEDICINE [address] * Vitamin B12 level (08/08/2018 4:18 PM CDT) Vitamin B12 985 (H) 231 - 931 pg/mL [place] Comment: [place] Significant overlap exists [place] between normal and deficiency HOSPITAL states. However, most patients with deficiencies will have Serum B12 <200 pg/mL. Specimen Serum Performing Organization Address City/[facility]/Zipcode Phone Number [facility] DEPARTMENT OF [address] [place] [address] PATHOLOGY AND [facility] [address] * Creatine kinase, total (CPK) (08/08/2018 4:18 PM CDT) Creatine kinase 264 39 - 308 U/L [facility] Specimen Plasma specimen Performing Organization Address City/[facility]/Zipcode Phone Number [facility] DEPARTMENT OF [address] [place] [address] PATHOLOGY AND GENOMIC MEDICINE [facility] [address] * Arterial Line Insertion (08/08/2018 4:00 PM CDT) Narrative Performed At Ananth Collier NP 08/08/20184:01 PM Arterial Line Insertion Date/Time: 08/08/2018 4:00 PM Performed by: Anatnh Collier NP Authorized by: Ananth Collier NP [...] Occult blood, stool (08/08/2018 2:05 PM CDT) Pathologist [facility] Occult blood, Positive for Occult blood (A) [place] stool Comment: [place] Specimen Information [place] Specimen Source: Stool HOSPITAL Specimen Site: Nonpreserved Specimen Stool - Nonpreserved Performing Organization Address City/State/Zipcode Phone Number [facility] DEPARTMENT [address] [place] [address] PATHOLOGY AND GENOMIC MEDICINE [address] * Anti Xa, unfractionated (08/08/2018 12:57 PM CDT) Only the most recent of 2 results within the time period is included. [facility] Anti Xa, <0.10 (L)Comment: Therapeutic 0.30 - 0.70 U/mL [place] unfractionated Range: 0.30 - 0.70 U/mL [facility] Specimen Blood Performing Organization Address City/[facility] Centercode Phone Number [address] [place] [address] PATHOLOGY AND GENOMIC MEDICINE [address] * Echocardiogram complete w contrast and 3D if needed (08/08/2018 12:50 PM CDT) [facility] Velocity Ratio 0.76 m/s SYNGO (V1/V2) IVS,d 1.42 cm SYNGO EF 30.27 % SYNGO LVPWD,d 1.26 cm [facility]NGO AoV Mean PG 3.83 mmHg SYN[facility] AV LVOT peak 3.59 mmHg HM SYNGO gradient MV mean 4.03 mmHg HM SYNGO gradient MV valve area p 8.75 cm2 SYNGO 1/2 method PV Pk Grad 3.20 mmHg SYNGO E wave 86.64 msec SYNGO decelartion time LVOT Diam,S 2.18 cm SYNGO LVOT area 3.73 cm2 SYNGO LVOT Vmax 0.95 m/s SYNGO LVOT VTI 0.12 m SYNGO AoV Peak PG 6.29 mmHg SYNGO MV Peak E Jean 1.12 m/s SYNGO MV stenosis 25.13 ms SYNGO pressure 1/2 time BSA 2.07 m2 SYNGO Ao Root 3.90 cm HM SYNGO [...] i VTI 1.34 cm2/m2 HM [facility] BSA [place] MR peak grad 8.10 mmHg HM SYNGO [...] [facility]NGO 2D LVPW pct thck 25.67 % SYNGO PLAX LVPW s PLAX 1.58 cm HM [facility]NGO MV Decel slope 12.92 m/s2 SYNGO Pred Exer Dur 9.48 HM [facility]GO R1 Pred METS R1 9.75 [facility] Specimen Narrative Performed At HM SYNGO There is moderate left ventricular concentric hypertrophy. Left Ventricular ejection fraction is 40 - 45%. Left atrium size is mildly dilated. Performing Organization Address City/[facility]/Zipcode Phone Number [facility] [address] [place] [address] * Sputum culture (08/08/2018 12:32 PM CDT) [facility] Sputum culture Normal oral jose isolated. [place] isolate Comment: [place] Specimen Information HOSPITAL Specimen Source: Sputum Specimen Site: Expectorated Specimen Sputum - Expectorated Performing Organization Address City/[facility] Centercoks Phone Number [facility] DEPARTMENT OF [address] [place] [address] PATHOLOGY AND GENOMIC MEDICINE [address] * Gram stain (08/08/2018 12:32 PM CDT) Only the most recent of 2 results within the time period is included. [facility] Gram stain Rare epithelial cells [place] isolate Rare Gram positive cocci in [facility] Comment: Specimen Information Specimen Source: Sputum Specimen Site: Expectorated Specimen Sputum - Expectorated Performing Organization Address [facility] Centercoks Phone Number [facility] DEPARTMENT OF [address] [place] [address] PATHOLOGY AND GENOMIC MEDICINE [address] * Urine drugs of abuse screen (08/08/2018 11:50 AM CDT) Pathologist [facility] Amphetamine Negative [place] screen, urine [facility] Barbiturate Negative [place] screen, urine [facility] Benzodiazepine Negative [place] screen, urine [facility] Cocaine screen, Positive (A) [place] urine [facility] Methadone Negative [place] metabolite [place] (EDDP), urine [facility] Opiates screen, Negative [place] urine [place] [facility] Phencyclidine Negative [place] screen, urine [facility] Cannabinoid Negative [place] screen, urine Comment: [place] Drug screen minimum [place] concentration of detectability [facility] Amphetamines 1000 ng/mL Barbiturates 200 ng/mL [...] is required. Specimen Urine Performing Organization Address City/[facility] Centercode Phone Number [facility] DEPARTMENT OF [address] [place] [address] PATHOLOGY AND GENOMIC MEDICINE [facility] [address] * CT Head Wo Contrast (08/08/2018 [...] IMPRESSION:No acute intracranial hemorrhage or mass effect. [id number] Procedure Note Interface, Radiology Results Incoming - [...] No acute intracranial hemorrhage or mass effect. [id number] Performing Organization Address City/State/Zipcode Phone Number [facility] [address] [place] [address] * CRITICAL CARE (08/08/2018 10:07 AM CDT) [...] Justin Buchanan DO Consent: Consent obtained:Emergent situation [place] protocol: Patient identity confirmed:Arm band Pre-procedure details: [...] 9:21 AM CDT) Alcohol None Detected mg/dL [place] Comment: [place] Normal [facility] Detected Legal Intoxication in [place] 80 mg/dL (0.08%) Toxic Concentration 200 mg/dL (0.2%) Potentially Fatal 350-500 mg/dL (0.35%-0.5%) Alcohol percent None Detected % [facility] Specimen Blood Performing Organization Address City/State/Zipcode Phone Number [facility] DEPARTMENT OF [address] [place] [address] PATHOLOGY AND GENOMIC MEDICINE [facility] [address] [place] [address] HOSPITAL after 10/12/2017 Advance Directives Patient has advance care planning documents on file. For more information, demian dunaway contact: [facility] [address] [place] [address]
[2018-10-13] MEDS ORDERED: ASPIRIN 81 MG CHEW TAB PO ONE (16:45)
[2018-10-13 17:09] LABS: BASOPHILS # (AUTO) 0.1 (0.0-0.1); BASOPHILS % 0.7 % (0.0-1.0); EOSINOPHILS # (AUTO) 0.1 (0.0-0.4); EOSINOPHILS % 1.1 % (0.0-6.0); HEMATOCRIT 37.9 % (38.2-49.6); HEMOGLOBIN 12.5 g/dL (14.0-18.0); LYMPHOCYTES # (AUTO) 2.2 (1.0-3.2); LYMPHOCYTES % 19.8 % (18.0-39.1); MEAN CORPUSCULAR HEMOGLOBIN 28.1 pg (28-32); MEAN CORPUSCULAR VOLUME 85.2 fL (81-99); MONOCYTES # (AUTO) 0.9 (0.2-0.8); MONOCYTES % 8.2 % (4.4-11.3); NEUTROPHILS # (AUTO) 7.8 (2.1-6.9); NEUTROPHILS % 69.9 % (38.7-80.0); PLATELET COUNT 364 x10e3/uL (140-360); RED BLOOD COUNT 4.45 x10e6/uL (4.3-5.7); RED CELL DISTRIBUTION WIDTH 15.4 % (11.7-14.4)
[2018-10-13 17:12] LABS: BILIRUBIN,URINE NEGATIVE (NEGATIVE); CLARITY,URINE SL CLOUDY (CLEAR); KETONES,URINE NEGATIVE (NEGATIVE); LEUKOCYTE ESTERASE ,URINE NEGATIVE (NEGATIVE); NITRITE,URINE NEGATIVE (NEGATIVE); PROTEIN,URINE DIPSTICK TRACE (NEGATIVE); URINE UROBILINOGEN 0.2 mg/dL (0.2 - 1)
[2018-10-13 17:15] LABS: COLOR,URINE STRAW (YELLOW)
[2018-10-13 17:16] LABS: AMPHETAMINES SCREEN,URINE NEGATIVE (NEGATIVE); BENZODIAZEPINES SCREEN,URINE POSITIVE (NEGATIVE); PHENCYCLIDINE SCREEN,URINE NEGATIVE (NEGATIVE)
[2018-10-13 17:17] LABS: INR 0.99; PROTHROMBIN TIME 13.6 seconds (11.9-14.5)
[2018-10-13 17:18] LABS: PARTIAL THROMBOPLASTIN TIME 29.3 seconds (23.8-35.5)
[2018-10-13 17:24] LABS: ALANINE AMINOTRANSFERASE 18 IU/L (0-55); ALBUMIN 4.3 g/dL (3.5-5.0); ALBUMIN/GLOBULIN RATIO 1.2 (0.8-2.0); ALKALINE PHOSPHATASE 119 IU/L (40-150); BLOOD UREA NITROGEN 20 mg/dL (7-26); BUN/CREATININE RATIO 17 (6-25); CALCIUM 9.2 mg/dL (8.4-10.2); CARBON DIOXIDE 23 mmol/L (22-29); CHLORIDE 102 mmol/L (98-107); CREATINE KINASE 214 IU/L (30-200); CREATININE, SERUM 1.19 mg/dL (0.72-1.25); EST GLOMERULAR FILTRATION RATE > 60 ML/MIN (60-); GLUCOSE 107 mg/dL (74-118); SODIUM 137 mmol/L (136-145)
[2018-10-13 17:32] LABS: BACTERIA,URINE RARE /HPF; EPITHELIAL CELLS,URINE FEW /LPF
[2018-10-13 17:36] LABS: ACETAMINOPHEN < 3 ug/mL (10-30); SALICYLATE < 5.0 mg/dL (0-30)
--- NOTE | 2018-10-13 17:36 | Diagnostic Imaging Report ---
EXAMINATION: CHEST SINGLE (PORTABLE) INDICATION: ^ERMD ORDER ^Y COMPARISON: 10/03/2018 FINDINGS: AP view TUBES and LINES: None. LUNGS: Lungs are well inflated. There is no evidence of pneumonia or pulmonary edema. PLEURA: No pleural effusion or pneumothorax. HEART AND MEDIASTINUM: The cardiomediastinal silhouette is unremarkable. BONES AND SOFT TISSUES: No acute osseous lesion. Soft tissues are unremarkable. UPPER ABDOMEN: No free air under the diaphragm. IMPRESSION: No definite focal consolidation. Signed by: Dr. Patrick Boss MD on 10/13/2018 5:33 PM
[2018-10-13] MEDS ORDERED: KETOROLAC TROMETHAMINE 30 MG/ML VIAL IV ONE (18:00)
[2018-10-13 18:31] VITALS: BP 165/92
== END 2018-10-13 18:33 | disposition home or self-care (01) ==
LOC: ER 16:27
DX: R07.89 Other chest pain (principal); I10 Essential (primary) hypertension; I25.10 Atherosclerotic heart disease of native coronary artery without angina pectoris; I25.2 Old myocardial infarction
CPT/HCPCS: 36415; 71045; 80053; 80307; 80320; 80329 ×2; 81001; 82550; 82553; 84484; 85025; 85610; 85730; 87086; 93005; 99284; J1885

== ENCOUNTER 2018-10-25 10:55 | Emergency (ER) | payer SELFPAY ==
[~2018-10-25] VITALS: Ht 182.9 cm; Wt 113.4 kg
--- OUTSIDE RECORDS SUMMARY | 2018-10-25 10:59 | XMS REPORT | Clinical Summary ---
Author Author [facility] Organization [facility] Address Unknown Phone Unavailable Care Team Providers Care Warehouse Clerk Name Role Phone PCP Unavailable Allergies No Known Allergies Medications End Date Status Medication Sig Dispensed Refills Start Date Active atorvastatin (LIPITOR) 40 Take 1 tablet 90 tablet 2 mg tabletIndications: by mouth at 9 Cerebrovascular accident bedtime (CVA) due to occlusion of nightly. left vertebral artery Active aspirin (ASPIRIN) 81 mg Chew and 30 tablet 2 chewable swallow 1 9 tabletIndications: tablet by Cerebrovascular accident mouth daily. (CVA) due to occlusion of left vertebral artery Active sennosides-docusate Take 1 tablet 30 tablet 2 sodium (SENNA PLUS) by mouth 9 8.6-50 mg daily. tabletIndications: Iron deficiency anemia, unspecified iron deficiency anemia type Active ferrous sulfate 325 mg Take 1 tablet 30 tablet 2 (65 mg iron) by mouth 9 tabletIndications: Iron daily. deficiency anemia, unspecified iron deficiency anemia type Active lisinopril (PRINIVIL, Take 1 tablet 90 tablet 2 ZESTRIL) 10 mg by mouth 9 tabletIndications: daily. Essential hypertension 08/23/2018 Discontinued aspirin (ASPIRIN) 81 mg Chew [...] to occlusion of nightly. left vertebral artery 10/23/2018 Discontinued aspirin (ASPIRIN) 81 mg Chew and 30 tablet 2 chewable swallow 1 9 tabletIndications: tablet by Cerebrovascular accident mouth daily. (CVA) due to occlusion of left vertebral artery 10/23/2018 Discontinued atorvastatin (LIPITOR) 40 Take 1 tablet 90 tablet 2 mg tabletIndications: by mouth at 9 Cerebrovascular accident bedtime (CVA) due to occlusion of nightly. left vertebral artery 10/23/2018 Discontinued ferrous sulfate 325 mg Take 1 tablet 30 tablet 2 (65 mg iron) by mouth 9 tabletIndications: Iron daily. deficiency anemia, unspecified iron deficiency anemia type 10/23/2018 Discontinued lisinopril (PRINIVIL, Take 1 tablet 90 tablet 2 ZESTRIL) 10 mg by mouth 9 tabletIndications: daily. Essential hypertension 10/23/2018 Discontinued sennosides-docusate Take 1 tablet 30 tablet 2 sodium (SENNA PLUS) by mouth 9 8.6-50 mg daily. tabletIndications: Iron deficiency anemia, unspecified iron deficiency anemia type Active Problems Problem Noted Date Cardiac arrest 08/08/2018 Falls frequently Cerebrovascular accident (CVA) Cervical stenosis of spinal canal Myelopathy History of cardiac arrest Clonus Essential hypertension Resolved Problems Problem Noted Date Resolved Date Chest pain 10/22/2018 10/22/2018 Encounters Care Team Description Date Type Specialty Brenda Orellana MD Fadial, MD Nancy Trujillo Jennifer L, MD Chest pain, unspecified type (Primary Dx); Cocaine abuse; Cerebrovascular accident (CVA) due to occlusion of left vertebral artery; Iron deficiency anemia, unspecified iron deficiency anemia type; Essential hypertension; Falls frequently; Cervical stenosis of spinal canal; History of cardiac arrest; Myelopathy; Clonus 10/22/2018 Emergency - 10/23/2018 10/22/2018 Travel Laurel Tavares MD Fadial, Tom, MD Chest pain, unspecified type (Primary Dx) 10/12/2018 Emergency Emergency Medicine - 10/13/2018 10/12/2018 Travel 10/03/2018 Travel Douglas Manning MD Cervical stenosis of spinal canal (Primary Dx); Falls frequently; Clonus 10/02/2018 Emergency Emergency Medicine - 10/03/2018 10/02/2018 Travel Yumiko Arellano 08/29/2018 Clinical Case Social Work Mgt Misael Evasalome Machado 08/26/2018 Clinical Case Social Work Mgt Brenda Orellana MD Guttenberg, Katie B, MD Gutierrez, Absalon D, MD Falls frequently (Primary Dx); Cerebrovascular accident (CVA), unspecified mechanism; Iron deficiency anemia, unspecified iron deficiency anemia type; Cerebrovascular accident (CVA) due to occlusion of left vertebral artery; Cervical stenosis of spinal canal; Myelopathy; History of cardiac arrest; Essential hypertension 08/21/2018 Emergency - 08/23/2018 08/21/2018 Travel after 10/24/2017 Social History Date Tobacco Use Types Packs/Day Years Used Never Assessed Sex Assigned at Date Recorded Not on file Industry Job Start Date Occupation Not on file Not on file Not on file Travel End Travel History Travel Start No recent travel history available. Last Filed Vital Signs Reading Time Taken Comments Vital Sign 141/86 10/23/2018 9:10 AM CDT Blood Pressure 69 10/23/2018 9:10 AM CDT Pulse 36.7 C (98 F) 10/23/2018 9:10 AM CDT Temperature 18 10/23/2018 9:10 AM CDT Respiratory Rate 94% 10/23/2018 9:10 AM CDT Oxygen Saturation - - Inhaled Oxygen Concentration 108.9 kg (240 lb) 10/22/2018 2:33 PM CDT Weight 185.4 cm (6' 1") 10/22/2018 2:33 PM CDT Height 31.66 10/22/2018 2:33 PM CDT Body Mass Index Plan of Treatment Health Maintenance Due Date Last Done Comments Colorectal Cancer Scrn 08/13/2013 Annual (FIT/FOBT) Age 50 to 75 IMM Influenza Seasonal 11/29/2018 Oct to April (>/=19 yrs) Procedures Comments Procedure Name Priority Date/Time Associated Diagnosis GLUCOSE POC Routine 10/23/2018 7:44 AM CDT CONSULT CLINICAL CASE Routine 10/23/2018 MANAGEMENT (RN/SW) 7:41 AM CDT GLUCOSE POC Routine 10/22/2018 8:47 PM CDT URINE DRUG SCREEN Routine 10/22/2018 7:06 PM CDT GLUCOSE POC Routine 10/22/2018 4:20 PM CDT CONSULT CLINICAL CASE Routine 10/22/2018 MANAGEMENT (RN/SW) 3:39 PM CDT TROPONIN I POC Routine 10/22/2018 12:30 PM CDT CBC Routine 10/22/2018 12:20 PM CDT LIPID PROFILE Routine 10/22/2018 12:20 PM CDT TROPONIN I Routine 10/22/2018 12:20 PM CDT COMPREHENSIVE METABOLIC Routine 10/22/2018 PANEL 12:20 PM CDT CBC/DIFF Routine 10/22/2018 12:20 PM CDT ABO/RH CONFIRMATION STAT 10/22/2018 12:20 PM CDT 12 LEAD EKG Routine 10/22/2018 6:55 AM CDT BMP POC Routine 10/22/2018 3:57 AM CDT TROPONIN I POC Routine 10/22/2018 3:56 AM CDT TYPE & SCREEN STAT 10/22/2018 3:09 AM CDT CBC STAT 10/22/2018 3:09 AM CDT TYPE AND SCREEN STAT 10/22/2018 3:09 AM CDT CBC/DIFF STAT 10/22/2018 3:09 AM CDT XRAY CHEST 2 VIEWS STAT 10/22/2018 Chest pain, unspecified 3:02 AM CDT type 12 LEAD EKG Routine 10/22/2018 1:19 AM CDT CONSULT CLINICAL CASE STAT 10/13/2018 MANAGEMENT (RN/SW) [...] EKG Routine 08/21/2018 2:19 PM CDT after 10/24/2017 Results * GLUCOSE POC (10/23/2018 7:44 AM CDT) Only the most recent of 3 results within the time period is included. Glucose POC 163 (H) 74 - 106 mg/dL [facility] Specimen Blood Performing Organization Address [facility] Phone Number [facility] [address] [place] [address] * URINE DRUG SCREEN (10/22/2018 7:06 PM CDT) Only the most recent of 2 results within the time period is included. Opiate, Ur Negative Negative [facility] Comment: Calibrated Standard: Morphine Positive if urine level > rb=128 ng/dL Amphetamine Negative Negative [facility] Comment: Calibrated Standard: D-Methamphetamine Positive if urine level > ur=0314 ng/mL Barbiturate Negative Negative [facility] Comment: Calibrated Standard: Secobarbital Positive if urine level is > pr=320 ng/mL Benzodiazepine Negative Negative [facility] Comment: Calibrated Standard: Lormethazepam Positive if urine level is > tc=360 ng/mL Cocaine Negative Negative [facility] Comment: Calibrated Standard: Benzoylecgonine Positive if urine level > yp=474 ng/dL PCP Negative Negative [facility] Comment: Calibrated Standard: Phencyclidine Positive if urine level > or=25 ng/dL Cannabinoid Negative Negative [facility] Comment: Calibrated Standard: 11 nor-delta(9)-THC carboxylic acid Positive if urine level > or=50 ng/mL Specimen Urine - Voided, urine Performing Organization Address [facility] Phone Number [facility] [address] [place] [address] * TROPONIN I POC (10/22/2018 12:30 PM CDT) Only the most recent of 6 results within the time period is included. Troponin POC 0.01 0.00 - 0.08 ng/mL [facility] Specimen Blood, venous Performing Organization Address City/[facility] Phone Number [facility] [address] [place] [address] * CBC (10/22/2018 12:20 PM CDT) Only the most recent of 6 results within the time period is included. WBC 8.2 4.5 - 12.0 K/uL [facility] RBC 4.16 (L) 4.60 - 6.20 M/uL [facility] Hemoglobin 11.5 (L) 14.0 - 18.0 g/dL [facility] Hematocrit 36.5 (L) 40.0 - 54.0 % [facility] MCV 87.7 82.0 - 92.0 fL [facility] MCH 27.6 27.0 - 31.0 pg [facility] MCHC 31.5 (L) 32.0 - 36.0 g/dL [facility] RDW 48.3 (H) 35.1 - 43.9 fL [facility] Platelet 326 150 - 400 K/uL [facility] Mean Platelet 11.4 9.4 - 12.4 fL [facility] Volume Percent NRBC 0.0 % [facility] Neutrophil 61.2 34.0 - 67.9 % [facility] Lymphs 26.7 21.8 - 50.0 % [facility] Monocytes 7.6 5.3 - 12.0 % [facility] Eos 3.5 0.8 - 5.0 % [facility] Basos 0.8 0.2 - 1.2 % [facility] Immature 0.2 0.0 - 0.5 % [facility] Granulocytes Neutrophils 5.03 1.78 - 5.36 K/uL [facility] (Absolute) Lymphs 2.20 1.32 - 3.57 K/uL [facility] (Absolute) Monocytes(Absol 0.63 0.30 - 0.82 K/uL [facility] ekuk) Eos (Absolute) 0.29 0.04 - 0.54 K/uL [facility] Baso (Absolute) 0.07 0.01 - 0.08 K/uL [facility] Immature Grans 0.02 0.00 - 0.03 K/uL [facility] (Abs) Absolute NRBC 0.00 K/uL [facility] Specimen Blood Performing Organization Address City/State/Zipcode Phone Number [facility] [address] [place] [address] * ABO/RH CONFIRMATION (10/22/2018 12:20 PM CDT) [facility] ABORH O POS [facility] Specimen Blood Performing Organization Address [facility]/Zipcode Phone Number [facility] [address] [place] [address] * COMPREHENSIVE METABOLIC PANEL (10/22/2018 12:20 PM CDT) Only the most recent of 3 results within the time period is included. [facility] Sodium 137 136 - 145 mmol/L [facility] Potassium 4.3 3.5 - 5.1 mmol/L [facility] Chloride 104 98 - 107 mmol/L [facility] CO2 28 21 - 31 mmol/L [facility] Glucose 101 70 - 110 mg/dL [facility] Calcium, Total 9.2 8.6 - 10.3 mg/dL [facility] Urea Nitrogen 21.0 7.0 - 25.0 mg/dL [facility] Creatinine 0.9 0.7 - 1.3 mg/dL [facility] Alkaline 96 34 - 104 U/L [facility] Phosphatase ALT 13 7 - 52 U/L [facility] AST 12 (L) 13 - 39 U/L [facility] Total Bilirubin 0.5 0.2 - 1.2 mg/dL [facility] Total Protein 6.9 6.0 - 8.3 g/dL [facility] GFR, Estimated 88 (L) >=90 mL/min/1.73 m2 [facility] Albumin 4.2 4.2 - 5.5 g/dL [facility] Anion Gap 5 5 - 16 mmol/L [facility] Specimen Blood Performing Organization Address City/[facility]/Zipcode Phone Number [facility] [address] [place] [address] * TROPONIN I (10/22/2018 12:20 PM CDT) [facility] Troponin I <0.03 <0.04 ng/mL [facility] Specimen Blood Performing Organization Address City/[facility]/Zipcode Phone Number [facility] [address] [place] [address] * LIPID PROFILE (10/22/2018 12:20 PM CDT) Only the most recent of 2 results within the time period is included. Cholesterol 142.0 <=200.0 mg/dL [facility] Triglyceride 79 <150 mg/dL [facility] HDL 33.0 See Reference Range [facility] Narrative. mg/dL LDL 93 <100 mg/dL [facility] Comment: Optimal: < 100.0 mg/dL Near Optimal: 120-129 mg/dL Borderline: 130-159 mg/dL High: 160-189 mg/dL Very High: >=190 mg/dL Patient No [facility] Fasting? Specimen Blood Narrative Performed At Patient is not fasting. For a triglyceride result greater than 440 mg/dL, [facility] consider re-testing when the patient is in a fasting state. Performing Organization Address City/[facility]/Zipcode Phone Number [facility] [address] [place] [address] * 12 LEAD EKG (10/22/2018 6:55 AM CDT) Pathologist [facility] 12 LEAD EKG FOR [facility] Test Date:2018-10-22 Pat Name: PONCE Monte ent: Room: Gender: Telephonic Nurse: AHSAN :[id number] 6-15 Requested By: BRENDA Wang Order Number: [id number] Reading MD: Guero Artis Measurements Intervals [place] Rate: 66 P:2 [place]: 193 QRS: -5 QRSD: 122 T: 19 QT: 416 QTc:437 Interpretive Statements SINUS RHYTHM MODERATE INTRAVENTRICULAR CONDUCTION DELAY [110+ ms QRS DURATION] Electronically Signed On 10-22-2018 8:28:23 CDT by Guero Artis Specimen Performing Organization Address City/[facility] Phone Number SMS * BMP POC (10/22/2018 3:57 AM CDT) Only the most recent of 5 results within the time period is included. Sodium POC 138 136 - 145 mmol/L [facility] Potassium POC 3.8 3.5 - 5.1 mmol/L [facility] Chloride POC 107 98 - 107 mmol/L [facility] TCO2 POC 21 21 - 32 mmol/L [facility] Urea Nitrogen 24 (H) 7 - 18 mg/dL [facility] POC Creatinine POC 1.0 0.6 - 1.3 mg/dL [facility] Glucose POC 104 74 - 106 mg/dL [facility] Ionized Calcium 1.01 (L) 1.15 - 1.29 mmol/L [facility] POC GFR, Estimated, >90 >=90 mL/min/1.73 m2 [facility] -Mary n GFR, Estimated 84 (L) >=90 mL/min/1.73 m2 [facility] Hemoglobin POC 12.2 12 - 16 g/dL [facility] Hematocrit POC 36.0 (L) 37.0 - 47.0 % [facility] Specimen Blood, venous Performing Organization Address [facility] Phone Number [facility] [address] [place] [address] * TYPE & SCREEN (10/22/2018 3:09 AM CDT) Specimen 10/25/2018 23:59 [facility] Expiration ABORH O POS [facility] Antibody Screen NEG [facility] Specimen Blood Performing Organization Address [facility] Phone Number [facility] [address] [place] [address] * XRAY CHEST 2 VIEWS (10/22/2018 3:02 AM CDT) Only the most recent of 3 results within the time period is included. Specimen Impressions Performed At IMPRESSION:No acute cardiopulmonary abnormality. SMS Signed By: Vernon Barfield MD, 10/22/2018 3:13 AM Narrative Performed At EXAM: XR CHEST 2 VIEWS SMS DATE:10/22/2018 2:51 AM INDICATION: Chest pain COMPARISON: 10/12/2018 TECHNIQUE: 2 views of the chest DISCUSSION: No pulmonary or pleural-based abnormality is identified. Pulmonary vascularity is normal. The heart size is normal. No acute bony abnormality is identified. Old, healed rib fractures are present on the right. Procedure Note Interface, Rad/Mammog In - 10/22/2018 3:27 AM CDT EXAM: XR CHEST 2 VIEWS DATE: 10/22/2018 2:51 AM INDICATION: Chest pain COMPARISON: 10/12/2018 TECHNIQUE: 2 views of the chest DISCUSSION: No pulmonary or pleural-based abnormality is identified. Pulmonary vascularity is normal. The heart size is normal. No acute bony abnormality is identified. Old, healed rib fractures are present on the right. IMPRESSION IMPRESSION: No acute cardiopulmonary abnormality. Signed By: Vernon Barfield MD, 10/22/2018 3:13 AM Performing Organization Address [facility] Phone Number SMS * 12 LEAD EKG (10/22/2018 1:19 AM CDT) 12 LEAD EKG FOR [facility] Jonny Wood [facility] Test Date:2018-10-22 Pat Name: PONCE Monte ent: Room: Gender: M Telephonic Nurse: [id number] :[birth year] Requested By: ZAIN VARGAS Order Number: [id number] Reading MD: Guero Artis Measurements Intervals [place] Rate: 66 P:14 [place]: 181 QRS: -3 QRSD: 113 T: 36 QT: 402 QTc:423 Interpretive Statements SINUS RHYTHM POSSIBLE LEFT ATRIAL ENLARGEMENT [-0.1mV P WAVE IN V1/V2] MODERATE INTRAVENTRICULAR CONDUCTION DELAY [110+ ms QRS DURATION] Electronically Signed On 10-22-2018 8:28:16 CDT by Guero Artis Specimen Performing Organization Address [facility] Phone Number SMS * 12 LEAD EKG (10/12/2018 11:15 PM CDT) 12 LEAD EKG FOR [facility] Jonny Wood [facility] Test Date:2018-10-12 Pat Name: PONCE Monte ent: Room: Gender: M Telephonic Nurse: :08-13 Requested By: LAUREL Sanderson Order Number: [id number] Reading MD: Renato HARE Measurements Intervals [place] Rate: 61 P:11 [place]: 183 QRS: -15 QRSD: 117 T: 30 QT: 423 QTc:426 Interpretive Statements SINUS RHYTHM MODERATE INTRAVENTRICULAR CONDUCTION DELAY [110+ ms QRS DURATION] Poor anterior R wave progression Borderline ECG Electronically Signed On 10-13-2018 10:01:18 CDT by Renato HARE Specimen Performing Organization Address City/[facility] Phone Number SMS * LIVER PROFILE (10/12/2018 9:57 PM CDT) [...] [facility] Specimen Blood Performing Organization Address [facility] Phone Number [facility] [address] [place], [place] [address] * LIPASE (10/12/2018 9:57 PM CDT) Only the most recent of 2 results within the time period is included. Lipase 19 11 - 82 U/L [facility] Specimen Blood Performing Organization Address [facility] Phone Number [facility] [address] [place] [address] * 12 LEAD EKG (10/12/2018 5:33 PM CDT) 12 LEAD EKG FOR [facility] Test Date:2018-10-12 Pat Name: PONCE Monte ent: Room: Gender: Telephonic Nurse: [place] :[id number] 6-15 Requested By: DIMITRIS Adamson Order Number: [id number] Reading MD: Renato HARE Measurements Intervals [place] Rate: 72 P:54 [place]: 167 QRS: -4 QRSD: 106 T: 46 QT: 387 QTc:424 Interpretive Statements SINUS RHYTHM Normal ECG Electronically Signed On 10-12-2018 20:00:47 CDT by Renato HARE Specimen Performing Organization Address [facility] Phone Number SMS * MRI LUMBAR SPINE W/O CONTRAST (10/03/2018 1:24 AM CDT) Specimen Impressions Performed At IMPRESSION: [facility] 1.Exam quality is very limited due [...] Suggestion of synovial cysts at L4-L5. This [facility] radiology report is a preliminary resident [...] Suggestion of synovial cysts at L4-L5. This [facility] radiology report is a preliminary resident [...] AM CDT) Specimen Impressions Performed At IMPRESSION: [facility] 1.Exam quality is very limited due [...] Suggestion of synovial cysts at L4-L5. This [facility] radiology report is a preliminary resident [...] Suggestion of synovial cysts at L4-L5. This [facility] radiology report is a preliminary resident [...] At EXAM: MRI CERVICAL SPINE WITHOUT CONTRAST [facility] EXAM: MRI THORACIC SPINE WITHOUT CONTRAST [...] Suggestion of synovial cysts at L4-L5. This [facility] radiology report is a preliminary resident dictation until finalized by an attending. Changes to this preliminary report may occur in an additional preliminary or finalized version. Dictated By: Sunil Dotson MD, 10/03/2018 2:12 AM I have reviewed the study and agree with the findings in this report. Signed By: Nany Stevens MD, 10/03/2018 7:59 AM Performing Organization Address City/State/[facility] Phone Number SMS * MRI BRAIN W/O CONTRAST (10/02/2018 5:57 PM CDT) Specimen Impressions Performed At IMPRESSION:Motion degraded limited study. SMS No acute abnormality. This [facility] radiology report is a preliminary resident [...] degraded limited study. No acute abnormality. This [facility] radiology report is a preliminary resident dictation until finalized by an attending. Changes to this preliminary report may occur in an additional preliminary or finalized version. I have reviewed the study and agree with the findings in this report. Signed By: Cyndi Ackerman MD, 10/02/2018 6:08 PM Performing Organization Address City/State/Zipcode Phone Number SMS * PHOSPHORUS (10/02/2018 8:51 AM CDT) Only the most recent of 4 results within the time period is included. Phosphorus 4.4 2.5 - 5.0 mg/dL [facility] Specimen Blood Performing Organization Address City/State/[facility] Phone Number [facility] [address] [place] [address] * MAGNESIUM (10/02/2018 8:51 AM CDT) Only the most recent of 4 results within the time period is included. Magnesium 2.1 1.9 - 2.7 mg/dL [facility] Specimen Blood Performing Organization Address [facility] Phone Number [facility] [address] [place] [address] * CALCIUM, IONIZED (10/02/2018 8:51 AM CDT) Only the most recent of 3 results within the time period is included. Calcium, 1.12 (L) 1.15 - 1.29 mmol/L [facility] Ionized Specimen Blood Performing Organization Address [facility] Phone Number [facility] [address] [place] [address] * 12 LEAD EKG (10/02/2018 6:57 AM CDT) 12 LEAD EKG FOR [facility] Test Date:2018-10-02 Pat Name: PONCE Monte ent: Room: Gender: M Telephonic Nurse: [id number] :08-13 Requested By: DIMITRIS Adamson Order Number: [id number] Reading MD: Renato HARE Measurements Intervals [place] Rate: 96 P:57 [place]: 172 QRS: -1 QRSD: 106 T: 51 QT: 363 QTc:459 Interpretive Statements SINUS RHYTHM POSSIBLE LEFT ATRIAL ENLARGEMENT Borderline ECG Electronically Signed On 10-02-2018 12:56:03 CDT by Renato HARE Specimen Performing Organization Address [facility] Phone Number [facility] * TRANSTHORACIC ECHO (TTE) (08/22/2018 10:53 AM CDT) Pathologist [facility] TRANSTHORACIC Transthoracic [facility] ECHO (TTE) Echo Report PONCE KENDRICK Age:53 Gender: M :1965 Exam Date: 08/22/2018 10:53 Exam Location: [facility] Echo Ordering Phys: JONATHAN WARD Referring Phys:SYLVIA Mars Reading Phys:Cristina Blair M.D. Fellow Phys: Anuja Smith M.D. Fellow Phys: Gas Welder: Chuck Newberry Reason For Exam: Indications: per neurology recs s/p stroke, rule out emboli ICD-9 Codes: Exam Type: TRANSTHORACIC ECHO (TTE) Procedure CPT:53611 Addtional CPT: Ht (in): 72 BSA: 2.44HR: [...] BP 76.6 cm LV Cardiac Output MOD [id number] cm/min LV Cardiac Index MOD BP 2138 cm/minm LA Volume 33 cm LA Volume Index 13.5 cm/m 16 - 34 cm/m LV Mass by linear [id number] g LV Mass by linear method [id number] g/m DOPPLER AV Peak Velocity 142 cm/s [...] E to A Ratio 1.3 MV Deceleration Vilas 456 cm/s MV Pressure Half Time 64 [...] BP 76.6 cm LV Cardiac Output MOD [id number] cm/min LV Cardiac Index MOD BP 2138 cm/minm LA Volume 33 cm LA Volume Index 13.5 cm/m 16 - 34 cm/m LV Mass by linear [id number] g LV Mass by linear method [id number] g/m DOPPLER AV Peak Velocity 142 cm/s [...] E to A Ratio 1.3 MV Deceleration Vilas 456 cm/s MV Pressure Half Time 64 [...] cm/s >9.5 cm/s Specimen Performing Organization Address [facility] Phone Number [facility] [facility] * FERRITIN (08/22/2018 2:15 AM CDT) [facility] Ferritin 131.3 23.9 - 336.2 ng/mL [facility] Specimen Blood Performing Organization Address [facility] Phone Number [facility] [address] [place] [address] * HEMOGLOBIN A1C (08/22/2018 2:13 AM CDT) Only the most recent of 2 results within the time period is included. [facility] Hemoglobin A1c 5.9 4.3 - 6.1 % [facility] Estimated 123 (H) 70 - 110 mg/dL [facility] Average Glucose Specimen Blood Performing Organization Address [facility] Phone Number [facility] [address] [place] [address] * IRON PROFILE (08/22/2018 2:13 AM CDT) [facility] Iron 35 (L) 50 - 212 ug/dL [facility] TIBC 343 250 - 450 ug/dL [facility] % Iron Sat 10 % [facility] Transferrin 244.80 203.00 - 362.00 [facility] mg/dL [facility] Specimen Blood Performing Organization Address [facility] Phone Number [facility] [address] [place] [address] * CTA NECK W CONTRAST (08/21/2018 5:29 PM CDT) Specimen Impressions Performed At IMPRESSION: [facility] Motion degraded exam. Low-attenuation mural plaque [...] distal internal carotid artery {NASCET criteria}.) This [facility] radiology report is a preliminary resident [...] distal internal carotid artery {NASCET criteria}.) This [facility] radiology report is a preliminary resident dictation until finalized by an attending. Changes to this preliminary report may occur in an additional preliminary or finalized version. I have reviewed the study and agree with the findings in this report. Signed By: Billy Bradley MD, 08/21/2018 8:17 PM Performing Organization Address [facility] Phone Number SMS * CTA HEAD W CONTRAST (08/21/2018 5:29 PM CDT) Specimen Impressions Performed At IMPRESSION: [facility] Motion degraded exam. Low-attenuation mural plaque [...] distal internal carotid artery {NASCET criteria}.) This [facility] radiology report is a preliminary resident [...] distal internal carotid artery {NASCET criteria}.) This [facility] radiology report is a preliminary resident [...] for further evaluation as clinically warranted. This [facility] radiology report is a preliminary resident [...] Performed At EXAM: CT BRAIN WITHOUT CONTRAST [facility] DATE: 08/21/2018 5:15 PM INDICATION: Ataxia, [...] for further evaluation as clinically warranted. This [facility] radiology report is a preliminary resident [...] MD, 08/21/2018 8:23 PM Performing Organization Address City/[facility]/Zipcode Phone Number [facility] * VBG POC (08/21/2018 4:16 PM [...] mmol/L [facility] POC Sample Type IVEN [facility] Lactic Acid POC 0.91 0.40 - 2.00 mmol/L [facility] % Sat, Hipolito POC 62 % [facility] Specimen Blood, venous Performing Organization Address City/[facility]/Zipcode Phone Number [facility] [address] [place] [address] * 12 LEAD EKG (08/21/2018 2:19 PM CDT) 12 LEAD [facility] Date:2018-08-21 Pat Name: PONCE PADILLAAureliomonster ent: Room: [facility] Gender: Telephonic Nurse: :[id number] 08-13 Requested By: MILADYS Sanderson Order Number: [id number] Reading MD: Guero Artis Measurements Intervals [place] Rate: 74 P:12 [place]: 167 QRS: -11 QRSD: 109 T: 61 QT: 386 QTc:430 Interpretive Statements SINUS RHYTHM NONSPECIFIC T-WAVE ABNORMALITY Poor R Wave Progression Left Atrial Enlargement Electronically Signed On 08-22-2018 17:49:34 CDT by Guero Artis Specimen Performing Organization Address City/State/Zipcode Phone Number SMS after 10/24/2017 Insurance Type Payer Benefit Subscriber ID Effective Phone Address Plan / Dates Group HC SELF-PAY SELF-PAY xxxxxxxxx 2018- [phone] [facility] [place] [address] Advance Directives Date Inactivated Comments Code Status Date Activated 10/23/2018 11:39 AM Full Code 10/22/2018 11:44 AM 08/23/2018 4:42 PM Full Code 08/21/2018 8:53 PM
--- OUTSIDE RECORDS SUMMARY | 2018-10-25 11:00 | XMS REPORT | Clinical Summary ---
Author Author [facility] Address Unknown Phone Unavailable Care Team Providers Care Manager Automotive Name Role Phone Asked, No Pcp PCP [...] (HCC) (Primary Dx); Ventricular tachycardia (HCC) 08/08/2018 [facility] General Internal Medicine - Encounter 08/19/2018 after 10/24/2017 Social History Date Tobacco Use [...] Signs Reading Time Taken Comments Vital Sign 173/95 10/05/2018 1:53 PM CDT Blood Pressure 86 10/05/2018 1:53 PM CDT Pulse 36.7 C (98.1 F) 10/05/2018 1:53 PM CDT Temperature 18 10/05/2018 1:53 PM CDT Respiratory Rate 98% 10/05/2018 1:53 PM CDT Oxygen Saturation - - Inhaled Oxygen Concentration 113 kg (250 lb) 10/05/2018 10:59 AM CDT Weight 188 cm (6' 2") 10/05/2018 10:59 AM CDT Height 32.1 10/05/2018 10:59 AM CDT Body Mass Index Plan of [...] & Routine 08/08/2018 ANAEROBIC 4:18 PM CDT AK INSERT Routine 08/08/2018 Cardiac arrest (HCC) CATH,ART,PERCUT,SHORTTERM [...] MMODE SPECTRAL 12:50 PM CDT COLOR DOPPLER (10684) BLOOD CULTURE, AEROBIC & Routine 08/08/2018 ANAEROBIC [...] PRELIMINARY Routine 08/08/2018 INTERPRETATION 10:07 AM CDT AK CRITICAL CARE, E/M Routine 08/08/2018 30-74 MINUTES 10:07 AM CDT AK INSERT NON-TUNNEL CV Routine 08/08/2018 CATH 10:07 [...] GLUCOSE Routine 08/08/2018 9:11 AM CDT after 10/24/2017 Results * ECG ED Preliminary Interpretation - Not an Order (10/05/2018 12:34 PM CDT) Only the most recent of 2 results within the time period is included. Narrative Performed At Maicol Carvajal MD 10/05/20182:26 PM ECG ED Preliminary Interpretation - Not an Order Performed by: Maicol Carvajal MD Authorized by: Maicol Carvajal MD ECG reviewed by ED Physician in the absence of a cableway operator: yes Interpretation: Interpretation: normal Rate: ECG rate:79 ECG rate assessment: normal Rhythm: Rhythm: sinus rhythm Ectopy: Ectopy: none QRS: QRS axis:Normal QRS intervals:Normal Conduction: Conduction: normal ST segments: ST segments:Normal T waves: T waves: normal * Estimated GFR (10/05/2018 12:09 PM CDT) Only the most recent of 18 results within the time period is included. [facility] Estimated GFR 84 mL/min/1.73 m2 [place] Comment: [facility] G1 >=90 Normal or high G2 60-89Mildly decreased [id number] Mildly to moderately decreased [id number] Moderately to severely decreased G4 15-29Severely decreased G5 <15Kidney failure The eGFR was calculated using the Chronic Kidney Disease Epidemiology Collaboration (CKD-EPI) equation. Interpretation is based on recommendations of the National Kidney Foundation-Kidney Disease Outcomes Quality Initiative (NKF-KDOQI) published in 2014. Specimen Plasma specimen Performing Organization Address City/[facility]/Zipcode Phone Number [facility] [address] [place] [address] PATHOLOGY AND [employer] MEDICINE [address] * Troponin (10/05/2018 12:09 PM CDT) Only the most recent of 8 results within the time period is included. [facility] Troponin <0.006 0.000 - 0.040 ng/mL [place] Comment: [facility] changed methodology effective: HOSPITAL 07/05/2018 at 10:00 am The new method has a 99th percentile cutoff of 0.040 ng/mL Specimen Plasma specimen Performing Organization Address City/[facility]/Zipcode Phone Number [facility] [address] [place] [address] PATHOLOGY AND [employer] MEDICINE [place] [phone] [address] * CBC with platelet and differential (10/05/2018 12:09 PM CDT) Only the most recent of 15 results within the time period is included. Pathologist [facility] WBC 9.7 4.2 - 11.0 k/uL [facility] RBC 3.86 (L) 4.04 - 5.86 m/uL [facility] HGB 10.9 (L) 13.0 - 17.3 g/dL [facility] HCT 33.9 (L) 34.0 - 45.0 % [facility] MCV 87.8 80.0 - 98.0 fL [facility] MCH 28.2 27.0 - 34.0 pg [facility] MCHC 32.2 31.5 - 36.5 g/dL [facility] RDW - SD 49.5 37.0 - 51.0 fL [facility] MPV 10.9 (H) 7.4 - 10.4 fL [facility] Platelet count 271 150 - 400 k/uL [facility] Nucleated RBC 0.00 /100 WBC [facility] Neutrophils 61.0 36.0 - 66.0 % [facility] Lymphocytes 25.7 24.0 - 44.0 % [facility] Monocytes 8.2 (H) 0.0 - 6.0 % [facility] Eosinophils 4.0 0.0 - 6.0 % [facility] Basophils 0.9 0.0 - 1.2 % [facility] Immature 0.2 0.0 - 1.0 % [place] granulocytes [facility] Specimen Blood Performing Organization Address City/State/Zipcode Phone Number [facility] [address] [place] [address] PATHOLOGY AND GENOMIC MEDICINE [facility] [address] [place] [address] HOSPITAL * B natriuretic peptide (10/05/2018 12:09 PM CDT) Only the most recent of 4 results within the time period is included. Pathologist [facility] BNP 17 0 - 100 pg/mL [facility] Specimen Blood Performing Organization Address City/State/Zipcode Phone Number [facility] [address] [place] [address] PATHOLOGY AND GENOMIC MEDICINE [facility] [address] * Magnesium level (10/05/2018 12:09 PM CDT) Only the most recent of 14 results within the time period is included. Pathologist [facility] Magnesium 2.10 1.60 - 2.60 mg/dL [facility] Specimen Plasma specimen Performing Organization Address City/[facility]/Zipcode Phone Number [facility] [address] [place] [address] PATHOLOGY AND GENOMIC MEDICINE [address] * Comprehensive metabolic panel (10/05/2018 12:09 PM CDT) Only the most recent of 12 results within the time period is included. Pathologist [facility] Sodium 140 135 - 150 mEq/L [facility] Potassium 3.6 3.5 - 5.0 mEq/L [facility] Chloride 105 98 - 112 mEq/L [facility] CO2 25 24 - 31 mmol/L [facility] Anion gap 10@ANIO 7 - 15 mEq/L [facility] BUN 19 (H) 7 - 18 mg/dL [facility] Creatinine 1.00 0.70 - 1.20 mg/dL [facility] Glucose 100 65 - 100 mg/dL [facility] Calcium 9.1 8.3 - 10.2 mg/dL [facility] Protein 7.3 6.3 - 8.3 g/dL [facility] Albumin 3.8 3.5 - 5.0 g/dL [facility] A/G ratio 1.1 0.7 - 3.8 [facility] Alkaline 111 0 - 129 U/L [place] phosphatase [facility] AST 15 10 - 50 U/L [facility] ALT 26 5 - 50 U/L [facility] Total bilirubin 0.3 0.2 - 1.2 mg/dL [facility] Specimen Plasma specimen Performing Organization Address City/State/Zipcode Phone Number [facility] [address] [place] [address] PATHOLOGY AND GENOMIC MEDICINE [facility] [address] [place] [address] HOSPITAL * XR Chest 1 Vw Portable [...] osseous lesions. Incompletely healed right rib fractures. [id number] Procedure Note Hm Interface, Radiology Results Incoming - 10/05/2018 1:20 PM CDT EXAMINATION: XR CHEST 1 VW PORTABLE CLINICAL HISTORY: weakness SOB COMPARISON: August 11, 2018 IMPRESSION: Lines: None Lungs and pleura: No consolidations. No pleural effusion or pneumothorax. Heart and mediastinum: Stable appearance of cardiomediastinal silhouette. Bones: No suspicious osseous lesions. Incompletely healed right rib fractures. [id number] Performing Organization Address City/[facility]/Zipcode Phone Number [facility] [address] [place] [address] * Urinalysis screen and microscopy, with reflex to culture (10/05/2018 11:40 AM CDT) Only the most recent of 2 results within the time period is included. Specimen site Clean catch [facility] Color, UA Yellow [facility] Appearance, UA Clear [facility] Specific 1.025 1.001 - 1.035 [place] gravity, UA [facility] pH, UA 5.0 5.0 - 8.5 [facility] Protein, UA Negative Negative [facility] Glucose, UA Negative Negative [facility] Ketones, UA Trace (A) Negative [facility] Bilirubin, UA Negative Negative [facility] Blood, UA Negative Negative [facility] Nitrite, UA Negative Negative [facility] Urobilinogen, Negative <2.0 [facility] Leukocyte Negative Negative [place] esterase, UA [facility] Epithelial Few /HPF [place] cells, UA [facility] WBC, UA 2 0 - 1 /HPF [facility] RBC, UA 2 0 - 5 /HPF [facility] Bacteria, UA None seen None seen [facility] Yeast, UA None seen [facility] Yeast with None seen [place] [facility] Hyaline casts, 1 /LPF [facility] Specimen Urine Performing Organization Address City/[facility] Facilitycode Phone Number [facility] [place] [address] PATHOLOGY AND GENOMIC MEDICINE [address] * Urine culture (10/05/2018 11:40 AM CDT) Only the most recent of 2 results within the time period is included. [facility] Urine culture SEE COMMENTComment: [place] Bacteriuria screen negative. [facility] Specimen Performing Organization Address City/[facility] Facilitycode Phone Number [facility] [place] [address] PATHOLOGY AND GENOMIC MEDICINE [address] * ECG 12 lead (10/05/2018 11:31 AM CDT) Only the most recent of 3 results within the time period is included. Ventricular 79 [facility] rate Atrial rate 79 [facility] AK interval 176 [facility] QRSD interval 110 [facility] QT interval 396 [facility] QTC interval 454 [facility] P axis 1 38 [facility] QRS axis 1 15 [facility] T wave axis 49 [facility] EKG impression Normal sinus rhythm-Normal [facility] MUSE ECG-- Specimen Narrative Performed At Performing Organization Address City/State/Zipcode Phone Number [facility] [address] [place] [address] * Basic metabolic panel (08/19/2018 7:16 AM CDT) Only the most recent of 6 results within the time period is included. Pathologist [facility] Sodium 138 135 - 150 mEq/L [facility] Potassium 3.8 3.5 - 5.0 mEq/L [facility] Chloride 96 (L) 98 - 112 mEq/L [facility] CO2 29 24 - 31 mmol/L [facility] Anion gap 13@ANIO 7 - 15 mEq/L [facility] BUN 24 (H) 7 - 18 mg/dL [facility] Creatinine 1.60 (H) 0.70 - 1.20 mg/dL [facility] Glucose 119 (H) 65 - 100 mg/dL [facility] Calcium 10.2 8.3 - 10.2 mg/dL [facility] Specimen Plasma specimen Performing Organization Address City/[facility]/[place] [address] PATHOLOGY AND GENOMIC MEDICINE [address] * Partial thromboplastin time, activated (08/18/2018 5:50 AM CDT) Only the most recent of 22 results within the time period is included. Pathologist [facility] PTT 34.4 23.0 - 36.0 sec [place] Comment: [facility] PTT therapeutic range for [place] unfractionated heparin is HOSPITAL 61.0-112.0 seconds which corresponds to Anti-Xa 0.3-0.7 U/ml. Note:Change in Panic Value The PTT Panic Value is changing from 110 sec. to 100 sec. due to new instrumentation and reagents. Correlation studies have been performed to validate this result. Specimen Blood Performing Organization Address City/[facility]/Zipcode Phone Number [facility] [address] [place] [address] PATHOLOGY AND GENOMIC MEDICINE [facility] [address] * Prothrombin time with INR (08/18/2018 5:50 AM CDT) Only the most recent of 4 results within the time period is included. Prothrombin 12.2 11.5 - 14.5 sec [facility] INR 0.93 [place] Comment: ORTHODOXY For patients on anticoagulant [facility] therapy, reference ranges HOSPITAL below: Indication: INR Value Treatment of Venous Thrombosis, 2.0-3.0 pulmonary emboli, or prophylaxis of a venous thrombosis, or systemic emboli. High dose, high risk patients 3.0-4.5 with mechanical valves. NOTE:INR values over 3.0 are sometimes associated with gastrointestinal hemorrhage, especially values over 4.0. Specimen Blood Performing Organization Address City/State/Zipcode Phone Number [facility] [address] [place] [phone] PATHOLOGY AND GENOMIC MEDICINE [facility] [address] * MRI Brain Wo Contrast (08/17/2018 [...] abnormality identified with no evidence of ischemia. [id number] Procedure Note Interface, Radiology Results Incoming - [...] abnormality identified with no evidence of ischemia. [id number] Performing Organization Address City/[facility]/Zipcode Phone Number [facility] [address] [place] [address] * Potassium level (08/16/2018 5:34 PM CDT) Only the most recent of 2 results within the time period is included. Potassium 4.1 3.5 - 5.0 mEq/L [facility] Specimen Plasma specimen Performing Organization Address City/[facility] Facilitycode Phone Number [facility] [address] [place] [phone] PATHOLOGY AND GENOMIC MEDICINE [facility] [address] * EEG (routine) (08/16/2018 10:12 AM [...] results within the time period is included. [facility] Phosphorus 3.7 2.4 - 4.5 mg/dL [facility] Specimen Plasma specimen Performing Organization Address City/[facility] Facilitycode Phone Number [facility] [address] [place] [address] PATHOLOGY AND [facility] MEDICINE [address] * POC glucose (08/11/2018 8:50 AM CDT) Only the most recent of 26 results within the time period is included. [facility] POC glucose 78 65 - 100 mg/dL [place] Comment: ORTHODOXY Meter ID: [id number] [place] Nanny Babysitter: [facility] Specimen Performing Organization Address [facility] [place] [address] PATHOLOGY AND [facility] MEDICINE [address] * Arterial blood gas (08/11/2018 4:47 AM CDT) Only the most recent of 10 results within the time period is included. Nanny Babysitter matt [facility] Collection site rra [facility] O2 therapy vent [facility] Respiratory 22 bpm [place] rate [facility] Tidal volume 450.0 mL [facility] .PEEP 5 cmH2O [facility] pH, arterial 7.445 7.350 - 7.450 units [facility] pCO2, arterial 31.8 (L) 35.0 - 45.0 mmHg [facility] pO2, arterial 117.0 (H) 80.0 - 90.0 mmHg [facility] O2 saturation, 98.5 95.0 - 100.0 % [place] arterial [facility] Base excess, -2.2 mEq/L [place] arterial [facility] Bicarbonate 21.9 21.0 - 28.0 mEq/L [facility] O2 content 15.6 VOL% [facility] FiO2, inspired 35.0 % [place] O2% [facility] Carboxyhemoglob 0.3 0.0 - 1.4 % [place] in Comment: ORTHODOXY Reference Ranges: [place] Carboxyhemoglobin [facility] Non smoker: 0.0 - 2.0% Smoker: 2.1 - 5.0% Heavy smoker: 5.1 - 9% Methemoglobin 2.0 (H) 0.0 - 1.0 % [facility] Hemoglobin, 11.4 (L) 14.0 - 18.0 g/dL [place] blood gas [facility] pO2, A-a 97.6 mmHg [facility] Specimen Blood Performing Organization Address City/State/Zipcode Phone Number [facility] OF [address] [place] [address] PATHOLOGY AND GENOMIC MEDICINE [facility] [address] * XR Abdomen 1 Vw (08/10/2018 [...] is warranted, CT scan would be suggested. [facility]-[id number] Procedure Note Hm Interface, Radiology Results Incoming [...] is warranted, CT scan would be suggested. [facility]-[id number] Performing Organization Address City/[facility]/Zipcode Phone Number [facility] [address] [place] [address] * Cv echo 2d limited or follow [...] size is mildly dilated. Performing Organization Address City/[facility]/Zipcode Phone Number [facility] [address] [place] [address] * Lipase level (08/09/2018 11:05 AM CDT) Lipase 8 (L) 13 - 60 U/L [facility] Specimen Plasma specimen Performing Organization Address City/State/Zipcode Phone Number [facility] OF [address] [place] [address] PATHOLOGY AND GENOMIC MEDICINE [address] * Ionized calcium (08/09/2018 11:05 AM CDT) Only the most recent of 3 results within the time period is included. pH 7.30 [facility] Ionized calcium 1.07 (L) 1.11 - 1.32 mmol/L [facility] Specimen Plasma specimen Performing Organization Address City/State/Zipcode Phone Number [facility] OF [address] [place] [address] PATHOLOGY AND GENOMIC MEDICINE [address] * Lactic acid level (08/09/2018 9:27 AM CDT) Only the most recent of 3 results within the time period is included. Pathologist [facility] Lactic acid 1.2 0.5 - 2.2 mmol/L [facility] Specimen Plasma specimen Performing Organization Address City/State/Zipcode Phone Number [facility] OF [address] [place] [address] PATHOLOGY AND GENOMIC MEDICINE [facility] [address] * C difficile toxin (08/09/2018 5:45 AM CDT) Pathologist [facility] Clostridium Positive for C. difficile [place] difficile toxin toxin [facility] (A) Comment: Specimen Information Specimen Source: Stool Specimen Site: Nonpreserved Specimen Stool - Nonpreserved Performing Organization Address [facility] Facilitycola Phone Number [facility] DEPARTMENT OF [address] [place] [address] PATHOLOGY AND GENOMIC MEDICINE [address] * Troponin, I-Stat (08/09/2018 12:40 AM CDT) Pathologist [facility] Troponin, 0.32 (H) 0.00 - 0.08 ng/mL [place] I-Stat Comment: ORTHODOXY 0.09 - 1.49 [place] [facility] indicate increased risk of acute coronary syndrome. >=1.5 ng/ml Consistent with acute myocardial infarction. The diagnostic value of a single normal or non-diagnostic result is questionable.Serial samples at 2-6 hour intervals are required to rule out acute myocardial injury. Specimen Plasma specimen Performing Organization Address City/[facility]/Zipcode Phone Number [facility] [address] [place] [address] PATHOLOGY AND GENOMIC MEDICINE [facility] [address] * T3, free (08/09/2018 12:40 AM CDT) Pathologist [facility] T3, free 2.32 2.18 - 3.98 pmol/L [facility] Specimen Plasma specimen Performing Organization Address City/[facility] Facility[facility] Phone Number [facility] OF [address] [place] [phone] PATHOLOGY AND GENOMIC MEDICINE [facility] [address] [place] [address] * Thyroid stimulating hormone (08/09/2018 12:40 AM CDT) Only the most recent of 3 results within the time period is included. TSH 0.72 0.27 - 4.20 uIU/mL [facility] Specimen Plasma specimen Performing Organization Address City/State/Zipcode Phone Number [facility] OF [address] [place] [phone] PATHOLOGY AND GENOMIC MEDICINE [address] * Hemoglobin A1c (08/09/2018 12:40 AM CDT) Pathologist [facility] Hemoglobin A1C 5.4 4.0 - 5.6 % [place] Comment: [facility] HbA1c cutoffs for diagnosing [place] diabetes: HOSPITAL 4.0% - 5.6%=normal 5.7% - 6.4%=increased risk for diabetes (prediabetes) >=6.5%=diabetes Goals for glycemic control (ADA 2016) < 7.0%Target for non adults with diabetes. More or less stringent targets may be appropriate for individual patients. <7.5% Target for Children and adolescents with type 1 diabetes. Specimen Blood Performing Organization Address City/[facility] Facility[facility] Phone Number [facility] OF [address] [place] [phone] PATHOLOGY AND GENOMIC MEDICINE [address] * Lipid panel (08/09/2018 12:40 AM CDT) Cholesterol 146 0 - 199 mg/dL [facility] Triglycerides 62 0 - 149 mg/dL [facility] HDL cholesterol 41 40 - 9,999 mg/dL [facility] LDL cholesterol 111 (H)Comment: Result 0 - 99 mg/dL [place] obtained by direct LDL [facility] measurement [facility] Lipid panel See below [place] interpretation Comment: [facility]TH[facility]Y Total Cholesterol [place] (mg/dL) [facility] LDL Cholesterol (mg/dL) <200 Desirable <100 Optimal 200-239Borderline -[id number] 29Near or above optimal >=240High 130-159Borderline- high [...] mg/dL) Specimen Plasma specimen Performing Organization Address City/[facility] Phone Number [address] [place] [address] PATHOLOGY AND [facility] MEDICINE [address] * Lactic acid level, SEPSIS - Now and repeat 2x every 3 hours (08/08/2018 4:18 PM CDT) Only the most recent of 3 results within the time period is included. [facility] Lactic acid 2.3 (H) 0.5 - 2.2 mmol/L [place] Comment: ORTHODOXY la result called to and read [place] back by [facility] [email or web address]/08/201818:34 and microsoft architect no answer nurse qwill call Specimen Blood Performing Organization Address City/[facility] [place] [address] PATHOLOGY AND [facility] MEDICINE [address] * Blood culture, aerobic & anaerobic (08/08/2018 4:18 PM CDT) Only the most recent of 3 results within the time period is included. [facility] Blood culture No growth after 5 days of [place] isolate incubation. [facility] Comment: HOSPITAL Specimen Information Specimen Source: Blood Specimen Site: Unspecified Specimen Blood Performing Organization Address City/State/Zipcode Phone Number [facility] DEPARTMENT OF [address] [place] [address] PATHOLOGY AND GENOMIC MEDICINE [address] * Vitamin B12 level (08/08/2018 4:18 PM CDT) Vitamin B12 985 (H) 231 - 931 pg/mL [place] Comment: ORTHODOXY Significant overlap exists [place] between normal and deficiency HOSPITAL states. However, most patients with deficiencies will have Serum B12 <200 pg/mL. Specimen Serum Performing Organization Address City/[facility]/Zipcode Phone Number [facility] [address] [place] [address] PATHOLOGY AND [facility] MEDICINE [address] * Creatine kinase, total (CPK) (08/08/2018 4:18 PM CDT) Creatine kinase 264 39 - 308 U/L [facility] Specimen Plasma specimen Performing Organization Address City/[facility]/Zipcode Phone Number [facility] [address] [place] [address] PATHOLOGY AND GENOMIC MEDICINE [facility] [address] * Arterial Line Insertion (08/08/2018 4:00 [...] blood, stool (08/08/2018 2:05 PM CDT) Pathologist [facility] [place] Occult blood, Positive for Occult blood (A) [place] stool Comment: ORTHODOXY Specimen Information [place] Specimen Source: Stool HOSPITAL Specimen Site: Nonpreserved Specimen Stool - Nonpreserved Performing Organization Address City/State/Zipcode Phone Number [facility] [address] [place] [address] PATHOLOGY AND GENOMIC MEDICINE [address] * Anti Xa, unfractionated (08/08/2018 12:57 PM CDT) Only the most recent of 2 results within the time period is included. [facility] Anti Xa, <0.10 (L)Comment: Therapeutic 0.30 - 0.70 U/mL [place] unfractionated Range: 0.30 - 0.70 U/mL [facility] Specimen Blood Performing Organization Address City/[facility] Facility[facility] Phone Number [place] [phone] [place] [address] PATHOLOGY AND GENOMIC MEDICINE [address] * Echocardiogram complete w contrast and 3D if needed (08/08/2018 12:50 PM CDT) [facility] Velocity Ratio 0.76 m/s [place] (V1/V2) [...] i VTI 1.34 cm2/m2 HM SYNGO BSA [place] MR peak grad 8.10 mmHg HM SYNGO [...] size is mildly dilated. Performing Organization Address City/[facility]/Zipcode Phone Number [facility] [address] [place] [address] * Sputum culture (08/08/2018 12:32 PM CDT) [facility] Sputum culture Normal oral jose isolated. [place] isolate Comment: ORTHODOXY Specimen Information HOSPITAL Specimen Source: Sputum Specimen Site: Expectorated Specimen Sputum - Expectorated Performing Organization Address City/[facility] Phone Number [facility] DEPARTMENT OF [address] [place] [address] PATHOLOGY AND GENOMIC MEDICINE [address] * Gram stain (08/08/2018 12:32 PM CDT) Only the most recent of 2 results within the time period is included. [facility] Gram stain Rare epithelial cells [place] isolate Rare Gram positive cocci in [facility] Comment: Specimen Information Specimen Source: Sputum Specimen Site: Expectorated Specimen Sputum - Expectorated Performing Organization Address [facility] Facility[facility] Phone Number [facility] DEPART[facility] OF [address] [place] [address] PATHOLOGY AND GENOMIC MEDICINE [address] * Urine drugs of abuse screen (08/08/2018 11:50 AM CDT) Pathologist [facility] [place] Amphetamine Negative [place] screen, urine [facility] Barbiturate Negative [place] screen, urine [facility] Benzodiazepine Negative [place] screen, urine [facility] Cocaine screen, Positive (A) [place] urine [facility] Methadone Negative [place] metabolite [place]TH[place] (EDDP), urine [facility] Opiates screen, Negative [place] urine [place]TH[place]Y [facility] Phencyclidine Negative [place] screen, urine [place] [facility] Cannabinoid Negative [place] screen, urine Comment: [place]TH[place] Drug screen minimum [place] concentration of detectability [facility] Amphetamines 1000 ng/mL Barbiturates 200 ng/mL [...] is required. Specimen Urine Performing Organization Address City/[facility] Facility[facility] Phone Number [facility] [address] [place] [address] PATHOLOGY AND GENOMIC MEDICINE [facility] [address] * CT Head Wo Contrast (08/08/2018 [...] IMPRESSION:No acute intracranial hemorrhage or mass effect. [id number] Procedure Note Interface, Radiology Results Incoming - [...] No acute intracranial hemorrhage or mass effect. [id number] Performing Organization Address City/State/Zipcode Phone Number [facility] [address] [place] [address] * CRITICAL CARE (08/08/2018 10:07 AM CDT) [...] Justin Buchanan DO Consent: Consent obtained:Emergent situation [place] protocol: Patient identity confirmed:Arm band Pre-procedure details: [...] 9:21 AM CDT) Alcohol None Detected mg/dL [place] Comment: ORTHODOXY Normal [facility] Detected Legal Intoxication in [place] 80 mg/dL (0.08%) Toxic Concentration 200 mg/dL (0.2%) Potentially Fatal 350-500 mg/dL (0.35%-0.5%) Alcohol percent None Detected % [facility] Specimen Blood Performing Organization Address City/State/[place] Phone Number [facility] [address] [place] [address] PATHOLOGY AND GENOMIC MEDICINE [facility] [address] [place] [address] HOSPITAL after 10/24/2017 Additional Health Concerns Resolved Time Infection Noted Time C.Difficile (E) 08/12/2018 1:32 PM CDT Advance Directives For more information, please contact: [phone] Mail Driver Explanation Type Date Recorded Advance Directives, Living Will and Medical Power of Professional 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 Advance Directives, 08/08/2018 10:54 AM Living Will and Medical Power of Professional 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
--- OUTSIDE RECORDS SUMMARY | 2018-10-25 11:04 | XMS REPORT ---
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 Allergies, Adverse Reactions, Alerts Allergy Name Allergy Type Status Severity Reaction(s) Onset Date Inactive Date Treating Clinician Comments No Known Allergies DA Active U 2018-10-22 00:00:00 No Known Allergies DA Active U 2018-10-21 00:00:00 No Known Allergies DA Active U 2018-10-17 00:00:00 No Known Allergies DA Active U 2018-10-16 00:00:00 No Known Allergies DA Active U 2018-10-15 00:00:00 No Known Allergies DA Active U 2018-10-13 00:00:00 No Known Allergies DA Active U 2018-10-11 00:00:00 No Known Allergies DA Active U 2018-10-07 00:00:00 No Known Allergies DA Active U 2018-10-06 00:00:00 No Known Allergies DA Active U 2018-09-30 00:00:00 No Known Allergies DA Active U 2018-09-17 00:00:00 No Known Allergies DA Active U 2018-03-30 00:00:00 Medications This patient has no known medications. Encounters Start Date/Time End Date/Time Encounter Type Admission Type Attending Clinicians Care Facility Care Department Encounter ID 2018-10-24 00:00:00 2018-10-24 00:00:00 Outpatient [facility] [id number] 2018-10-22 02:51:08 2018-10-22 02:51:08 Emergency [facility] [id number] 2018-10-22 01:23:18 2018-10-22 01:23:18 Outpatient [facility] [id number] 2018-10-19 09:19:00 2018-10-19 09:19:00 Outpatient [facility] [id number] 2018-10-16 19:51:00 2018-10-16 19:51:00 Emergency E [facility] [id number] 2018-10-16 08:30:00 2018-10-16 08:30:00 Emergency E [facility] [id number] 2018-10-12 21:35:53 2018-10-12 21:35:53 Emergency [facility] [id number] 2018-10-12 18:47:19 2018-10-12 18:47:19 Emergency [facility] [id number] 2018-10-11 08:55:00 2018-10-11 08:55:00 Emergency E [facility] [id number] 2018-10-06 22:31:00 2018-10-06 22:31:00 Outpatient E [facility] [id number] 2018-10-04 17:17:00 2018-10-04 17:17:00 Emergency E [facility] [id number] 2018-10-04 07:10:00 2018-10-04 07:10:00 Emergency E [facility] [id number] 2018-10-03 15:28:00 2018-10-03 15:28:00 Emergency E [facility] [id number] 2018-10-02 18:26:55 2018-10-02 18:26:55 Emergency [facility] [id number] 2018-10-02 16:37:12 2018-10-02 16:37:12 Emergency [facility] [id number] 2018-10-02 07:52:14 2018-10-02 07:52:14 Emergency [facility] [id number] 2018-09-14 00:00:00 2018-09-14 00:00:00 Outpatient [facility] [id number] 2018-08-29 00:00:00 2018-08-29 00:00:00 Outpatient [facility] [id number] 2018-08-22 13:49:41 2018-08-22 13:49:41 Outpatient [facility] [id number] 2018-08-22 10:43:28 2018-08-22 10:43:28 Outpatient [facility] [id number] 2018-08-22 06:36:55 2018-08-22 06:36:55 Outpatient [facility] [id number] 2018-08-22 00:00:00 2018-08-22 00:00:00 Outpatient [facility] [id number] 2018-08-21 21:55:32 2018-08-21 21:55:32 Outpatient [facility] [id number] 2018-08-21 16:14:56 2018-08-21 16:14:56 Emergency [facility] [id number] 2018-08-21 16:14:26 2018-08-21 16:14:26 Emergency [facility] [id number] 2018-08-21 15:05:01 2018-08-21 15:05:01 Outpatient [facility] [id number] Results Test Description Test Time Test Comments Text Results Atomic Results Result Comments TROPONIN-I 2018-10-21 18:13:00 TROPONIN-I (test code=TROPI) <0.015 ng/mL 0-0.045 COMMENTS TO [employer] PLANNER: COLLECT 3 HOURS AFTER PREVIOUS SAMPLEBASIC METABOLIC [id number] 13:27:00* Test Item Value Reference Range Comments SODIUM (test code=NA) 142 mmol/L 136-145 POTASSIUM (test code=K) 3.5 mmol/L 3.5-5.1 CHLORIDE (test code=CL) 108.0 mmol/L 98-107 CARBON DIOXIDE (test code=CO2) 22.0 mmol/L 21-32 ANION GAP (test code=GAP) 15.5 10-20 GLUCOSE (test code=GLU) 89 mg/dL 74-106 BLOOD UREA NITROGEN (test code=BUN) 18 mg/dL 7-18 GLOMERULAR FILTRATION RATE (test code=GFR) > 60 mL/min >=60 Estimated GFR by using Modified MDRD formula.Chronic kidney disease is defined as either kidney damageor GFR <60 mL/min/1.73 m2 for >3 months. CREATININE (test code=CREAT) 1.00 mg/dL 0.7-1.3 BUN/CREATININE RATIO (test code=BUN/CREA) 17.5 10-20 CALCIUM (test code=CA) 9.2 mg/dL 8.5-10.1 [id number] 13:27:00* Test Item Value Reference Range Comments TROPONIN-I (test code=TROPI) <0.015 ng/mL 0-0.045 BASIC METABOLIC [id number] 13:14:00* Test Item Value Reference Range Comments SODIUM (test code=NA) 142 mmol/L 136-145 POTASSIUM (test code=K) 3.5 mmol/L 3.5-5.1 CHLORIDE (test code=CL) 108.0 mmol/L 98-107 CARBON DIOXIDE (test code=CO2) mmol/L 21-32 ANION GAP (test code=GAP) 10-20 GLUCOSE (test code=GLU) mg/dL 74-106 BLOOD UREA NITROGEN (test code=BUN) mg/dL 7-18 GLOMERULAR FILTRATION RATE (test code=GFR) mL/min >=60 CREATININE (test code=CREAT) mg/dL 0.7-1.3 BUN/CREATININE RATIO (test code=BUN/CREA) 10-20 CALCIUM (test code=CA) mg/dL 8.5-10.1 [id number] 13:14:00* Test Item Value Reference Range Comments TROPONIN-I (test code=TROPI) ng/mL 0-0.045 CBC W/O [id number] 13:05:00* Test Item Value Reference Range Comments WHITE BLOOD CELL (test code=WBC) 10.6 K/mm3 4.5-12.5 RED BLOOD CELL (test code=RBC) 4.08 mill/mm3 4.0-5.8 HEMOGLOBIN (test code=HGB) 11.3 gram/dL 13.0-17.5 HEMATOCRIT (test code=HCT) 35.3 % 42.0-52.0 MEAN CELL VOLUME (test code=MCV) 86.5 fL 80-98 MEAN CELL HGB (test code=MCH) 27.7 picogram 27.0-33.0 MEAN CELL HGB CONCETRATION (test code=MCHC) 32.0 gram/dL 33.0-36.0 RED CELL DISTRIBUTION WIDTH (test code=RDW) 14.8 % 11.6-16.2 PLATELET COUNT (test code=PLT) 330 K/mm3 150-450 MEAN PLATELET VOLUME (test code=MPV) 11.3 fL 6.7-11.0 TROPONIN I [id number] 11:38:00* Test Item Value Reference Range Comments TROPONIN I RAPID (test code=TROPIRAP) 0.00 ng/mL <0.08 Please Note New Reference Range 0.00-0.079 ng/mL - Negative>or=0.08 ng/mL - Positive The use of serial sampling and testing protocol is arecommended practice.An elevated troponin level alone is often not sufficient fordiagnosis of myocardial infarction. Troponin results obtained by different assays may vary.Evaluation of the extent of myocardial damage based onincrease of troponin would be valid only if similarmethodology is used. - XR CHEST 1 [id number] 10:54:00 FAX: Grabiel Godfrey MD [phone] [place]: B St: PRE Name: RADHA LAO [facility] : [birth year] 62 Age/S: 53/M [address] [facility] [address] Unit #: [id number] Loc: [place] [address] Phys: Grabiel Godfrey MD Acct: [id number] Dis Date: Status: PRE ER PHONE #: [phone] Exam Date: 10/21/2018 1049 FAX #: [phone] Reason: CHEST PAIN EXAMS: CPT CODE: [id number] XR CHEST 1 V 68228 HISTORY: Chest pain. COMPARISON: October 20, 2018. No acute infiltrates, effusion or co ngestion is noted. The cardiac and mediastinal silhouette are with in normal limits. Subacute or old fractures of the posterior lateral lower right ribs. IMPRESSION: No acute infiltrates, effusion or congestion. Subacute or old fracture of the posterior late ral lower right ribs. at 1054 Reported and signed by: Bladimir Berrios M.D. CC: Grabiel Godfrey MD Technologist: RT MARIJA(R); Laura Camara(Julieta) Trnscrd Date/Time/By: 10/21/2018 (1054) : By: [email or web address] Orig Print D/ T: S: 10/21/2018 (4712) PAGE 1 Si gned Report BASIC METABOLIC [id number] 13:01:00* Test Item Value Reference Range Comments SODIUM (test code=NA) 142 mmol/L 136-145 POTASSIUM (test code=K) 3.9 mmol/L 3.5-5.1 CHLORIDE (test code=CL) 108.0 mmol/L 98-107 CARBON DIOXIDE (test code=CO2) 29.0 mmol/L 21-32 ANION GAP (test code=GAP) 8.9 10-20 GLUCOSE (test code=GLU) 86 mg/dL 74-106 BLOOD UREA NITROGEN (test code=BUN) 17 mg/dL 7-18 GLOMERULAR FILTRATION RATE (test code=GFR) > 60 mL/min >=60 Estimated GFR by using Modified MDRD formula.Chronic kidney disease is defined as either kidney damageor GFR <60 mL/min/1.73 m2 for >3 months. CREATININE (test code=CREAT) 1.00 mg/dL 0.7-1.3 BUN/CREATININE RATIO (test code=BUN/CREA) 17.0 10-20 CALCIUM (test code=CA) 9.0 mg/dL 8.5-10.1 [id number] 13:01:00* Test Item Value Reference Range Comments TROPONIN-I (test code=TROPI) <0.015 ng/mL 0-0.045 BASIC METABOLIC [id number] 12:53:00* Test Item Value Reference Range Comments SODIUM (test code=NA) 142 mmol/L 136-145 POTASSIUM (test code=K) 3.9 mmol/L 3.5-5.1 CHLORIDE (test code=CL) 108.0 mmol/L 98-107 CARBON DIOXIDE (test code=CO2) mmol/L 21-32 ANION GAP (test code=GAP) 10-20 GLUCOSE (test code=GLU) mg/dL 74-106 BLOOD UREA NITROGEN (test code=BUN) mg/dL 7-18 GLOMERULAR FILTRATION RATE (test code=GFR) mL/min >=60 CREATININE (test code=CREAT) mg/dL 0.7-1.3 BUN/CREATININE RATIO (test code=BUN/CREA) 10-20 CALCIUM (test code=CA) mg/dL 8.5-10.1 [id number] 12:53:00* Test Item Value Reference Range Comments TROPONIN-I (test code=TROPI) ng/mL 0-0.045 CBC W/O [id number] 12:41:00* Test Item Value Reference Range Comments WHITE BLOOD CELL (test code=WBC) 10.0 K/mm3 4.5-12.5 RED BLOOD CELL (test code=RBC) 4.00 mill/mm3 4.0-5.8 HEMOGLOBIN (test code=HGB) 11.0 gram/dL 13.0-17.5 HEMATOCRIT (test code=HCT) 35.1 % 42.0-52.0 MEAN CELL VOLUME (test code=MCV) 87.8 fL 80-98 MEAN CELL HGB (test code=MCH) 27.5 picogram 27.0-33.0 MEAN CELL HGB CONCETRATION (test code=MCHC) 31.3 gram/dL 33.0-36.0 RED CELL DISTRIBUTION WIDTH (test code=RDW) 15.0 % 11.6-16.2 PLATELET COUNT (test code=PLT) 293 K/mm3 150-450 MEAN PLATELET VOLUME (test code=MPV) 11.8 fL 6.7-11.0 - XR CHEST 1 [id number] 12:23:00 FAX: Eligio Mensah DO [place]: B St: REG Name: RADHA LAO [facility] : [birth year] 62 Age/S: 53/M [address] [facility] [address] Unit #: [id number] Loc: [place] [address] Phys: Eligio Mensah DO Acct: [id number] Dis Date: Status: REG ER PHONE #: [phone] Exam Date: 10/20/2018 1201 FAX #: [phone] Reason: CHEST PAIN EXAMS: CPT CODE: [id number] XR CHEST 1 V 20715 HISTORY: Chest pain. COMPARISON: October 17, 2018. No acute infiltrates, effusion or co ngestion is noted. The cardiac and mediastinal silhouette are with in normal limits. IMPRESSION: No acute infil trates, effusion or congestion. at 1223 Reported and signed by: Dennis Berrios M.D. CC: Eligio Mensah DO Technologist: Laura Camara(R) Trnscrd Date/Time/By: 10/20/2018 (3864) : By: [email or web address] Orig Print D/T: S: 10/20/2018 (6779) PAGE 1 Signed Report [id number] 02:50:00* Test Item Value Reference Range Comments TROPONIN-I (test code=TROPI) 0.120 ng/mL 0-0.045 RESULT VERIFIED BY REPEAT ANALYSIS COMMENTS TO [employer] SU[employer] PLANNER: COLLECT 3 HOURS AFTER PREVIOUS SAMPLEBASIC METABOLIC [id number] 02:48:00* Test Item Value Reference Range Comments SODIUM (test code=NA) 144 mmol/L 136-145 POTASSIUM (test code=K) 4.0 mmol/L 3.5-5.1 CHLORIDE (test code=CL) 112.0 mmol/L 98-107 CARBON DIOXIDE (test code=CO2) 22.0 mmol/L 21-32 ANION GAP (test code=GAP) 14.0 10-20 GLUCOSE (test code=GLU) 98 mg/dL 74-106 BLOOD UREA NITROGEN (test code=BUN) 21 mg/dL 7-18 GLOMERULAR FILTRATION RATE (test code=GFR) 57 mL/min >=60 Estimated GFR by using Modified MDRD formula.Chronic kidney disease is defined as either kidney damageor GFR <60 mL/min/1.73 m2 for >3 months. CREATININE (test code=CREAT) 1.30 mg/dL 0.7-1.3 BUN/CREATININE RATIO (test code=BUN/CREA) 16.2 10-20 CALCIUM (test code=CA) 8.2 mg/dL 8.5-10.1 LIPID PROFILE (CORONARY RISK)2018-10-18 02:48:00* Test Item Value Reference Range Comments TRIGLYCERIDES (test code=TRIG) 94 mg/dL 20-150 CHOLESTEROL (test code=CHOL) 156 mg/dL 0-200 CHOLESTEROL/HDL RATIO (test code=CHOLHDL) 4.0 RATIO 0-4.9 RISK ASSOCIATED WITH CHOL/HDL RATIOS: Risk Male Female1/2 AVERAGE 3.43 3.27AVERAGE 4.97 4.442X AVERAGE 9.55 7.053X AVERAGE 23.39 11.04 REFERENCE VALUE IS RELATED TO RISK LEVELS ASRECOMMENDED BY THE IVANIA. HEART, LUNG, AND BLOOD INST. HDL CHOLESTEROL (test code=HDL) 33 mg/dL 40-60 LIPOPROTEIN LDL (test code=LDL) 111 mg/dL 100-129 RN PERSONNEL, CONTACT PHYSICIAN IMMEDIATELY IF THIS IS A STROKE, AMI OR CAROTID STENOSIS PATIENT WHEN THE LDL >100 (1ST OCCURENCE, THIS ADMISSION) Reference Interval: mg/dL mmol/L Optimal <100 <2.6Near/above optimal 100-129 2.6- 3.3Borderline High 130-159 3.4-4.1High 160-189 4.1-4.9Very High >=190 >=4.9=========This LDL result is a direct measurement.========= BASIC METABOLIC [id number] 02:30:00* Test Item Value Reference Range Comments SODIUM (test code=NA) 144 mmol/L 136-145 POTASSIUM (test code=K) 4.0 mmol/L 3.5-5.1 CHLORIDE (test code=CL) 112.0 mmol/L 98-107 CARBON DIOXIDE (test code=CO2) mmol/L 21-32 ANION GAP (test code=GAP) 10-20 GLUCOSE (test code=GLU) mg/dL 74-106 BLOOD UREA NITROGEN (test code=BUN) mg/dL 7-18 GLOMERULAR FILTRATION RATE (test code=GFR) mL/min >=60 CREATININE (test code=CREAT) mg/dL 0.7-1.3 BUN/CREATININE RATIO (test code=BUN/CREA) 10-20 CALCIUM (test code=CA) mg/dL 8.5-10.1 LIPID PROFILE (CORONARY RISK)2018-10-18 02:30:00* Test Item Value Reference Range Comments TRIGLYCERIDES (test code=TRIG) mg/dL 20-150 CHOLESTEROL (test code=CHOL) mg/dL 0-200 CHOLESTEROL/HDL RATIO (test code=CHOLHDL) RATIO 0-4.9 HDL CHOLESTEROL (test code=HDL) mg/dL 40-60 LIPOPROTEIN LDL (test code=LDL) mg/dL 100-129 CBC W/AUTO [id number] 02:21:00* Test Item Value Reference Range Comments WHITE BLOOD CELL (test code=WBC) 11.8 K/mm3 4.5-12.5 RED BLOOD CELL (test code=RBC) 3.89 mill/mm3 4.0-5.8 HEMOGLOBIN (test code=HGB) 10.8 gram/dL 13.0-17.5 HEMATOCRIT (test code=HCT) 33.8 % 42.0-52.0 MEAN CELL VOLUME (test code=MCV) 86.9 fL 80-98 MEAN CELL HGB (test code=MCH) 27.8 picogram 27.0-33.0 MEAN CELL HGB CONCETRATION (test code=MCHC) 32.0 gram/dL 33.0-36.0 RED CELL DISTRIBUTION WIDTH (test code=RDW) 15.5 % 11.6-16.2 RED CELL DISTRIBUTION WIDTH SD (test code=RDW-SD) 49.3 fL 37.0-51.0 PLATELET COUNT (test code=PLT) 302 K/mm3 150-450 RESULT VERIFIED BY REPEAT ANALYSIS MEAN PLATELET VOLUME (test code=MPV) 11.6 fL 6.7-11.0 NEUTROPHIL % (test code=NT%) 67.3 % 39.0-69.0 IMMATURE GRANULOCYTE % (test code=IG%) 0.3 % 0.0-5.0 LYMPHOCYTE % (test code=LY%) 21.4 % 25.0-55.0 MONOCYTE % (test code=MO%) 9.8 % 0.0-10.0 EOSINOPHIL % (test code=EO%) 0.7 % 0.0-5.0 BASOPHIL % (test code=BA%) 0.5 % 0.0-1.0 NUCLEATED RBC % (test code=NRBC%) 0.0 % 0-0 NEUTROPHIL # (test code=NT#) 7.94 K/mm3 1.8-7.7 IMMATURE GRANULOCYTE # (test code=IG#) 0.03 x10 3/uL 0-0.03 LYMPHOCYTE # (test code=LY#) 2.52 K/mm3 1.0-5.0 MONOCYTE # (test code=MO#) 1.16 K/mm3 0-0.8 EOSINOPHIL # (test code=EO#) 0.08 K/mm3 0.0-0.5 BASOPHIL # (test code=BA#) 0.06 K/mm3 0.0-0.2 NUCLEATED RBC # (test code=NRBC#) 0.00 K/mm3 0.0-0.1 [id number] 23:04:00* Test Item Value Reference Range Comments TROPONIN-I (test code=TROPI) 0.175 ng/mL 0-0.045 RESULT VERIFIED BY REPEAT ANALYSIS COMMENTS TO [employer] SU[employer] PLANNER: COLLECT 3 HOURS AFTER PREVIOUS SAMPLELACTIC [id number] 22:49:00* Test Item Value Reference Range Comments LACTIC ACID (test code=LACT) 1.2 mmol/L 0.4-1.9 REFUSE IN TIRAGEV.LAB.LC1 10/17/18 1713SPECIMEN COMMENTS: repeat if >2 repeat in 3 hours.LACTIC [id number] 21:25:00* Test Item Value Reference Range Comments LACTIC ACID (test code=LACT) 1.2 mmol/L 0.4-1.9 SPECIMEN COMMENTS: repeat if >2 repeat in 3 hours.- XR CHEST 1 [id number] 16:26:00 FAX: Eligio Mensah DO [place]: B St: REG Name: RADHA LAO [facility] : [birth year] 62 Age/S: 53/M [address] [facility] Unit #: [id number] Loc: [place] [address] Phys: Eligio Mensah DO Acct: [id number] Dis Date: Status: REG ER PHONE #: [phone] Exam Date: 10/17/2018 1530 FAX #: [phone] Reason: CHEST PAIN EXAMS: CPT CODE: [id number] XR CHEST 1 V 16125 REASON FOR EXAM: CHEST PAIN Exam Order Date: 10/17/2018 12:18 PM Ordering M.Clarissa: Eligio Mensah DO PROCEDURE: - XR CHEST 1 V COMPARI SON: Frontal chest radiograph October 16, 2018 FINDINGS: Th e lungs are clear. There is no pleural effusion or pneumothorax. Pulmonar y vascularity is within normal limits. Cardiomediastinal silhouett e is normal in size for technique. The mediastinal contours are within nor mal limits. Degenerative changes are present in the spine. The visualized upper abdomen is within normal limits. IMPRESSION: No acute cardiopulmonary process. Electron ically Signed by Gareth Ash MD on 10/17/2018 at 8326 Re ported and signed by: Gareth Ash MD CC: Eligio Mensah DO Technologist: ROMERO ANDREWS(R) Trnscrd Date/Time/By: 10/17/2018 (8198) : By: [email or web address] Orig Print D/T: S: 10/17/2018 (7891) PAGE 1 Signed Report BASIC METABOLIC PANEL 2018-10-17 15:45:00* Test Item Value Reference Range Comments SODIUM (test code=NA) 144 mmol/L 136-145 POTASSIUM (test code=K) 4.3 mmol/L 3.5-5.1 CHLORIDE (test code=CL) 111.0 mmol/L 98-107 CARBON DIOXIDE (test code=CO2) 22.0 mmol/L 21-32 ANION GAP (test code=GAP) 15.3 10-20 GLUCOSE (test code=GLU) 89 mg/dL 74-106 BLOOD UREA NITROGEN (test code=BUN) 17 mg/dL 7-18 GLOMERULAR FILTRATION RATE (test code=GFR) 45 mL/min >=60 Estimated GFR by using Modified MDRD formula.Chronic kidney disease is defined as either kidney damageor GFR <60 mL/min/1.73 m2 for >3 months. CREATININE (test code=CREAT) 1.60 mg/dL 0.7-1.3 BUN/CREATININE RATIO (test code=BUN/CREA) 10.5 10-20 CALCIUM (test code=CA) 10.2 mg/dL 8.5-10.1 [id number] 15:45:00* Test Item Value Reference Range Comments TROPONIN-I (test code=TROPI) 0.195 ng/mL 0-0.045 Results called to [id number] by [email or web address] 10/17/18 1540Critical results verified and read back by Nurse? Y BASIC METABOLIC [id number] 15:29:00* Test Item Value Reference Range Comments SODIUM (test code=NA) 144 mmol/L 136-145 POTASSIUM (test code=K) 4.3 mmol/L 3.5-5.1 CHLORIDE (test code=CL) 111.0 mmol/L 98-107 CARBON DIOXIDE (test code=CO2) mmol/L 21-32 ANION GAP (test code=GAP) 10-20 GLUCOSE (test code=GLU) mg/dL 74-106 BLOOD UREA NITROGEN (test code=BUN) mg/dL 7-18 GLOMERULAR FILTRATION RATE (test code=GFR) mL/min >=60 CREATININE (test code=CREAT) mg/dL 0.7-1.3 BUN/CREATININE RATIO (test code=BUN/CREA) 10-20 CALCIUM (test code=CA) mg/dL 8.5-10.1 [id number] 15:29:00* Test Item Value Reference Range Comments TROPONIN-I (test code=TROPI) ng/mL 0-0.045 CBC W/O [id number] 15:07:00* Test Item Value Reference Range Comments WHITE BLOOD CELL (test code=WBC) 16.2 K/mm3 4.5-12.5 RED BLOOD CELL (test code=RBC) 4.33 mill/mm3 4.0-5.8 HEMOGLOBIN (test code=HGB) 12.1 gram/dL 13.0-17.5 HEMATOCRIT (test code=HCT) 37.0 % 42.0-52.0 MEAN CELL VOLUME (test code=MCV) 85.5 fL 80-98 MEAN CELL HGB (test code=MCH) 27.9 picogram 27.0-33.0 MEAN CELL HGB CONCETRATION (test code=MCHC) 32.7 gram/dL 33.0-36.0 RED CELL DISTRIBUTION WIDTH (test code=RDW) 15.4 % 11.6-16.2 PLATELET COUNT (test code=PLT) 354 K/mm3 150-450 RESULT VERIFIED BY REPEAT ANALYSIS MEAN PLATELET VOLUME (test code=MPV) 11.4 fL 6.7-11.0 [id number] 06:10:00* Test Item Value Reference Range Comments TROPONIN-I (test code=TROPI) <0.015 ng/mL 0-0.045 BASIC METABOLIC [id number] 04:24:00* Test Item Value Reference Range Comments SODIUM (test code=NA) 142 mmol/L 136-145 POTASSIUM (test code=K) 4.3 mmol/L 3.5-5.1 CHLORIDE (test code=CL) 109.0 mmol/L 98-107 CARBON DIOXIDE (test code=CO2) 27.0 mmol/L 21-32 ANION GAP (test code=GAP) 10.3 10-20 GLUCOSE (test code=GLU) 98 mg/dL 74-106 BLOOD UREA NITROGEN (test code=BUN) 19 mg/dL 7-18 GLOMERULAR FILTRATION RATE (test code=GFR) > 60 mL/min >=60 Estimated GFR by using Modified MDRD formula.Chronic kidney disease is defined as either kidney damageor GFR <60 mL/min/1.73 m2 for >3 months. CREATININE (test code=CREAT) 1.20 mg/dL 0.7-1.3 BUN/CREATININE RATIO (test code=BUN/CREA) 16.4 10-20 CALCIUM (test code=CA) 8.6 mg/dL 8.5-10.1 [id number] 04:24:00* Test Item Value Reference Range Comments TROPONIN-I (test code=TROPI) <0.015 ng/mL 0-0.045 BASIC METABOLIC [id number] 04:06:00* Test Item Value Reference Range Comments SODIUM (test code=NA) 142 mmol/L 136-145 POTASSIUM (test code=K) 4.3 mmol/L 3.5-5.1 CHLORIDE (test code=CL) 109.0 mmol/L 98-107 CARBON DIOXIDE (test code=CO2) mmol/L 21-32 ANION GAP (test code=GAP) 10-20 GLUCOSE (test code=GLU) mg/dL 74-106 BLOOD UREA NITROGEN (test code=BUN) mg/dL 7-18 GLOMERULAR FILTRATION RATE (test code=GFR) mL/min >=60 CREATININE (test code=CREAT) mg/dL 0.7-1.3 BUN/CREATININE RATIO (test code=BUN/CREA) 10-20 CALCIUM (test code=CA) mg/dL 8.5-10.1 [id number] 04:06:00* Test Item Value Reference Range Comments TROPONIN-I (test code=TROPI) ng/mL 0-0.045 CBC W/O [id number] 04:05:00* Test Item Value Reference Range Comments WHITE BLOOD CELL (test code=WBC) 8.4 K/mm3 4.5-12.5 RED BLOOD CELL (test code=RBC) 3.95 mill/mm3 4.0-5.8 HEMOGLOBIN (test code=HGB) 11.0 gram/dL 13.0-17.5 HEMATOCRIT (test code=HCT) 35.0 % 42.0-52.0 MEAN CELL VOLUME (test code=MCV) 88.6 fL 80-98 MEAN CELL HGB (test code=MCH) 27.8 picogram 27.0-33.0 MEAN CELL HGB CONCETRATION (test code=MCHC) 31.4 gram/dL 33.0-36.0 RED CELL DISTRIBUTION WIDTH (test code=RDW) 15.6 % 11.6-16.2 PLATELET COUNT (test code=PLT) 291 K/mm3 150-450 MEAN PLATELET VOLUME (test code=MPV) 11.3 fL 6.7-11.0 - XR CHEST 1 [id number] 02:28:00 FAX: Felecia Orellana DO [place]: [address] St: REG Name: RADHA LAO [facility] : [birth year] 62 Age/S: 53/M [address] [facility] Unit #: [id number] Loc: [place] [address] Phys: Felecia Orellana DO Acct: [id number] Dis Date: Status: REG ER PHONE #: [phone] Exam Date: 10/16/2018224 FAX #: [phone] Reason: CHEST PAIN EXAMS: CPT CODE: [id number] XR CHEST 1 V 82148 AFTER HOURS SERVICE ON: 10/16/2018 2:27 AM AP Portable Chest Location Code M12 HISTORY: CHEST PAIN FINDINGS: There are no in filtrates. There are no pleural effusions. There is no pneumothorax. Cardi ac silhouette and mediastinum appear within normal limits. 6th and 7th ri ght lateral rib fractures are noted without evidence of healing callus. IMPRESSION: No active pulmonary findings. at 0228 Reported and signed by: Adolfo Santana M.D. CC: Felecia Orellana DO Technologist: RONNY SCOTT, RT(R); Lizeth Overton RT(R) [facility] Date/Time/By: 10/16/2018 (022) : By: Mandy [email or web address] Orig Print D/T: S: 10/16/2018 (0231) PAG E 1 Signed Report [id number] 14:12:00* Test Item Value Reference Range Comments TROPONIN-I (test code=TROPI) <0.015 ng/mL 0-0.045 TROPONIN I [id number] 13:46:00* Test Item Value Reference Range Comments TROPONIN I RAPID (test code=TROPIRAP) 0.01 ng/mL <0.08 Please Note New Reference Range 0.00-0.079 ng/mL - Negative>or=0.08 ng/mL - Positive The use of serial sampling and testing protocol is arecommended practice.An elevated troponin level alone is often not sufficient fordiagnosis of myocardial infarction. Troponin results obtained by different assays may vary.Evaluation of the extent of myocardial damage based onincrease of troponin would be valid only if similarmethodology is used. B-TYPE NATRIURETIC [id number] 10:59:00* Test Item Value Reference Range Comments B-TYPE NATRIURETIC PEPTIDE (test code=BNP) 12.62 pgram/mL 0-100 BASIC METABOLIC [id number] 10:07:00* Test Item Value Reference Range Comments SODIUM (test code=NA) 140 mmol/L 136-145 POTASSIUM (test code=K) 3.6 mmol/L 3.5-5.1 CHLORIDE (test code=CL) 107.0 mmol/L 98-107 CARBON DIOXIDE (test code=CO2) 24.0 mmol/L 21-32 ANION GAP (test code=GAP) 12.6 10-20 GLUCOSE (test code=GLU) 121 mg/dL 74-106 BLOOD UREA NITROGEN (test code=BUN) 18 mg/dL 7-18 GLOMERULAR FILTRATION RATE (test code=GFR) > 60 mL/min >=60 Estimated GFR by using Modified MDRD formula.Chronic kidney disease is defined as either kidney damageor GFR <60 mL/min/1.73 m2 for >3 months. CREATININE (test code=CREAT) 1.20 mg/dL 0.7-1.3 BUN/CREATININE RATIO (test code=BUN/CREA) 14.4 10-20 CALCIUM (test code=CA) 8.5 mg/dL 8.5-10.1 [id number] 10:07:00* Test Item Value Reference Range Comments TROPONIN-I (test code=TROPI) <0.015 ng/mL 0-0.045 CBC W/O [id number] 09:46:00* Test Item Value Reference Range Comments WHITE BLOOD CELL (test code=WBC) 9.5 K/mm3 4.5-12.5 RED BLOOD CELL (test code=RBC) 4.09 mill/mm3 4.0-5.8 HEMOGLOBIN (test code=HGB) 11.3 gram/dL 13.0-17.5 HEMATOCRIT (test code=HCT) 35.6 % 42.0-52.0 MEAN CELL VOLUME (test code=MCV) 87.0 fL 80-98 MEAN CELL HGB (test code=MCH) 27.6 picogram 27.0-33.0 MEAN CELL HGB CONCETRATION (test code=MCHC) 31.7 gram/dL 33.0-36.0 RED CELL DISTRIBUTION WIDTH (test code=RDW) 15.3 % 11.6-16.2 PLATELET COUNT (test code=PLT) 303 K/mm3 150-450 MEAN PLATELET VOLUME (test code=MPV) 11.3 fL 6.7-11.0 - XR CHEST 2 [id number] 09:37:00 FAX: Sara Sanderson [phone] [place]: St: REG Name: Indira VEGAELVISRADHA BETANCUR [facility] : 08/13/18 62 Age/S: 53/M [address] [facility] Unit #: [id number] Loc: [place] [address] Phys: Sara Cody MD Acct: [id number] Dis Date: Status: REG ER PHONE #: [phone] Exam Date: 10/15/2018926 FAX #: [phone] Reason: CHEST PAIN EXAMS: CPT CODE: [id number] XR CHEST 2 V 94041 HISTORY: Chest pain. COMPARISON: October 13, 2018. AP and lateral view of the chest: No acute infiltrates, effusion or congestion. Cardiac and the mediastinal silhouette are normal. Old posterior lateral right mid rib fractures. IMPRESSION: No acute infiltrat es, effusion or congestion. at 0937 Reported and signed by: Bladimir santo M.D. CC: Sara Cody MD Technologist: Kathy Camara(R) Trnscrd Date/Time/By: 10/15/2018 (0245) : By: [email or web address] Orig Print D/T: S: 10/15/2018 (6331) PAGE 1 Signed Report TROPONIN I [id number] 09:36:00 * Test Item Value Reference Range Comments TROPONIN I RAPID (test code=TROPIRAP) 0.01 ng/mL <0.08 Please Note New Reference Range 0.00-0.079 ng/mL - Negative>or=0.08 ng/mL - Positive The use of serial sampling and testing protocol is arecommended practice.An elevated troponin level alone is often not sufficient fordiagnosis of myocardial infarction. Troponin results obtained by different assays may vary.Evaluation of the extent of myocardial damage based onincrease of troponin would be valid only if similarmethodology is used. BASIC METABOLIC [id number] 00:38:00* Test Item Value Reference Range Comments SODIUM (test code=NA) 140 mmol/L 136-145 POTASSIUM (test code=K) 4.0 mmol/L 3.5-5.1 CHLORIDE (test code=CL) 106.0 mmol/L 98-107 CARBON DIOXIDE (test code=CO2) 25.0 mmol/L 21-32 ANION GAP (test code=GAP) 13.0 10-20 GLUCOSE (test code=GLU) 94 mg/dL 74-106 BLOOD UREA NITROGEN (test code=BUN) 28 mg/dL 7-18 RESULT VERIFIED BY REPEAT ANALYSIS GLOMERULAR FILTRATION RATE (test code=GFR) 53 mL/min >=60 Estimated GFR by using Modified MDRD formula.Chronic kidney disease is defined as either kidney damageor GFR <60 mL/min/1.73 m2 for >3 months. CREATININE (test code=CREAT) 1.40 mg/dL 0.7-1.3 BUN/CREATININE RATIO (test code=BUN/CREA) 20.0 10-20 CALCIUM (test code=CA) 8.6 mg/dL 8.5-10.1 [id number] 00:38:00* Test Item Value Reference Range Comments TROPONIN-I (test code=TROPI) <0.015 ng/mL 0-0.045 B-TYPE NATRIURETIC [id number] 00:37:00* Test Item Value Reference Range Comments B-TYPE NATRIURETIC PEPTIDE (test code=BNP) 23.27 pgram/mL 0-100 BASIC METABOLIC [id number] 00:16:00* Test Item Value Reference Range Comments SODIUM (test code=NA) 140 mmol/L 136-145 POTASSIUM (test code=K) 4.0 mmol/L 3.5-5.1 CHLORIDE (test code=CL) 106.0 mmol/L 98-107 CARBON DIOXIDE (test code=CO2) 25.0 mmol/L 21-32 ANION GAP (test code=GAP) 13.0 10-20 GLUCOSE (test code=GLU) 94 mg/dL 74-106 BLOOD UREA NITROGEN (test code=BUN) 28 mg/dL 7-18 GLOMERULAR FILTRATION RATE (test code=GFR) 53 mL/min >=60 Estimated GFR by using Modified MDRD formula.Chronic kidney disease is defined as either kidney damageor GFR <60 mL/min/1.73 m2 for >3 months. CREATININE (test code=CREAT) 1.40 mg/dL 0.7-1.3 BUN/CREATININE RATIO (test code=BUN/CREA) 20.0 10-20 CALCIUM (test code=CA) 8.6 mg/dL 8.5-10.1 [id number] 00:16:00* Test Item Value Reference Range Comments TROPONIN-I (test code=TROPI) <0.015 ng/mL 0-0.045 BASIC METABOLIC [id number] 00:02:00* Test Item Value Reference Range Comments SODIUM (test code=NA) 140 mmol/L 136-145 POTASSIUM (test code=K) 4.0 mmol/L 3.5-5.1 CHLORIDE (test code=CL) 106.0 mmol/L 98-107 CARBON DIOXIDE (test code=CO2) mmol/L 21-32 ANION GAP (test code=GAP) 10-20 GLUCOSE (test code=GLU) mg/dL 74-106 BLOOD UREA NITROGEN (test code=BUN) mg/dL 7-18 GLOMERULAR FILTRATION RATE (test code=GFR) mL/min >=60 CREATININE (test code=CREAT) mg/dL 0.7-1.3 BUN/CREATININE RATIO (test code=BUN/CREA) 10-20 CALCIUM (test code=CA) 8.6 mg/dL 8.5-10.1 [id number] 00:02:00* Test Item Value Reference Range Comments TROPONIN-I (test code=TROPI) ng/mL 0-0.045 BASIC METABOLIC [id number] 23:52:00* Test Item Value Reference Range Comments SODIUM (test code=NA) 140 mmol/L 136-145 POTASSIUM (test code=K) 4.0 mmol/L 3.5-5.1 CHLORIDE (test code=CL) 106.0 mmol/L 98-107 CARBON DIOXIDE (test code=CO2) mmol/L 21-32 ANION GAP (test code=GAP) 10-20 GLUCOSE (test code=GLU) mg/dL 74-106 BLOOD UREA NITROGEN (test code=BUN) mg/dL 7-18 GLOMERULAR FILTRATION RATE (test code=GFR) mL/min >=60 CREATININE (test code=CREAT) mg/dL 0.7-1.3 BUN/CREATININE RATIO (test code=BUN/CREA) 10-20 CALCIUM (test code=CA) mg/dL 8.5-10.1 [id number] 23:52:00* Test Item Value Reference Range Comments TROPONIN-I (test code=TROPI) ng/mL 0-0.045 CBC W/O [id number] 23:45:00* Test Item Value Reference Range Comments WHITE BLOOD CELL (test code=WBC) 10.0 K/mm3 4.5-12.5 RED BLOOD CELL (test code=RBC) 4.45 mill/mm3 4.0-5.8 HEMOGLOBIN (test code=HGB) 12.4 gram/dL 13.0-17.5 HEMATOCRIT (test code=HCT) 38.7 % 42.0-52.0 MEAN CELL VOLUME (test code=MCV) 87.0 fL 80-98 MEAN CELL HGB (test code=MCH) 27.9 picogram 27.0-33.0 MEAN CELL HGB CONCETRATION (test code=MCHC) 32.0 gram/dL 33.0-36.0 RED CELL DISTRIBUTION WIDTH (test code=RDW) 15.5 % 11.6-16.2 PLATELET COUNT (test code=PLT) 298 K/mm3 150-450 MEAN PLATELET VOLUME (test code=MPV) 11.1 fL 6.7-11.0 - XR CHEST 1 [id number] 22:21:00 FAX: Hayden Benson MD [phone] [place]: St: REG Name: RADHA LAO [facility] : 08/13/18 62 Age/S: 53/M [address] [facility] Unit #: [id number] Loc: [place] [address] Phys: Hayden Benson MD Acct: [id number] Dis Date: Status: REG ER PHONE #: [phone] Exam Date: 10/13/20182209 FAX #: [phone] Reason: CHEST PAIN EXAMS: CPT CODE: [id number] XR CHEST 1 V 70923 REASON FOR EXAM: CHEST PAIN EXAM ORDER DATE: 10/13/2018 9:02 PM Ordering MNicholas: Hayden Benson MD PROCEDURE: - XR CHEST 1 V COMPARI SON: 10/13/2018 at 4:36 AM FINDINGS: Portable AP frontal view of t he chest obtained at 10:00 PM shows clear lungs without evidence of consol idation. There is no evidence of effusion. The heart size is within normal limits. Pulmonary vasculatures are unremarkable. IMPRESS ION: No active disease. Electronically Signed by Laurita Chang on at 2221 Reported and signed by: Raúl Chang M.D. CC: Hayden Benson MD Technologist: ALANNAH Walker Franky e/Time/By: 10/13/2018 (2221) : By: [email or web address] Orig Print D/T: S: 2018 (2229) PAGE 1 Signed Report CHEST SINGLE (PORTABLE)2018-10-13 17:31:00 [place] [address] Patient Name: RADHA KENDRICK MR #: [id number] : 1965 Age/Sex: 53/M Req #: [id number] Adm Physician: Ordered by: CHRISTOPHER METZGER 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 Report #: [id number] Location: ER Room/Bed: Procedure: 69 DX/CHEST SINGLE (PORTABLE) Exam Date: Exam Time: REPORT STATUS: Signed EXAMINAT ION: CHEST SINGLE (PORTABLE) INDICATION: ERMD ORDER Y COMPARISON: 10/03/2018 FINDINGS: AP view TUBES and LINES: No ne. LUNGS: Lungs are well inflated. There is no evidence of pneumonia or pulmonary edema. PLEURA: No pleural effusion or pneumothorax. HEART AND MEDIASTINUM: The cardiomediastinal silhouette is unremarkable. B ONES AND SOFT TISSUES: No acute osseous lesion. Soft tissues are unremarkabl e. UPPER ABDOMEN: No free air under the diaphragm. IMPRESSION: No definite focal consolidation. Signed by: Dr. Sarah Boss MD on 09/29 5:33 PM Dictated By: SARAH BOSS MD 32 Transcribed By: OSWALDO on 10/13/181732 COPY TO: CHRISTOPHER METZGER 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 URINALYSIS [id number] 14:22:00* Test Item Value Reference Range Comments UA COLOR (test code=COLU) Light-Yellow YELLOW UA APPEARANCE (test code=APPU) CLEAR CLEAR UA GLUCOSE DIPSTICK (test code=DGLUU) NEGATIVE mg/dL NEGATIVE UA BILIRUBIN DIPSTICK (test code=BILU) NEGATIVE mg/dL NEGATIVE UA KETONE DIPSTICK (test code=KETU) NEGATIVE mg/dL NEGATIVE UA SPECIFIC GRAVITY (test code=SGU) 1.019 1.001-1.035 UA BLOOD DIPSTICK (test code=AGUSTÍN) Negative mg/dL NEGATIVE UA PH DIPSTICK (test code=OFE) 6.5 5.0-8.0 UA PROTEIN DIPSTICK (test code=PROU) 20 (Trace) mg/dL NEGATIVE UA UROBILINIOGEN DIPSTICK (test code=URO) Normal mg/dL NEGATIVE UA NITRITE DIPSTICK (test code=GERMAN) NEGATIVE NEGATIVE UA LEUKOCYTE ESTERASE W REFLEX (test code=LEUUR) NEGATIVE Debra/uL NEGATIVE UA WBC (test code=WBCU) 0-5 per HPF 0-5 UA RBC (test code=RBCU) 0-2 #/HPF 0-5 UA EPITHELIAL CELLS (test code=EPIU) FEW per HPF FEW UA BACTERIA (test code=BACU) FEW #/HPF NONE UA HYALINE CAST (test code=HYALU) 3-5 #/LPF 0-5 UA MUCUS (test code=MUCU) FEW #/LPF FEW Urine Source? Clean CatchDRUGS OF ABUSE SCREEN [id number] 14:22:00* Test Item Value Reference Range Comments URN COCAINE (test code=COCAURN) NEGATIVE <300 ng/mL URN CANNABINOIDS (test code=CANNABURN) NEGATIVE <50 ng/mL URN AMPHETAMINE (test code=AMPHETURN) NEGATIVE <1000 ng/mL URN BARBITURATE (test code=BARBITURN) NEGATIVE <200 ng/mL URN BENZODIAZEPINE (test code=BENZOURN) NEGATIVE <200 ng/mL URN OPIATES (test code=OPIATURN) NEGATIVE <300 ng/mL URN PHENCYCLIDINE (PCP) (test code=PHENCURN) NEGATIVE <25 ng/mL URN METHADONE (test code=METHAURN) NEGATIVE <300 ng/mL Urine Source? Clean Catch- CT HEAD/BRAIN W/O [id number] 14:10:00 Name: RADHA KENDRICK [facility] : 1965 Age/S: 53 / M [address] [facility] Unit #: [id number] Loc: [place] [address] Phys: Eligio Mensah DO Acct: [id number] Dis Date: Status: REG ER PHONE #: [phone] Exam Date: 10/13/2018 1385 FAX #: [phone] Reason: Altered Mental Status EXAMS: CPT CODE: [id number] CT HEAD/BRAIN W/O CONT 66902 HISTORY: Altered Mental Status TECHNIQUE: Noncontrast 2.[address] of the head. Examina tion acquired within 24 hours of arrival. Automated exposure control for dose reduction. COMPARISON: Noncontrast CT brain October 06 FINDINGS: Images are degraded by patient motion. No lacerations or contusions of the scalp or facial soft tissues.. Calvar ium and skull base are intact. No obvious intracranial hemorrhage. No intracranial mass, mass effect, or midline shift. No effacement of the sulci or lundberg-white matter interface to suggest acute infarct. Incidental note is made of cavum septum pellucidum (normal anatomic v ariant of the ventricles). No hydrocephalus.. No extra-axial fluid collection. Visualized paranasal sinuses are clear. Masto id air cells and middle ear cavities are clear. There is cerumen in the ri ght external auditory canal. Orbital contents are unremarkable. IMPRESSION: Somewhat limited exam due to patient motion. Within these limitations there is no acute intracranial hemorr karen or mass effect. Electronically Signed by Gareth Ash MD on 09/29 at 1410 Reported and signed by: Gareth Ash MD CC: Eligio Mensah DO Technologist:Nathalia Azevedo RT(R),CT CTDI: DLP: Trnscb Date/Time: 10/14/19 (141) [email or web address] Orig Print D/T: S: 10/13/2018 (5620) PAGE 1 Signed Report URINALYSIS [id number] 14:05:00* Test Item Value Reference Range Comments UA COLOR (test code=COLU) Light-Yellow YELLOW UA APPEARANCE (test code=APPU) CLEAR CLEAR UA GLUCOSE DIPSTICK (test code=DGLUU) NEGATIVE mg/dL NEGATIVE UA BILIRUBIN DIPSTICK (test code=BILU) NEGATIVE mg/dL NEGATIVE UA KETONE DIPSTICK (test code=KETU) NEGATIVE mg/dL NEGATIVE UA SPECIFIC GRAVITY (test code=SGU) 1.019 1.001-1.035 UA BLOOD DIPSTICK (test code=AGUSTÍN) Negative mg/dL NEGATIVE UA PH DIPSTICK (test code=OFE) 6.5 5.0-8.0 UA PROTEIN DIPSTICK (test code=PROU) 20 (Trace) mg/dL NEGATIVE UA UROBILINIOGEN DIPSTICK (test code=URO) Normal mg/dL NEGATIVE UA NITRITE DIPSTICK (test code=GERMAN) NEGATIVE NEGATIVE UA LEUKOCYTE ESTERASE W REFLEX (test code=LEUUR) NEGATIVE Debra/uL NEGATIVE UA WBC (test code=WBCU) 0-5 per HPF 0-5 UA RBC (test code=RBCU) 0-2 #/HPF 0-5 UA EPITHELIAL CELLS (test code=EPIU) FEW per HPF FEW UA BACTERIA (test code=BACU) FEW #/HPF NONE UA HYALINE CAST (test code=HYALU) 3-5 #/LPF 0-5 UA MUCUS (test code=MUCU) FEW #/LPF FEW Urine Source? Clean CatchDRUGS OF ABUSE SCREEN [id number] 14:05:00* Test Item Value Reference Range Comments URN COCAINE (test code=COCAURN) <300 ng/mL URN CANNABINOIDS (test code=CANNABURN) <50 ng/mL URN AMPHETAMINE (test code=AMPHETURN) <1000 ng/mL URN BARBITURATE (test code=BARBITURN) <200 ng/mL URN BENZODIAZEPINE (test code=BENZOURN) <200 ng/mL URN OPIATES (test code=OPIATURN) <300 ng/mL URN PHENCYCLIDINE (PCP) (test code=PHENCURN) <25 ng/mL URN METHADONE (test code=METHAURN) <300 ng/mL Urine Source? Clean CatchCBC W/AUTO [id number] 12:54:00* Test Item Value Reference Range Comments WHITE BLOOD CELL (test code=WBC) 13.7 K/mm3 4.5-12.5 RED BLOOD CELL (test code=RBC) 4.36 mill/mm3 4.0-5.8 HEMOGLOBIN (test code=HGB) 12.1 gram/dL 13.0-17.5 HEMATOCRIT (test code=HCT) 38.2 % 42.0-52.0 MEAN CELL VOLUME (test code=MCV) 87.6 fL 80-98 MEAN CELL HGB (test code=MCH) 27.8 picogram 27.0-33.0 MEAN CELL HGB CONCETRATION (test code=MCHC) 31.7 gram/dL 33.0-36.0 RED CELL DISTRIBUTION WIDTH (test code=RDW) 15.3 % 11.6-16.2 RED CELL DISTRIBUTION WIDTH SD (test code=RDW-SD) 48.9 fL 37.0-51.0 PLATELET COUNT (test code=PLT) 330 K/mm3 150-450 MEAN PLATELET VOLUME (test code=MPV) 11.3 fL 6.7-11.0 NEUTROPHIL % (test code=NT%) 74.2 % 39.0-69.0 IMMATURE GRANULOCYTE % (test code=IG%) 0.6 % 0.0-5.0 LYMPHOCYTE % (test code=LY%) 16.8 % 25.0-55.0 MONOCYTE % (test code=MO%) 7.3 % 0.0-10.0 EOSINOPHIL % (test code=EO%) 0.4 % 0.0-5.0 BASOPHIL % (test code=BA%) 0.7 % 0.0-1.0 NUCLEATED RBC % (test code=NRBC%) 0.0 % 0-0 NEUTROPHIL # (test code=NT#) 10.15 K/mm3 1.8-7.7 IMMATURE GRANULOCYTE # (test code=IG#) 0.08 x10 3/uL 0-0.03 LYMPHOCYTE # (test code=LY#) 2.29 K/mm3 1.0-5.0 MONOCYTE # (test code=MO#) 1.00 K/mm3 0-0.8 EOSINOPHIL # (test code=EO#) 0.05 K/mm3 0.0-0.5 BASOPHIL # (test code=BA#) 0.09 K/mm3 0.0-0.2 NUCLEATED RBC # (test code=NRBC#) 0.00 K/mm3 0.0-0.1 BASIC METABOLIC [id number] 12:44:00* Test Item Value Reference Range Comments SODIUM (test code=NA) 143 mmol/L 136-145 POTASSIUM (test code=K) 3.9 mmol/L 3.5-5.1 CHLORIDE (test code=CL) 108.0 mmol/L 98-107 CARBON DIOXIDE (test code=CO2) 22.0 mmol/L 21-32 ANION GAP (test code=GAP) 16.9 10-20 GLUCOSE (test code=GLU) 83 mg/dL 74-106 BLOOD UREA NITROGEN (test code=BUN) 19 mg/dL 7-18 GLOMERULAR FILTRATION RATE (test code=GFR) > 60 mL/min >=60 Estimated GFR by using Modified MDRD formula.Chronic kidney disease is defined as either kidney damageor GFR <60 mL/min/1.73 m2 for >3 months. CREATININE (test code=CREAT) 1.20 mg/dL 0.7-1.3 BUN/CREATININE RATIO (test code=BUN/CREA) 15.4 10-20 CALCIUM (test code=CA) 8.8 mg/dL 8.5-10.1 HEPATIC FUNCTION [id number] 12:44:00* Test Item Value Reference Range Comments TOTAL PROTEIN (test code=PROT) 7.6 gram/dL 6.4-8.2 ALBUMIN (test code=ALB) 3.9 g/dL 3.4-5.0 GLOBULIN (test code=GLOB) 3.7 gram/dL 2.7-4.2 ALBUMIN/GLOBULIN RATIO (test code=A/G) 1.1 0.75-1.50 BILIRUBIN TOTAL (test code=BILT) 0.60 mg/dL 0.0-1.0 BILIRUBIN DIRECT (test code=BILD) 0.12 mg/dL 0.0-0.20 SGOT/AST (test code=AST) 10 IUnit/L 15-37 SGPT/ALT (test code=ALT) 23 IUnit/L 12-78 ALKALINE PHOSPHATASE TOTAL (test code=ALKP) 120 IUnit/L 45-117 Note change in reference range due to change in reagent. [id number] 12:44:00* Test Item Value Reference Range Comments TROPONIN-I (test code=TROPI) <0.015 ng/mL 0-0.045 [id number] 12:44:00* Test Item Value Reference Range Comments ALCOHOL (test code=ALC) < 3 mg/dL 0.0-3.0 INTERPRETIVE DATA NOTE: POSITIVE SCREENING RESULTS SHOULD BE CONSIDERED PRESUMPTIVE.WHEN COLLECTED FOR MEDICAL PURPOSES ONLY. SPECIMEN WILL NOTBE COLLECTED BY CHAIN OF CUSTODY.IF A CONFIRMATION OF POSITIVE RESULTS IS DESIRED, ACONFIRMATION TEST MUST BE REQUESTED BY THE PHYSICIAN AT ANADDITIONAL CHARGE TO THE PATIENT. BASIC METABOLIC [id number] 12:34:00* Test Item Value Reference Range Comments SODIUM [...] code=BUN/CREA) 10-20 CALCIUM (test code=CA) mg/dL 8.5-10.1 HEPATIC FUNCTION [id number] 12:34:00* Test Item Value Reference Range Comments TOTAL PROTEIN (test code=PROT) gram/dL 6.4-8.2 ALBUMIN (test code=ALB) g/dL 3.4-5.0 GLOBULIN (test code=GLOB) gram/dL 2.7-4.2 ALBUMIN/GLOBULIN RATIO (test code=A/G) 0.75-1.50 BILIRUBIN TOTAL (test code=BILT) mg/dL 0.0-1.0 BILIRUBIN DIRECT (test code=BILD) mg/dL 0.0-0.20 SGOT/AST (test code=AST) IUnit/L 15-37 SGPT/ALT (test code=ALT) IUnit/L 12-78 ALKALINE PHOSPHATASE TOTAL (test code=ALKP) IUnit/L 45-117 [id number] 12:34:00* Test Item Value Reference Range Comments TROPONIN-I (test code=TROPI) ng/mL 0-0.045 [id number] 12:34:00* Test Item Value Reference Range Comments ALCOHOL (test code=ALC) mg/dL 0-3 BASIC METABOLIC [id number] 06:45:00* Test Item Value Reference Range Comments SODIUM (test code=NA) 142 mmol/L 136-145 POTASSIUM (test code=K) 4.0 mmol/L 3.5-5.1 CHLORIDE (test code=CL) 107.0 mmol/L 98-107 CARBON DIOXIDE (test code=CO2) 23.0 mmol/L 21-32 ANION GAP (test code=GAP) 16.0 10-20 GLUCOSE (test code=GLU) 92 mg/dL 74-106 BLOOD UREA NITROGEN (test code=BUN) 18 mg/dL 7-18 GLOMERULAR FILTRATION RATE (test code=GFR) > 60 mL/min >=60 Estimated GFR by using Modified MDRD formula.Chronic kidney disease is defined as either kidney damageor GFR <60 mL/min/1.73 m2 for >3 months. CREATININE (test code=CREAT) 1.20 mg/dL 0.7-1.3 BUN/CREATININE RATIO (test code=BUN/CREA) 15.0 10-20 CALCIUM (test code=CA) 9.2 mg/dL 8.5-10.1 [id number] 06:45:00* Test Item Value Reference Range Comments TROPONIN-I (test code=TROPI) <0.015 ng/mL 0-0.045 BASIC METABOLIC [id number] 06:33:00* Test Item Value Reference Range Comments SODIUM (test code=NA) 142 mmol/L 136-145 POTASSIUM (test code=K) 4.0 mmol/L 3.5-5.1 CHLORIDE (test code=CL) 107.0 mmol/L 98-107 CARBON DIOXIDE (test code=CO2) mmol/L 21-32 ANION GAP (test code=GAP) 10-20 GLUCOSE (test code=GLU) mg/dL 74-106 BLOOD UREA NITROGEN (test code=BUN) mg/dL 7-18 GLOMERULAR FILTRATION RATE (test code=GFR) mL/min >=60 CREATININE (test code=CREAT) mg/dL 0.7-1.3 BUN/CREATININE RATIO (test code=BUN/CREA) 10-20 CALCIUM (test code=CA) 9.2 mg/dL 8.5-10.1 [id number] 06:33:00* Test Item Value Reference Range Comments TROPONIN-I (test code=TROPI) ng/mL 0-0.045 CBC W/O [id number] 06:27:00* Test Item Value Reference Range Comments WHITE BLOOD CELL (test code=WBC) 11.0 K/mm3 4.5-12.5 RED BLOOD CELL (test code=RBC) 4.72 mill/mm3 4.0-5.8 HEMOGLOBIN (test code=HGB) 13.1 gram/dL 13.0-17.5 HEMATOCRIT (test code=HCT) 40.4 % 42.0-52.0 MEAN CELL VOLUME (test code=MCV) 85.6 fL 80-98 MEAN CELL HGB (test code=MCH) 27.8 picogram 27.0-33.0 MEAN CELL HGB CONCETRATION (test code=MCHC) 32.4 gram/dL 33.0-36.0 RED CELL DISTRIBUTION WIDTH (test code=RDW) 15.2 % 11.6-16.2 PLATELET COUNT (test code=PLT) 355 K/mm3 150-450 RESULT VERIFIED BY REPEAT ANALYSIS MEAN PLATELET VOLUME (test code=MPV) 11.2 fL 6.7-11.0 - XR CHEST 1 [id number] 04:43:00 FAX: Grabiel Godfrey MD [phone] [place]: B St: REG Name: RADHA LAO [facility] : [birth year] 62 Age/S: 53/M [address] [facility] Unit #: [id number] Loc: [place] [address] Phys: Grabiel Godfrey MD Acct: [id number] Dis Date: Status: REG ER PHONE #: [phone] Exam Date: 10/13/2018407 FAX #: [phone] Reason: CHEST PAIN EXAMS: CPT CODE: [id number] XR CHEST 1 V 81129 AFTER HOURS SERVICE ON: 10/13/2018 4:42 AM AP Portable Chest Location Code M12 HISTORY: CHEST PAIN FINDINGS: There are no in filtrates. There are no pleural effusions. There is no pneumothorax. Cardi ac silhouette and mediastinum appear within normal limits. Healing right lateral rib fractures noted. IMPRESSION: No a ctive pulmonary findings. at 0443 Reported and signed by: Adolfo Santana M.D. CC: Grabiel Godfrey MD Technol ogist: MILADYS HERNANDEZ, RT Trnscrd Date/Time/ By: 10/13/2018 (0443) : By: [email or web address] Orig Print D/T: S: 10/13/2018 (0 446) PAGE 1 Signed Report BASIC METABOLIC [id number] 15:00:00* Test Item Value Reference Range Comments SODIUM (test code=NA) 142 mmol/L 136-145 POTASSIUM (test code=K) 3.9 mmol/L 3.5-5.1 CHLORIDE (test code=CL) 106.0 mmol/L 98-107 CARBON DIOXIDE (test code=CO2) 27.0 mmol/L 21-32 ANION GAP (test code=GAP) 12.9 10-20 GLUCOSE (test code=GLU) 119 mg/dL 74-106 BLOOD UREA NITROGEN (test code=BUN) 18 mg/dL 7-18 GLOMERULAR FILTRATION RATE (test code=GFR) > 60 mL/min >=60 Estimated GFR by using Modified MDRD formula.Chronic kidney disease is defined as either kidney damageor GFR <60 mL/min/1.73 m2 for >3 months. CREATININE (test code=CREAT) 1.00 mg/dL 0.7-1.3 BUN/CREATININE RATIO (test code=BUN/CREA) 18.0 10-20 CALCIUM (test code=CA) 9.0 mg/dL 8.5-10.1 PT IS A HARDSTICK RN DEDRICK([id number]) IS AWARE @1144V.LAB. 1201BASIC METABOLIC [id number] 14:54:00* Test Item Value Reference Range Comments SODIUM (test code=NA) 142 mmol/L 136-145 POTASSIUM (test code=K) 3.9 mmol/L 3.5-5.1 CHLORIDE (test code=CL) 106.0 mmol/L 98-107 CARBON DIOXIDE (test code=CO2) mmol/L 21-32 ANION GAP (test code=GAP) 10-20 GLUCOSE (test code=GLU) mg/dL 74-106 BLOOD UREA NITROGEN (test code=BUN) mg/dL 7-18 GLOMERULAR FILTRATION RATE (test code=GFR) mL/min >=60 CREATININE (test code=CREAT) mg/dL 0.7-1.3 BUN/CREATININE RATIO (test code=BUN/CREA) 10-20 CALCIUM (test code=CA) mg/dL 8.5-10.1 PT IS A HARDSTICK DIANN TSE([id number]) IS AWARE @Diurnal4V.LAB. 1201CBC W/O [id number] 13:51:00* Test Item Value Reference Range Comments WHITE BLOOD CELL (test code=WBC) 10.2 K/mm3 4.5-12.5 RED BLOOD CELL (test code=RBC) 4.36 mill/mm3 4.0-5.8 HEMOGLOBIN (test code=HGB) 12.0 gram/dL 13.0-17.5 HEMATOCRIT (test code=HCT) 38.1 % 42.0-52.0 MEAN CELL VOLUME (test code=MCV) 87.4 fL 80-98 MEAN CELL HGB (test code=MCH) 27.5 picogram 27.0-33.0 MEAN CELL HGB CONCETRATION (test code=MCHC) 31.5 gram/dL 33.0-36.0 RED CELL DISTRIBUTION WIDTH (test code=RDW) 15.3 % 11.6-16.2 PLATELET COUNT (test code=PLT) 303 K/mm3 150-450 MEAN PLATELET VOLUME (test code=MPV) 11.1 fL 6.7-11.0 PT IS A JESÚS TSE([id number]) IS AWARE @[facility].JS108/ 1203 [id number] 03:32:00* Test Item Value Reference Range Comments TROPONIN-I (test code=TROPI) <0.015 ng/mL 0-0.045 COMMENTS TO [employer]: COLLECT 3 HOURS AFTER PREVIOUS [id number] 23:20:00* Test Item Value Reference Range Comments TROPONIN-I (test code=TROPI) <0.015 ng/mL 0-0.045 COMMENTS TO [employer]: COLLECT 3 HOURS AFTER PREVIOUS SAMPLEDRUGS OF ABUSE SCREEN [id number] 21:14:00* Test Item Value Reference Range Comments UA PH DIPSTICK (test code=OFE) 6.5 5.0-8.0 URN COCAINE (test code=COCAURN) NEGATIVE <300 ng/mL URN CANNABINOIDS (test code=CANNABURN) NEGATIVE <50 ng/mL URN AMPHETAMINE (test code=AMPHETURN) NEGATIVE <1000 ng/mL URN BARBITURATE (test code=BARBITURN) NEGATIVE <200 ng/mL URN BENZODIAZEPINE (test code=BENZOURN) POSITIVE <200 ng/mL This test provides only a preliminary test result. A morespecific alternate chemical method must be used in order toobtain a confirmed analytical result. Gas chromatography/mass spectrometry (GC/MS) is thepreferred confirmatory method. Other chemical confirmationmethods are available. Clinical consideration and professional judgment should be applied to any drug of abusetest result, particularly when preliminary positive resultsare used.Unconfirmed screening results must not be used fornon-medical purposes (e.g., employment testing, legaltesting). URN OPIATES (test code=OPIATURN) NEGATIVE <300 ng/mL URN PHENCYCLIDINE (PCP) (test code=PHENCURN) NEGATIVE <25 ng/mL URN METHADONE (test code=METHAURN) NEGATIVE <300 ng/mL DRUGS OF ABUSE SCREEN [id number] 19:28:00* Test Item Value Reference Range Comments UA PH DIPSTICK (test code=OFE) 5.0-8.0 URN COCAINE (test code=COCAURN) NEGATIVE <300 ng/mL URN CANNABINOIDS (test code=CANNABURN) NEGATIVE <50 ng/mL URN AMPHETAMINE (test code=AMPHETURN) NEGATIVE <1000 ng/mL URN BARBITURATE (test code=BARBITURN) NEGATIVE <200 ng/mL URN BENZODIAZEPINE (test code=BENZOURN) POSITIVE <200 ng/mL This test provides only a preliminary test result. A morespecific alternate chemical method must be used in order toobtain a confirmed analytical result. Gas chromatography/mass spectrometry (GC/MS) is thepreferred confirmatory method. Other chemical confirmationmethods are available. Clinical consideration and professional judgment should be applied to any drug of abusetest result, particularly when preliminary positive resultsare used.Unconfirmed screening results must not be used fornon-medical purposes (e.g., employment testing, legaltesting). URN OPIATES (test code=OPIATURN) NEGATIVE <300 ng/mL URN PHENCYCLIDINE (PCP) (test code=PHENCURN) NEGATIVE <25 ng/mL URN METHADONE (test code=METHAURN) NEGATIVE <300 ng/mL BASIC METABOLIC [id number] 18:05:00* Test Item Value Reference Range Comments SODIUM (test code=NA) 139 mmol/L 136-145 POTASSIUM (test code=K) 3.7 mmol/L 3.5-5.1 CHLORIDE (test code=CL) 106.0 mmol/L 98-107 CARBON DIOXIDE (test code=CO2) 27.0 mmol/L 21-32 ANION GAP (test code=GAP) 9.7 10-20 GLUCOSE (test code=GLU) 89 mg/dL 74-106 BLOOD UREA NITROGEN (test code=BUN) 15 mg/dL 7-18 GLOMERULAR FILTRATION RATE (test code=GFR) > 60 mL/min >=60 Estimated GFR by using Modified MDRD formula.Chronic kidney disease is defined as either kidney damageor GFR <60 mL/min/1.73 m2 for >3 months. CREATININE (test code=CREAT) 1.00 mg/dL 0.7-1.3 BUN/CREATININE RATIO (test code=BUN/CREA) 14.9 10-20 CALCIUM (test code=CA) 9.1 mg/dL 8.5-10.1 [id number] 18:05:00* Test Item Value Reference Range Comments TROPONIN-I (test code=TROPI) <0.015 ng/mL 0-0.045 BASIC METABOLIC [id number] 17:57:00* Test Item Value Reference Range Comments SODIUM (test code=NA) 139 mmol/L 136-145 POTASSIUM (test code=K) 3.7 mmol/L 3.5-5.1 CHLORIDE (test code=CL) 106.0 mmol/L 98-107 CARBON DIOXIDE (test code=CO2) mmol/L 21-32 ANION GAP (test code=GAP) 10-20 GLUCOSE (test code=GLU) mg/dL 74-106 BLOOD UREA NITROGEN (test code=BUN) mg/dL 7-18 GLOMERULAR FILTRATION RATE (test code=GFR) mL/min >=60 CREATININE (test code=CREAT) mg/dL 0.7-1.3 BUN/CREATININE RATIO (test code=BUN/CREA) 10-20 CALCIUM (test code=CA) mg/dL 8.5-10.1 [id number] 17:57:00* Test Item Value Reference Range Comments TROPONIN-I (test code=TROPI) ng/mL 0-0.045 - XR CHEST 1 [id number] 17:53:00 FAX: Felecia Orellana DO [place]: [address] St: REG Name: RADHA LAO [facility] : [birth year] 62 Age/S: 53/M [address] [facility] Unit #: [id number] Loc: [place] [address] Phys: Felecia Orellana DO Acct: [id number] Dis Date: Status: REG ER PHONE #: [phone] Exam Date: 10/11/2018 4724 FAX #: [phone] Reason: CHEST PAIN EXAMS: CPT CODE: [id number] XR CHEST 1 V 40223 REASON FOR EXAM: CHEST PAIN EXAM ORDER DATE: 10/11/2018 5:28 PM Ordering Laurita: Felecia Orellana DO PROCEDURE: - XR CHEST 1 V COMP ARISON: 10/07/2018 FINDINGS: Portable AP frontal view of the chest obtained at 5:44 PM shows clear lungs without evidence of consolidation. T here is no evidence of effusion. The heart size is within normal limits. Pulmonary vasculatures are unremarkable. IMPRESSION: No ac tive disease. at 1753 Reported and signed by: Raúl Chang M.D. CC: Felecia Orellana DO Technologist: Kathy Camara(Julieta) Trnscrd Date/Time/By: 10/11/2018 (033) : By: LizL Orig Print D/T: S: 10/11/2018 (7094) PAGE 1 Signed Report CBC W/O [id number] 17:51:00* Test Item Value Reference Range Comments WHITE BLOOD CELL (test code=WBC) 9.3 K/mm3 4.5-12.5 RED BLOOD CELL (test code=RBC) 4.81 mill/mm3 4.0-5.8 HEMOGLOBIN (test code=HGB) 13.1 gram/dL 13.0-17.5 HEMATOCRIT (test code=HCT) 41.7 % 42.0-52.0 MEAN CELL VOLUME (test code=MCV) 86.7 fL 80-98 MEAN CELL HGB (test code=MCH) 27.2 picogram 27.0-33.0 MEAN CELL HGB CONCETRATION (test code=MCHC) 31.4 gram/dL 33.0-36.0 RED CELL DISTRIBUTION WIDTH (test code=RDW) 15.1 % 11.6-16.2 PLATELET COUNT (test code=PLT) 331 K/mm3 150-450 MEAN PLATELET VOLUME (test code=MPV) 11.2 fL 6.7-11.0 CBC W/O [id number] 17:49:00* Test Item Value Reference Range Comments WHITE BLOOD CELL (test code=WBC) K/mm3 4.5-12.5 RED BLOOD CELL (test code=RBC) mill/mm3 4.0-5.8 HEMOGLOBIN (test code=HGB) 13.1 gram/dL 13.0-17.5 HEMATOCRIT (test code=HCT) % 42.0-52.0 MEAN CELL VOLUME (test code=MCV) fL 80-98 MEAN CELL HGB (test code=MCH) picogram 27.0-33.0 MEAN CELL HGB CONCETRATION (test code=MCHC) gram/dL 33.0-36.0 RED CELL DISTRIBUTION WIDTH (test code=RDW) % 11.6-16.2 PLATELET COUNT (test code=PLT) K/mm3 150-450 MEAN PLATELET VOLUME (test code=MPV) fL 6.7-11.0 [id number] 10:02:00* Test Item Value Reference Range Comments TROPONIN-I (test code=TROPI) <0.015 ng/mL 0-0.045 COMMENTS TO [employer]: COLLECT 3 HOURS AFTER PREVIOUS SAMPLEHIV 1 2 COMBO AG/AB [id number] 05:45:00* Test Item Value Reference Range Comments HIV 1 2 COMBO AG/AB SCREEN (test code=[id number]) AB/AG NON REACTIVE NONREACTIVE NONREACTIVE HIV P24 ANTIGEN NONREACTIVE NONREACTIVE HIV 1&2 ANTIBODY NONREACTIVE THE HIV-1 P24 TEST HELPS DISTINGUISH ACUTE HIV- 1INFECTIONFROM ESTABLISHED HIV-1 INFECTION WHEN THE SPECIMEN ISPOSITIVE FOR HIV- 1 P24 ANTIGEN. HIV-1 P24 ANTIGEN IS HIGHEST IN THE FIRST FEW WEEKS AFTERINFECTION BASIC METABOLIC [id number] 05:30:00* Test Item Value Reference Range Comments SODIUM (test code=NA) 143 mmol/L 136-145 POTASSIUM (test code=K) 3.5 mmol/L 3.5-5.1 CHLORIDE (test code=CL) 109.0 mmol/L 98-107 CARBON DIOXIDE (test code=CO2) 26.0 mmol/L 21-32 ANION GAP (test code=GAP) 11.5 10-20 GLUCOSE (test code=GLU) 87 mg/dL 74-106 BLOOD UREA NITROGEN (test code=BUN) 18 mg/dL 7-18 GLOMERULAR FILTRATION RATE (test code=GFR) > 60 mL/min >=60 Estimated GFR by using Modified MDRD formula.Chronic kidney disease is defined as either kidney damageor GFR <60 mL/min/1.73 m2 for >3 months. CREATININE (test code=CREAT) 0.90 mg/dL 0.7-1.3 BUN/CREATININE RATIO (test code=BUN/CREA) 20.5 10-20 CALCIUM (test code=CA) 8.6 mg/dL 8.5-10.1 [id number] 05:30:00* Test Item Value Reference Range Comments TROPONIN-I (test code=TROPI) <0.015 ng/mL 0-0.045 COMMENTS TO [employer]: COLLECT 3 HOURS AFTER PREVIOUS SAMPLEBASIC METABOLIC [id number] 05:17:00* Test Item Value Reference Range Comments SODIUM (test code=NA) 143 mmol/L 136-145 POTASSIUM (test code=K) 3.5 mmol/L 3.5-5.1 CHLORIDE (test code=CL) 109.0 mmol/L 98-107 CARBON DIOXIDE (test code=CO2) mmol/L 21-32 ANION GAP (test code=GAP) 10-20 GLUCOSE (test code=GLU) mg/dL 74-106 BLOOD UREA NITROGEN (test code=BUN) mg/dL 7-18 GLOMERULAR FILTRATION RATE (test code=GFR) mL/min >=60 CREATININE (test code=CREAT) mg/dL 0.7-1.3 BUN/CREATININE RATIO (test code=BUN/CREA) 10-20 CALCIUM (test code=CA) mg/dL 8.5-10.1 CBC W/O [id number] 04:53:00* Test Item Value Reference Range Comments WHITE BLOOD CELL (test code=WBC) 9.8 K/mm3 4.5-12.5 RED BLOOD CELL (test code=RBC) 4.03 mill/mm3 4.0-5.8 HEMOGLOBIN (test code=HGB) 11.2 gram/dL 13.0-17.5 HEMATOCRIT (test code=HCT) 34.9 % 42.0-52.0 MEAN CELL VOLUME (test code=MCV) 86.6 fL 80-98 MEAN CELL HGB (test code=MCH) 27.8 picogram 27.0-33.0 MEAN CELL HGB CONCETRATION (test code=MCHC) 32.1 gram/dL 33.0-36.0 RED CELL DISTRIBUTION WIDTH (test code=RDW) 15.5 % 11.6-16.2 PLATELET COUNT (test code=PLT) 277 K/mm3 150-450 MEAN PLATELET VOLUME (test code=MPV) 11.1 fL 6.7-11.0 DRUGS OF ABUSE SCREEN [id number] 00:42:00* Test Item Value Reference Range Comments UA PH DIPSTICK (test code=OFE) 6.0 5.0-8.0 URN COCAINE (test code=COCAURN) POSITIVE <300 ng/mL This test provides only a preliminary test result. A morespecific alternate chemical method must be used in order toobtain a confirmed analytical result. Gas chromatography/mass spectrometry (GC/MS) is thepreferred confirmatory method. Other chemical confirmationmethods are available. Clinical consideration and professional judgment should be applied to any drug of abusetest result, particularly when preliminary positive resultsare used.Unconfirmed screening results must not be used fornon-medical purposes (e.g., employment testing, legaltesting). URN CANNABINOIDS (test code=CANNABURN) NEGATIVE <50 ng/mL URN AMPHETAMINE (test code=AMPHETURN) NEGATIVE <1000 ng/mL URN BARBITURATE (test code=BARBITURN) NEGATIVE <200 ng/mL URN BENZODIAZEPINE (test code=BENZOURN) NEGATIVE <200 ng/mL URN OPIATES (test code=OPIATURN) NEGATIVE <300 ng/mL URN PHENCYCLIDINE (PCP) (test code=PHENCURN) NEGATIVE <25 ng/mL URN METHADONE (test code=METHAURN) NEGATIVE <300 ng/mL DRUGS OF ABUSE SCREEN [id number] 23:54:00* Test Item Value Reference Range Comments UA PH DIPSTICK (test code=OFE) 6.0 5.0-8.0 URN COCAINE (test code=COCAURN) <300 ng/mL URN CANNABINOIDS (test code=CANNABURN) <50 ng/mL URN AMPHETAMINE (test code=AMPHETURN) <1000 ng/mL URN BARBITURATE (test code=BARBITURN) <200 ng/mL URN BENZODIAZEPINE (test code=BENZOURN) <200 ng/mL URN OPIATES (test code=OPIATURN) <300 ng/mL URN PHENCYCLIDINE (PCP) (test code=PHENCURN) <25 ng/mL URN METHADONE (test code=METHAURN) <300 ng/mL BASIC METABOLIC [id number] 23:10:00* Test Item Value Reference Range Comments SODIUM (test code=NA) 140 mmol/L 136-145 POTASSIUM (test code=K) 3.8 mmol/L 3.5-5.1 CHLORIDE (test code=CL) 108.0 mmol/L 98-107 CARBON DIOXIDE (test code=CO2) 26.0 mmol/L 21-32 ANION GAP (test code=GAP) 9.8 10-20 GLUCOSE (test code=GLU) 121 mg/dL 74-106 BLOOD UREA NITROGEN (test code=BUN) 21 mg/dL 7-18 GLOMERULAR FILTRATION RATE (test code=GFR) > 60 mL/min >=60 Estimated GFR by using Modified MDRD formula.Chronic kidney disease is defined as either kidney damageor GFR <60 mL/min/1.73 m2 for >3 months. CREATININE (test code=CREAT) 1.00 mg/dL 0.7-1.3 BUN/CREATININE RATIO (test code=BUN/CREA) 20.4 10-20 CALCIUM (test code=CA) 8.8 mg/dL 8.5-10.1 [id number] 23:10:00* Test Item Value Reference Range Comments TROPONIN-I (test code=TROPI) <0.015 ng/mL 0-0.045 BASIC METABOLIC [id number] 22:52:00* Test Item Value Reference Range Comments SODIUM (test code=NA) 140 mmol/L 136-145 POTASSIUM (test code=K) 3.8 mmol/L 3.5-5.1 CHLORIDE (test code=CL) 108.0 mmol/L 98-107 CARBON DIOXIDE (test code=CO2) 26.0 mmol/L 21-32 ANION GAP (test code=GAP) 9.8 10-20 GLUCOSE (test code=GLU) mg/dL 74-106 BLOOD UREA NITROGEN (test code=BUN) 21 mg/dL 7-18 GLOMERULAR FILTRATION RATE (test code=GFR) mL/min >=60 CREATININE (test code=CREAT) mg/dL 0.7-1.3 BUN/CREATININE RATIO (test code=BUN/CREA) 10-20 CALCIUM (test code=CA) 8.8 mg/dL 8.5-10.1 [id number] 22:52:00* Test Item Value Reference Range Comments TROPONIN-I (test code=TROPI) ng/mL 0-0.045 CBC W/O [id number] 22:37:00* Test Item Value Reference Range Comments WHITE BLOOD CELL (test code=WBC) 8.8 K/mm3 4.5-12.5 RED BLOOD CELL (test code=RBC) 4.10 mill/mm3 4.0-5.8 HEMOGLOBIN (test code=HGB) 11.2 gram/dL 13.0-17.5 HEMATOCRIT (test code=HCT) 35.9 % 42.0-52.0 MEAN CELL VOLUME (test code=MCV) 87.6 fL 80-98 MEAN CELL HGB (test code=MCH) 27.3 picogram 27.0-33.0 MEAN CELL HGB CONCETRATION (test code=MCHC) 31.2 gram/dL 33.0-36.0 RED CELL DISTRIBUTION WIDTH (test code=RDW) 15.6 % 11.6-16.2 PLATELET COUNT (test code=PLT) 306 K/mm3 150-450 MEAN PLATELET VOLUME (test code=MPV) 10.8 fL 6.7-11.0 - XR CHEST 1 [id number] 22:27:00 FAX: Hayden Benson MD [phone] [place]: [address] St: REG Name: Indira SHAHABKAYLYNNRADHA [facility] : [birth year] 62 Age/S: 53/M [address] [facility] Unit #: [id number] Loc: [place] [address] Phys: Hayden Benson MD Acct: [id number] Dis Date: Status: REG ER PHONE #: [phone] Exam Date: 10/07/20182229 FAX #: [phone] Reason: CHEST PAIN EXAMS: CPT CODE: [id number] XR CHEST 1 V [id number] REASON FOR EXAM: CHEST PAIN EXAM ORDER DATE: 10/07/2018 10:00 PM Ordering Laurita: Hayden Benson MD PROCEDURE: - XR CHEST 1 V COMPARI SON: FINDINGS: Portable AP frontal view of the chest obtained at 10:18 PM shows clear lungs without evidence of consolidation. There is no evidence of effusion. The heart size is within normal limits. Pulmon elizabeth vasculatures are unremarkable. IMPRESSION: No active diseas e. at 5440 Reported and signed by: Laurita Garcia C: Hayden Benson MD Technologist: PAU ALBERT RT; RT YARITZA(R) Trnscrd Date/Time/By: 10/07/2018 (6504) : By: LizL Orig Print D/T: S: 10/07/2018 (0132) PAGE 1 Signed Report URINALYSIS [id number] 11:46:00* Test Item Value Reference Range Comments UA COLOR (test code=COLU) YELLOW YELLOW UA APPEARANCE (test code=APPU) CLEAR CLEAR UA GLUCOSE DIPSTICK (test code=DGLUU) NEGATIVE mg/dL NEGATIVE UA BILIRUBIN DIPSTICK (test code=BILU) NEGATIVE mg/dL NEGATIVE UA KETONE DIPSTICK (test code=KETU) 20 (1+) mg/dL NEGATIVE UA SPECIFIC GRAVITY (test code=SGU) 1.026 1.001-1.035 UA BLOOD DIPSTICK (test code=AGUSTÍN) Negative mg/dL NEGATIVE UA PH DIPSTICK (test code=OFE) 6.0 5.0-8.0 UA PROTEIN DIPSTICK (test code=PROU) 30 (1+) mg/dL NEGATIVE UA UROBILINIOGEN DIPSTICK (test code=URO) Normal mg/dL NEGATIVE UA NITRITE DIPSTICK (test code=GERMAN) NEGATIVE NEGATIVE UA LEUKOCYTE ESTERASE W REFLEX (test code=LEUUR) NEGATIVE Debra/uL NEGATIVE UA WBC (test code=WBCU) 0-5 per HPF 0-5 UA RBC (test code=RBCU) 0-2 #/HPF 0-5 UA EPITHELIAL CELLS (test code=EPIU) FEW per HPF FEW UA BACTERIA (test code=BACU) FEW per HPF NONE UA HYALINE CAST (test code=HYALU) 11-20 #/LPF 0-5 UA MUCUS (test code=MUCU) FEW #/LPF FEW Urine Source? Clean CatchDRUGS OF ABUSE SCREEN [id number] 11:46:00* Test Item Value Reference Range Comments URN COCAINE (test code=COCAURN) POSITIVE <300 ng/mL This test provides only a preliminary test result. A morespecific alternate chemical method must be used in order toobtain a confirmed analytical result. Gas chromatography/mass spectrometry (GC/MS) is thepreferred confirmatory method. Other chemical confirmationmethods are available. Clinical consideration and professional judgment should be applied to any drug of abusetest result, particularly when preliminary positive resultsare used.Unconfirmed screening results must not be used fornon-medical purposes (e.g., employment testing, legaltesting). URN CANNABINOIDS (test code=CANNABURN) NEGATIVE <50 ng/mL URN AMPHETAMINE (test code=AMPHETURN) NEGATIVE <1000 ng/mL URN BARBITURATE (test code=BARBITURN) NEGATIVE <200 ng/mL URN BENZODIAZEPINE (test code=BENZOURN) POSITIVE <200 ng/mL This test provides only a preliminary test result. A morespecific alternate chemical method must be used in order toobtain a confirmed analytical result. Gas chromatography/mass spectrometry (GC/MS) is thepreferred confirmatory method. Other chemical confirmationmethods are available. Clinical consideration and professional judgment should be applied to any drug of abusetest result, particularly when preliminary positive resultsare used.Unconfirmed screening results must not be used fornon-medical purposes (e.g., employment testing, legaltesting). URN OPIATES (test code=OPIATURN) NEGATIVE <300 ng/mL URN PHENCYCLIDINE (PCP) (test code=PHENCURN) NEGATIVE <25 ng/mL URN METHADONE (test code=METHAURN) NEGATIVE <300 ng/mL Urine Source? Clean CatchURINALYSIS [id number] 11:09:00* Test Item Value Reference Range Comments UA COLOR (test code=COLU) YELLOW YELLOW UA APPEARANCE (test code=APPU) CLEAR CLEAR UA GLUCOSE DIPSTICK (test code=DGLUU) NEGATIVE mg/dL NEGATIVE UA BILIRUBIN DIPSTICK (test code=BILU) NEGATIVE mg/dL NEGATIVE UA KETONE DIPSTICK (test code=KETU) 20 (1+) mg/dL NEGATIVE UA SPECIFIC GRAVITY (test code=SGU) 1.026 1.001-1.035 UA BLOOD DIPSTICK (test code=AGUSTÍN) Negative mg/dL NEGATIVE UA PH DIPSTICK (test code=OFE) 6.0 5.0-8.0 UA PROTEIN DIPSTICK (test code=PROU) 30 (1+) mg/dL NEGATIVE UA UROBILINIOGEN DIPSTICK (test code=URO) Normal mg/dL NEGATIVE UA NITRITE DIPSTICK (test code=GERMAN) NEGATIVE NEGATIVE UA LEUKOCYTE ESTERASE W REFLEX (test code=LEUUR) NEGATIVE Debra/uL NEGATIVE UA WBC (test code=WBCU) 0-5 per HPF 0-5 UA RBC (test code=RBCU) 0-2 #/HPF 0-5 UA EPITHELIAL CELLS (test code=EPIU) FEW per HPF FEW UA BACTERIA (test code=BACU) FEW per HPF NONE UA HYALINE CAST (test code=HYALU) 11-20 #/LPF 0-5 UA MUCUS (test code=MUCU) FEW #/LPF FEW Urine Source? Clean CatchDRUGS OF ABUSE SCREEN [id number] 11:09:00* Test Item Value Reference Range Comments URN COCAINE (test code=COCAURN) <300 ng/mL URN CANNABINOIDS (test code=CANNABURN) <50 ng/mL URN AMPHETAMINE (test code=AMPHETURN) <1000 ng/mL URN BARBITURATE (test code=BARBITURN) <200 ng/mL URN BENZODIAZEPINE (test code=BENZOURN) <200 ng/mL URN OPIATES (test code=OPIATURN) <300 ng/mL URN PHENCYCLIDINE (PCP) (test code=PHENCURN) <25 ng/mL URN METHADONE (test code=METHAURN) <300 ng/mL Urine Source? Clean CatchURINALYSIS [id number] 11:00:00* Test Item Value Reference Range Comments UA COLOR (test code=COLU) YELLOW YELLOW UA APPEARANCE (test code=APPU) CLEAR CLEAR UA GLUCOSE DIPSTICK (test code=DGLUU) NEGATIVE mg/dL NEGATIVE UA BILIRUBIN DIPSTICK (test code=BILU) NEGATIVE mg/dL NEGATIVE UA KETONE DIPSTICK (test code=KETU) 20 (1+) mg/dL NEGATIVE UA SPECIFIC GRAVITY (test code=SGU) 1.026 1.001-1.035 UA BLOOD DIPSTICK (test code=AGUSTÍN) Negative mg/dL NEGATIVE UA PH DIPSTICK (test code=OFE) 6.0 5.0-8.0 UA PROTEIN DIPSTICK (test code=PROU) 30 (1+) mg/dL NEGATIVE UA UROBILINIOGEN DIPSTICK (test code=URO) Normal mg/dL NEGATIVE UA NITRITE DIPSTICK (test code=GERMAN) NEGATIVE NEGATIVE UA LEUKOCYTE ESTERASE W REFLEX (test code=LEUUR) NEGATIVE Debra/uL NEGATIVE UA WBC (test code=WBCU) 0-5 per HPF 0-5 UA RBC (test code=RBCU) 0-2 #/HPF 0-5 UA EPITHELIAL CELLS (test code=EPIU) FEW per HPF FEW UA BACTERIA (test code=BACU) per HPF NONE UA HYALINE CAST (test code=HYALU) 11-20 #/LPF 0-5 UA MUCUS (test code=MUCU) FEW #/LPF FEW Urine Source? Clean CatchDRUGS OF ABUSE SCREEN [id number] 11:00:00* Test Item Value Reference Range Comments URN COCAINE (test code=COCAURN) <300 ng/mL URN CANNABINOIDS (test code=CANNABURN) <50 ng/mL URN AMPHETAMINE (test code=AMPHETURN) <1000 ng/mL URN BARBITURATE (test code=BARBITURN) <200 ng/mL URN BENZODIAZEPINE (test code=BENZOURN) <200 ng/mL URN OPIATES (test code=OPIATURN) <300 ng/mL URN PHENCYCLIDINE (PCP) (test code=PHENCURN) <25 ng/mL URN METHADONE (test code=METHAURN) <300 ng/mL Urine Source? Clean CatchBASIC METABOLIC [id number] 09:21:00* Test Item Value Reference Range Comments SODIUM (test code=NA) 144 mmol/L 136-145 POTASSIUM (test code=K) 3.7 mmol/L 3.5-5.1 CHLORIDE (test code=CL) 109.0 mmol/L 98-107 CARBON DIOXIDE (test code=CO2) 22.0 mmol/L 21-32 ANION GAP (test code=GAP) 16.7 10-20 GLUCOSE (test code=GLU) 80 mg/dL 74-106 BLOOD UREA NITROGEN (test code=BUN) 22 mg/dL 7-18 GLOMERULAR FILTRATION RATE (test code=GFR) 53 mL/min >=60 Estimated GFR by using Modified MDRD formula.Chronic kidney disease is defined as either kidney damageor GFR <60 mL/min/1.73 m2 for >3 months. CREATININE (test code=CREAT) 1.40 mg/dL 0.7-1.3 BUN/CREATININE RATIO (test code=BUN/CREA) 15.6 10-20 CALCIUM (test code=CA) 9.7 mg/dL 8.5-10.1 BASIC METABOLIC [id number] 09:16:00* Test Item Value Reference Range Comments SODIUM (test code=NA) 144 mmol/L 136-145 POTASSIUM (test code=K) 3.7 mmol/L 3.5-5.1 CHLORIDE (test code=CL) 109.0 mmol/L 98-107 CARBON DIOXIDE (test code=CO2) mmol/L 21-32 ANION GAP (test code=GAP) 10-20 GLUCOSE (test code=GLU) mg/dL 74-106 BLOOD UREA NITROGEN (test code=BUN) mg/dL 7-18 GLOMERULAR FILTRATION RATE (test code=GFR) mL/min >=60 CREATININE (test code=CREAT) mg/dL 0.7-1.3 BUN/CREATININE RATIO (test code=BUN/CREA) 10-20 CALCIUM (test code=CA) mg/dL 8.5-10.1 CBC W/O [id number] 09:00:00* Test Item Value Reference Range Comments WHITE BLOOD CELL (test code=WBC) 13.0 K/mm3 4.5-12.5 RED BLOOD CELL (test code=RBC) 4.29 mill/mm3 4.0-5.8 HEMOGLOBIN (test code=HGB) 12.0 gram/dL 13.0-17.5 HEMATOCRIT (test code=HCT) 36.4 % 42.0-52.0 MEAN CELL VOLUME (test code=MCV) 84.8 fL 80-98 MEAN CELL HGB (test code=MCH) 28.0 picogram 27.0-33.0 MEAN CELL HGB CONCETRATION (test code=MCHC) 33.0 gram/dL 33.0-36.0 RED CELL DISTRIBUTION WIDTH (test code=RDW) 15.8 % 11.6-16.2 PLATELET COUNT (test code=PLT) 317 K/mm3 150-450 MEAN PLATELET VOLUME (test code=MPV) 11.0 fL 6.7-11.0 - CT C-SPINE W/O [id number] 09:00:00 Name: RADHA KENDRICK [facility] : 1965 Age/S: 53 / M [address] [facility] Unit #: [id number] Loc: [place] [address] Phys: Rex Lawson MD Acct: [id number] Dis Date: Status: REG ER PHONE #: [phone] Exam Date: 10/06/2018 0834 FAX #: [phone] Reason: Neck Pain EXAMS: CPT CODE: [id number] CT C-SPINE W/O CONTRAST 22184 HISTORY: HEADACHE, fall, seizure, head injury TECHNIQUE: Noncontrast 2.[address] of the head and cervical spine. Examination acquired within 24 hours of arrival. Automated exposure control for dose reduction. COMPARISON: Contrast CT scan of the brain and cervical spine September 09, 2018. FINDINGS: Images are degraded by patient motion. No acute hemorrhage. No intracranial mass, mass effect, or midline shift. No CT evidence of acute infarct. Jama-white matter differentiation is preserved. No hydrocephalus. No extra-axial fluid collection. Please note that images of the posterior fossa are degraded by patient motion. Visualized paranasal sinuses are clear. Mastoid air cells and middle ear cavities are clear. . Orbital contents are unremarkable. Calvarium and skull base are grossly intact however evaluation of subtle fractures is limited due to image degradation by patient motion as diana cribed above. No acute fracture of the cervical spine. There is g rade 1 C3-C4 anterolisthesis, similar to the previous study. Cranioc ervical and cervicothoracic articulations are appropriate. There is extens raegan facet hypertrophy throughout the cervical spine, similar to prior exam . There is loss of cervical lordosis, similar to the previous exam. Height loss of the C5 and C6 vertebral bodies as well as the C4-C5, C5-C6, and C6-C7 disc spaces is redemonstrated. There is severe foraminal narrowing in the cervical spine from the level of C3 through the level of C7. No prevertebral or paraspinal soft tissue abnormality. Visual ized posterior fossa contents are grossly unremarkable. Lung apices are c lear. IMPRESSION: PAGE 1 Signed Report (CONTINUED) Name: RADHA KENDRICK [facility] : 1965 Age/S: 53 / M [address] Unit #: [id number] Loc: [place] [address] Phys: Rex Lawson MD Acct: [id number] Dis Date: Status: REG ER PHONE #: [phone] Exam Date: 09/2018 FAX #: [phone] Reason: Neck Pain EXAMS: CPT CODE: [id number] CT C-SPINE W/O CONTRAST 89615 <Continued> Mild limitations due to image degradation by patient motion. No acute intracranial process. Severe degenerative changes of the cervical spine with multilevel foraminal narrowing appear grossly unchanged from prior exam. at 0900 Reported and signed by: Gareth Ash MD CC: Rex Lawson MD Technologist:Cy Baker RT(R),(MR),(CT); CTDI: DLP: Trnscb Date/Time: 10/06/2018 (09) [email or web address] Orig Print D/T: S: 10/06/2018 (902) PAGE 2 Signed Report - CT HEAD/BRAIN W/O [id number] 09:00:00 Name: RADHA KENDRICK [facility] : 1965 Age/S: 53 / M [address] [employer] [employer] Unit #: [id number] Loc: [place] [address] Phys: Rex Lawson MD Acct: [id number] Di s Date: Status: REG ER PHONE #: Exam Date: 10/06/2018833 FAX #: [phone] Reason: HEADACHE, fall, seizure, head injury EXAMS: CPT CODE: [id number] CT HEAD/BRAIN W/O CONT 94958 HISTORY: HEADACHE, fall, seizure, head injury TECHNIQUE: Noncontrast 2.[address] of the head and cervical spine. Examination acquired within 24 hours of arrival. Automated exposure control for dose reduction. COMPARISON: Contrast CT scan of the brain and cervical spine September 09, 2018. FINDINGS: Images are degraded by patient motion. No acute hem orrhage. No intracranial mass, mass effect, or midline shift. No CT eviden ce of acute infarct. Jama-white matter differentiation is preserved. No hy drocephalus. No extra-axial fluid collection. Please note that images of t he posterior fossa are degraded by patient motion. Visualize d paranasal sinuses are clear. Mastoid air cells and middle ear c avities are clear. . Orbital contents are unremarkable. Calvarium and skull base are grossly intact however evaluation of sub tle fractures is limited due to image degradation by patient motion as diana cribed above. No acute fracture of the cervical spine. There is g rade 1 C3-C4 anterolisthesis, similar to the previous study. Cranioc ervical and cervicothoracic articulations are appropriate. There is extens raegan facet hypertrophy throughout the cervical spine, similar to prior exam . There is loss of cervical lordosis, similar to the previous exam. Height loss of the C5 and C6 vertebral bodies as well as the C4-C5, C5-C6, and C6-C7 disc spaces is redemonstrated. There is severe foraminal narrowing in the cervical spine from the level of C3 through the level of C7. No prevertebral or paraspinal soft tissue abnormality. Visual ized posterior fossa contents are grossly unremarkable. Lung apices are c lear. IMPRESSION: PAGE 1 Signed Report (CONTINUED) Name: RADHA KENDRICK [facility] : 1965 Age/S: 53 / M [address] [facility] Unit #: [id number] Loc: [place] [address] Phys: Rex Lawson MD Acct: [id number] Dis Date: Status: REG ER PHONE #: [phone] Exam Date: 09/2018 0834 FAX #: [phone] Reason: HEADACHE, fal l, seizure, head injury EXAMS: CPT CODE: [id number] CT HEAD/BRAIN W/O CONT 34429 <Continued> Mild limitations due to image degradation by patient motion. No acute intracranial process. Severe degenerative changes of the cervical spine with multilevel foraminal narrowing appear grossly unchanged from prior exam. at 0900 Reported and signed by: Gareth Ash MD CC: Rex Lawson MD Technologist:Cy Baker RT(R),(MR),(CT); CTDI: DLP: Trnscb Date/Time: 10/06/2018 (09) t.[email or web address] Orig Print D/T: S: 10/06/2018 (902) PAGE 2 Signed Report CHEST SINGLE (PORTABLE)2018-10-03 10:59:00 [place] [address] Patient Name: RADHA KENDRICK MR #: [id number] : 1965 Age/Sex: 53/M Req #: [id number] Adm Physician: Ordered by: ALVARO SCRUGGS MD Report #: [id number] Location: ER Room/Bed: Procedure: [id number] DX/CHEST SINGLE (PORTABLE) Exam Date: 10/03/18 Exam Time: 1036 REPORT STATUS: Signed EXAMINATION: CHEST SINGLE (PORTABLE) INDICATION: Chest pain COM PARISON: None FINDINGS: LINES/TUBES:EKG leads overlie the chest. LUNGS:The lungs are moderately inflated. There are bibasilar patchy opaciti es. PLEURA:No pleural effusion or pneumothorax. MEDIASTINUM:The cardi omediastinal silhouette appears normal in size and shape. BONES/SOFT TISSUE S:No acute osseous injury. ABDOMEN:No free air under the diaphragm. IMPRESSION: Bibasilar patchy opacities, more likely subsegmental atelectasis than superimposed aspiration or pneumonia. Signed by: Marla Hagan MD on 10/03/2018 11:01 AM Dictated By: MARLA HAGAN MD 00 Transcribed By: OSWALDO on 10/03/18 1101 CO PY TO: ALVARO SCRUGGS MD DRUGS OF ABUSE SCREEN [id number] 21:46:00* Test Item Value Reference Range Comments UA PH DIPSTICK (test code=OFE) 5.5 5.0-8.0 URN COCAINE (test code=COCAURN) NEGATIVE <300 ng/mL URN CANNABINOIDS (test code=CANNABURN) NEGATIVE <50 ng/mL URN AMPHETAMINE (test code=AMPHETURN) NEGATIVE <1000 ng/mL URN BARBITURATE (test code=BARBITURN) NEGATIVE <200 ng/mL URN BENZODIAZEPINE (test code=BENZOURN) POSITIVE <200 ng/mL This test provides only a preliminary test result. A morespecific alternate chemical method must be used in order toobtain a confirmed analytical result. Gas chromatography/mass spectrometry (GC/MS) is thepreferred confirmatory method. Other chemical confirmationmethods are available. Clinical consideration and professional judgment should be applied to any drug of abusetest result, particularly when preliminary positive resultsare used.Unconfirmed screening results must not be used fornon-medical purposes (e.g., employment testing, legaltesting). URN OPIATES (test code=OPIATURN) NEGATIVE <300 ng/mL URN PHENCYCLIDINE (PCP) (test code=PHENCURN) NEGATIVE <25 ng/mL URN METHADONE (test code=METHAURN) NEGATIVE <300 ng/mL DRUGS OF ABUSE SCREEN [id number] 20:35:00* Test Item Value Reference Range Comments UA PH DIPSTICK (test code=OFE) 5.0-8.0 URN COCAINE (test code=COCAURN) NEGATIVE <300 ng/mL URN CANNABINOIDS (test code=CANNABURN) NEGATIVE <50 ng/mL URN AMPHETAMINE (test code=AMPHETURN) NEGATIVE <1000 ng/mL URN BARBITURATE (test code=BARBITURN) NEGATIVE <200 ng/mL URN BENZODIAZEPINE (test code=BENZOURN) POSITIVE <200 ng/mL This test provides only a preliminary test result. A morespecific alternate chemical method must be used in order toobtain a confirmed analytical result. Gas chromatography/mass spectrometry (GC/MS) is thepreferred confirmatory method. Other chemical confirmationmethods are available. Clinical consideration and professional judgment should be applied to any drug of abusetest result, particularly when preliminary positive resultsare used.Unconfirmed screening results must not be used fornon-medical purposes (e.g., employment testing, legaltesting). URN OPIATES (test code=OPIATURN) NEGATIVE <300 ng/mL URN PHENCYCLIDINE (PCP) (test code=PHENCURN) NEGATIVE <25 ng/mL URN METHADONE (test code=METHAURN) NEGATIVE <300 ng/mL - XR CHEST 1 [id number] 20:01:00 FAX: Juan Pablo Rosario [phone] [place]: St: REG Name: RADHA LAO [facility] : [birth year] Age/S: 53/M [address] [facility] Unit #: [id number] Loc: [place] [address] Phys: Juan Pablo Trejo MD Acct: [id number] Dis Date: Status: REG ER PHONE #: [phone] Exam Date: 09/30/2018 1950 FAX #: [phone] Reason: CHEST PAIN EXAMS: CPT CODE: [id number] XR CHEST 1 V [id number] REASON FOR EXAM: CHEST PAIN EXAM ORDER DATE: 09/30/2018 6:15 PM Ordering M.D.: Destiny Trejo MD PROCEDURE: - XR CHEST 1 V COM PARISON: 09/09/2018 FINDINGS: Portable AP frontal view of the ches t obtained at 7:50 PM shows clear lungs without evidence of consolidation. There is no evidence of effusion. The heart size is within normal limits. Pulmonary vasculatures are unremarkable. IMPRESSION: No active disease. at 2000 Reported and signed by: Raúl Chang M.D. CC: Juan Pablo Trejo MD Technolo gist: RADHA MIDDLETON RT (R) Trnscrd Date/Time/B y: 09/30/2018 (2000) : By: EliezerVTL Orig Print D/T: S: 09/30/2018 (18 06) PAGE 1 Signed Report BASIC METABOLIC [id number] 19:00:00* Test Item Value Reference Range Comments SODIUM (test code=NA) 140 mmol/L 136-145 POTASSIUM (test code=K) 4.1 mmol/L 3.5-5.1 CHLORIDE (test code=CL) 108.0 mmol/L 98-107 CARBON DIOXIDE (test code=CO2) 23.0 mmol/L 21-32 ANION GAP (test code=GAP) 13.1 10-20 GLUCOSE (test code=GLU) 105 mg/dL 74-106 BLOOD UREA NITROGEN (test code=BUN) 22 mg/dL 7-18 GLOMERULAR FILTRATION RATE (test code=GFR) > 60 mL/min >=60 Estimated GFR by using Modified MDRD formula.Chronic kidney disease is defined as either kidney damageor GFR <60 mL/min/1.73 m2 for >3 months. CREATININE (test code=CREAT) 1.20 mg/dL 0.7-1.3 BUN/CREATININE RATIO (test code=BUN/CREA) 18.8 10-20 CALCIUM (test code=CA) 9.2 mg/dL 8.5-10.1 [id number] 19:00:00* Test Item Value Reference Range Comments TROPONIN-I (test code=TROPI) <0.015 ng/mL 0-0.045 BASIC METABOLIC [id number] 18:56:00* Test Item Value Reference Range Comments SODIUM (test code=NA) 140 mmol/L 136-145 POTASSIUM (test code=K) 4.1 mmol/L 3.5-5.1 CHLORIDE (test code=CL) 108.0 mmol/L 98-107 CARBON DIOXIDE (test code=CO2) mmol/L 21-32 ANION GAP (test code=GAP) 10-20 GLUCOSE (test code=GLU) mg/dL 74-106 BLOOD UREA NITROGEN (test code=BUN) mg/dL 7-18 GLOMERULAR FILTRATION RATE (test code=GFR) mL/min >=60 CREATININE (test code=CREAT) mg/dL 0.7-1.3 BUN/CREATININE RATIO (test code=BUN/CREA) 10-20 CALCIUM (test code=CA) 9.2 mg/dL 8.5-10.1 [id number] 18:56:00* Test Item Value Reference Range Comments TROPONIN-I (test code=TROPI) ng/mL 0-0.045 CBC W/O [id number] 18:38:00* Test Item Value Reference Range Comments WHITE BLOOD CELL (test code=WBC) 11.4 K/mm3 4.5-12.5 RED BLOOD CELL (test code=RBC) 4.43 mill/mm3 4.0-5.8 HEMOGLOBIN (test code=HGB) 12.1 gram/dL 13.0-17.5 HEMATOCRIT (test code=HCT) 38.0 % 42.0-52.0 MEAN CELL VOLUME (test code=MCV) 85.8 fL 80-98 MEAN CELL HGB (test code=MCH) 27.3 picogram 27.0-33.0 MEAN CELL HGB CONCETRATION (test code=MCHC) 31.8 gram/dL 33.0-36.0 RED CELL DISTRIBUTION WIDTH (test code=RDW) 15.7 % 11.6-16.2 PLATELET COUNT (test code=PLT) 306 K/mm3 150-450 MEAN PLATELET VOLUME (test code=MPV) 10.8 fL 6.7-11.0 URINALYSIS [id number] 01:15:00* Test Item Value Reference Range Comments UA COLOR (test code=COLU) Light-Yellow YELLOW UA APPEARANCE (test code=APPU) CLEAR CLEAR UA GLUCOSE DIPSTICK (test code=DGLUU) NEGATIVE mg/dL NEGATIVE UA BILIRUBIN DIPSTICK (test code=BILU) NEGATIVE mg/dL NEGATIVE UA KETONE DIPSTICK (test code=KETU) NEGATIVE mg/dL NEGATIVE UA SPECIFIC GRAVITY (test code=SGU) 1.015 1.001-1.035 UA BLOOD DIPSTICK (test code=AGUSTÍN) Negative mg/dL NEGATIVE UA PH DIPSTICK (test code=OFE) 7.0 5.0-8.0 UA PROTEIN DIPSTICK (test code=PROU) NEGATIVE mg/dL NEGATIVE UA UROBILINIOGEN DIPSTICK (test code=URO) Normal mg/dL NEGATIVE UA NITRITE DIPSTICK (test code=GERMAN) NEGATIVE NEGATIVE UA LEUKOCYTE ESTERASE W REFLEX (test code=LEUUR) NEGATIVE Debra/uL NEGATIVE UA WBC (test code=WBCU) 0-5 per HPF 0-5 UA RBC (test code=RBCU) 0-2 #/HPF 0-5 UA EPITHELIAL CELLS (test code=EPIU) MOD per HPF FEW UA BACTERIA (test code=BACU) FEW #/HPF NONE Urine Source? Clean CatchDRUGS OF ABUSE SCREEN [id number] 01:15:00* Test Item Value Reference Range Comments URN COCAINE (test code=COCAURN) NEGATIVE <300 ng/mL URN CANNABINOIDS (test code=CANNABURN) NEGATIVE <50 ng/mL URN AMPHETAMINE (test code=AMPHETURN) NEGATIVE <1000 ng/mL URN BARBITURATE (test code=BARBITURN) NEGATIVE <200 ng/mL URN BENZODIAZEPINE (test code=BENZOURN) POSITIVE <200 ng/mL This test provides only a preliminary test result. A morespecific alternate chemical method must be used in order toobtain a confirmed analytical result. Gas chromatography/mass spectrometry (GC/MS) is thepreferred confirmatory method. Other chemical confirmationmethods are available. Clinical consideration and professional judgment should be applied to any drug of abusetest result, particularly when preliminary positive resultsare used.Unconfirmed screening results must not be used fornon-medical purposes (e.g., employment testing, legaltesting). URN OPIATES (test code=OPIATURN) NEGATIVE <300 ng/mL URN PHENCYCLIDINE (PCP) (test code=PHENCURN) NEGATIVE <25 ng/mL URN METHADONE (test code=METHAURN) NEGATIVE <300 ng/mL Urine Source? Clean CatchURINALYSIS [id number] 23:52:00* Test Item Value Reference Range Comments UA COLOR (test code=COLU) Light-Yellow YELLOW UA APPEARANCE (test code=APPU) CLEAR CLEAR UA GLUCOSE DIPSTICK (test code=DGLUU) NEGATIVE mg/dL NEGATIVE UA BILIRUBIN DIPSTICK (test code=BILU) NEGATIVE mg/dL NEGATIVE UA KETONE DIPSTICK (test code=KETU) NEGATIVE mg/dL NEGATIVE UA SPECIFIC GRAVITY (test code=SGU) 1.015 1.001-1.035 UA BLOOD DIPSTICK (test code=AGUSTÍN) Negative mg/dL NEGATIVE UA PH DIPSTICK (test code=OFE) 7.0 5.0-8.0 UA PROTEIN DIPSTICK (test code=PROU) NEGATIVE mg/dL NEGATIVE UA UROBILINIOGEN DIPSTICK (test code=URO) Normal mg/dL NEGATIVE UA NITRITE DIPSTICK (test code=GERMAN) NEGATIVE NEGATIVE UA LEUKOCYTE ESTERASE W REFLEX (test code=LEUUR) NEGATIVE Debra/uL NEGATIVE UA WBC (test code=WBCU) 0-5 per HPF 0-5 UA RBC (test code=RBCU) 0-2 #/HPF 0-5 UA EPITHELIAL CELLS (test code=EPIU) MOD per HPF FEW UA BACTERIA (test code=BACU) FEW #/HPF NONE Urine Source? Clean CatchDRUGS OF ABUSE SCREEN [id number] 23:52:00* Test Item Value Reference Range Comments URN COCAINE (test code=COCAURN) <300 ng/mL URN CANNABINOIDS (test code=CANNABURN) <50 ng/mL URN AMPHETAMINE (test code=AMPHETURN) <1000 ng/mL URN BARBITURATE (test code=BARBITURN) <200 ng/mL URN BENZODIAZEPINE (test code=BENZOURN) <200 ng/mL URN OPIATES (test code=OPIATURN) <300 ng/mL URN PHENCYCLIDINE (PCP) (test code=PHENCURN) <25 ng/mL URN METHADONE (test code=METHAURN) <300 ng/mL Urine Source? Clean CatchURINALYSIS [id number] 23:51:00* Test Item Value Reference Range Comments UA COLOR (test code=COLU) Light-Yellow YELLOW UA APPEARANCE (test code=APPU) CLEAR CLEAR UA GLUCOSE DIPSTICK (test code=DGLUU) NEGATIVE mg/dL NEGATIVE UA BILIRUBIN DIPSTICK (test code=BILU) NEGATIVE mg/dL NEGATIVE UA KETONE DIPSTICK (test code=KETU) NEGATIVE mg/dL NEGATIVE UA SPECIFIC GRAVITY (test code=SGU) 1.015 1.001-1.035 UA BLOOD DIPSTICK (test code=AGUSTÍN) Negative mg/dL NEGATIVE UA PH DIPSTICK (test code=OFE) 7.0 5.0-8.0 UA PROTEIN DIPSTICK (test code=PROU) NEGATIVE mg/dL NEGATIVE UA UROBILINIOGEN DIPSTICK (test code=URO) Normal mg/dL NEGATIVE UA NITRITE DIPSTICK (test code=GERMAN) NEGATIVE NEGATIVE UA LEUKOCYTE ESTERASE W REFLEX (test code=LEUUR) NEGATIVE Debra/uL NEGATIVE UA WBC (test code=WBCU) per HPF 0-5 UA RBC (test code=RBCU) per HPF 0-5 UA EPITHELIAL CELLS (test code=EPIU) per HPF Few UA BACTERIA (test code=BACU) per HPF NONE Urine Source? Clean CatchDRUGS OF ABUSE SCREEN [id number] 23:51:00* Test Item Value Reference Range Comments URN COCAINE (test code=COCAURN) <300 ng/mL URN CANNABINOIDS (test code=CANNABURN) <50 ng/mL URN AMPHETAMINE (test code=AMPHETURN) <1000 ng/mL URN BARBITURATE (test code=BARBITURN) <200 ng/mL URN BENZODIAZEPINE (test code=BENZOURN) <200 ng/mL URN OPIATES (test code=OPIATURN) <300 ng/mL URN PHENCYCLIDINE (PCP) (test code=PHENCURN) <25 ng/mL URN METHADONE (test code=METHAURN) <300 ng/mL Urine Source? Clean CatchBASIC METABOLIC [id number] 20:34:00* Test Item Value Reference Range Comments SODIUM (test code=NA) 140 mmol/L 136-145 POTASSIUM (test code=K) 4.0 mmol/L 3.5-5.1 CHLORIDE (test code=CL) 107.0 mmol/L 98-107 CARBON DIOXIDE (test code=CO2) 26.0 mmol/L 21-32 ANION GAP (test code=GAP) 11.0 10-20 GLUCOSE (test code=GLU) 93 mg/dL 74-106 BLOOD UREA NITROGEN (test code=BUN) 17 mg/dL 7-18 GLOMERULAR FILTRATION RATE (test code=GFR) > 60 mL/min >=60 Estimated GFR by using Modified MDRD formula.Chronic kidney disease is defined as either kidney damageor GFR <60 mL/min/1.73 m2 for >3 months. CREATININE (test code=CREAT) 1.10 mg/dL 0.7-1.3 BUN/CREATININE RATIO (test code=BUN/CREA) 15.3 10-20 CALCIUM (test code=CA) 9.0 mg/dL 8.5-10.1 CBC W/O [id number] 20:19:00* Test Item Value Reference Range Comments WHITE BLOOD CELL (test code=WBC) 9.3 K/mm3 4.5-12.5 RED BLOOD CELL (test code=RBC) 4.50 mill/mm3 4.0-5.8 HEMOGLOBIN (test code=HGB) 12.4 gram/dL 13.0-17.5 HEMATOCRIT (test code=HCT) 38.7 % 42.0-52.0 MEAN CELL VOLUME (test code=MCV) 86.0 fL 80-98 MEAN CELL HGB (test code=MCH) 27.6 picogram 27.0-33.0 MEAN CELL HGB CONCETRATION (test code=MCHC) 32.0 gram/dL 33.0-36.0 RED CELL DISTRIBUTION WIDTH (test code=RDW) 15.4 % 11.6-16.2 PLATELET COUNT (test code=PLT) 278 K/mm3 150-450 MEAN PLATELET VOLUME (test code=MPV) 11.6 fL 6.7-11.0 BASIC METABOLIC [id number] 03:33:00* Test Item Value Reference Range Comments SODIUM (test code=NA) 139 mmol/L 136-145 POTASSIUM (test code=K) 4.5 mmol/L 3.5-5.1 CHLORIDE (test code=CL) 106.0 mmol/L 98-107 CARBON DIOXIDE (test code=CO2) 25.0 mmol/L 21-32 ANION GAP (test code=GAP) 12.5 10-20 GLUCOSE (test code=GLU) 93 mg/dL 74-106 BLOOD UREA NITROGEN (test code=BUN) 22 mg/dL 7-18 GLOMERULAR FILTRATION RATE (test code=GFR) > 60 mL/min >=60 Estimated GFR by using Modified MDRD formula.Chronic kidney disease is defined as either kidney damageor GFR <60 mL/min/1.73 m2 for >3 months. CREATININE (test code=CREAT) 1.10 mg/dL 0.7-1.3 BUN/CREATININE RATIO (test code=BUN/CREA) 20.0 10-20 CALCIUM (test code=CA) 9.0 mg/dL 8.5-10.1 [id number] 03:33:00* Test Item Value Reference Range Comments MAGNESIUM (test code=MAG) 2.0 mg/dL 1.8-2.4 [id number] 03:33:00* Test Item Value Reference Range Comments TROPONIN-I (test code=TROPI) <0.015 ng/mL 0-0.045 BASIC METABOLIC [id number] 03:16:00* Test Item Value Reference Range Comments SODIUM (test code=NA) 139 mmol/L 136-145 POTASSIUM (test code=K) 4.5 mmol/L 3.5-5.1 CHLORIDE (test code=CL) 106.0 mmol/L 98-107 CARBON DIOXIDE (test code=CO2) mmol/L 21-32 ANION GAP (test code=GAP) 10-20 GLUCOSE (test code=GLU) mg/dL 74-106 BLOOD UREA NITROGEN (test code=BUN) mg/dL 7-18 GLOMERULAR FILTRATION RATE (test code=GFR) mL/min >=60 CREATININE (test code=CREAT) mg/dL 0.7-1.3 BUN/CREATININE RATIO (test code=BUN/CREA) 10-20 CALCIUM (test code=CA) mg/dL 8.5-10.1 [id number] 03:16:00* Test Item Value Reference Range Comments MAGNESIUM (test code=MAG) mg/dL 1.8-2.4 [id number] 03:16:00* Test Item Value Reference Range Comments TROPONIN-I (test code=TROPI) ng/mL 0-0.045 CBC W/O [id number] 02:56:00* Test Item Value Reference Range Comments WHITE BLOOD CELL (test code=WBC) 17.0 K/mm3 4.5-12.5 RED BLOOD CELL (test code=RBC) 4.75 mill/mm3 4.0-5.8 HEMOGLOBIN (test code=HGB) 13.1 gram/dL 13.0-17.5 HEMATOCRIT (test code=HCT) 41.1 % 42.0-52.0 MEAN CELL VOLUME (test code=MCV) 86.5 fL 80-98 MEAN CELL HGB (test code=MCH) 27.6 picogram 27.0-33.0 MEAN CELL HGB CONCETRATION (test code=MCHC) 31.9 gram/dL 33.0-36.0 RED CELL DISTRIBUTION WIDTH (test code=RDW) 15.5 % 11.6-16.2 PLATELET COUNT (test code=PLT) 341 K/mm3 150-450 MEAN PLATELET VOLUME (test code=MPV) 11.4 fL 6.7-11.0 - CT L-SPINE W/O [id number] 20:00:00 Name: RADHA KENDRICK [facility] : 1965 Age/S: 53 / M [address] [facility] Unit #: [id number] Loc: [place] [address] Phys: Kayla Pinon MD Acct: [id number] Dis Date: Status: ADM IN PHONE #: [phone] Exam Date: 09/11/2018 1830 FAX #: [phone] Reason: Leg tremors, Falls EXAMS: CPT CODE: [id number] CT L-SPINE W/O CONTRAST 00001 HISTORY: Leg tremors, Falls TECHNIQUE: 2.[address] of the lumbar spine with coronal and sagittal reformatting. Automated exposure control for dose reduction. COMPARISON: None FINDINGS: There is no acute fracture involving the lumbar spine. There are bilateral L4 pars defects and there is anterolisthesis of L4-L5 by distance of 7 mm. There is also facet hypertrophy in the lower lumbar spine at L3-L4 and L4-L5. Sclerotic changes are seen along the inferior endplate of L4 with asso ciated Schmorl nodes. Additional Schmorl nodes are seen on the undersurfac e of L5. Atherosclerotic disease is also scattered throughout the abdominal aorta and IMPRESSION: Bilateral L4 pars defects causing L4-L5 anterolisthesis by 7 mm. There is concern for nerve root impingement than a nonemergent MRI of the lumbar spine w ithout contrast can provide further evaluation. Degenerative changes in the lower lumbar spine. Aortic atherosclerosis. Electronical ly Signed by Gareth Ash MD on 09/11/2018 at 2000 Report ed and signed by: Gareth Ash MD CC: Gini Nixon MD; Shadia Pinon MD Technologist:Marialuisa Azevedo RT(R),CT CTDI: DLP: Trnscb Date/Time: 09/11/2018 (1999) [id number].SDR.[id number] Orig Print D/T: S: 09/11/2018 (2002) PAGE 1 Signed Report DRUGS OF ABUSE SCREEN [id number] 14:57:00 * Test Item Value Reference Range Comments UA PH DIPSTICK (test code=OFE) 6.5 5.0-8.0 URN COCAINE (test code=COCAURN) NEGATIVE <300 ng/mL URN CANNABINOIDS (test code=CANNABURN) NEGATIVE <50 ng/mL URN AMPHETAMINE (test code=AMPHETURN) NEGATIVE <1000 ng/mL URN BARBITURATE (test code=BARBITURN) NEGATIVE <200 ng/mL URN BENZODIAZEPINE (test code=BENZOURN) NEGATIVE <200 ng/mL URN OPIATES (test code=OPIATURN) NEGATIVE <300 ng/mL URN PHENCYCLIDINE (PCP) (test code=PHENCURN) NEGATIVE <25 ng/mL URN METHADONE (test code=METHAURN) NEGATIVE <300 ng/mL DRUGS OF ABUSE SCREEN [id number] 12:06:00* Test Item Value Reference Range Comments UA PH DIPSTICK (test code=OFE) 5.0-8.0 URN COCAINE (test code=COCAURN) NEGATIVE <300 ng/mL URN CANNABINOIDS (test code=CANNABURN) NEGATIVE <50 ng/mL URN AMPHETAMINE (test code=AMPHETURN) NEGATIVE <1000 ng/mL URN BARBITURATE (test code=BARBITURN) NEGATIVE <200 ng/mL URN BENZODIAZEPINE (test code=BENZOURN) NEGATIVE <200 ng/mL URN OPIATES (test code=OPIATURN) NEGATIVE <300 ng/mL URN PHENCYCLIDINE (PCP) (test code=PHENCURN) NEGATIVE <25 ng/mL URN METHADONE (test code=METHAURN) NEGATIVE <300 ng/mL CBC W/AUTO [id number] 06:00:00* Test Item Value Reference Range Comments WHITE BLOOD CELL (test code=WBC) 9.9 K/mm3 4.5-12.5 RED BLOOD CELL (test code=RBC) 4.35 mill/mm3 4.0-5.8 HEMOGLOBIN (test code=HGB) 11.9 gram/dL 13.0-17.5 HEMATOCRIT (test code=HCT) 37.9 % 42.0-52.0 MEAN CELL VOLUME (test code=MCV) 87.1 fL 80-98 MEAN CELL HGB (test code=MCH) 27.4 picogram 27.0-33.0 MEAN CELL HGB CONCETRATION (test code=MCHC) 31.4 gram/dL 33.0-36.0 RED CELL DISTRIBUTION WIDTH (test code=RDW) 15.9 % 11.6-16.2 RED CELL DISTRIBUTION WIDTH SD (test code=RDW-SD) 50.7 fL 37.0-51.0 PLATELET COUNT (test code=PLT) 269 K/mm3 150-450 MEAN PLATELET VOLUME (test code=MPV) 11.8 fL 6.7-11.0 NEUTROPHIL % (test code=NT%) 63.9 % 39.0-69.0 IMMATURE GRANULOCYTE % (test code=IG%) 0.5 % 0.0-5.0 LYMPHOCYTE % (test code=LY%) 23.2 % 25.0-55.0 MONOCYTE % (test code=MO%) 8.2 % 0.0-10.0 EOSINOPHIL % (test code=EO%) 3.4 % 0.0-5.0 BASOPHIL % (test code=BA%) 0.8 % 0.0-1.0 NUCLEATED RBC % (test code=NRBC%) 0.0 % 0-0 NEUTROPHIL # (test code=NT#) 6.34 K/mm3 1.8-7.7 IMMATURE GRANULOCYTE # (test code=IG#) 0.05 x10 3/uL 0-0.03 LYMPHOCYTE # (test code=LY#) 2.30 K/mm3 1.0-5.0 MONOCYTE # (test code=MO#) 0.81 K/mm3 0-0.8 EOSINOPHIL # (test code=EO#) 0.34 K/mm3 0.0-0.5 BASOPHIL # (test code=BA#) 0.08 K/mm3 0.0-0.2 NUCLEATED RBC # (test code=NRBC#) 0.00 K/mm3 0.0-0.1 URINALYSIS [id number] 07:38:00* Test Item Value Reference Range Comments UA COLOR (test code=COLU) Light-Yellow YELLOW UA APPEARANCE (test code=APPU) CLEAR CLEAR UA GLUCOSE DIPSTICK (test code=DGLUU) NEGATIVE mg/dL NEGATIVE UA BILIRUBIN DIPSTICK (test code=BILU) NEGATIVE mg/dL NEGATIVE UA KETONE DIPSTICK (test code=KETU) NEGATIVE mg/dL NEGATIVE UA SPECIFIC GRAVITY (test code=SGU) 1.017 1.001-1.035 UA BLOOD DIPSTICK (test code=AGUSTÍN) Negative mg/dL NEGATIVE UA PH DIPSTICK (test code=OFE) 6.5 5.0-8.0 UA PROTEIN DIPSTICK (test code=PROU) NEGATIVE mg/dL NEGATIVE UA UROBILINIOGEN DIPSTICK (test code=URO) Normal mg/dL NEGATIVE UA NITRITE DIPSTICK (test code=GERMAN) NEGATIVE NEGATIVE UA LEUKOCYTE ESTERASE W REFLEX (test code=LEUUR) NEGATIVE Debra/uL NEGATIVE UA WBC (test code=WBCU) 0-5 per HPF 0-5 UA RBC (test code=RBCU) 0-2 #/HPF 0-5 UA EPITHELIAL CELLS (test code=EPIU) None seen per HPF Few UA BACTERIA (test code=BACU) NONE SEEN per HPF NONE Urine Source? Clean CatchURINALYSIS [id number] 07:37:00* Test Item Value Reference Range Comments UA COLOR (test code=COLU) Light-Yellow YELLOW UA APPEARANCE (test code=APPU) CLEAR CLEAR UA GLUCOSE DIPSTICK (test code=DGLUU) NEGATIVE mg/dL NEGATIVE UA BILIRUBIN DIPSTICK (test code=BILU) NEGATIVE mg/dL NEGATIVE UA KETONE DIPSTICK (test code=KETU) NEGATIVE mg/dL NEGATIVE UA SPECIFIC GRAVITY (test code=SGU) 1.017 1.001-1.035 UA BLOOD DIPSTICK (test code=AGUSTÍN) Negative mg/dL NEGATIVE UA PH DIPSTICK (test code=OFE) 6.5 5.0-8.0 UA PROTEIN DIPSTICK (test code=PROU) NEGATIVE mg/dL NEGATIVE UA UROBILINIOGEN DIPSTICK (test code=URO) Normal mg/dL NEGATIVE UA NITRITE DIPSTICK (test code=GERMAN) NEGATIVE NEGATIVE UA LEUKOCYTE ESTERASE W REFLEX (test code=LEUUR) NEGATIVE Debra/uL NEGATIVE UA WBC (test code=WBCU) 0-5 per HPF 0-5 UA RBC (test code=RBCU) 0-2 #/HPF 0-5 UA EPITHELIAL CELLS (test code=EPIU) per HPF Few UA BACTERIA (test code=BACU) per HPF NONE Urine Source? Clean CatchURINALYSIS [id number] 07:21:00* Test Item Value Reference Range Comments UA COLOR (test code=COLU) Light-Yellow YELLOW UA APPEARANCE (test code=APPU) CLEAR CLEAR UA GLUCOSE DIPSTICK (test code=DGLUU) NEGATIVE mg/dL NEGATIVE UA BILIRUBIN DIPSTICK (test code=BILU) NEGATIVE mg/dL NEGATIVE UA KETONE DIPSTICK (test code=KETU) NEGATIVE mg/dL NEGATIVE UA SPECIFIC GRAVITY (test code=SGU) 1.017 1.001-1.035 UA BLOOD DIPSTICK (test code=AGUSTÍN) Negative mg/dL NEGATIVE UA PH DIPSTICK (test code=OFE) 6.5 5.0-8.0 UA PROTEIN DIPSTICK (test code=PROU) NEGATIVE mg/dL NEGATIVE UA UROBILINIOGEN DIPSTICK (test code=URO) Normal mg/dL NEGATIVE UA NITRITE DIPSTICK (test code=GERMAN) NEGATIVE NEGATIVE UA LEUKOCYTE ESTERASE W REFLEX (test code=LEUUR) NEGATIVE Debra/uL NEGATIVE UA WBC (test code=WBCU) per HPF 0-5 UA RBC (test code=RBCU) per HPF 0-5 UA EPITHELIAL CELLS (test code=EPIU) per HPF Few UA BACTERIA (test code=BACU) per HPF NONE Urine Source? Clean CatchPROCALCITONIN (PCT)2018-09-09 05:59:00* Test Item Value Reference Range Comments PROCALCITONIN (PCT) (test code=PROCAL) < 0.05 ng/ml Concentration Interpretation (ng/mL) <0.51 Sepsis is [...] interpreted taking into account the patients history. LACTIC [id number] 05:51:00* Test Item Value Reference Range Comments LACTIC ACID (test code=LACT) 1.0 mmol/L 0.4-1.9 [id number] 05:39:00* Test Item Value Reference Range Comments MAGNESIUM (test code=MAG) 2.1 mg/dL 1.8-2.4 [id number] 05:37:00* Test Item Value Reference Range Comments CALCIUM (test code=CA) 8.8 mg/dL 8.5-10.1 - XR CHEST 1 [id number] 05:03:00 FAX: Felecia Orellana DO [place]: [address]: REG Name: RADHA LAO [facility] : 08/13/18 62 Age/S: 53/M [address] [facility] Unit #: [id number] Loc: [place] [address] Phys: Felecia Orellana DO Acct: [id number] Dis Date: Status: REG ER PHONE #: [phone] Exam Date: 09/09/2018 0405 FAX #: [phone] Reason: fall EXAMS: CPT CODE: [id number] XR CHEST 1 V 52202 STUDY: Chest radiograph HISTORY: Fall COMPARISON: 04/08/2018 TECHNIQUE: Fr ontal view of the chest. SITE: R16 FINDINGS: The cardiac silhouette is unremarkable. The aorta is atherosclerotic. There is no focal consolidation, pleural effusion, or pneumothorax. There are fractures of the right lateral 6th and 7th ribs. IMPRESSION: Right lateral 6th and 7th rib fractures. No discernible p neumothorax. at 0503 Reported and signed by: Saeed Woods M.D. CC: Felecia Orellana DO Techno logist: Marcia Paulino Trnscrd Date/Time /By: 09/09/2018 (0503) : By: [email or web address] Orig Print D/T: S: 09/09/2018 ( 0507) PAGE 1 Signed Report - CT C-SPINE W/O [id number] 04:48:00 Name: RADHA KENDRICK [facility] : 1965 Age/S: 53 / M [address] [facility] Unit #: [id number] Loc: [place] [address] Phys: Kin Orellana palma DO Acct: [id number] Di s Date: Status: REG ER PHONE #: [phone] Exam Date: 09/09/2018 0430 FAX #: [phone] Reason: Neck Pain EXAMS: CPT CODE: [id number] CT C-SPINE W/O CONTRAST 69556 EXAM: - CT C-SPINE W/O C ONTRAST Location code:C3 HISTORY: 53 years -old Male with Neck Pain TECHNIQUE: Axial CT images through the cervical spine were obtained without intravenous contrast. Sagittal an d coronal reformatted images were created from the data set. One or more of the following dose reduction techniques were used: Automat ed exposure control, adjustment of the mA and/or kV according to patient s ize, and/or utilization of iterative reconstruction technique. COMPARISON: None FINDINGS: Bones: Advanc ed multilevel degenerative changes of the cervical spine are present. No evidence of acute fracture or subluxation. There is cervical straight ening. Vertebral heights are maintained. Vascular calcifications a re present. Prevertebral soft tissues demonstrate no acute abnormality. IMPRESSION: Cervical straightening with multile pardeep degenerative changes. No acute fracture or other acute osseous abno rmality. at 0448 Reported and signed by: Saeed Navarrete MD CC: Felecia Nichols DO Technologist:DAISY LEMUS CT CTDI: DLP: Trnscb Date/Time: 09/09/2018 (044) t.[email or web address] Orig Print D/T: S: 09/09/2018 (0451) PAGE 1 Signed Report - CT HEAD/BRAIN W/O [id number] 04:43:00 Name: RADHA KENDRICK [facility] : 1965 Age/S: 53 / M [address] [facility] Unit #: [id number] Loc: [place] [address] Phys: Felecia Orellana DO Acct: [id number] Dis Date: Status: REG ER PHONE #: [phone] Exam Date: 09/09/2018 0430 FAX #: [phone] Reason: Altered Mental Status EXAMS: CPT CODE: [id number] CT HEAD/BRAIN W/O CONT 97195 EXAM: - CT HEAD/BRAIN W/O CONT HISTORY: AMS. Fall. TECHNIQUE: Axial tomograms through the brain were obtained without intravenous contrast. This exam was performed according to our departmental dose-optimization program, which includes automated exposure control, adjustment of the mA and/or kV according to patient size and/or use of iterative reconstruction technique. COMPARISON: April 23, 2018. FINDINGS: There is no intracranial hemorrhage, mass, or mass effect. The ventricular system and sulci are age-appropriate. There is no evidence of acute infarction. The osseous structures and orbits, show no significant abnormalities. The visualized sinuses are relatively clear. The soft tissues are unremarkable. IMPRESSION: No acute intracranial abnormality with no evidence of intracranial hemorrhage. at 0443 Reported and signed by: Ac Chu MD CC: Felecia Orellana DO Technologist:DAISY NI CTDI: DLP: Trnscb Date/Time: 09/09/2018 (442) [email or web address] Orig Print D/T: S: 09/09/2018 (0446) PAGE 1 Signed Report BASIC METABOLIC [id number] 04:10:00* Test Item Value Reference Range Comments SODIUM (test code=NA) 140 mmol/L 136-145 POTASSIUM (test code=K) 4.0 mmol/L 3.5-5.1 CHLORIDE (test code=CL) 105.0 mmol/L 98-107 CARBON DIOXIDE (test code=CO2) 26.0 mmol/L 21-32 ANION GAP (test code=GAP) 13.0 10-20 GLUCOSE (test code=GLU) 93 mg/dL 74-106 BLOOD UREA NITROGEN (test code=BUN) 19 mg/dL 7-18 GLOMERULAR FILTRATION RATE (test code=GFR) > 60 mL/min >=60 Estimated GFR by using Modified MDRD formula.Chronic kidney disease is defined as either kidney damageor GFR <60 mL/min/1.73 m2 for >3 months. CREATININE (test code=CREAT) 1.10 mg/dL 0.7-1.3 BUN/CREATININE RATIO (test code=BUN/CREA) 17.6 10-20 CALCIUM (test code=CA) 9.0 mg/dL 8.5-10.1 BASIC METABOLIC [id number] 04:04:00* Test Item Value Reference Range Comments SODIUM (test code=NA) 140 mmol/L 136-145 POTASSIUM (test code=K) 4.0 mmol/L 3.5-5.1 CHLORIDE (test code=CL) 105.0 mmol/L 98-107 CARBON DIOXIDE (test code=CO2) mmol/L 21-32 ANION GAP (test code=GAP) 10-20 GLUCOSE (test code=GLU) mg/dL 74-106 BLOOD UREA NITROGEN (test code=BUN) mg/dL 7-18 GLOMERULAR FILTRATION RATE (test code=GFR) mL/min >=60 CREATININE (test code=CREAT) mg/dL 0.7-1.3 BUN/CREATININE RATIO (test code=BUN/CREA) 10-20 CALCIUM (test code=CA) 9.0 mg/dL 8.5-10.1 BASIC METABOLIC [id number] 04:01:00* Test Item Value Reference Range Comments SODIUM (test code=NA) 140 mmol/L 136-145 POTASSIUM (test code=K) 4.0 mmol/L 3.5-5.1 CHLORIDE (test code=CL) 105.0 mmol/L 98-107 CARBON DIOXIDE (test code=CO2) mmol/L 21-32 ANION GAP (test code=GAP) 10-20 GLUCOSE (test code=GLU) mg/dL 74-106 BLOOD UREA NITROGEN (test code=BUN) mg/dL 7-18 GLOMERULAR FILTRATION RATE (test code=GFR) mL/min >=60 CREATININE (test code=CREAT) mg/dL 0.7-1.3 BUN/CREATININE RATIO (test code=BUN/CREA) 10-20 CALCIUM (test code=CA) mg/dL 8.5-10.1 CBC W/AUTO [id number] 03:56:00* Test Item Value Reference Range Comments WHITE BLOOD CELL (test code=WBC) 18.3 K/mm3 4.5-12.5 RED BLOOD CELL (test code=RBC) 4.70 mill/mm3 4.0-5.8 HEMOGLOBIN (test code=HGB) 12.9 gram/dL 13.0-17.5 HEMATOCRIT (test code=HCT) 40.4 % 42.0-52.0 MEAN CELL VOLUME (test code=MCV) 86.0 fL 80-98 MEAN CELL HGB (test code=MCH) 27.4 picogram 27.0-33.0 MEAN CELL HGB CONCETRATION (test code=MCHC) 31.9 gram/dL 33.0-36.0 RED CELL DISTRIBUTION WIDTH (test code=RDW) 15.4 % 11.6-16.2 RED CELL DISTRIBUTION WIDTH SD (test code=RDW-SD) 48.5 fL 37.0-51.0 PLATELET COUNT (test code=PLT) 301 K/mm3 150-450 MEAN PLATELET VOLUME (test code=MPV) 11.4 fL 6.7-11.0 NEUTROPHIL % (test code=NT%) 78.4 % 39.0-69.0 IMMATURE GRANULOCYTE % (test code=IG%) 0.8 % 0.0-5.0 LYMPHOCYTE % (test code=LY%) 11.7 % 25.0-55.0 MONOCYTE % (test code=MO%) 7.4 % 0.0-10.0 EOSINOPHIL % (test code=EO%) 1.1 % 0.0-5.0 BASOPHIL % (test code=BA%) 0.6 % 0.0-1.0 NUCLEATED RBC % (test code=NRBC%) 0.0 % 0-0 NEUTROPHIL # (test code=NT#) 14.30 K/mm3 1.8-7.7 IMMATURE GRANULOCYTE # (test code=IG#) 0.15 x10 3/uL 0-0.03 LYMPHOCYTE # (test code=LY#) 2.14 K/mm3 1.0-5.0 MONOCYTE # (test code=MO#) 1.35 K/mm3 0-0.8 EOSINOPHIL # (test code=EO#) 0.20 K/mm3 0.0-0.5 BASOPHIL # (test code=BA#) 0.11 K/mm3 0.0-0.2 NUCLEATED RBC # (test code=NRBC#) 0.00 K/mm3 0.0-0.1 - DUP AB/PEL/SC [id number] 12:22:00 Name: RADHA KENDRICK [facility] : 1965 Age/S: 52 / M [address] [facility] Unit #: [id number] Loc: [place] [address] Phys: Chiquita Wayne MD Acct: [id number] Dis Date: Status: ADM IN PHONE #: [phone] Exam Date: 04/09/2018 174 FAX #: [phone] Reason: KIDNEY DOPPLER Report Has Been Amended EXAMS: CPT CODE: [id number] DUP AB/PEL/SC COMP 72898 Addendum - 04/26/2018 SIGNED 04/26/2018 ADDENDUM: [id number] US/DUPAPSCOMP Technique: Complete duplex scan of the bilateral kidneys was performed using grayscale imaging of the kidneys as well as color Doppler and spectral Doppler analysis of the renal arteries and veins bilaterally. at 1222 Reported and signed by: Gareth Ash MD Transcribed: 04/26/2018 (1222) Minh.[email or web address] Report REASON FOR EXAM: KIDNEY DOPPLER EXAM [...] 1 Signed Report (CONTINUED) Name: RADHA KENDRICK [facility] : 1965 Age/S: 52 / M [address] [facility] Unit #: [id number] Loc: [place] [address] Phys: Joanie Wayne MD Acct: [id number] Dis Date: Status: ADM IN PHONE #: Exam Date: 04/09/2018 174 FAX #: Reason: KIDNEY DOPPLER Report Has Been Amended EXAMS: CPT CODE: [id number] DUP AB/PEL/SC COMP 22741 <Continued> renal artery stenosis on either side. at 1814 Reported and signed by: Gareth Ash MD CC: Chiquita Wayne MD Technologist: FELISA MAYO Trnalb Date/Time: 04/09/2018 (1813) Minh.RR31 Orig Print D/T: S: 04/09/2018 (1816) Probe: PAGE 2 Signed Report - US RETRO [id number] 12:22:00 Name: RADHA KENDRICK [facility] : 1965 Age/S: 52 / M [address] Unit #: [id number] Loc: [place], [place] [address] Phys: Maurice Moreland PA Acct: [id number] Di s Date: Status: ADM IN PHONE #: Exam Date: 04/09/2018 1743 FAX #: Reason: refractory HTN, r/o renal artery stenosis Report Has Been Amended EXAMS: CPT CODE: [id number] US RETRO LTD 05885 Addendum - 04/26/2018 SIGNED 04/26 ADDENDUM: [id number] US/USRETLTD Techn ique: Complete duplex scan of the bilateral kidneys was performed using gr ayscale imaging of the kidneys as well as color Doppler and spectral Doppl er analysis of the renal arteries and veins bilaterally. Electronica lly Signed by Gareth Ash MD on 04/26/2018 at 1222 Repor chichi and signed by: Gareth Ash MD Transcribed: 04/26/2018 ( 1222) t.[email or web address].[email or web address] Report REASON FOR EXAM: KIDNEY DOPPLER EXAM ORDER DATE: 04/09/2018 5:21 PM Attending M.D.: Chiquita Wayne MD PROCEDURE: - DUP AB/PEL/SC COMP, - US RETRO LTD FINDINGS: The right kidney measures 13.7 x 6.3 x 5.1 cm. The cr oss-sectional thickness of the right renal cortex measured 1.3 cm. The lef t kidney measures 12.2 x 6.8 x 5.6 cm. The cross-sectional thickness of th e left renal cortex measured 1.3 cm. There is no evidence of hydronephrosi s. There is no evidence of nephrolithiasis. There is no evidence of renal mass. The urinary bladder is unremarkable Velocity in the a javier measures 75.9 cm/s and resistive index measures 0.7. The veloci ty in the right renal artery measures 26.6 cm/s and the resistive index me asures 0.7. The velocity in the left renal artery measures 39.4 cm/s and t he resistive index measures 0.8. Both renal arteries demonst rate continuous antegrade flow with no evidence of tardus parvus. IMPRESSION: Sonographically unremarkable kidneys with no evidence of PAGE 1 Signed Report (CONTINUED) Na me: RADHA KENDRICK [facility] : Age/S: 52 / M [address] [facility] Unit #: [id number] Loc: [place] [address] Phys: Mark Moreland Acct: [id number] Dis Da te: Status: ADM IN PHONE #: [phone] Exam Date: 04/09/20181741 FAX #: [phone] Reason: refractory HTN, r/o renal artery stenosis Report Has Been Amended EXAMS: CPT CODE: [id number] [facility] [address] <Continued> renal artery stenosis on either side. at 1814 Reported and signed by: Gareth Ash MD CC: Chiquita Wayne MD; Mark Moreland Technologist: FELISA MAYO Trnscb Date/Time: 04/09/2018 (1813) t.[email or web address] Orig Print D/T: S: 04/09/2018 (1816) Probe: PAGE 2 Signed Report [id number] 07:00:00* Test Item Value Reference Range Comments ALDOSTERONE (test code=ALDOS) <1.0 ng/dL 0.0-30.0 This test was developed and its performance characteristicsdetermined by [facility]. It has not been cleared orapproved by the Food and Drug Administration.Performed At: [address] [id number] Stack MD Ph:[phone] [facility] V.LAB.AR 04/13/18 1016 RENIN [id number] 07:00:00* Test Item Value Reference Range Comments RENIN ACTIVITY (test code=RENINA) TEST NOT PERFORMED ng/mL/hr () The specimen submitted does not meet the laboratory'scriteria for acceptability. Refer to [facility]'s Directory ofServices for specimen acceptability criteria.This test was developed and its performance characteristicsdetermined by [facility]. It has not been cleared orapproved by the Food and Drug Administration.Received non EDTA plasmaRequires EDTA plasmaNotified Katie Live at your facility.04/13/2018- DrainPerformed At: [address] [id number] Stack MD Ph:[phone] [place] V.LAB.AR 04/13/18 1016 [place] [id number] 07:00:00* Test Item Value Reference Range Comments EPINEPHRINE (test code=EPIN) 52 pg/mL 0-62 NOREPINEPHRINE (test code=NOREP) 1914 pg/mL 0-874 DOPAMINE (test code=DOPA) 160 pg/mL 0-48 Performed At: [address] [id number] Stack MD Ph:[phone] [place] V.LAB.AR 04/13/18 1016 CBC W/AUTO [id number] 12:40:00* Test Item Value Reference Range Comments [...] (test code=NRBC#) 0.00 K/mm3 0.0-0.1 BASIC METABOLIC [id number] 12:20:00* Test Item Value Reference Range Comments [...] (test code=CA) 8.8 mg/dL 8.5-10.1 BASIC METABOLIC [id number] 12:11:00* Test Item Value Reference Range Comments [...] code=CA) mg/dL 8.5-10.1 - CT HEAD/BRAIN W/O [id number] 19:25:00 Name: RADHA KENDRICK [facility] : 1965 Age/S: 52 / M [address] [facility] Unit #: [id number] Loc: [facility] [place] [address] Phys: Aliya Chavez MD Acct: [id number] Dis Date: Status: ADM IN PHONE #: [phone] Exam Date: 04/23/2018 1835 FAX #: [phone] Reason: S/P FALL WITH HEAD LAC EXAMS: CPT CODE: [id number] CT HEAD/BRAIN W/O CONT 82675 HISTORY: Fall and laceration. COMPARISON: April 02, [...] matter ischemic disease and atrophy . at 192 Reported and signed by: Bladimir Berrios M.D. CC: Chiquita Wayne MD; Aliya Chavez MD Technologist:Marialuisa Azevedo RT(R),CT CTDI: DLP: Trnscb Date/Time: 04/23/2018 (1924) t.SDR.TH4 Orig Print D/T: S: 04/23/2018 (1927) CTDI: DLP: PAGE 1 Signed Report - XR HAND 2 V [id number] 19:06:00 FAX: Chiquita Johnson MD [phone] [place]: St: ADM FAX: Aliya Chavez MD Name: RADHA KENDRICK [facility] : 1965 Age/S: 52/M [address] [facility] Unit #: [id number] Loc: [address] [place] [address] Phys: Aliya Chavez MD Acct: [id number] Dis Date: Status: ADM IN PHONE #: [phone] Exam Date: 04/22/2018 1850 FAX #: [phone] Reason: PATIENT FELL AND HIT THE FOURTH DIGIT ON RIGHT EXAMS: CPT CODE: [id number] XR HAND 2 V RT 18084 REASON FOR EXAM: PATIENT FELL AND HIT [...] Trnscrd Date/Time/By: 04/22/2018 (1905) : By: Mandy RMaryVTL Orig Print D/T: S: 04/22/2018 (191) PAG E 1 Signed Report CBC W/AUTO [id number] 12:51:00* Test Item Value Reference Range Comments [...] DIFF REQUIRED (test code=MDIFF) NO BASIC METABOLIC [id number] 11:53:00* Test Item Value Reference Range Comments [...] 10-20 CALCIUM (test code=CA) 9.1 mg/dL 8.5-10.1 [id number] 07:17:00* Test Item Value Reference Range Comments CREATININE (test code=CREAT) 1.10 mg/dL 0.7-1.3 [id number] 06:43:00* Test Item Value Reference Range Comments HEMOGLOBIN (test code=HGB) 13.4 gram/dL 13.0-17.5 PLATELET [id number] 06:43:00* Test Item Value Reference Range Comments PLATELET COUNT (test code=PLT) 329 K/mm3 150-450 [id number] 06:37:00* Test Item Value Reference Range Comments HEMOGLOBIN (test code=HGB) 13.4 gram/dL 13.0-17.5 PLATELET [id number] 06:37:00* Test Item Value Reference Range Comments PLATELET COUNT (test code=PLT) K/mm3 150-450 [id number] 11:24:00* Test Item Value Reference Range Comments ALDOSTERONE (test code=ALDOS) <1.0 ng/dL 0.0-30.0 This test was developed and its performance characteristicsdetermined by [facility]. It has not been cleared orapproved by the Food and Drug Administration.Performed At: [facility] [id number] Stack MD Ph:[phone] [place] V.LAB.HI 04/13/18 1016 RENIN [id number] 11:24:00* Test Item Value Reference Range Comments RENIN ACTIVITY (test code=RENINA) ng/mL/hr () The specimen submitted does not meet the laboratory'scriteria for acceptability. Refer to [facility]'s Directory ofServices for specimen acceptability criteria.This test was developed and its performance characteristicsdetermined by [facility]. It has not been cleared orapproved by the Food and Drug Administration.Received non EDTA plasmaRequires EDTA plasmaNotified [facility] Live at your facility.04/13/2018-DrainPerformed At: [address] [id number] Stack MD Ph:[phone] [facility] V.LAB.HI 04/13/18 1016 [place] [id number] 11:24:00* Test Item Value Reference Range Comments EPINEPHRINE (test code=EPIN) 52 pg/mL 0-62 NOREPINEPHRINE (test code=NOREP) 1914 pg/mL 0-874 DOPAMINE (test code=DOPA) 160 pg/mL 0-48 Performed At: [address] [id number] Stack MD Ph:[phone] [facility] V.LAB.HI 04/13/18 1016 [id number] 08:20:00* Test Item Value Reference Range Comments ALDOSTERONE (test code=ALDOS) ng/dL [place]TT V.LAB.HI 04/13/18 1016 RENIN [id number] 08:20:00* Test Item Value Reference Range Comments RENIN ACTIVITY (test code=RENINA) ng/mL/hr () The specimen submitted does not meet the laboratory'scriteria for acceptability. Refer to [facility]'s Directory ofServices for specimen acceptability criteria.This test was developed and its performance characteristicsdetermined by [facility]. It has not been cleared orapproved by the Food and Drug Administration.Received non EDTA plasmaRequires EDTA plasmaNotified [facility] at your facility.04/13/2018-DrainPerformed At: [address] [id number] Stack MD Ph:[phone] [facility] V.LAB.HI 04/13/18 1016 [place] [id number] 08:20:00* Test Item Value Reference Range Comments EPINEPHRINE (test code=EPIN) 52 pg/mL 0-62 NOREPINEPHRINE (test code=NOREP) 1914 pg/mL 0-874 DOPAMINE (test code=DOPA) 160 pg/mL 0-48 Performed At: [address] [id number] Stack MD Ph:[phone] [facility] V.LAB.HI 04/13/18 1016 BASIC METABOLIC [id number] 07:04:00* Test Item Value Reference Range Comments [...] 10-20 CALCIUM (test code=CA) 8.4 mg/dL 8.5-10.1 [id number] 07:04:00* Test Item Value Reference Range Comments MAGNESIUM (test code=MAG) 2.2 mg/dL 1.8-2.4 BASIC METABOLIC [id number] 06:55:00* Test Item Value Reference Range Comments [...] code=BUN/CREA) 10-20 CALCIUM (test code=CA) mg/dL 8.5-10.1 [id number] 06:55:00* Test Item Value Reference Range Comments MAGNESIUM (test code=MAG) mg/dL 1.8-2.4 CBC W/AUTO [id number] 06:44:00* Test Item Value Reference Range Comments [...] DIFF REQUIRED (test code=MDIFF) NO BASIC METABOLIC [id number] 13:58:00* Test Item Value Reference Range Comments [...] (test code=CA) 7.9 mg/dL 8.5-10.1 BASIC METABOLIC [id number] 13:52:00* Test Item Value Reference Range Comments [...] (test code=CA) 7.9 mg/dL 8.5-10.1 CBC W/AUTO [id number] 13:43:00* Test Item Value Reference Range Comments [...] (test code=NRBC#) 0.00 K/mm3 0.0-0.1 CBC W/AUTO [id number] 13:38:00* Test Item Value Reference Range Comments [...] 0.0-0.5 BASOPHIL # (test code=BA#) K/mm3 0.0-0.2 [id number] 05:59:00* Test Item Value Reference Range Comments GLUBED (test code=GLUBED) 96 mg/dL 74-106 Performed by certified telecine operator at [facility] [id number] 05:14:00* Test Item Value Reference Range Comments GLUBED (test code=GLUBED) 89 mg/dL 74-106 Performed by certified telecine operator at [facility] - DUP AB/PEL/SC [id number] 18:14:00 Name: RADHA KENDRICK [facility] : 1965 Age/S: 52 / M [address] [facility] Unit #: [id number] Loc: [place] [address] Phys: Chiquita Wayne MD Acct: [id number] Dis Date: Status: ADM IN PHONE #: [phone] Exam Date: 04/09/20181741 FAX #: [phone] Reason: KIDNEY DOPPLER EXAMS: CPT CODE: [id number] DUP AB/PEL/SC COMP 03799 REASON FOR EXAM: KIDNEY DOPPLER EXAM ORDER DATE: 04/09/2018 5:21 PM Attending M.D.: Chiquita Wayne MD PROCEDURE: - DUP AB/PEL/SC [...] Technologist: FELISA MAYO Trnscb Date/Time: 04/09/2018 (1813) t.[email or web address].RR31 Orig Print D/T: S: 04/09/2018 (1816) Probe: PAGE 1 Signed Report - US RETRO [id number] 18:14:00 Name: RADHA KENDRICK [facility] : 1965 Age/S: 52 / M [address] [facility] Unit #: [id number] Loc: [place] [address] Phys: Maurice Moreland Acct: [id number] Di s Date: Status: ADM IN PHONE #: Exam Date: 04/09/2018 174 FAX #: [phone] Reason: refractory HTN, r/o renal artery stenosis EXAMS: CPT CODE: [id number] US RETRO LTD [address]18 REASON FOR EXAM: KIDNEY DOPPLER EXAM ORDER DATE: 04/09/2018 5:21 PM Att ending M.D.: Chiquita Wayne MD PROCEDURE: - DUP AB/PEL/SC [...] Technologist: FELISA MAYO Trnscb Date/Time: 04/09/2018 (1813) t.[email or web address].RR31 Orig Print D/T: S: 04/09/2018 (1816) Probe: PAGE 1 Signed Report GLUBED 2018-04-09 12:07:00* Test Item Value Reference Range Comments GLUBED (test code=GLUBED) 94 mg/dL 74-106 Performed by certified telecine operator at [facility] LACTIC [id number] 11:14:00* Test Item Value Reference Range Comments LACTIC ACID (test code=LACT) 0.5 mmol/L 0.4-1.9 LACTIC [id number] 08:32:00* Test Item Value Reference Range Comments LACTIC ACID (test code=LACT) 14.5 mmol/L 0.4-1.9 Results called to [id number] by NELL 04/09/18 0831Critical results verified and [...] into account the patients history. BASIC METABOLIC [id number] 07:05:00* Test Item Value Reference Range Comments [...] (test code=CA) 8.4 mg/dL 8.5-10.1 CBC W/AUTO [id number] 06:51:00* Test Item Value Reference Range Comments [...] 0.0-0.1 MANUAL DIFF REQUIRED (test code=MDIFF) NO [id number] 06:25:00* Test Item Value Reference Range Comments GLUBED (test code=GLUBED) 81 mg/dL 74-106 Performed by certified telecine operator at [facility] [id number] 06:25:00* Test Item Value Reference Range Comments GLUBED (test code=GLUBED) 87 mg/dL 74-106 Performed by certified telecine operator at [facility] [id number] 17:17:00* Test Item Value Reference Range Comments GLUBED (test code=GLUBED) 91 mg/dL 74-106 Performed by certified telecine operator at [facility] [id number] 11:25:00* Test Item Value Reference Range Comments GLUBED (test code=GLUBED) 114 mg/dL 74-106 Performed by certified telecine operator at [facility] - XR CHEST 1 [id number] 07:28:00 FAX: Chiquita Johnson MD [phone] [place]: [address]: ADM FAX: Dasha Renee NP [phone] Name: RADHA KENDRICK [facility] : 1965 Age/S: 52/M [address] Unit #: [id number] Loc: [place] [address] Phys: Dasha Galo 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 Acct: [id number] Dis Date: Status: ADM IN PHONE #: [phone] Exam Date: 04/08/2018513 FAX #: [phone] Reason: leukocytosis EXAMS: CPT CODE: [id number] XR CHEST 1 V 02880 EXAM: Chest x-ray, one view; INFORMATION: Status post cardiac arrest; leukocytosis; IMPRESSION: No significant change; persistent right basilar densities which most likely represent atelectatic changes. The heart is normal in size. at 07 Reported and signed by: Ino Frazier M.D. CC: Chiquita Wayne MD; Dasha Galo NP Technologist: RICHARD COLLAZO JR; Marcia Paulino Trnscrd Date/Time/By: 04/08/2018 (727) : By: EliezerGRW Orig Print D/T: S: 04/08/2018 (0792) PAGE 1 Signed Report CBC W/AUTO DIFF [...] MANUAL DIFF REQUIRED (test code=MDIFF) NO WBC [id number] 06:43:00* Test Item Value Reference Range Comments [...] FORMS (test code=IMMAT) 0 % CBC W/AUTO [id number] 06:41:00* Test Item Value Reference Range Comments [...] MANUAL DIFF REQUIRED (test code=MDIFF) NO WBC [id number] 06:41:00* Test Item Value Reference Range Comments STAIN ACCEPTABILITY (test code=STN ACCEPTABLE) TOTAL CELLS COUNTED (test code=TCC) #CELLS SEGMENTED NEUTROPHILS (test code=SEG) % 39-69 LYMPHOCYTE (test code=LYMPH) % 25-55 MONOCYTE (test code=MON) % 0-10 EOSINOPHIL (test code=EOS) % 0.0-5.0 CABOT RINGS (test code=CAB) MORPHOLOGY COMMENT (test code=MOC) PLATELET ESTIMATE (test code=PLTEST) PLATELET MORPHOLOGY (test code=PLTMORPH) CBC W/AUTO [id number] 06:41:00* Test Item Value Reference Range Comments [...] MANUAL DIFF REQUIRED (test code=MDIFF) NO WBC [id number] 06:41:00* Test Item Value Reference Range Comments STAIN ACCEPTABILITY (test code=STN ACCEPTABLE) TOTAL CELLS COUNTED (test code=TCC) #CELLS SEGMENTED NEUTROPHILS (test code=SEG) % 39-69 LYMPHOCYTE (test code=LYMPH) % 25-55 MONOCYTE (test code=MON) % 0-10 EOSINOPHIL (test code=EOS) % 0.0-5.0 CABOT RINGS (test code=CAB) MORPHOLOGY COMMENT (test code=MOC) PLATELET ESTIMATE (test code=PLTEST) PLATELET MORPHOLOGY (test code=PLTMORPH) CBC W/AUTO [id number] 06:41:00* Test Item Value Reference Range Comments [...] MANUAL DIFF REQUIRED (test code=MDIFF) NO WBC [id number] 06:41:00* Test Item Value Reference Range Comments STAIN ACCEPTABILITY (test code=STN ACCEPTABLE) TOTAL CELLS COUNTED (test code=TCC) #CELLS SEGMENTED NEUTROPHILS (test code=SEG) % 39-69 LYMPHOCYTE (test code=LYMPH) % 25-55 MONOCYTE (test code=MON) % 0-10 EOSINOPHIL (test code=EOS) % 0.0-5.0 MORPHOLOGY COMMENT (test code=MOC) PLATELET ESTIMATE (test code=PLTEST) PLATELET MORPHOLOGY (test code=PLTMORPH) CBC W/AUTO [id number] 06:41:00* Test Item Value Reference Range Comments [...] MANUAL DIFF REQUIRED (test code=MDIFF) NO WBC [id number] 06:41:00* Test Item Value Reference Range Comments [...] into account the patients history. BASIC METABOLIC [id number] 05:58:00* Test Item Value Reference Range Comments [...] (test code=CA) 8.5 mg/dL 8.5-10.1 BASIC METABOLIC [id number] 05:46:00* Test Item Value Reference Range Comments [...] CALCIUM (test code=CA) mg/dL 8.5-10.1 CBC W/AUTO [id number] 05:32:00* Test Item Value Reference Range Comments [...] 0.0-0.1 MANUAL DIFF REQUIRED (test code=MDIFF) NO [id number] 04:11:00* Test Item Value Reference Range Comments GLUBED (test code=GLUBED) 112 mg/dL 74-106 Performed by certified telecine operator at [facility] [id number] 22:14:00* Test Item Value Reference Range Comments GLUBED (test code=GLUBED) 121 mg/dL 74-106 Performed by certified telecine operator at [facility] [id number] 16:16:00* Test Item Value Reference Range Comments GLUBED (test code=GLUBED) 130 mg/dL 74-106 Performed by certified telecine operator at [facility] [id number] 10:59:00* Test Item Value Reference Range Comments GLUBED (test code=GLUBED) 112 mg/dL 74-106 Performed by certified telecine operator at [facility] BASIC METABOLIC [id number] 07:15:00* Test Item Value Reference Range Comments [...] (test code=CA) 8.3 mg/dL 8.5-10.1 CBC W/AUTO [id number] 06:16:00* Test Item Value Reference Range Comments [...] (test code=MDIFF) NO - XR CHEST 1 [id number] 06:08:00 FAX: Chiquita Jonhson MD [phone] [place]: St: ADM FAX: Abdirahman Hutchinson NP [phone] Name: RADHA KENDRICK [facility] : 1965 Age/S: 52/M [address] [facility] Unit #: [id number] Loc: [place] [address] Phys: Abdirahman Jack 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 Acct: [id number] Dis Date: Status: ADM IN PHONE #: [phone] Exam Date: 04/07/2018 0555 FAX #: [phone] Reason: STATUS POST EXTUBATION EXAMS: CPT CODE: [id number] XR CHEST 1 V 79420 - XR CHEST 1 V, 04/07/2018 5:33 [...] RICHARD COLLAZO JR Trnscrd Date/T agustin/By: 04/07/2018 (0608) : By: [email or web address] Orig Print D/T: S: 9 (6184) PAGE 1 Signed Report [id number] 04:12:00* Test Item Value Reference Range Comments GLUBED (test code=GLUBED) 151 mg/dL 74-106 Performed by certified telecine operator at [facility] [id number] 03:05:00* Test Item Value Reference Range Comments GLUBED (test code=GLUBED) 142 mg/dL 74-106 Performed by certified telecine operator at [facility] [id number] 15:27:00* Test Item Value Reference Range Comments GLUBED (test code=GLUBED) 129 mg/dL 74-106 Performed by certified telecine operator at [facility] [id number] 10:37:00* Test Item Value Reference Range Comments GLUBED (test code=GLUBED) 114 mg/dL 74-106 Performed by certified telecine operator at [facility] - XR CHEST 1 [id number] 07:46:00 FAX: Chiquita Johnson MD [phone] [place]: St: ADM FAX: Dasha Renee NP [phone] Name: RADHA KENDRICK [facility] : 1965 Age/S: 52/M [address] [facility] Unit #: [id number] [address]: [address] [address] Phys: Dasha Galo NP Acct: [id number] Dis Date: Status: ADM IN PHONE #: [phone] Exam Date: 04/06/2018516 FAX #: [phone] Reason: respiratory failure EXAMS: CPT CODE: [id number] XR CHEST 1 V 05266 EXAM: Chest x-ray, one view; INFORMATION: History of cardiac arrest; IMPRESSION: 1. Improvement: Better aeration of both lungs with partial resolution of basilar atelectatic changes. 2. The heart is normal in size. 3. No further changes. at 0746 Reported and signed by: Jonatan Frazier M.D. CC: Chiquita Wayne MD; Dasha Galo NP Technologist: RICHARD COLLAZO JR; Marcia Paulino Trnscrd Date/Time/By: 04/06/2018 (0746) : By: EliezerGRW Orig Print D/T: S: 04/06/2018 (0749) PAGE 1 Signed Report BASIC METABOLIC [id number] 07:10:00* Test Item Value Reference Range Comments [...] (test code=CA) 8.6 mg/dL 8.5-10.1 BASIC METABOLIC [id number] 06:52:00* Test Item Value Reference Range Comments [...] CALCIUM (test code=CA) mg/dL 8.5-10.1 CBC W/AUTO [id number] 06:34:00* Test Item Value Reference Range Comments [...] 0.0-0.1 MANUAL DIFF REQUIRED (test code=MDIFF) NO [id number] 05:18:00* Test Item Value Reference Range Comments GLUBED (test code=GLUBED) 120 mg/dL 74-106 Performed by certified telecine operator at [facility] ARTERIAL BLOOD [id number] 04:48:00* Test Item Value Reference Range Comments [...] CONTENT (test code=O2CT) 16.3 % vol 18.0-22.0 [id number] 21:40:00* Test Item Value Reference Range Comments GLUBED (test code=GLUBED) 117 mg/dL 74-106 Performed by certified telecine operator at [facility] [id number] 18:05:00* Test Item Value Reference Range Comments GLUBED (test code=GLUBED) 115 mg/dL 74-106 Performed by certified telecine operator at [facility] [id number] 11:31:00* Test Item Value Reference Range Comments GLUBED (test code=GLUBED) 111 mg/dL 74-106 Performed by certified telecine operator at [facility] - XR CHEST 1 [id number] 07:48:00 FAX: Zaina De Anda [phone] [place]: B St: ADM FAX: Francia Nguyễn NP [phone] Name: VALERIEKAYLYNNRADHA [facility] : 1965 Age/S: 52/M [address] [facility] Unit #: [id number] Loc: [address] [address] Phys: Francia Nguyễn NP Acct: [id number] Dis Date: Status: ADM IN PHONE #: [phone] Exam Date: 04/05/2018515 FAX #: [phone] Reason: sob EXAMS: CPT CODE: [id number] XR CHEST 1 V 91161 EXAM: Chest x-ray, one view; INFORMATION: Status [...] By: EliezerGRW Orig Print D/T: S: 04/05/2018 (0751) PAGE 1 Signed Report BASIC METABOLIC [id number] 06:37:00* Test Item Value Reference Range Comments [...] 10-20 CALCIUM (test code=CA) 8.2 mg/dL 8.5-10.1 [id number] 06:37:00* Test Item Value Reference Range Comments PHOSPHORUS (test code=PHOS) 3.9 mg/dL 2.5-4.9 [id number] 06:37:00* Test Item Value Reference Range Comments MAGNESIUM (test code=MAG) 2.3 mg/dL 1.8-2.4 BASIC METABOLIC [id number] 06:31:00* Test Item Value Reference Range Comments [...] code=BUN/CREA) 10-20 CALCIUM (test code=CA) mg/dL 8.5-10.1 [id number] 06:31:00* Test Item Value Reference Range Comments PHOSPHORUS (test code=PHOS) mg/dL 2.5-4.9 [id number] 06:31:00* Test Item Value Reference Range Comments MAGNESIUM (test code=MAG) mg/dL 1.8-2.4 CBC W/AUTO [id number] 06:08:00* Test Item Value Reference Range Comments [...] (test code=NRBC#) 0.00 K/mm3 0.0-0.1 ARTERIAL BLOOD [id number] 05:44:00* Test Item Value Reference Range Comments [...] CONTENT (test code=O2CT) 16.9 % vol 18.0-22.0 [id number] 05:02:00* Test Item Value Reference Range Comments GLUBED (test code=GLUBED) 104 mg/dL 74-106 Performed by certified telecine operator at [facility] [id number] 17:09:00* Test Item Value Reference Range Comments GLUBED (test code=GLUBED) 92 mg/dL 74-106 Performed by certified telecine operator at [facility] [id number] 10:46:00* Test Item Value Reference Range Comments GLUBED (test code=GLUBED) 109 mg/dL 74-106 Performed by certified telecine operator at [facility] - XR CHEST 1 [id number] 08:02:00 FAX: Zaina De Anda [phone] [place]: B St: ADM FAX: Anna Pabon MD [phone] Name: RADHA KENDRICK [facility] : 1965 Age/S: 52/M [address] Unit #: [id number] Loc: [place], [place] [address] Phys: Anna Pabon MD Acct: [id number] Dis Date: Status: ADM IN PHONE #: [phone] Exam Date: 04/04/2018 0533 FAX #: [phone] Reason: ett EXAMS: CPT CODE: [id number] XR CHEST 1 V 52241 EXAM: Chest x-ray, one view; INFORMATION: History of cardiac arrest; IMPRESSION: Partial resolution of basilar atelectatic changes. Otherwise, no major change; the heart is borderline in size. Well- positioned lines and tubes. at 0802 Reported and signed by: Jonatna Frazier M.D. CC: Zaina Werner MD; Anna Pabon MD Technologist: RICHARD COLLAZO JR Trnscrd Date/Time/By: 04/04/2018 (801) : By: EliezerGRW Orig Print D/T: S: 04/04/2018 (805) PAGE 1 Signed Report BASIC METABOLIC [id number] 07:37:00* Test Item Value Reference Range Comments [...] 10-20 CALCIUM (test code=CA) 8.2 mg/dL 8.5-10.1 [id number] 07:37:00* Test Item Value Reference Range Comments PHOSPHORUS (test code=PHOS) 3.9 mg/dL 2.5-4.9 [id number] 07:37:00* Test Item Value Reference Range Comments MAGNESIUM (test code=MAG) 2.4 mg/dL 1.8-2.4 BASIC METABOLIC [id number] 07:31:00* Test Item Value Reference Range Comments [...] code=BUN/CREA) 10-20 CALCIUM (test code=CA) mg/dL 8.5-10.1 [id number] 07:31:00* Test Item Value Reference Range Comments PHOSPHORUS (test code=PHOS) mg/dL 2.5-4.9 [id number] 07:31:00* Test Item Value Reference Range Comments MAGNESIUM (test code=MAG) mg/dL 1.8-2.4 CBC W/AUTO [id number] 07:22:00* Test Item Value Reference Range Comments [...] 0.0-0.1 MANUAL DIFF REQUIRED (test code=MDIFF) NO [id number] 04:37:00* Test Item Value Reference Range Comments GLUBED (test code=GLUBED) 101 mg/dL 74-106 Performed by certified telecine operator at [facility] [id number] 22:56:00* Test Item Value Reference Range Comments GLUBED (test code=GLUBED) 78 mg/dL 74-106 Performed by certified telecine operator at [facility] - XR CHEST 1 [id number] 17:35:00 FAX: Zaina De Anda [phone] [place]: St: [facility] FAX: Anna Pabon MD [phone] Name: RADHA KENDRICK [facility] : 1965 Age/S: 52/M [address] [facility] Unit #: [id number] Loc: [address] [address] Phys: Anna Pabon MD Acct: [id number] Dis Date: Status: ADM IN PHONE #: [phone] Exam Date: 04/03/2018 1715 FAX #: [phone] Reason: PER LANGUAGE INTERPRETER REQUEST EXAMS: CPT CODE: [id number] XR CHEST 1 V 85615 REASON FOR EXAM: PER LANGUAGE INTERPRETER REQUEST EXAM ORDER DATE: 04/03/2018 12:00 AM [...] lungs with atelectasis in the bases. at 5605 Reported and signed by: Raúl Chang M.D. CC: Zaina Werner MD; Anna Pabon MD Technologist: RT MARIJA(R) Trnscrd Date/Time/By: 04/03/2018 (4097) : By: EliezerVTL Orig Print D/T: S: 04/03/2018 (9945) PAGE 1 Signed [place] [id number] 17:27:00* Test Item Value Reference Range Comments GLUBED (test code=GLUBED) 90 mg/dL 74-106 Performed by certified telecine operator at [facility] ARTERIAL BLOOD [id number] 17:05:00* Test Item Value Reference Range Comments [...] read back by 17:05 - 04/03/2018; by [id number] METHEMOGLOBIN (test code=METHGB) 0.4 % 0.0-1.50 O2 CONTENT (test code=O2CT) 17.6 % vol 18.0-22.0 [id number] 08:53:00* Test Item Value Reference Range Comments GLUBED (test code=GLUBED) 104 mg/dL 74-106 Performed by certified telecine operator at [facility] THROMBOPLASTIN TIME [id number] 08:05:00* Test Item Value Reference Range Comments THROMBOPLASTIN TIME PARTIAL (test code=PTT) 27.9 seconds 25.0-36.5 IS PATIENT ON ANTICOAGULANTS? YLIST ANTICOAGULANTS HEPARIN- XR CHEST 1 V 2018-04-03 07:50:00 FAX: Zaina De Anda [phone] [place]: St: ADM FAX: Francia Nguyễn NP [phone] Name: RADHA KENDRICK [facility] : 1965 Age/S: 52/M [address] [facility] Unit #: [id number] Loc: [place] [address] Phys: Francia Nguyễn NP Acct: [id number] Dis Date: Status: ADM IN PHONE #: [phone] Exam Date: 04/03/2018444 FAX #: [phone] Reason: sob EXAMS: CPT CODE: [id number] XR CHEST 1 V 12310 CLINICAL HISTORY: Shortness of breath TECHNIQUE: AP [...] By: [email or web address] Orig Print D/T: S: 04/03/2018 (4208) PAGE 1 Signed Report CBC W/AUTO [id number] 07:27:00* Test Item Value Reference Range Comments [...] DIFF REQUIRED (test code=MDIFF) NO BASIC METABOLIC [id number] 06:59:00* Test Item Value Reference Range Comments [...] 10-20 CALCIUM (test code=CA) 8.1 mg/dL 8.5-10.1 [id number] 06:59:00* Test Item Value Reference Range Comments PHOSPHORUS (test code=PHOS) 3.1 mg/dL 2.5-4.9 [id number] 06:59:00* Test Item Value Reference Range Comments MAGNESIUM (test code=MAG) 2.5 mg/dL 1.8-2.4 BASIC METABOLIC [id number] 06:56:00* Test Item Value Reference Range Comments [...] code=BUN/CREA) 10-20 CALCIUM (test code=CA) mg/dL 8.5-10.1 [id number] 06:56:00* Test Item Value Reference Range Comments PHOSPHORUS (test code=PHOS) mg/dL 2.5-4.9 [id number] 06:56:00* Test Item Value Reference Range Comments MAGNESIUM (test code=MAG) mg/dL 1.8-2.4 ARTERIAL BLOOD [id number] 06:37:00* Test Item Value Reference Range Comments [...] CONTENT (test code=O2CT) 17.4 % vol 18.0-22.0 [id number] 05:08:00* Test Item Value Reference Range Comments GLUBED (test code=GLUBED) 79 mg/dL 74-106 Performed by certified telecine operator at [facility] [id number] 23:00:00* Test Item Value Reference Range Comments GLUBED (test code=GLUBED) 80 mg/dL 74-106 Performed by certified telecine operator at [facility] [id number] 17:48:00* Test Item Value Reference Range Comments GLUBED (test code=GLUBED) 100 mg/dL 74-106 Performed by certified telecine operator at [facility] THROMBOPLASTIN TIME [id number] 15:40:00* Test Item Value Reference Range Comments THROMBOPLASTIN TIME PARTIAL (test code=PTT) 84.1 seconds 25.0-36.5 IS PATIENT ON ANTICOAGULANTS? YLIST ANTICOAGULANTS HEPARIN- CTA CHEST 2018-04-02 13:10:00 Name: RADHA KENDRICK [facility] : 1965 Age/S: 52 / M [address] [facility] Unit #: [id number] Loc: [place] [address] Phys: Jim Vickers MD Acct: [id number] Dis Date: Status: ADM IN PHONE #: [phone] Exam Date: 04/02/2018 1218 FAX #: [phone] Reason: Witnessed cardiac arrest. R/o PE and dissection EXAMS: CPT CODE: [id number] CTA CHEST 50317 REASON FOR EXAM: Witnessed cardiac arrest. R/o PE and dissection EXAM ORDER DATE: 04/02/2018 5:26 PM Ordering Lucinda.: Jim Vickers MD PROCEDURE: - CTA CHEST [...] RT(R),CT; CTDI: DLP: Trnscb Date/Time: 04/02/2018 (1310) t.DIONICIOR.VTL Orig Print D/T: S: 04/02/2018 (0857) CTDI: DLP: PAGE 1 Signed Report - CT HEAD/BRAIN W/O [id number] 13:07:00 Name: RADHA KENDRICK [facility] : 1965 Age/S: 52 / M [address] [facility] Unit #: [id number] Loc: [place] [address] Phys: Kayla Pinon MD Acct: [id number] Di s Date: Status: ADM IN PHONE #: Exam Date: 04/02/2018 1213 FAX #: [phone] Reason: aNOXIC BRAIN INJURY EXAMS: CPT CODE: [id number] CT HEAD/BRAIN W/O CONT 72449 REASON FOR EXAM: aNOXIC BRAIN INJURY EXAM ORDER DATE: 04/02/2018 5:00 AM Ordering Laurita: Kayla Pinon MD PROCEDURE: - CT HEAD/BR AIN W/O CONT COMPARISON: 03/30/2018 FINDINGS: CT imag es of the brain were obtained without IV contrast. Dose reduction techniq ues were applied. The brain parenchyma is within normal limits. Th e jama-white matter delineation is unremarkable. The ventricles, cisterns, [...] Azevedo RT(R),CT; CTDI: DLP: Trnscb Date/Time: 04/02/2018 (1307) t.DIONICIOR.VTL Orig Print D/T: S: 04/02/2018 (1609) CTDI: DLP: PAGE 1 Signed Report ARTERIAL BLOOD [id number] 09:49:00* Test Item Value Reference Range Comments ARTERIAL BLOOD GAS PH (test code=PHA) 7.42 7.35-7.45 ARTERIAL BLOOD GAS PCO2 (test code=PCO2A) 30.4 mm Hg 35-45 ARTERIAL BLOOD GAS PO2 (test code=PO2A) 73.6 mmHg 80-100 BICARBONATE TOTAL HCO3 (test code=HCO3) 19.4 mmol/L 23.0-27.0 BASE EXCESS (test code=JILLIAN) -3.8 mmol/L -3.0-5.0 Results called to and read back by 09:45 - 04/02/2018; by [id number] ABG O2 SATURATION (test code=SATA) 94.6 % [...] read back by 09:45 - 04/02/2018; by [id number] METHEMOGLOBIN (test code=METHGB) 0.4 % 0.0-1.50 O2 CONTENT (test code=O2CT) 19.3 % vol 18.0-22.0 [id number] 09:11:00* Test Item Value Reference Range Comments GLUBED (test code=GLUBED) 111 mg/dL 74-106 Performed by certified telecine operator at [facility] [id number] 09:11:00* Test Item Value Reference Range Comments GLUBED (test code=GLUBED) 107 mg/dL 74-106 Performed by certified telecine operator at [facility] - XR CHEST 1 [id number] 06:53:00 FAX: Zaina De Anda [phone] [place]: B St: [facility] FAX: Anna Pabon MD [phone] Name: CRISTIANRADHA BETANCUR [facility] : 1965 Age/S: 52/M [address] [facility] Unit #: [id number] Loc: [place] [address] Phys: Anna Pabon MD Acct: [id number] Dis Date: Status: ADM IN PHONE #: [phone] Exam Date: 04/02/2018 0503 FAX #: [phone] Reason: INTUBATED EXAMS: CPT CODE: [id number] XR CHEST 1 V 79510 REASON FOR EXAM: INTUBATED EXAM ORDER DATE: [...] Darnell Trnscrd Date/Time/By: 04/02/2018 (0653) : By: Morenita Orig Print D/T: S: 04/02/2018 (0656) PAGE 1 Signed Report COMPREHENSIVE METABOLIC [id number] 06:45:00* Test Item Value Reference Range Comments [...] reference range due to change in reagent. [id number] 06:45:00* Test Item Value Reference Range Comments PHOSPHORUS (test code=PHOS) 3.8 mg/dL 2.5-4.9 [id number] 06:45:00* Test Item Value Reference Range Comments MAGNESIUM (test code=MAG) 2.6 mg/dL 1.8-2.4 CALCIUM [id number] 06:45:00* Test Item Value Reference Range Comments CALCIUM IONIZED (test code=ALTA) 1.15 mmol/L 1.12-1.32 THROMBOPLASTIN TIME [id number] 06:00:00* Test Item Value Reference Range Comments THROMBOPLASTIN TIME PARTIAL (test code=PTT) 35.2 seconds 25.0-36.5 IS PATIENT ON ANTICOAGULANTS? YLIST ANTICOAGULANTS HEPARINCOMPREHENSIVE METABOLIC [id number] 05:55:00* Test Item Value Reference Range Comments [...] reference range due to change in reagent. [id number] 05:55:00* Test Item Value Reference Range Comments PHOSPHORUS (test code=PHOS) 3.8 mg/dL 2.5-4.9 [id number] 05:55:00* Test Item Value Reference Range Comments MAGNESIUM (test code=MAG) 2.6 mg/dL 1.8-2.4 CALCIUM [id number] 05:55:00* Test Item Value Reference Range Comments CALCIUM IONIZED (test code=ALTA) mmol/L 1.12-1.32 CBC W/AUTO [id number] 05:23:00* Test Item Value Reference Range Comments [...] DIFF REQUIRED (test code=MDIFF) NO COMPREHENSIVE METABOLIC [id number] 05:17:00* Test Item Value Reference Range Comments [...] ALKALINE PHOSPHATASE TOTAL (test code=ALKP) IUnit/L 45-117 [id number] 05:17:00* Test Item Value Reference Range Comments PHOSPHORUS (test code=PHOS) mg/dL 2.5-4.9 [id number] 05:17:00* Test Item Value Reference Range Comments MAGNESIUM (test code=MAG) mg/dL 1.8-2.4 CALCIUM [id number] 05:17:00* Test Item Value Reference Range Comments CALCIUM IONIZED (test code=ALTA) mmol/L 1.12-1.32 [id number] 22:41:00* Test Item Value Reference Range Comments GLUBED (test code=GLUBED) 87 mg/dL 74-106 Performed by certified telecine operator at [facility] THROMBOPLASTIN TIME [id number] 21:30:00* Test Item Value Reference Range Comments THROMBOPLASTIN TIME PARTIAL (test code=PTT) 141.7 seconds 25.0-36.5 Results called to [id number] by [email or web address] 04/01/18 2130Critical results verified and read back by Nurse? Y IS PATIENT ON ANTICOAGULANTS? YLIST ANTICOAGULANTS [id number] 16:52:00* Test Item Value Reference Range Comments GLUBED (test code=GLUBED) 122 mg/dL 74-106 Performed by certified telecine operator at [facility] [id number] 14:22:00* Test Item Value Reference Range Comments GLUBED (test code=GLUBED) 104 mg/dL 74-106 Performed by certified telecine operator at [facility] [id number] 14:22:00* Test Item Value Reference Range Comments GLUBED (test code=GLUBED) 90 mg/dL 74-106 Performed by certified telecine operator at [facility] [id number] 14:22:00* Test Item Value Reference Range Comments GLUBED (test code=GLUBED) 119 mg/dL 74-106 Performed by certified telecine operator at [facility] [id number] 14:22:00* Test Item Value Reference Range Comments GLUBED (test code=GLUBED) 105 mg/dL 74-106 Performed by certified telecine operator at [facility] THROMBOPLASTIN TIME [id number] 12:29:00* Test Item Value Reference Range Comments THROMBOPLASTIN TIME PARTIAL (test code=PTT) 41.7 seconds 25.0-36.5 IS PATIENT ON ANTICOAGULANTS? YLIST ANTICOAGULANTS [id number] 08:26:00* Test Item Value Reference Range Comments GLUBED (test code=GLUBED) 122 mg/dL 74-106 Performed by certified telecine operator at [facility] - XR CHEST 1 [id number] 07:16:00 FAX: Jim Vickers MD [phone] [place]: [address]: ADM FAX: Zaina De Anda [phone] Name: RADHA KENDRICK [facility] : 1965 Age/S: 52/M [address] [facility] Unit #: [id number] Loc: [address] [address] Phys: Jim Vickers MD Acct: [id number] Dis Date: Status: ADM IN PHONE #: [phone] Exam Date: 04/01/2018527 FAX #: [phone] Reason: FOLLOW UP ON VENT EXAMS: CPT CODE: [id number] XR CHEST 1 V [id number] REASON FOR EXAM: FOLLOW UP ON VENT [...] Trnscrd Date/Time/By: 0 04/01/2018 (0716) : By: Morenita Orig Print D/T: S: 04/01/2018 (0745) PAGE 1 Signed Report COMPREHENSIVE METABOLIC [id number] 06:12:00* Test Item Value Reference Range Comments [...] due to change in reagent. COMPREHENSIVE METABOLIC [id number] 06:05:00* Test Item Value Reference Range Comments [...] TOTAL (test code=ALKP) IUnit/L 45-117 THROMBOPLASTIN TIME [id number] 05:46:00* Test Item Value Reference Range Comments [...] RBC # (test code=NRBC#) 0.00 K/mm3 0.0-0.1 [id number] 05:06:00* Test Item Value Reference Range Comments GLUBED (test code=GLUBED) 131 mg/dL 74-106 Performed by certified telecine operator at [facility] [id number] 04:56:00* Test Item Value Reference Range Comments GLUBED (test code=GLUBED) 124 mg/dL 74-106 Performed by certified telecine operator at [facility] COMPREHENSIVE METABOLIC [id number] 03:26:00* Test Item Value Reference Range Comments [...] due to change in reagent. COMPREHENSIVE METABOLIC [id number] 03:17:00* Test Item Value Reference Range Comments [...] ALKALINE PHOSPHATASE TOTAL (test code=ALKP) IUnit/L 45-117 [id number] 02:52:00* Test Item Value Reference Range Comments GLUBED (test code=GLUBED) 120 mg/dL 74-106 Performed by certified telecine operator at [facility] [id number] 01:57:00* Test Item Value Reference Range Comments GLUBED (test code=GLUBED) 124 mg/dL 74-106 Performed by certified telecine operator at [facility] [id number] 23:59:00* Test Item Value Reference Range Comments GLUBED (test code=GLUBED) 118 mg/dL 74-106 Performed by certified telecine operator at [facility] THROMBOPLASTIN TIME [id number] 22:09:00* Test Item Value Reference Range Comments THROMBOPLASTIN TIME PARTIAL (test code=PTT) 99.1 seconds 25.0-36.5 Results called to [id number] by V.LAB.KP1 03/31/18 2208Critical results verified and read back by Nurse? Y IS PATIENT ON ANTICOAGULANTS? YLIST ANTICOAGULANTS [id number] 21:32:00* Test Item Value Reference Range Comments GLUBED (test code=GLUBED) 86 mg/dL 74-106 Performed by certified telecine operator at [facility] COMPREHENSIVE METABOLIC [id number] 20:50:00* Test Item Value Reference Range Comments [...] reference range due to change in reagent. [id number] 20:50:00* Test Item Value Reference Range Comments PHOSPHORUS (test code=PHOS) 4.0 mg/dL 2.5-4.9 [id number] 20:50:00* Test Item Value Reference Range Comments MAGNESIUM (test code=MAG) 2.7 mg/dL 1.8-2.4 CALCIUM [id number] 20:50:00* Test Item Value Reference Range Comments CALCIUM IONIZED (test code=ALTA) 1.22 mmol/L 1.12-1.32 COMPREHENSIVE METABOLIC [id number] 20:43:00* Test Item Value Reference Range Comments [...] ALKALINE PHOSPHATASE TOTAL (test code=ALKP) IUnit/L 45-117 [id number] 20:43:00* Test Item Value Reference Range Comments PHOSPHORUS (test code=PHOS) mg/dL 2.5-4.9 [id number] 20:43:00* Test Item Value Reference Range Comments MAGNESIUM (test code=MAG) mg/dL 1.8-2.4 CALCIUM [id number] 20:43:00* Test Item Value Reference Range Comments CALCIUM IONIZED (test code=ALTA) 1.22 mmol/L 1.12-1.32 COMPREHENSIVE METABOLIC [id number] 20:19:00* Test Item Value Reference Range Comments [...] ALKALINE PHOSPHATASE TOTAL (test code=ALKP) IUnit/L 45-117 [id number] 20:19:00* Test Item Value Reference Range Comments PHOSPHORUS (test code=PHOS) mg/dL 2.5-4.9 [id number] 20:19:00* Test Item Value Reference Range Comments MAGNESIUM (test code=MAG) mg/dL 1.8-2.4 CALCIUM [id number] 20:19:00* Test Item Value Reference Range Comments CALCIUM IONIZED (test code=ALTA) 1.22 mmol/L 1.12-1.32 [id number] 20:14:00* Test Item Value Reference Range Comments GLUBED (test code=GLUBED) 113 mg/dL 74-106 Performed by certified telecine operator at [facility] [id number] 20:09:00* Test Item Value Reference Range Comments GLUBED (test code=GLUBED) 100 mg/dL 74-106 Performed by certified telecine operator at [facility] [id number] 20:09:00* Test Item Value Reference Range Comments GLUBED (test code=GLUBED) 101 mg/dL 74-106 Performed by certified telecine operator at [facility] [id number] 18:39:00* Test Item Value Reference Range Comments GLUBED (test code=GLUBED) 127 mg/dL 74-106 Performed by certified telecine operator at [facility] ARTERIAL BLOOD [id number] 17:32:00* Test Item Value Reference Range Comments ARTERIAL BLOOD GAS PH (test code=PHA) 7.41 7.35-7.45 ARTERIAL BLOOD GAS PCO2 (test code=PCO2A) 33.5 mm Hg 35-45 ARTERIAL BLOOD GAS PO2 (test code=PO2A) 82.8 mmHg 80-100 BICARBONATE TOTAL HCO3 (test code=HCO3) 20.6 mmol/L 23.0-27.0 BASE EXCESS (test code=JILLIAN) -3.1 mmol/L -3.0-5.0 Results called to and read back by Dr martínez 17: - 03/31/2018; by [email or web address] ABG O2 SATURATION (test code=SATA) 96.0 % [...] by Dr martínez 17: - 03/31/2018; by [email or web address] METHEMOGLOBIN (test code=METHGB) 0.4 % 0.0-1.50 O2 CONTENT (test code=O2CT) 21.9 % vol 18.0-22.0 COMPREHENSIVE METABOLIC [id number] 16:24:00* Test Item Value Reference Range Comments [...] reference range due to change in reagent. [id number] 16:24:00* Test Item Value Reference Range Comments PHOSPHORUS (test code=PHOS) 2.0 mg/dL 2.5-4.9 [id number] 16:24:00* Test Item Value Reference Range Comments MAGNESIUM (test code=MAG) 2.7 mg/dL 1.8-2.4 CALCIUM [id number] 16:24:00* Test Item Value Reference Range Comments CALCIUM IONIZED (test code=ALTA) 1.28 mmol/L 1.12-1.32 COMPREHENSIVE METABOLIC [id number] 16:10:00* Test Item Value Reference Range Comments [...] ALKALINE PHOSPHATASE TOTAL (test code=ALKP) IUnit/L 45-117 [id number] 16:10:00* Test Item Value Reference Range Comments PHOSPHORUS (test code=PHOS) mg/dL 2.5-4.9 [id number] 16:10:00* Test Item Value Reference Range Comments MAGNESIUM (test code=MAG) mg/dL 1.8-2.4 CALCIUM [id number] 16:10:00* Test Item Value Reference Range Comments CALCIUM IONIZED (test code=ALTA) 1.28 mmol/L 1.12-1.32 [id number] 15:46:00* Test Item Value Reference Range Comments GLUBED (test code=GLUBED) 107 mg/dL 74-106 Performed by certified telecine operator at [facility] [id number] 15:46:00* Test Item Value Reference Range Comments GLUBED (test code=GLUBED) 117 mg/dL 74-106 Performed by certified telecine operator at [facility] [id number] 15:46:00* Test Item Value Reference Range Comments GLUBED (test code=GLUBED) 124 mg/dL 74-106 Performed by certified telecine operator at [facility] [id number] 15:46:00* Test Item Value Reference Range Comments GLUBED (test code=GLUBED) 119 mg/dL 74-106 Performed by certified telecine operator at [facility] THROMBOPLASTIN TIME [id number] 15:02:00* Test Item Value Reference Range Comments THROMBOPLASTIN TIME PARTIAL (test code=PTT) 32.7 seconds 25.0-36.5 IS PATIENT ON ANTICOAGULANTS? YLIST ANTICOAGULANTS LOVENOXCOMPREHENSIVE METABOLIC [id number] 12:53:00* Test Item Value Reference Range Comments [...] reference range due to change in reagent. [id number] 12:53:00* Test Item Value Reference Range Comments PHOSPHORUS (test code=PHOS) 2.9 mg/dL 2.5-4.9 [id number] 12:53:00* Test Item Value Reference Range Comments MAGNESIUM (test code=MAG) 3.1 mg/dL 1.8-2.4 CALCIUM [id number] 12:53:00* Test Item Value Reference Range Comments CALCIUM IONIZED (test code=ALTA) 1.33 mmol/L 1.12-1.32 COMPREHENSIVE METABOLIC [id number] 12:40:00* Test Item Value Reference Range Comments [...] ALKALINE PHOSPHATASE TOTAL (test code=ALKP) IUnit/L 45-117 [id number] 12:40:00* Test Item Value Reference Range Comments PHOSPHORUS (test code=PHOS) mg/dL 2.5-4.9 [id number] 12:40:00* Test Item Value Reference Range Comments MAGNESIUM (test code=MAG) mg/dL 1.8-2.4 CALCIUM [id number] 12:40:00* Test Item Value Reference Range Comments CALCIUM IONIZED (test code=ALTA) 1.33 mmol/L 1.12-1.32 COMPREHENSIVE METABOLIC [id number] 12:33:00* Test Item Value Reference Range Comments [...] ALKALINE PHOSPHATASE TOTAL (test code=ALKP) IUnit/L 45-117 [id number] 12:33:00* Test Item Value Reference Range Comments PHOSPHORUS (test code=PHOS) mg/dL 2.5-4.9 [id number] 12:33:00* Test Item Value Reference Range Comments MAGNESIUM (test code=MAG) mg/dL 1.8-2.4 CALCIUM [id number] 12:33:00* Test Item Value Reference Range Comments CALCIUM IONIZED (test code=ALTA) 1.33 mmol/L 1.12-1.32 ARTERIAL BLOOD [id number] 12:21:00* Test Item Value Reference Range Comments ARTERIAL BLOOD GAS PH (test code=PHA) 7.39 7.35-7.45 ARTERIAL BLOOD GAS PCO2 (test code=PCO2A) 33.1 mm Hg 35-45 ARTERIAL BLOOD GAS PO2 (test code=PO2A) 90.0 mmHg 80-100 BICARBONATE TOTAL HCO3 (test code=HCO3) 19.5 mmol/L 23.0-27.0 BASE EXCESS (test code=JILLIAN) -4.4 mmol/L -3.0-5.0 Results called to and read back by Dr martínez 12:21 - 03/31/2018; by [email or web address] ABG O2 SATURATION (test code=SATA) 96.5 % [...] to and read back by Dr martínez 12: - 03/31/2018; by [email or web address] METHEMOGLOBIN (test code=METHGB) 0.3 % 0.0-1.50 O2 CONTENT (test code=O2CT) 21.3 % vol 18.0-22.0 [id number] 12:12:00* Test Item Value Reference Range Comments GLUBED (test code=GLUBED) 103 mg/dL 74-106 Performed by certified telecine operator at [facility]2019-01-31 12:12:00* Test Item Value Reference Range Comments GLUBED (test code=GLUBED) 78 mg/dL 74-106 Performed by certified telecine operator at [facility]2019-01-31 12:12:00* Test Item Value Reference Range Comments GLUBED (test code=GLUBED) 85 mg/dL 74-106 Performed by certified telecine operator at [facility]2019-01-31 12:11:00* Test Item Value Reference Range Comments GLUBED (test code=GLUBED) 107 mg/dL 74-106 Performed by certified telecine operator at [facility]2019-01-31 12:11:00* Test Item Value Reference Range Comments GLUBED (test code=GLUBED) 33 mg/dL 74-106 Test performed as P.O.C. by nursing staff.[facility] [id number] 08:57:00* Test Item Value Reference Range Comments GLUBED (test code=GLUBED) 109 mg/dL 74-106 Performed by certified telecine operator at [facility]2019-01-31 08:57:00* Test Item Value Reference Range Comments GLUBED (test code=GLUBED) 107 mg/dL 74-106 Performed by certified telecine operator at [facility] COMPREHENSIVE METABOLIC [id number] 08:53:00* Test Item Value Reference Range Comments [...] range due to change in reagent. CALCIUM [id number] 08:53:00* Test Item Value Reference Range Comments CALCIUM IONIZED (test code=ALTA) 1.22 mmol/L 1.12-1.32 [id number] 08:50:00* Test Item Value Reference Range Comments PHOSPHORUS (test code=PHOS) mg/dL 2.5-4.9 [id number] 08:50:00* Test Item Value Reference Range Comments MAGNESIUM (test code=MAG) 3.0 mg/dL 1.8-2.4 [id number] 08:50:00* Test Item Value Reference Range Comments PHOSPHORUS (test code=PHOS) 2.6 mg/dL 2.5-4.9 [id number] 08:50:00* Test Item Value Reference Range Comments MAGNESIUM (test code=MAG) 3.0 mg/dL 1.8-2.4 LACTIC [id number] 08:46:00* Test Item Value Reference Range Comments LACTIC ACID (test code=LACT) 1.7 mmol/L 0.4-1.9 COMPREHENSIVE METABOLIC [id number] 08:44:00* Test Item Value Reference Range Comments [...] PHOSPHATASE TOTAL (test code=ALKP) IUnit/L 45-117 CALCIUM [id number] 08:44:00* Test Item Value Reference Range Comments CALCIUM IONIZED (test code=ALTA) 1.22 mmol/L 1.12-1.32 COMPREHENSIVE METABOLIC [id number] 08:39:00* Test Item Value Reference Range Comments [...] PHOSPHATASE TOTAL (test code=ALKP) IUnit/L 45-117 CALCIUM [id number] 08:39:00* Test Item Value Reference Range Comments CALCIUM IONIZED (test code=ALTA) 1.22 mmol/L 1.12-1.32 [id number] 06:13:00* Test Item Value Reference Range Comments GLUBED (test code=GLUBED) 127 mg/dL 74-106 Performed by certified telecine operator at [facility] [id number] 06:13:00* Test Item Value Reference Range Comments GLUBED (test code=GLUBED) 104 mg/dL 74-106 Performed by certified telecine operator at [facility] [id number] 06:13:00* Test Item Value Reference Range Comments GLUBED (test code=GLUBED) 121 mg/dL 74-106 Performed by certified telecine operator at [facility] [id number] 06:13:00* Test Item Value Reference Range Comments GLUBED (test code=GLUBED) 131 mg/dL 74-106 Performed by certified telecine operator at [facility] [id number] 06:13:00* Test Item Value Reference Range Comments GLUBED (test code=GLUBED) 108 mg/dL 74-106 Performed by certified telecine operator at [facility] [id number] 06:13:00* Test Item Value Reference Range Comments GLUBED (test code=GLUBED) 120 mg/dL 74-106 Performed by certified telecine operator at [facility] ARTERIAL BLOOD [id number] 05:40:00* Test Item Value Reference Range Comments ARTERIAL BLOOD GAS PH (test code=PHA) 7.32 7.35-7.45 ARTERIAL BLOOD GAS PCO2 (test code=PCO2A) 36.2 mm Hg 35-45 ARTERIAL BLOOD GAS PO2 (test code=PO2A) 110.2 mmHg 80-100 BICARBONATE TOTAL HCO3 (test code=HCO3) 18.2 mmol/L 23.0-27.0 BASE EXCESS (test code=JILLIAN) -7.0 mmol/L -3.0-5.0 Results called to and read back by Donovan 05:36 - 03/31/2018; by SHARIF SWANSON ABG O2 SATURATION (test code=SATA) 97.5 % [...] called to and read back by Donovan 05:36 - 03/31/2018; by SHARIF SWANSON METHEMOGLOBIN (test code=METHGB) 0.5 % 0.0-1.50 O2 CONTENT (test code=O2CT) 23.9 % vol 18.0-22.0 LACTIC [id number] 04:42:00* Test Item Value Reference Range Comments LACTIC ACID (test code=LACT) 2.2 mmol/L 0.4-1.9 Results called to [id number] by [email or web address] 03/31/18 0441Critical results verified and read back by Nurse? Y COMPREHENSIVE METABOLIC [id number] 04:40:00* Test Item Value Reference Range Comments [...] reference range due to change in reagent. [id number] 04:40:00* Test Item Value Reference Range Comments PHOSPHORUS (test code=PHOS) 1.7 mg/dL 2.5-4.9 [id number] 04:40:00* Test Item Value Reference Range Comments MAGNESIUM (test code=MAG) 3.5 mg/dL 1.8-2.4 CALCIUM [id number] 04:40:00* Test Item Value Reference Range Comments CALCIUM IONIZED (test code=ALTA) 1.29 mmol/L 1.12-1.32 COMPREHENSIVE METABOLIC [id number] 04:32:00* Test Item Value Reference Range Comments [...] ALKALINE PHOSPHATASE TOTAL (test code=ALKP) IUnit/L 45-117 [id number] 04:32:00* Test Item Value Reference Range Comments PHOSPHORUS (test code=PHOS) mg/dL 2.5-4.9 [id number] 04:32:00* Test Item Value Reference Range Comments MAGNESIUM (test code=MAG) mg/dL 1.8-2.4 CALCIUM [id number] 04:32:00* Test Item Value Reference Range Comments CALCIUM IONIZED (test code=ALTA) 1.29 mmol/L 1.12-1.32 CBC W/AUTO [id number] 04:21:00* Test Item Value Reference Range Comments [...] (test code=NRBC#) 0.00 K/mm3 0.0-0.1 COMPREHENSIVE METABOLIC [id number] 04:20:00* Test Item Value Reference Range Comments [...] ALKALINE PHOSPHATASE TOTAL (test code=ALKP) IUnit/L 45-117 [id number] 04:20:00* Test Item Value Reference Range Comments PHOSPHORUS (test code=PHOS) mg/dL 2.5-4.9 [id number] 04:20:00* Test Item Value Reference Range Comments MAGNESIUM (test code=MAG) mg/dL 1.8-2.4 CALCIUM [id number] 04:20:00* Test Item Value Reference Range Comments CALCIUM IONIZED (test code=ALTA) 1.29 mmol/L 1.12-1.32 ARTERIAL BLOOD [id number] 02:54:00* Test Item Value Reference Range Comments ARTERIAL BLOOD GAS PH (test code=PHA) 7.38 7.35-7.45 ARTERIAL BLOOD GAS PCO2 (test code=PCO2A) 24.5 mm Hg 35-45 Results called to and read back by Donovan 03/31/2018; by SHARIF MANAGER SEMICONDUCTOR ARTERIAL BLOOD GAS PO2 (test code=PO2A) 102.2 mmHg 80-100 BICARBONATE TOTAL HCO3 (test code=HCO3) 14.2 mmol/L 23.0-27.0 BASE EXCESS (test code=JILLIAN) -8.4 mmol/L -3.0-5.0 Results called to and read back by Donovan 03/31/2018; by SHARIF MANAGER SEMICONDUCTOR ABG O2 SATURATION (test code=SATA) 97.5 % [...] called to and read back by Donovan 01:43 - 03/31/2018; by SHARIF SWANSON METHEMOGLOBIN (test code=METHGB) 0.4 % 0.0-1.50 O2 CONTENT (test code=O2CT) 24.0 % vol 18.0-22.0 [id number] 01:52:00* Test Item Value Reference Range Comments GLUBED (test code=GLUBED) 84 mg/dL 74-106 Performed by certified telecine operator at [facility] COMPREHENSIVE METABOLIC [id number] 00:49:00* Test Item Value Reference Range Comments [...] reference range due to change in reagent. [id number] 00:49:00* Test Item Value Reference Range Comments PHOSPHORUS (test code=PHOS) 1.3 mg/dL 2.5-4.9 [id number] 00:49:00* Test Item Value Reference Range Comments MAGNESIUM (test code=MAG) 4.7 mg/dL 1.8-2.4 CALCIUM [id number] 00:49:00* Test Item Value Reference Range Comments CALCIUM IONIZED (test code=ALTA) 1.40 mmol/L 1.12-1.32 LACTIC [id number] 00:48:00* Test Item Value Reference Range Comments LACTIC ACID (test code=LACT) 2.9 mmol/L 0.4-1.9 Results called to [id number] by V.[email or web address].AG1 03/31/18 0047Critical results verified and read back by Nurse? Y COMPREHENSIVE METABOLIC [id number] 00:42:00* Test Item Value Reference Range Comments [...] ALKALINE PHOSPHATASE TOTAL (test code=ALKP) IUnit/L 45-117 [id number] 00:42:00* Test Item Value Reference Range Comments PHOSPHORUS (test code=PHOS) mg/dL 2.5-4.9 [id number] 00:42:00* Test Item Value Reference Range Comments MAGNESIUM (test code=MAG) mg/dL 1.8-2.4 CALCIUM [id number] 00:42:00* Test Item Value Reference Range Comments CALCIUM IONIZED (test code=ALTA) 1.40 mmol/L 1.12-1.32 COMPREHENSIVE METABOLIC [id number] 00:34:00* Test Item Value Reference Range Comments [...] ALKALINE PHOSPHATASE TOTAL (test code=ALKP) IUnit/L 45-117 [id number] 00:34:00* Test Item Value Reference Range Comments PHOSPHORUS (test code=PHOS) mg/dL 2.5-4.9 [id number] 00:34:00* Test Item Value Reference Range Comments MAGNESIUM (test code=MAG) mg/dL 1.8-2.4 CALCIUM [id number] 00:34:00* Test Item Value Reference Range Comments CALCIUM IONIZED (test code=ALTA) 1.40 mmol/L 1.12-1.32 [id number] 00:06:00* Test Item Value Reference Range Comments GLUBED (test code=GLUBED) 66 mg/dL 74-106 Performed by certified telecine operator at [facility] [id number] 00:06:00* Test Item Value Reference Range Comments GLUBED (test code=GLUBED) 109 mg/dL 74-106 Performed by certified telecine operator at [facility] [id number] 00:06:00* Test Item Value Reference Range Comments GLUBED (test code=GLUBED) 159 mg/dL 74-106 Performed by certified telecine operator at [facility] [id number] 00:06:00* Test Item Value Reference Range Comments GLUBED (test code=GLUBED) 178 mg/dL 74-106 Performed by certified telecine operator at [facility] [id number] 00:06:00* Test Item Value Reference Range Comments GLUBED (test code=GLUBED) 199 mg/dL 74-106 Performed by certified telecine operator at [facility] [id number] 00:06:00* Test Item Value Reference Range Comments GLUBED (test code=GLUBED) 68 mg/dL 74-106 Performed by certified telecine operator at [facility] [id number] 00:06:00* Test Item Value Reference Range Comments GLUBED (test code=GLUBED) 231 mg/dL 74-106 Performed by certified telecine operator at [facility] [id number] 00:06:00* Test Item Value Reference Range Comments GLUBED (test code=GLUBED) 157 mg/dL 74-106 Performed by certified telecine operator at [facility] ARTERIAL BLOOD [id number] 22:14:00* Test Item Value Reference Range Comments ARTERIAL BLOOD GAS PH (test code=PHA) 7.40 7.35-7.45 ARTERIAL BLOOD GAS PCO2 (test code=PCO2A) 25.1 mm Hg 35-45 ARTERIAL BLOOD GAS PO2 (test code=PO2A) 119.3 mmHg 80-100 BICARBONATE TOTAL HCO3 (test code=HCO3) 15.3 mmol/L 23.0-27.0 BASE EXCESS (test code=JILLIAN) -7.1 mmol/L -3.0-5.0 Results called to and read back by Donovan 21:46 - 03/30/2018; by SHARIF MANAGER SEMICONDUCTOR ABG O2 SATURATION (test code=SATA) 98.0 % [...] called to and read back by Donovan :46 - 03/30/2018; by SHARIF MANAGER SEMICONDUCTOR METHEMOGLOBIN (test code=METHGB) 0.4 % 0.0-1.50 O2 CONTENT (test code=O2CT) 24.0 % vol 18.0-22.0 ARTERIAL BLOOD [id number] 22:13:00* Test Item Value Reference Range Comments ARTERIAL BLOOD GAS PH (test code=PHA) 7.42 7.35-7.45 ARTERIAL BLOOD GAS PCO2 (test code=PCO2A) 26.1 mm Hg 35-45 ARTERIAL BLOOD GAS PO2 (test code=PO2A) 124.1 mmHg 80-100 BICARBONATE TOTAL HCO3 (test code=HCO3) 16.5 mmol/L 23.0-27.0 BASE EXCESS (test code=JILLIAN) -5.8 mmol/L -3.0-5.0 Results called to and read back by Donovan 03/30/2018; by SHARIF MANAGER SEMICONDUCTOR ABG O2 SATURATION (test code=SATA) 98.2 % [...] called to and read back by Donovan 03/30/2018; by SHARIF MANAGER SEMICONDUCTOR METHEMOGLOBIN (test code=METHGB) 0.5 % 0.0-1.50 O2 CONTENT (test code=O2CT) 23.6 % vol 18.0-22.0 LACTIC [id number] 21:40:00* Test Item Value Reference Range Comments LACTIC ACID (test code=LACT) 3.8 mmol/L 0.4-1.9 Results called to [id number] by [email or web address] 03/30/18 2140Critical results verified and read back [...] >=4.9=========This LDL result is a direct measurement.========= [id number] 21:34:00* Test Item Value Reference Range Comments TROPONIN-I (test code=TROPI) 2.180 ng/mL 0-0.045 PREVIOUSLY CALLED COMMENTS TO [employer]: COLLECT 3 HOURS AFTER PREVIOUS SAMPLEBASIC METABOLIC [id number] 21:29:00* Test Item Value Reference Range Comments [...] 10-20 CALCIUM (test code=CA) 7.6 mg/dL 8.5-10.1 [id number] 21:29:00* Test Item Value Reference Range Comments PHOSPHORUS (test code=PHOS) 0.8 mg/dL 2.5-4.9 [id number] 21:29:00* Test Item Value Reference Range Comments MAGNESIUM (test code=MAG) 2.4 mg/dL 1.8-2.4 BASIC METABOLIC [id number] 21:24:00* Test Item Value Reference Range Comments [...] code=BUN/CREA) 10-20 CALCIUM (test code=CA) mg/dL 8.5-10.1 [id number] 21:24:00* Test Item Value Reference Range Comments PHOSPHORUS (test code=PHOS) mg/dL 2.5-4.9 [id number] 21:24:00* Test Item Value Reference Range Comments MAGNESIUM (test code=MAG) mg/dL 1.8-2.4 [id number] 18:07:00* Test Item Value Reference Range Comments GLUBED (test code=GLUBED) 137 mg/dL 74-106 Performed by certified telecine operator at [facility] [id number] 18:07:00* Test Item Value Reference Range Comments GLUBED (test code=GLUBED) 268 mg/dL 74-106 Performed by certified telecine operator at [facility] BASIC METABOLIC [id number] 17:05:00* Test Item Value Reference Range Comments [...] 10-20 CALCIUM (test code=CA) 8.1 mg/dL 8.5-10.1 [id number] 17:05:00* Test Item Value Reference Range Comments PHOSPHORUS (test code=PHOS) 4.1 mg/dL 2.5-4.9 [id number] 17:05:00* Test Item Value Reference Range Comments MAGNESIUM (test code=MAG) 2.4 mg/dL 1.8-2.4 BASIC METABOLIC [id number] 16:57:00* Test Item Value Reference Range Comments [...] code=BUN/CREA) 10-20 CALCIUM (test code=CA) mg/dL 8.5-10.1 [id number] 16:57:00* Test Item Value Reference Range Comments PHOSPHORUS (test code=PHOS) mg/dL 2.5-4.9 [id number] 16:57:00* Test Item Value Reference Range Comments MAGNESIUM (test code=MAG) mg/dL 1.8-2.4 LACTIC [id number] 16:46:00* Test Item Value Reference Range Comments LACTIC ACID (test code=LACT) 2.4 mmol/L 0.4-1.9 Results called to [id number] by [email or web address] 03/30/18 1646Critical results verified and read back by Nurse? Y [id number] 16:41:00* Test Item Value Reference Range Comments TROPONIN-I (test code=TROPI) 1.800 ng/mL 0-0.045 COMMENTS TO [employer]: COLLECT 3 HOURS AFTER PREVIOUS SAMPLEARTERIAL BLOOD [id number] 16:27:00* Test Item Value Reference Range Comments ARTERIAL BLOOD GAS PH (test code=PHA) 7.25 7.35-7.45 ARTERIAL BLOOD GAS PCO2 (test code=PCO2A) 46.2 mm Hg 35-45 ARTERIAL BLOOD GAS PO2 (test code=PO2A) 87.8 mmHg 80-100 BICARBONATE TOTAL HCO3 (test code=HCO3) 19.9 mmol/L 23.0-27.0 BASE EXCESS (test code=JILLIAN) -7.4 mmol/L -3.0-5.0 Results called to and read back by Dr Vickers/NPat 16: - 03/30/2018; by [id number] ABG O2 SATURATION (test code=SATA) 95.4 % [...] by Dr Vickers/Loren 16: - 03/30/2018; by [id number] METHEMOGLOBIN (test code=METHGB) 0.5 % 0.0-1.50 O2 CONTENT (test code=O2CT) 23.8 % vol 18.0-22.0 - CT HEAD/BRAIN W/O [id number] 14:43:00 Name: RADHA KENDRICK [facility] : 1965 Age/S: 52 / M [address] Unit #: [id number] Loc: [place] [address] Phys: Hayden Benson MD Acct: [id number] Dis Date: Status: ADM IN PHONE #: [phone] Exam Date: 03/30/2018 1354 FAX #: [phone] Reason: TARGETED TEMPERATURE MANAGEMENT EXAMS: CPT CODE: [id number] CT HEAD/BRAIN W/O CONT [id number] EXAM: CT of the head without contrast; [...] Baker RT(R),(MR),(CT) CTDI: DLP: [email or web address] Date/Time: 03/30/2018 ([id number]) [email or web address] Orig Print D/T: S: 03/30/2018 (8976) CTDI: DLP: PAGE 1 Signed Report LACTIC ACID 2018-03-30 13:56:00* Test Item Value Reference Range Comments LACTIC ACID (test code=LACT) 3.8 mmol/L 0.4-1.9 Results called to [id number] by MANJUB 03/30/18 1354Critical results verified and read back by Nurse? Y - XR CHEST 1 [id number] 13:05:00 FAX: Zaina De Anda [phone] [place]: [address]: ADM FAX: Hayden Benson MD [phone] Name: RADHA KENDRICK [facility] : 1965 Age/S: 52/M Ruthie Knox Unit #: [id number] Loc: [place], [place] [address] Phys: Hayden Benson MD Acct: [id number] Dis Date: Status: ADM IN PHONE #: [phone] Exam Date: 03/30/2018 1307 FAX #: [phone] Reason: sob EXAMS: CPT CODE: [id number] XR CHEST 1 V 06374 HISTORY: Shortness of breath COMPARISON: None available. ET tube is above the diaphragm. NG tube extends into the duodenum region. Right jugular central line with the tip projected over the cavoatrial junction without pneumothorax. Suboptimal inspiration. Dependent changes. No infiltrates, effusion or congestion. Cardiomegaly. IMPRESSION: No pneumothorax. The lungs are clear. Suboptimal inspiration. at 1307 Reported and signed by: Bladimir Berrios M.D. CC: Zaina Werner MD; Hayden Larios MD Technologist: RT SHANIQUA(R) Trnscrd Date/Time/By: 03/30/2018 (7690) : By: [email or web address] Orig Print D/T: S: 03/30/2018 (5650) PAGE 1 Signed Report COMPREHENSIVE METABOLIC PANEL [...] reference range due to change in reagent. [id number] 12:58:00* Test Item Value Reference Range Comments PHOSPHORUS (test code=PHOS) 8.2 mg/dL 2.5-4.9 [id number] 12:58:00* Test Item Value Reference Range Comments LIPASE (test code=LIP) 225 U/L 73.0-393.0 [id number] 12:58:00* Test Item Value Reference Range Comments MAGNESIUM (test code=MAG) 2.4 mg/dL 1.8-2.4 THYROID STIMULATING [id number] 12:58:00* Test Item Value Reference Range Comments THYROID STIMULATING HORMONE (test code=TSH) 3.200 uIU/mL 0.36-3.74 TSH REFERENCE RANGES: EUTHYROID: 0.35 - 4.3 mIU/mL HYPO : > 5.5 mIU/mL HYPER : < 0.35 mIU/mL CPK-MB [id number] 12:58:00* Test Item Value Reference Range Comments CREATINE KINASE (CK) (test code=CK) 150 IUnit/L 26-208 CKMB (test code=CKMBT) 3.6 ng/mL 0-6.0 RELATIVE % INDEX (test code=REL%) 2.40 % 0.00-2.50 "If the total CK is elevated, the CKMB Fraction must beinterpreted as a Relative % Index, Normal is less than 2.5%"NOTE: Relative % Index is not valid with a normal total CK. [id number] 12:58:00* Test Item Value Reference Range Comments TROPONIN-I (test code=TROPI) 0.204 ng/mL 0-0.045 Results called to [id number] by TEENA 03/30/18 1256Critical results verified and read back by Nurse? Y URINALYSIS [id number] 12:57:00* Test Item Value Reference Range Comments [...] MUCUS (test code=MUCU) FEW #/LPF FEW URINALYSIS [id number] 12:49:00* Test Item Value Reference Range Comments [...] WBC (test code=WBCU) per HPF 0-5 URINALYSIS [id number] 12:49:00* Test Item Value Reference Range Comments [...] WBC (test code=WBCU) per HPF 0-5 PROTHROMBIN [id number] 12:28:00* Test Item Value Reference Range Comments [...] (2.5-3.5) IS PATIENT ON ANTICOAGULANTS? NTHROMBOPLASTIN TIME [id number] 12:28:00* Test Item Value Reference Range Comments THROMBOPLASTIN TIME PARTIAL (test code=PTT) 24.4 seconds 25.0-36.5 IS PATIENT ON ANTICOAGULANTS? NCOMPREHENSIVE METABOLIC [id number] 12:26:00 * Test Item Value Reference Range [...] ALKALINE PHOSPHATASE TOTAL (test code=ALKP) IUnit/L 45-117 [id number] 12:26:00* Test Item Value Reference Range Comments PHOSPHORUS (test code=PHOS) mg/dL 2.5-4.9 [id number] 12:26:00* Test Item Value Reference Range Comments LIPASE (test code=LIP) U/L 73.0-393.0 [id number] 12:26:00* Test Item Value Reference Range Comments MAGNESIUM (test code=MAG) mg/dL 1.8-2.4 THYROID STIMULATING [id number] 12:26:00* Test Item Value Reference Range Comments THYROID STIMULATING HORMONE (test code=TSH) uIU/mL 0.36-3.74 CPK-MB [id number] 12:26:00* Test Item Value Reference Range Comments CREATINE KINASE (CK) (test code=CK) IUnit/L 26-208 CKMB (test code=CKMBT) ng/mL 0-6.0 RELATIVE % INDEX (test code=REL%) % 0.00-2.50 [id number] 12:26:00* Test Item Value Reference Range Comments TROPONIN-I (test code=TROPI) ng/mL 0-0.045 ARTERIAL BLOOD [id number] 12:17:00* Test Item Value Reference Range Comments ARTERIAL BLOOD GAS PH (test code=PHA) 7.28 7.35-7.45 ARTERIAL BLOOD GAS PCO2 (test code=PCO2A) 29.3 mm Hg 35-45 ARTERIAL BLOOD GAS PO2 (test code=PO2A) > 533.0 mmHg 80-100 BICARBONATE TOTAL HCO3 (test code=HCO3) 13.3 mmol/L 23.0-27.0 BASE EXCESS (test code=JILLIAN) -11.8 mmol/L -3.0-5.0 Results called to and read back by dr priest 12:14 - 03/30/2018; by [email or web address] ABG O2 SATURATION (test code=SATA) 99.4 % [...] (test code=METHGB) 0.6 % 0.0-1.50 CBC W/AUTO [id number] 12:14:00* Test Item Value Reference Range Comments [...]
[2018-10-25] MEDS ORDERED: ASPIRIN 81 MG CHEW TAB PO ONE (11:45)
[2018-10-25 11:51] LABS: BASOPHILS # (AUTO) 0.1 (0.0-0.1); BASOPHILS % 0.6 % (0.0-1.0); EOSINOPHILS # (AUTO) 0.1 (0.0-0.4); EOSINOPHILS % 0.6 % (0.0-6.0); HEMATOCRIT 38.4 % (38.2-49.6); HEMOGLOBIN 12.2 g/dL (14.0-18.0); LYMPHOCYTES # (AUTO) 2.1 (1.0-3.2); LYMPHOCYTES % 18.8 % (18.0-39.1); MEAN CORPUSCULAR HEMOGLOBIN 28.4 pg (28-32); MEAN CORPUSCULAR HGB CONC 31.8 g/dL (31-35); MEAN CORPUSCULAR VOLUME 89.5 fL (81-99); MONOCYTES # (AUTO) 0.9 (0.2-0.8); MONOCYTES % 7.6 % (4.4-11.3); NEUTROPHILS # (AUTO) 8.1 (2.1-6.9); NEUTROPHILS % 72.1 % (38.7-80.0); PLATELET COUNT 328 x10e3/uL (140-360); RED BLOOD COUNT 4.29 x10e6/uL (4.3-5.7); RED CELL DISTRIBUTION WIDTH 15.4 % (11.7-14.4)
[2018-10-25 12:11] LABS: ALANINE AMINOTRANSFERASE 21 IU/L (0-55); ALBUMIN 4.2 g/dL (3.5-5.0); ALBUMIN/GLOBULIN RATIO 1.3 (0.8-2.0); ALKALINE PHOSPHATASE 110 IU/L (40-150); ANION GAP 18.6 mmol/L (8-16); BLOOD UREA NITROGEN 14 mg/dL (7-26); BUN/CREATININE RATIO 13 (6-25); CALCIUM 9.7 mg/dL (8.4-10.2); CARBON DIOXIDE 19 mmol/L (22-29); CHLORIDE 106 mmol/L (98-107); CREATINE KINASE 119 IU/L (30-200); CREATININE, SERUM 1.07 mg/dL (0.72-1.25); EST GLOMERULAR FILTRATION RATE > 60 ML/MIN (60-); GLUCOSE 81 mg/dL (74-118); POTASSIUM 4.6 mmol/L (3.5-5.1); SODIUM 139 mmol/L (136-145)
[2018-10-25 13:15] LABS: BILIRUBIN,URINE NEGATIVE (NEGATIVE); CLARITY,URINE SL CLOUDY (CLEAR); COLOR,URINE YELLOW (YELLOW); KETONES,URINE NEGATIVE (NEGATIVE); LEUKOCYTE ESTERASE ,URINE NEGATIVE (NEGATIVE); NITRITE,URINE NEGATIVE (NEGATIVE); PROTEIN,URINE DIPSTICK TRACE (NEGATIVE); URINE UROBILINOGEN 0.2 mg/dL (0.2 - 1)
[2018-10-25 13:24] LABS: AMPHETAMINES SCREEN,URINE POSITIVE (NEGATIVE); PHENCYCLIDINE SCREEN,URINE NEGATIVE (NEGATIVE)
[2018-10-25 13:25] LABS: BENZODIAZEPINES SCREEN,URINE NEGATIVE (NEGATIVE)
[2018-10-25] MEDS ORDERED: LORAZEPAM INJ 2 MG/ML VIAL IV ONE (14:15)
[2018-10-25 14:30] LABS: EPITHELIAL CELLS,URINE FEW /LPF
--- NOTE | 2018-10-25 16:29 | Diagnostic Imaging Report ---
EXAM: CHEST SINGLE (PORTABLE) DATE: 10/25/2018 11:35 AM INDICATION: Spasms, twitching COMPARISON: 10/13/2018 FINDINGS: The trachea is midline. The lungs are symmetrically expanded without evidence for focal consolidation, pneumothorax, or significant pleural effusion. The cardiomediastinal silhouette is within normal limits. No acute osseous abnormalities identified. IMPRESSION: No acute cardiopulmonary process or significant interval change identified from 10/13/2018. Signed by: Dr. Luis Felipe Ba MD on 10/25/2018 4:26 PM
[2018-10-25 16:35] VITALS: BP 158/92
== END 2018-10-25 16:40 | disposition home or self-care (01) ==
LOC: ER 10:55
DX: G24.09 Other drug induced dystonia (principal); F15.10 Other stimulant abuse, uncomplicated; R26.81 Unsteadiness on feet
CPT/HCPCS: 36415; 71045; 80053; 80307; 80320; 81001; 82140; 82550; 82553; 84484; 85025; 93005; 99284; J2060

== ENCOUNTER 2018-10-25 20:13 | Emergency (ER) | payer SELFPAY ==
[~2018-10-25] VITALS: Ht 182.9 cm; Wt 113.4 kg
--- OUTSIDE RECORDS SUMMARY | 2018-10-25 20:15 | XMS REPORT | Clinical Summary ---
Author Author [facility] Organization [facility] Address Unknown Phone Unavailable Care Team Providers Care Breaker Operator Name Role Phone PCP Unavailable Allergies No [...] POC 163 (H) 74 - 106 mg/dL [facility] Specimen Blood Performing Organization Address [facility] Phone Number [facility] [address] [place] [address] * URINE DRUG SCREEN (10/22/2018 7:06 PM CDT) Only the most recent of 2 results within the time period is included. Opiate, Ur Negative Negative [facility] Comment: Calibrated Standard: Morphine Positive if urine level > rq=364 ng/dL Amphetamine Negative Negative [facility] Comment: Calibrated Standard: D-Methamphetamine Positive if urine level > oa=9930 ng/mL Barbiturate Negative Negative [facility] Comment: Calibrated Standard: Secobarbital Positive if urine level is > zo=890 ng/mL Benzodiazepine Negative Negative [facility] Comment: Calibrated Standard: Lormethazepam Positive if urine level is > ps=079 ng/mL Cocaine Negative Negative [facility] Comment: Calibrated Standard: Benzoylecgonine Positive if urine level > op=844 ng/dL PCP Negative Negative [facility] Comment: Calibrated Standard: Phencyclidine Positive if urine level > or=25 ng/dL Cannabinoid Negative Negative [facility] Comment: Calibrated Standard: 11 nor-delta(9)-THC carboxylic acid Positive if urine level > or=50 ng/mL Specimen Urine - Voided, urine Performing Organization Address [facility] Phone Number [facility] [address] [place] [address] * TROPONIN I POC (10/22/2018 12:30 PM CDT) Only the most recent of 6 results within the time period is included. Troponin POC 0.01 0.00 - 0.08 ng/mL [facility] Specimen Blood, venous Performing Organization Address City/[facility] Phone Number [facility] [address] [place] [address] * CBC (10/22/2018 12:20 PM CDT) Only [...] 0.63 0.30 - 0.82 K/uL [facility] [place]) Eos (Absolute) 0.29 0.04 - 0.54 K/uL [facility] Baso (Absolute) 0.07 0.01 - 0.08 K/uL [facility] Immature Grans 0.02 0.00 - 0.03 K/uL [facility] (Abs) Absolute NRBC 0.00 K/uL [facility] Specimen Blood Performing Organization Address City/State/Zipcode Phone Number [facility] [address] [place] [address] * ABO/RH CONFIRMATION (10/22/2018 12:20 PM CDT) [facility] ABORH O POS [facility] Specimen Blood Performing Organization Address [facility]/Zipcode Phone Number [facility] [address] [place] [address] * COMPREHENSIVE METABOLIC PANEL (10/22/2018 12:20 PM CDT) Only the most recent of 3 results within the time period is included. [facility] Sodium 137 136 - 145 mmol/L [facility] Potassium 4.3 3.5 - 5.1 mmol/L [facility] Chloride 104 98 - 107 mmol/L [facility] CO2 28 21 - 31 mmol/L [facility] Glucose 101 70 - 110 mg/dL [facility] Calcium, Total 9.2 8.6 - 10.3 mg/dL [facility] Urea Nitrogen 21.0 7.0 - 25.0 mg/dL [facility] Creatinine 0.9 0.7 - 1.3 mg/dL [facility] Alkaline 96 34 - 104 U/L [facility] Phosphatase ALT 13 7 - 52 U/L [facility] AST 12 (L) 13 - 39 U/L [facility] Total Bilirubin 0.5 0.2 - 1.2 mg/dL [facility] Total Protein 6.9 6.0 - 8.3 g/dL [facility] GFR, Estimated 88 (L) >=90 mL/min/1.73 m2 [facility] Albumin 4.2 4.2 - 5.5 g/dL [facility] Anion Gap 5 5 - 16 mmol/L [facility] Specimen Blood Performing Organization Address City/[facility]/Zipcode Phone Number [facility] [address] [place] [address] * TROPONIN I (10/22/2018 12:20 PM CDT) [facility] Troponin I <0.03 <0.04 ng/mL [facility] Specimen Blood Performing Organization Address City/[facility]/Zipcode Phone Number [facility] [address] [place] [address] * LIPID PROFILE (10/22/2018 12:20 PM CDT) Only the most recent of 2 results within the time period is included. Cholesterol 142.0 <=200.0 mg/dL [facility] Triglyceride 79 <150 mg/dL [facility] HDL 33.0 See Reference Range [facility] Narrative. mg/dL LDL 93 <100 mg/dL [facility] Comment: Optimal: < 100.0 mg/dL Near Optimal: 120-129 mg/dL Borderline: 130-159 mg/dL High: 160-189 mg/dL Very High: >=190 mg/dL Patient No [facility] Fasting? Specimen Blood Narrative Performed At Patient is not fasting. For a triglyceride result greater than 440 mg/dL, [facility] consider re-testing when the patient is in a fasting state. Performing Organization Address City/[facility]/Zipcode Phone Number [facility] [address] [place] [address] * 12 LEAD EKG (10/22/2018 6:55 AM CDT) Pathologist [facility] 12 LEAD EKG FOR [facility] Test Date:2018-10-22 Pat Name: PONCE Monte ent: Room: Gender: Coil Shaper: AHSAN :[id number] 6-15 Requested By: BRENDA Wang Order Number: [id number] Reading MD: Guero Artis Measurements Intervals [place] Rate: 66 P:2 [place]: 193 QRS: -5 QRSD: 122 T: 19 QT: 416 QTc:437 Interpretive Statements SINUS RHYTHM MODERATE INTRAVENTRICULAR CONDUCTION DELAY [110+ ms QRS DURATION] Electronically Signed On 10-22-2018 8:28:23 CDT by Guero Artis Specimen Performing Organization Address City/[facility] Phone Number SMS * BMP POC (10/22/2018 3:57 AM CDT) Only the most recent of 5 results within the time period is included. Sodium POC 138 136 - 145 mmol/L [facility] Potassium POC 3.8 3.5 - 5.1 mmol/L [facility] Chloride POC 107 98 - 107 mmol/L [facility] TCO2 POC 21 21 - 32 mmol/L [facility] Urea Nitrogen 24 (H) 7 - 18 mg/dL [facility] POC Creatinine POC 1.0 0.6 - 1.3 mg/dL [facility] Glucose POC 104 74 - 106 mg/dL [facility] Ionized Calcium 1.01 (L) 1.15 - 1.29 mmol/L [facility] POC GFR, Estimated, >90 >=90 mL/min/1.73 m2 [facility] GFR, Estimated 84 (L) >=90 mL/min/1.73 m2 [facility] Hemoglobin POC 12.2 12 - 16 g/dL [facility] Hematocrit POC 36.0 (L) 37.0 - 47.0 % [facility] Specimen Blood, venous Performing Organization Address [facility] Phone Number [facility] [address] [place] [address] * TYPE & SCREEN (10/22/2018 3:09 AM CDT) Specimen 10/25/2018 23:59 [facility] Expiration ABORH O POS [facility] Antibody Screen NEG [facility] Specimen Blood Performing Organization Address [facility] Phone Number [facility] [address] [place] [address] * XRAY CHEST 2 VIEWS (10/22/2018 3:02 [...] MD, 10/22/2018 3:13 AM Performing Organization Address [facility] Phone Number SMS * 12 LEAD EKG (10/22/2018 1:19 AM CDT) 12 LEAD EKG FOR [facility] Jonny Wood [facility] Test Date:2018-10-22 Pat Name: PONCE Monte ent: Room: Gender: M Coil Shaper: [id number] :[birth year] Requested By: ZAIN VARGAS Order Number: [id number] Reading MD: Guero Artis Measurements Intervals [place] Rate: 66 P:14 NJ: 181 QRS: -3 QRSD: 113 T: 36 QT: 402 QTc:423 Interpretive Statements SINUS RHYTHM POSSIBLE LEFT ATRIAL ENLARGEMENT [-0.1mV P WAVE IN V1/V2] MODERATE INTRAVENTRICULAR CONDUCTION DELAY [110+ ms QRS DURATION] Electronically Signed On 10-22-2018 8:28:16 CDT by Guero Artis Specimen Performing Organization Address [facility] Phone Number SMS * 12 LEAD EKG (10/12/2018 11:15 PM CDT) 12 LEAD EKG FOR [facility] Jonny Wood [facility] Test Date:2018-10-12 Pat Name: PONCE Monte ent: Room: Gender: M Coil Shaper: :[birth year] Requested By: LAUREL Sanderson Order Number: [id number] Reading MD: Renato HARE Measurements Intervals [place] Rate: 61 P:11 NJ: 183 QRS: -15 QRSD: 117 T: 30 QT: 423 QTc:426 Interpretive Statements SINUS RHYTHM MODERATE INTRAVENTRICULAR CONDUCTION DELAY [110+ ms QRS DURATION] Poor anterior R wave progression Borderline ECG Electronically Signed On 10-13-2018 10:01:18 CDT by Renato HARE Specimen Performing Organization Address City/[facility] Phone Number SMS * LIVER PROFILE (10/12/2018 [...] [facility] Specimen Blood Performing Organization Address [facility] Phone Number [facility] [address] [place], [place] [address] * LIPASE (10/12/2018 9:57 PM CDT) Only the most recent of 2 results within the time period is included. Lipase 19 11 - 82 U/L [facility] Specimen Blood Performing Organization Address [facility] Phone Number [facility] [address] [place] [address] * 12 LEAD EKG (10/12/2018 5:33 PM CDT) 12 LEAD EKG FOR [facility] Test Date:2018-10-12 Pat Name: PONCE Monte ent: Room: Gender: Coil Shaper: [place] :[id number] 6-15 Requested By: DIMITRIS Adamson Order Number: [id number] Reading MD: Renato HARE Measurements Intervals [place] Rate: 72 P:54 NJ: 167 QRS: -4 QRSD: 106 T: 46 QT: 387 QTc:424 Interpretive Statements SINUS RHYTHM Normal ECG Electronically Signed On 10-12-2018 20:00:47 CDT by Renato HARE Specimen Performing Organization Address [facility] Phone Number SMS * MRI LUMBAR SPINE W/O CONTRAST (10/03/2018 1:24 AM CDT) Specimen Impressions Performed At IMPRESSION: [facility] 1.Exam quality is very limited [...] Suggestion of synovial cysts at L4-L5. This [facility] radiology report is a preliminary resident dictation [...] Suggestion of synovial cysts at L4-L5. This [facility] radiology report is a preliminary resident dictation [...] AM CDT) Specimen Impressions Performed At IMPRESSION: [facility] 1.Exam quality is very limited [...] Suggestion of synovial cysts at L4-L5. This [facility] radiology report is a preliminary resident dictation [...] Suggestion of synovial cysts at L4-L5. This [facility] radiology report is a preliminary resident dictation until finalized by an attending.Changes to this preliminary report may occur in an additional preliminary or finalized version. Dictated By: Sunil Dotson MD, 10/03/2018 2:12 AM I have reviewed the study and agree with the findings in this report. Signed By: Nany Stevens MD, 10/03/2018 7:59 AM Narrative Performed At EXAM: MRI CERVICAL SPINE WITHOUT CONTRAST [facility] EXAM: MRI THORACIC SPINE WITHOUT [...] Suggestion of synovial cysts at L4-L5. This [facility] radiology report is a preliminary resident dictation until finalized by an attending. Changes to this preliminary report may occur in an additional preliminary or finalized version. Dictated By: Sunil Dotson MD, 10/03/2018 2:12 AM I have reviewed the study and agree with the findings in this report. Signed By: Nany Stevens MD, 10/03/2018 7:59 AM Performing Organization Address City/State/[facility] Phone Number SMS * MRI BRAIN W/O CONTRAST (10/02/2018 5:57 PM CDT) Specimen Impressions Performed At IMPRESSION:Motion degraded limited study. SMS No acute abnormality. This [facility] radiology report is a preliminary resident dictation [...] degraded limited study. No acute abnormality. This [facility] radiology report is a preliminary resident dictation [...] included. Phosphorus 4.4 2.5 - 5.0 mg/dL [facility] Specimen Blood Performing Organization Address City/State/[facility] Phone Number [facility] [address] [place] [address] * MAGNESIUM (10/02/2018 8:51 AM CDT) Only the most recent of 4 results within the time period is included. Magnesium 2.1 1.9 - 2.7 mg/dL [facility] Specimen Blood Performing Organization Address [facility] Phone Number [facility] [address] [place] [address] * CALCIUM, IONIZED (10/02/2018 8:51 AM CDT) Only the most recent of 3 results within the time period is included. Calcium, 1.12 (L) 1.15 - 1.29 mmol/L [facility] Ionized Specimen Blood Performing Organization Address [facility] Phone Number [facility] [address] [place] [address] * 12 LEAD EKG (10/02/2018 6:57 AM CDT) 12 LEAD EKG FOR [facility] Test Date:2018-10-02 Pat Name: PONCE Monte ent: Room: Gender: M Coil Shaper: [id number] :[birth year] Requested By: DIMITRIS Adamson Order Number: [id number] Reading MD: Renato HARE Measurements Intervals [place] Rate: 96 P:57 NJ: 172 QRS: -1 QRSD: 106 T: 51 QT: 363 QTc:459 Interpretive Statements SINUS RHYTHM POSSIBLE LEFT ATRIAL ENLARGEMENT Borderline ECG Electronically Signed On 10-02-2018 12:56:03 CDT by Renato HARE Specimen Performing Organization Address [facility] Phone Number [facility] * TRANSTHORACIC ECHO (TTE) (08/22/2018 10:53 AM CDT) Pathologist [facility] TRANSTHORACIC Transthoracic [facility] ECHO (TTE) Echo Report PONCE KENDRICK Age:53 Gender: M :1965 Exam Date: 08/22/2018 10:53 Exam Location: [facility] Echo Ordering Phys: JONATHAN WARD Referring Phys:SYLVIA Mars Reading Phys:Cristina Blair M.D. Fellow Phys: Anuja Smith M.D. Fellow Phys: [employer] Glazer: Chuck Newberry Reason For Exam: Indications: per neurology recs s/p stroke, rule out emboli ICD-9 Codes: Exam Type: TRANSTHORACIC ECHO (TTE) Procedure CPT:59224 Addtional CPT: Ht (in): 72 BSA: 2.44HR: [...] BP 76.6 cm LV Cardiac Output MOD [id number] cm/min LV Cardiac Index MOD BP 2138 cm/minm LA Volume 33 cm LA Volume Index 13.5 cm/m 16 - 34 cm/m LV Mass by linear [id number] g LV Mass by linear method [id number] g/m DOPPLER AV Peak Velocity 142 cm/s [...] E to A Ratio 1.3 MV Deceleration [place] 456 cm/s MV Pressure Half Time 64 [...] BP 76.6 cm LV Cardiac Output MOD [id number] cm/min LV Cardiac Index MOD BP 2138 cm/minm LA Volume 33 cm LA Volume Index 13.5 cm/m 16 - 34 cm/m LV Mass by linear g LV Mass by linear method [id number] g/m DOPPLER AV Peak Velocity 142 cm/s [...] E to A Ratio 1.3 MV Deceleration [place] 456 cm/s MV Pressure Half Time 64 [...] cm/s >9.5 cm/s Specimen Performing Organization Address [facility] Phone Number [facility] * FERRITIN (08/22/2018 2:15 AM CDT) [facility] Ferritin 131.3 23.9 - 336.2 ng/mL [facility] Specimen Blood Performing Organization Address [facility] Phone Number [facility] [address] [place] [address] * HEMOGLOBIN A1C (08/22/2018 2:13 AM CDT) Only the most recent of 2 results within the time period is included. [facility] Hemoglobin A1c 5.9 4.3 - 6.1 % [facility] Estimated 123 (H) 70 - 110 mg/dL [facility] Average Glucose Specimen Blood Performing Organization Address [facility] Phone Number [facility] [address] [place] [address] * IRON PROFILE (08/22/2018 2:13 AM CDT) [facility] Iron 35 (L) 50 - 212 ug/dL [facility] TIBC 343 250 - 450 ug/dL [facility] % Iron Sat 10 % [facility] Transferrin 244.80 203.00 - 362.00 [facility] mg/dL [facility] Specimen Blood Performing Organization Address [facility] Phone Number [facility] [address] [place] [address] * CTA NECK W CONTRAST (08/21/2018 5:29 PM CDT) Specimen Impressions Performed At IMPRESSION: [facility] Motion degraded exam. Low-attenuation mural plaque associated [...] distal internal carotid artery {NASCET criteria}.) This [facility] radiology report is a preliminary resident dictation [...] distal internal carotid artery {NASCET criteria}.) This [facility] radiology report is a preliminary resident dictation until finalized by an attending. Changes to this preliminary report may occur in an additional preliminary or finalized version. I have reviewed the study and agree with the findings in this report. Signed By: Billy Bradley MD, 08/21/2018 8:17 PM Performing Organization Address City/State/[facility] Phone Number SMS * CTA HEAD W CONTRAST (08/21/2018 5:29 PM CDT) Specimen Impressions Performed At IMPRESSION: [facility] Motion degraded exam. Low-attenuation mural plaque associated [...] distal internal carotid artery {NASCET criteria}.) This [facility] radiology report is a preliminary resident dictation [...] distal internal carotid artery {NASCET criteria}.) This [facility] radiology report is a preliminary resident dictation [...] for further evaluation as clinically warranted. This [facility] radiology report is a preliminary resident dictation [...] Performed At EXAM: CT BRAIN WITHOUT CONTRAST [facility] DATE: 08/21/2018 5:15 PM INDICATION: Ataxia, post [...] for further evaluation as clinically warranted. This [facility] radiology report is a preliminary resident dictation [...] MD, 08/21/2018 8:23 PM Performing Organization Address City/[facility]/Zipcode Phone Number [facility] * VBG POC (08/21/2018 4:16 [...] mmol/L [facility] POC Sample Type IVEN [facility] Lactic Acid POC 0.91 0.40 - 2.00 mmol/L [facility] % Sat, Hipolito POC 62 % [facility] Specimen Blood, venous Performing Organization Address City/[facility]/Zipcode Phone Number [facility] [address] [place] [address] * 12 LEAD EKG (08/21/2018 2:19 PM CDT) [facility] Test Date:2018-08-21 Pat Name: PONCE PADILLAAureliomonster ent: Room: [facility] Gender: Coil Shaper: :[id number] Requested By: MILADYS Sanderson Order Number: [id number] Reading MD: Guero Artis Measurements Intervals [place] Rate: 74 P:12 [place]: 167 QRS: -11 QRSD: 109 T: 61 QT: 386 QTc:430 Interpretive Statements SINUS RHYTHM NONSPECIFIC T-WAVE ABNORMALITY Poor R Wave Progression Left Atrial Enlargement Electronically Signed On 08-22-2018 17:49:34 CDT by Guero Artis Specimen Performing Organization Address City/State/Zipcode Phone Number SMS after 10/24/2017 Insurance Type Payer Benefit Subscriber ID Effective Phone Address Plan / Dates Group HC SELF-PAY SELF-PAY xxxxxxxxx 2018- [phone] [facility] [place] [address] Advance Directives Date Inactivated Comments Code Status Date Activated 10/23/2018 11:39 AM Full Code 10/22/2018 11:44 AM 08/23/2018 4:42 PM Full Code 08/21/2018 8:53 PM
--- OUTSIDE RECORDS SUMMARY | 2018-10-25 20:16 | XMS REPORT | Clinical Summary ---
Author Author Len [facility] Organization [place] [facility] Address Unknown Phone Unavailable Care Team Providers Care Poultry Inspector Name Role Phone Asked, No Pcp [...] (HCC) (Primary Dx); Ventricular tachycardia (HCC) 08/08/2018 [facility] General Internal Medicine - Encounter 08/19/2018 [...] & Routine 08/08/2018 ANAEROBIC 4:18 PM CDT HI INSERT Routine 08/08/2018 Cardiac arrest (HCC) CATH,ART,PERCUT,SHORTTERM [...] MMODE SPECTRAL 12:50 PM CDT COLOR DOPPLER ([id number]) BLOOD CULTURE, AEROBIC & Routine 08/08/2018 ANAEROBIC [...] PRELIMINARY Routine 08/08/2018 INTERPRETATION 10:07 AM CDT HI CRITICAL CARE, E/M Routine 08/08/2018 30-74 MINUTES 10:07 AM CDT HI INSERT NON-TUNNEL CV Routine 08/08/2018 CATH 10:07 [...] ED Physician in the absence of a hand upper and bottom lacer: yes Interpretation: Interpretation: normal Rate: ECG rate:79 ECG rate assessment: normal Rhythm: Rhythm: sinus rhythm Ectopy: Ectopy: none QRS: QRS axis:Normal QRS intervals:Normal Conduction: Conduction: normal ST segments: ST segments:Normal T waves: T waves: normal * Estimated GFR (10/05/2018 12:09 PM CDT) Only the most recent of 18 results within the time period is included. [facility] Estimated GFR 84 mL/min/1.73 m2 [place] Comment: [facility] G1 >=90 Normal or high G2 60-89Mildly decreased [id number] Mildly to moderately decreased [id number] Moderately to severely decreased G4 15-29Severely decreased G5 <15Kidney failure The eGFR was calculated using the Chronic Kidney Disease Epidemiology Collaboration (CKD-EPI) equation. Interpretation is based on recommendations of the National Kidney Foundation-Kidney Disease Outcomes Quality Initiative (NKF-KDOQI) published in 2014. Specimen Plasma specimen Performing Organization Address City/[facility]/Zipcode Phone Number [facility] [address] [place] [address] PATHOLOGY AND [employer] MEDICINE [address] * Troponin (10/05/2018 12:09 PM CDT) Only the most recent of 8 results within the time period is included. [facility] Troponin <0.006 0.000 - 0.040 ng/mL [place] Comment: [facility] changed methodology effective: HOSPITAL 07/05/2018 at 10:00 am The new method has a 99th percentile cutoff of 0.040 ng/mL Specimen Plasma specimen Performing Organization Address City/[facility]/Zipcode Phone Number [facility] [address] [place] [address] PATHOLOGY AND [employer] MEDICINE [place] [id number] [address] * CBC with platelet and differential (10/05/2018 12:09 PM CDT) Only the most recent of 15 results within the time period is included. Pathologist [facility] WBC 9.7 4.2 - 11.0 k/uL [facility] RBC 3.86 (L) 4.04 - 5.86 m/uL [facility] HGB 10.9 (L) 13.0 - 17.3 g/dL [facility] HCT 33.9 (L) 34.0 - 45.0 % [facility] MCV 87.8 80.0 - 98.0 fL [facility] MCH 28.2 27.0 - 34.0 pg [facility] MCHC 32.2 31.5 - 36.5 g/dL [facility] RDW - SD 49.5 37.0 - 51.0 fL [facility] MPV 10.9 (H) 7.4 - 10.4 fL [facility] Platelet count 271 150 - 400 k/uL [facility] Nucleated RBC 0.00 /100 WBC [facility] Neutrophils 61.0 36.0 - 66.0 % [facility] Lymphocytes 25.7 24.0 - 44.0 % [facility] Monocytes 8.2 (H) 0.0 - 6.0 % [facility] Eosinophils 4.0 0.0 - 6.0 % [facility] Basophils 0.9 0.0 - 1.2 % [facility] Immature 0.2 0.0 - 1.0 % [place] granulocytes [facility] Specimen Blood Performing Organization Address City/State/Zipcode Phone Number [facility] [address] [place] [address] PATHOLOGY AND GENOMIC MEDICINE [facility] [address] [place] [address] HOSPITAL * B natriuretic peptide (10/05/2018 12:09 PM CDT) Only the most recent of 4 results within the time period is included. Pathologist [facility] BNP 17 0 - 100 pg/mL [facility] Specimen Blood Performing Organization Address City/State/Zipcode Phone Number [facility] [address] [place] [address] PATHOLOGY AND GENOMIC MEDICINE [facility] [address] * Magnesium level (10/05/2018 12:09 PM CDT) Only the most recent of 14 results within the time period is included. Pathologist [facility] Magnesium 2.10 1.60 - 2.60 mg/dL [facility] Specimen Plasma specimen Performing Organization Address City/[facility]/Zipcode Phone Number [facility] [address] [place] [address] PATHOLOGY AND GENOMIC MEDICINE [address] * Comprehensive metabolic panel (10/05/2018 12:09 PM CDT) Only the most recent of 12 results within the time period is included. Pathologist [facility] Sodium 140 135 - 150 mEq/L [facility] Potassium 3.6 3.5 - 5.0 mEq/L [facility] Chloride 105 98 - 112 mEq/L [facility] CO2 25 24 - 31 mmol/L [facility] Anion gap 10@ANIO 7 - 15 mEq/L [facility] BUN 19 (H) 7 - 18 mg/dL [facility] Creatinine 1.00 0.70 - 1.20 mg/dL [facility] Glucose 100 65 - 100 mg/dL [facility] Calcium 9.1 8.3 - 10.2 mg/dL [facility] Protein 7.3 6.3 - 8.3 g/dL [facility] Albumin 3.8 3.5 - 5.0 g/dL [facility] A/G ratio 1.1 0.7 - 3.8 [facility] Alkaline 111 0 - 129 U/L [place] phosphatase [facility] AST 15 10 - 50 U/L [facility] ALT 26 5 - 50 U/L [facility] Total bilirubin 0.3 0.2 - 1.2 mg/dL [facility] Specimen Plasma specimen Performing Organization Address City/State/Zipcode Phone Number [facility] [address] [place] [address] PATHOLOGY AND GENOMIC MEDICINE [facility] [address] [place] [address] HOSPITAL * XR Chest 1 Vw Portable [...] osseous lesions. Incompletely healed right rib fractures. [id number] Procedure Note Hm Interface, Radiology Results Incoming - 10/05/2018 1:20 PM CDT EXAMINATION: XR CHEST 1 VW PORTABLE CLINICAL HISTORY: weakness SOB COMPARISON: August 11, 2018 IMPRESSION: Lines: None Lungs and pleura: No consolidations. No pleural effusion or pneumothorax. Heart and mediastinum: Stable appearance of cardiomediastinal silhouette. Bones: No suspicious osseous lesions. Incompletely healed right rib fractures. [id number] Performing Organization Address City/[facility]/Zipcode Phone Number [facility] [address] [place] [address] * Urinalysis screen and microscopy, with reflex to culture (10/05/2018 11:40 AM CDT) Only the most recent of 2 results within the time period is included. Specimen site Clean catch [facility] Color, UA Yellow [facility] Appearance, UA Clear [facility] Specific 1.025 1.001 - 1.035 [place] gravity, UA [facility] pH, UA 5.0 5.0 - 8.5 [facility] Protein, UA Negative Negative [facility] Glucose, UA Negative Negative [facility] Ketones, UA Trace (A) Negative [facility] Bilirubin, UA Negative Negative [facility] Blood, UA Negative Negative [facility] Nitrite, UA Negative Negative [facility] Urobilinogen, Negative <2.0 [facility] Leukocyte Negative Negative [place] esterase, UA [facility] Epithelial Few /HPF [place] cells, UA [facility] WBC, UA 2 0 - 1 /HPF [facility] RBC, UA 2 0 - 5 /HPF [facility] Bacteria, UA None seen None seen [facility] Yeast, UA None seen [facility] Yeast with None seen [place] [facility] Hyaline casts, 1 /LPF [facility] Specimen Urine Performing Organization Address City/[facility] Centercode Phone Number [facility] [place] [address] PATHOLOGY AND GENOMIC MEDICINE [address] * Urine culture (10/05/2018 11:40 AM CDT) Only the most recent of 2 results within the time period is included. [facility] Urine culture SEE COMMENTComment: [place] Bacteriuria screen negative. [facility] Specimen Performing Organization Address City/[facility] Centercode Phone Number [facility] [place] [address] PATHOLOGY AND GENOMIC MEDICINE [address] * ECG 12 lead (10/05/2018 11:31 AM CDT) Only the most recent of 3 results within the time period is included. Ventricular 79 [facility] rate Atrial rate 79 [facility] HI interval 176 [facility] QRSD interval 110 [facility] QT interval 396 [facility] QTC interval 454 [facility] P axis 1 38 [facility] QRS axis 1 15 [facility] T wave axis 49 [facility] EKG impression Normal sinus rhythm-Normal [facility] MUSE ECG-- Specimen Narrative Performed At Performing Organization Address City/State/Zipcode Phone Number [facility] [address] [place] [address] * Basic metabolic panel (08/19/2018 7:16 AM CDT) Only the most recent of 6 results within the time period is included. Pathologist [facility] Sodium 138 135 - 150 mEq/L [facility] Potassium 3.8 3.5 - 5.0 mEq/L [facility] Chloride 96 (L) 98 - 112 mEq/L [facility] CO2 29 24 - 31 mmol/L [facility] Anion gap 13@ANIO 7 - 15 mEq/L [facility] BUN 24 (H) 7 - 18 mg/dL [facility] Creatinine 1.60 (H) 0.70 - 1.20 mg/dL [facility] Glucose 119 (H) 65 - 100 mg/dL [facility] Calcium 10.2 8.3 - 10.2 mg/dL [facility] Specimen Plasma specimen Performing Organization Address City/[facility]/[place] [address] PATHOLOGY AND GENOMIC MEDICINE [address] * Partial thromboplastin time, activated (08/18/2018 5:50 AM CDT) Only the most recent of 22 results within the time period is included. Pathologist [facility] PTT 34.4 23.0 - 36.0 sec [place] Comment: [place] PTT therapeutic range for [place] unfractionated heparin is HOSPITAL 61.0-112.0 seconds which corresponds to Anti-Xa 0.3-0.7 U/ml. Note:Change in Panic Value The PTT Panic Value is changing from 110 sec. to 100 sec. due to new instrumentation and reagents. Correlation studies have been performed to validate this result. Specimen Blood Performing Organization Address City/[facility]/Zipcode Phone Number [facility] [address] [place] [address] PATHOLOGY AND GENOMIC MEDICINE [facility] [address] * Prothrombin time with INR (08/18/2018 5:50 AM CDT) Only the most recent of 4 results within the time period is included. Prothrombin 12.2 11.5 - 14.5 sec [facility] INR 0.93 [place] Comment: [place] [facility], reference ranges H[facility]PITAL below: Indication: INR Value Treatment of Venous Thrombosis, 2.0-3.0 pulmonary emboli, or prophylaxis of a venous thrombosis, or systemic emboli. High dose, high risk patients 3.0-4.5 with mechanical valves. NOTE:INR values over 3.0 are sometimes associated with gastrointestinal hemorrhage, especially values over 4.0. Specimen Blood Performing Organization Address City/State/Zipcode Phone Number [facility] [address] [place] [phone] PATHOLOGY AND GENOMIC MEDICINE [facility] [address] * MRI Brain Wo Contrast (08/17/2018 [...] abnormality identified with no evidence of ischemia. [id number] Procedure Note Interface, Radiology Results Incoming - [...] abnormality identified with no evidence of ischemia. [id number] Performing Organization Address City/[facility]/Zipcode Phone Number [facility] [address] [place] [address] * Potassium level (08/16/2018 5:34 PM CDT) Only the most recent of 2 results within the time period is included. Potassium 4.1 3.5 - 5.0 mEq/L [facility] Specimen Plasma specimen Performing Organization Address City/[facility] Centercode Phone Number [facility] [address] [place] [phone] PATHOLOGY AND GENOMIC MEDICINE [facility] [address] * EEG (routine) (08/16/2018 10:12 AM [...] results within the time period is included. [facility] Phosphorus 3.7 2.4 - 4.5 mg/dL [facility] Specimen Plasma specimen Performing Organization Address City/[facility] Centercode Phone Number [facility] [address] [place] [address] PATHOLOGY AND [facility] MEDICINE [address] * POC glucose (08/11/2018 8:50 AM CDT) Only the most recent of 26 results within the time period is included. [facility] POC glucose 78 65 - 100 mg/dL [place] Comment: [place] Meter ID: [id number] [place] Straight Line Edger: [facility] Specimen Performing Organization Address [facility] [place] [address] PATHOLOGY AND [facility] MEDICINE [address] * Arterial blood gas (08/11/2018 4:47 AM CDT) Only the most recent of 10 results within the time period is included. Straight Line Edger matt [facility] Collection site rra [facility] O2 therapy vent [facility] Respiratory 22 bpm [place] rate [facility] Tidal volume 450.0 mL [facility] .PEEP 5 cmH2O [facility] pH, arterial 7.445 7.350 - 7.450 units [facility] pCO2, arterial 31.8 (L) 35.0 - 45.0 mmHg [facility] pO2, arterial 117.0 (H) 80.0 - 90.0 mmHg [facility] O2 saturation, 98.5 95.0 - 100.0 % [place] arterial [facility] Base excess, -2.2 mEq/L [place] arterial [facility] Bicarbonate 21.9 21.0 - 28.0 mEq/L [facility] O2 content 15.6 VOL% [facility] FiO2, inspired 35.0 % [place] O2% [facility] Carboxyhemoglob 0.3 0.0 - 1.4 % [place] in Comment: [place] Reference Ranges: [place] Carboxyhemoglobin [facility] Non smoker: 0.0 - 2.0% Smoker: 2.1 - 5.0% Heavy smoker: 5.1 - 9% Methemoglobin 2.0 (H) 0.0 - 1.0 % [facility] Hemoglobin, 11.4 (L) 14.0 - 18.0 g/dL [place] blood gas [facility] pO2, A-a 97.6 mmHg [facility] Specimen Blood Performing Organization Address City/State/Zipcode Phone Number [facility] [address] [place] [address] PATHOLOGY AND GENOMIC MEDICINE [facility] [address] * XR Abdomen 1 Vw (08/10/2018 [...] is warranted, CT scan would be suggested. [facility]-[id number] Procedure Note Hm Interface, Radiology Results Incoming [...] is warranted, CT scan would be suggested. [id number] Performing Organization Address City/[facility]/Zipcode Phone Number [facility] [address] [place] [address] * Cv echo 2d limited or follow [...] size is mildly dilated. Performing Organization Address City/[facility]/Zipcode Phone Number [facility] [address] [place] [address] * Lipase level (08/09/2018 11:05 AM CDT) Lipase 8 (L) 13 - 60 U/L [facility] Specimen Plasma specimen Performing Organization Address City/State/Zipcode Phone Number [facility] OF [address] [place] [address] PATHOLOGY AND GENOMIC MEDICINE [address] * Ionized calcium (08/09/2018 11:05 AM CDT) Only the most recent of 3 results within the time period is included. pH 7.30 [facility] Ionized calcium 1.07 (L) 1.11 - 1.32 mmol/L [facility] Specimen Plasma specimen Performing Organization Address City/State/Zipcode Phone Number [facility] [address] [place] [address] PATHOLOGY AND GENOMIC MEDICINE [address] * Lactic acid level (08/09/2018 9:27 AM CDT) Only the most recent of 3 results within the time period is included. Pathologist [facility] Lactic acid 1.2 0.5 - 2.2 mmol/L [facility] Specimen Plasma specimen Performing Organization Address City/State/Zipcode Phone Number [facility] OF [address] [place] [address] PATHOLOGY AND GENOMIC MEDICINE [facility] [address] * C difficile toxin (08/09/2018 5:45 AM CDT) Pathologist [facility] Clostridium Positive for C. difficile [place] difficile toxin toxin [facility] (A) Comment: Specimen Information Specimen Source: Stool Specimen Site: Nonpreserved Specimen Stool - Nonpreserved Performing Organization Address [facility] Centercomn Phone Number [facility] DEPARTMENT OF [address] [place] [address] PATHOLOGY AND GENOMIC MEDICINE [address] * Troponin, I-Stat (08/09/2018 12:40 AM CDT) Pathologist [facility] Troponin, 0.32 (H) 0.00 - 0.08 ng/mL [place] I-Stat Comment: [place] 0.09 - 1.49 [place] ng[facility] indicate increased risk of acute coronary syndrome. >=1.5 ng/ml Consistent with acute myocardial infarction. The diagnostic value of a single normal or non-diagnostic result is questionable.Serial samples at 2-6 hour intervals are required to rule out acute myocardial injury. Specimen Plasma specimen Performing Organization Address City/[facility]/Zipcode Phone Number [facility] [address] [place] [address] PATHOLOGY AND GENOMIC MEDICINE [facility] [address] * T3, free (08/09/2018 12:40 AM CDT) Pathologist [facility] T3, free 2.32 2.18 - 3.98 pmol/L [facility] Specimen Plasma specimen Performing Organization Address City/[facility] Centercode Phone Number [facility] [address] [place] [phone] PATHOLOGY AND GENOMIC MEDICINE [facility] [address] [place] [address] * Thyroid stimulating hormone (08/09/2018 12:40 AM CDT) Only the most recent of 3 results within the time period is included. TSH 0.72 0.27 - 4.20 uIU/mL [facility] Specimen Plasma specimen Performing Organization Address City/State/Zipcode Phone Number [facility] OF [address] [place] [phone] PATHOLOGY AND GENOMIC MEDICINE [address] * Hemoglobin A1c (08/09/2018 12:40 AM CDT) Pathologist [facility] Hemoglobin A1C 5.4 4.0 - 5.6 % [place] Comment: [place] HbA1c cutoffs for diagnosing [place] diabetes: HOSPITAL 4.0% - 5.6%=normal 5.7% - 6.4%=increased risk for diabetes (prediabetes) >=6.5%=diabetes Goals for glycemic control (ADA 2016) < 7.0%Target for non adults with diabetes. More or less stringent targets may be appropriate for individual patients. <7.5% Target for Children and adolescents with type 1 diabetes. Specimen Blood Performing Organization Address City/[facility] Centercode Phone Number [facility] [address] [place] [phone] PATHOLOGY AND GENOMIC MEDICINE [address] * Lipid panel (08/09/2018 12:40 AM CDT) Cholesterol 146 0 - 199 mg/dL [facility] Triglycerides 62 0 - 149 mg/dL [facility] HDL cholesterol 41 40 - 9,999 mg/dL [facility] LDL cholesterol 111 (H)Comment: Result 0 - 99 mg/dL [place] obtained by direct LDL [place] measurement [facility] Lipid panel See below [place] interpretation Comment: [place] Total Cholesterol [place] (mg/dL) [facility] LDL Cholesterol (mg/dL) <200 Desirable <100 Optimal 200-239Borderline -[id number] or above optimal >=240High 130-159Borderline- high [...] mg/dL) Specimen Plasma specimen Performing Organization Address City/[facility] Centercode Phone Number [address] [place] [address] PATHOLOGY AND [facility] MEDICINE [address] * Lactic acid level, SEPSIS - Now and repeat 2x every 3 hours (08/08/2018 4:18 PM CDT) Only the most recent of 3 results within the time period is included. [facility] Lactic acid 2.3 (H) 0.5 - 2.2 mmol/L [place] Comment: [place] la result called to and read [place] back by [facility] [email or web address]/08/201818:34 and inpatient services rn no answer nurse qwill call Specimen Blood Performing Organization Address City/[facility] [place] [address] PATHOLOGY AND [facility] MEDICINE [address] * Blood culture, aerobic & anaerobic (08/08/2018 4:18 PM CDT) Only the most recent of 3 results within the time period is included. [facility] Blood culture No growth after 5 days of [place] isolate incubation. [place] Comment: HOSPITAL Specimen Information Specimen Source: Blood Specimen Site: Unspecified Specimen Blood Performing Organization Address City/State/Zipcode Phone Number [facility] DEPARTMENT OF [address] [place] [address] PATHOLOGY AND GENOMIC MEDICINE [address] * Vitamin B12 level (08/08/2018 4:18 PM CDT) Vitamin B12 985 (H) 231 - 931 pg/mL [place] Comment: [place] Significant overlap exists [place] between normal and deficiency HOSPITAL states. However, most patients with deficiencies will have Serum B12 <200 pg/mL. Specimen Serum Performing Organization Address City/[facility]/Zipcode Phone Number [facility] [address] [place] [address] PATHOLOGY AND [facility] MEDICINE [address] * Creatine kinase, total (CPK) (08/08/2018 4:18 PM CDT) Creatine kinase 264 39 - 308 U/L [facility] Specimen Plasma specimen Performing Organization Address City/[facility]/Zipcode Phone Number [facility] OF [address] [place] [address] PATHOLOGY AND GENOMIC MEDICINE [facility] [address] * Arterial Line Insertion (08/08/2018 4:00 [...] stool (08/08/2018 2:05 PM CDT) Pathologist [facility] Occult blood, Positive for Occult blood (A) [place] stool Comment: [place] Specimen Information [place] Specimen Source: Stool HOSPITAL Specimen Site: Nonpreserved Specimen Stool - Nonpreserved Performing Organization Address City/State/Zipcode Phone Number [facility] [address] [place] [address] PATHOLOGY AND GENOMIC MEDICINE [address] * Anti Xa, unfractionated (08/08/2018 12:57 PM CDT) Only the most recent of 2 results within the time period is included. [facility] Anti Xa, <0.10 (L)Comment: Therapeutic 0.30 - 0.70 U/mL [place] unfractionated Range: 0.30 - 0.70 U/mL [facility] Specimen Blood Performing Organization Address City/[facility] Centercode Phone Number [place] [phone] [place] [address] PATHOLOGY AND GENOMIC MEDICINE [address] * Echocardiogram complete w contrast and 3D if needed (08/08/2018 12:50 PM CDT) [facility] Velocity Ratio 0.76 m/s SYNGO (V1/V2) IVS,d [...] i VTI 1.34 cm2/m2 HM SYNGO BSA [employer] MR peak grad 8.10 mmHg HM SYNGO [...] size is mildly dilated. Performing Organization Address City/[facility]/Zipcode Phone Number [facility] [address] [place] [address] * Sputum culture (08/08/2018 12:32 PM CDT) [facility] Sputum culture Normal oral jose isolated. [place] isolate Comment: [facility] Specimen Information HOSPITAL Specimen Source: Sputum Specimen Site: Expectorated Specimen Sputum - Expectorated Performing Organization Address City/[facility] Centercomn Phone Number [facility] DEPARTMENT OF [address] [place] [address] PATHOLOGY AND GENOMIC MEDICINE [address] * Gram stain (08/08/2018 12:32 PM CDT) Only the most recent of 2 results within the time period is included. [facility] Gram stain Rare epithelial cells [place] isolate Rare Gram positive cocci in [facility] Comment: Specimen Information Specimen Source: Sputum Specimen Site: Expectorated Specimen Sputum - Expectorated Performing Organization Address [facility] Centercomn Phone Number [facility] DEPARTMENT OF [address] [place] [address] PATHOLOGY AND GENOMIC MEDICINE [address] * Urine drugs of abuse screen (08/08/2018 11:50 AM CDT) Pathologist [facility] Amphetamine Negative [place] screen, urine [facility] Barbiturate Negative [place] screen, urine [facility] Benzodiazepine Negative [place] screen, urine [facility] Cocaine screen, Positive (A) [place] urine [facility] Methadone Negative [place] metabolite [facility] (EDDP), urine [facility] Opiates screen, Negative [place] urine [facility] Phencyclidine Negative [place] screen, urine [facility] Cannabinoid Negative [place] screen, urine Comment: [place] Drug screen minimum [place] concentration of detectability [facility] Amphetamines 1000 ng/mL Barbiturates 200 ng/mL [...] is required. Specimen Urine Performing Organization Address City/[facility] Centercode Phone Number [facility] OF [address] [place] [address] PATHOLOGY AND GENOMIC MEDICINE [facility] [address] * CT Head Wo Contrast (08/08/2018 [...] IMPRESSION:No acute intracranial hemorrhage or mass effect. [id number] Procedure Note Interface, Radiology Results Incoming - [...] No acute intracranial hemorrhage or mass effect. [id number] Performing Organization Address City/State/Zipcode Phone Number [facility] [address] [place] [address] * CRITICAL CARE (08/08/2018 10:07 AM CDT) [...] Justin Buchanan DO Consent: Consent obtained:Emergent situation Sneads protocol: Patient identity confirmed:Arm band Pre-procedure details: [...] 9:21 AM CDT) Alcohol None Detected mg/dL [place] Comment: [place] Normal [facility] Detected Legal Intoxication in [place] 80 mg/dL (0.08%) Toxic Concentration 200 mg/dL (0.2%) Potentially Fatal 350-500 mg/dL (0.35%-0.5%) Alcohol percent None Detected % [facility] Specimen Blood Performing Organization Address City/State/Zipcomn Phone Number [facility] [address] [place] [address] PATHOLOGY AND GENOMIC MEDICINE [facility] [address] [place] [address] HOSPITAL after 10/24/2017 Additional Health Concerns Resolved Time Infection Noted Time C.Difficile (E) 08/12/2018 1:32 PM CDT Advance Directives For more information, please contact: [phone] Patient Offset Printing Pressmen Explanation Type Date Recorded Advance Directives, Living Will and Medical Power of General Forecaster Advance Directives, 08/08/2018 10:54 AM Living Will and Medical Power of General Forecaster
== END 2018-10-25 20:35 | disposition left against medical advice (07) ==
LOC: ER 20:13
DX: R42 Dizziness and giddiness (principal)

== ENCOUNTER 2018-12-16 17:15 | Emergency (ER) | payer SELFPAY ==
[~2018-12-16] VITALS: Ht 182.9 cm; Wt 113.4 kg
--- NOTE | 2018-12-16 18:01 | NUR ---
called pt's friend Marco @ for ride back home. expressed that patient was being medical screened. Marco asked for scripts for clonipin and advised that the ER md was not sending home with scripts. Marco said he would return to ED to retrieve patient.
== END 2018-12-16 18:31 | disposition left against medical advice (07) ==
LOC: ER 17:28
DX: R56.9 Unspecified convulsions (principal)